=== PATIENT | female | born 1950 | race Caucasian/White ===

== ENCOUNTER 2018-01-16 05:26 | Day surgery (SDC) | payer MEDICARE, SELFPAY ==
[2018-01-10 12:34] LABS: Hematocrit 41.3 % (37-47); Hemoglobin 13.9 g/dl (12.0-15.0); Mean Corp Hgb Conc 33.7 g/gl (32-36); Mean Corpuscular Hgb 29.8 pg (27.0-32.0); Mean Corpuscular Volume 88.6 fL (81-99); Mean Platelet Vol. 9.7 fl (6.2-12.0); Platelet Count 281 K/mm3 (150-450); RBC Distribution Width CV 13.1 % (11.6-14.6); RBC Distribution Width SD 41.9 fl (35.1-43.9); Red Blood Count 4.66 M/mm3 (4.2-5.4); White Blood Count 7.5 K/mm3 (4.4-11.0)
[2018-01-10 12:45] LABS: Scan Indicated on CBC? Y/N NO
[2018-01-10 13:05] LABS: Hemoglobin A1c 7.8 % (4.2-6.3)
[2018-01-10 13:12] LABS: Anion Gap 8 (5-15); BUN 20 mg/dL (7-18); Calcium,Total 9.4 mg/dL (8.5-10.1); Chloride 101 mmol/L (98-107); EST Glomerular Filtration Rate 59 mL/min (>60); Est Glom Filt Rate - Afr Amer 71 mL/min (>60); Glucose 193 mg/dL (74-106); Potassium 3.4 mmol/L (3.5-5.1); Sodium Level 138 mmol/L (136-145); Thyroid Stim Hormone (TSH) 1.99 uIU/mL (0.358-3.74)
--- NOTE | 2018-01-15 22:16 | HP.PCM_ITS ---
- Problem List (1) Endometrial hyperplasia without atypia, simple Status: Acute (2) Uterine fibroid Status: Acute Qualifiers: (3) Personal history of malignant neoplasm of breast Status: Chronic Comment: Z85.3 personal history of right breast cancer History and Physical Date of Admission: 01/15/18 Intake Vital Signs 3 01/06/18 Height 5 ft 8 in 01/06/18 Weight: 194 lb 4 oz 01/06/18 Body Mass Index (BMI) 29.5 Intake Visit Reasons: Pre Op Chief Complaint: Pre-Op Hyst Home Appliances Mechanic Required: No Is patient in pain?: No Allergies levofloxacin [From Levaquin] Allergy (Severe, Verified 01/06/18 09:35) RAISES BLOOD PRESSURE AND STOMACH SWELLS UP AND IS PAINFUL amoxicillin Allergy (Verified 01/06/18 09:35) Other atorvastatin calcium [From Lipitor] Allergy (Verified 01/06/18 09:35) Other cyclobenzaprine Allergy (Verified 01/06/18 09:35) Other estrogens, conjugated [From Premphase] Allergy (Verified 01/06/18 09:35) Other medroxyprogesterone acetate [From Premphase] Allergy (Verified 01/06/18 09:35) Other Penicillins [PCN] Allergy (Verified 01/06/18 09:35) SORE THROAT pravastatin sodium [From Pravachol] Allergy (Verified 01/06/18 09:35) Other risedronate sodium [From Actonel] Allergy (Verified 01/06/18 09:35) Other simvastatin [From Zocor] Allergy (Verified 01/06/18 09:35) Other minocycline Adverse Reaction (Verified 01/06/18 09:35) Nausea/Vom/Diarrhea Medications Aripiprazole [Abilify] 2 mg PO QHS 12/14/14 [History Confirmed 01/06/18] Hydrochlorothiazide [Hctz] 25 mg PO DAILY 12/14/14 [History Confirmed 01/06/18] Levothyroxine [Synthroid] 150 mcg PO DAILY 12/14/14 [History Confirmed 01/06/18] Losartan Potassium [Cozaar] 100 mg PO QHS 12/14/14 [History Confirmed 01/06/18] Metoprolol(XL)Succ [Toprol Xl (Beta Sinai)] 100 mg PO QHS 12/14/14 [History Confirmed 01/06/18] Omeprazole [Prilosec] 40 mg PO BID 12/14/14 [History Confirmed 01/06/18] Sertraline HCl [Zoloft] 100 mg PO QHS 12/14/14 [History Confirmed 01/06/18] Amlodipine [Norvasc] 5 mg PO QHS 04/03/16 [History Confirmed 01/06/18] Ropinirole HCl [Requip] 0.25 mg PO QHS 04/03/16 [History Confirmed 01/06/18] Rosuvastatin Calcium [Crestor] 5 mg PO QHS 04/03/16 [History Confirmed 01/06/18] Anastrozole [Arimidex] 1 mg PO QHS 10/01/16 [History Confirmed 01/06/18] Calcium Carbonate [Calcium] 500 mg PO DAILY 10/01/16 [History Confirmed 01/06/18 ] Cholecalciferol (Vitamin D3) [Vitamin D3] 2,000 unit PO DAILY 10/01/16 [History Confirmed 01/06/18] ranitidine 150 mg tablet 150 mg PO QHS 11/22/17 [History Confirmed 01/06/18] Is last menstrual period known: No Patient : No : No PFSH Medical History Acquired absence of right breast (Acute) Anxiety and depression (Acute) Back pain (Acute) Breast cancer, right breast (Acute) CARDIOLOGY PROCEDURES- INVASIVE: CARDIAC CATH (LEFT) 2004 (Acute) CARDIOLOGY PROCEDURES- NONINVASIVE : (Acute) Chickenpox (Acute) Congenital anomaly of aortic arch (Acute) DISRUPTION RIGHT BREAST RECONSTRUCTION WOUND (Acute) Diabetes (Acute) Disproportion of reconstructed breast (Acute) Diverticulosis (Acute) EXCESS MASTECTOMY TISSUE SCAR CONTOUR DEFOMITY (Acute) Estrogen receptor positive status [ER+] (Acute) GERD (gastroesophageal reflux disease) (Acute) Hand fracture (Acute) Hyperlipidemia (Acute) Hypothyroidism (Acute) IBS (irritable bowel syndrome) (Acute) LEFT VENTRICULAR EJECTION FRACTION: 52% (Acute) Left bundle branch block (Acute) Measles (Acute) Metatarsalgia (Acute) Mumps (Acute) NONHEALING SURGICAL MASTECTOMY WOUND AT T ZONE RIGHT BREAST (Acute) Nonhealing surgical wound (Acute) Osteoporosis (Acute) Other and unspecified mitral valve diseases (Acute) PAINFUL CAPSULAR CONTRACTURE RIGHT BREAST RECONSTRUCTION (Acute) Plantar fascial fibromatosis (Acute) Right thyroid nodule (Acute) Shingles (Acute) Unspecified sleep apnea (Acute) Hypertension (Chronic) Surgical History 2ND STAGE RIGHT BREAST RECONSTRUCTION (Acute) FIRST STAGE IMMEDIATE RIGHT BREAST RECONSTRUCTION (Acute) H/O dilation and curettage (Acute) History of tonsillectomy (Acute) INCISION AND DRAINAGE (Acute) LEFT STEREOTACTIC BREAST BIOPSY (Acute) LEFT WRIST SURGERY (Acute) REVISION RECONSTRUCTED RIGHT BREAST (Acute) REVISION RIGHT BREAST RECONSTRUCTION (Acute) RIGHT FOOT NEUROMA SURGERY (Acute) RIGHT MASTECTOMY AND RIGHT SENTINEL NODE BIOPSY (Acute) RIGHT NEEDLE CORE BREAST BIOPSIES X2 ( 03/07/16) (Acute) SECOND STAGE DELAYED LEFT BREAST RECONSTRUCTION (Acute) 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) polyp removal (Acute) Family History Father Pancreatic cancer Hypertension Mother Diabetes Hypertension Alzheimer disease Brother CAD (coronary artery disease) Brother CAD (coronary artery disease) Sister Breast cancer Social History household members: spouse, other details: MOTHER housing: house current occupational status: other, retired current occupation: [employer] current occupational exposures/hazards: No pets and animals: Yes Smoking Status: Former smoker second hand exposure: No alcohol intake: current alcohol intake frequency: holidays/special occasions only Alcohol type: wine substance use type: does not use what type of physical activity do you participate in: other seatbelt use: always do you feel safe at home: Yes additional social history: SUN EXPOSURE: OCCASIONALLY Seferino HPI Pre Op: Details: ERASTO BUSBY is a 67 year old who presents for preop appointment. she has hyperplasia and isn't a candidate for hormone therapy so planning a TV BSO Female Reproductive History Questions: Metorrhagia: No, Sexually active: Yes, Dyspareunia: No, PCB: No Pregancy History 2 4 Elective abortions Hx Para 3 Spontaneous abortions Hx # Term Pregnancies Ectopic pregnancies Hx # Pregnancies Multiple births # of living children Past Pregnancies Del. Date Name GA/Weeks Outcome Route Bth Weight Gen Labor Lgth Anesthesia Del Locatn Provider FOB Unknown 1973 Sandy Unknown 1974 Benedicto Unknown 1977 Lisa Cortes Constitutional: Denies poor appetite, headache(s), fever(s), increased appetite , weight gain, weight loss or fatigue ENT ENT: Denies dizziness or dry mouth Cardio Card: Denies chest pain Resp Resp: Denies dyspnea or cough GI GI: Reports as per HPI; denies vomiting, nausea, abdominal pain or constipation : Reports as per HPI; denies urinary urgency, vaginal discharge, urinary frequency, vaginal itching, vaginal odor, vaginal dryness, urinary incontinence, urinary hesitancy, pelvic pain, difficulty urinating or painful urination Musc Musc: Denies muscle weakness, joint pain or back pain Skin Skin/Breast: Denies hair loss, change in hair, dry skin, breast pain, breast skin changes or breast lump Neuro Neuro: Denies dizziness Psych Psych: Denies anxiety or depression Endo Endo: Denies cold intolerance, increased thirst, excessive sweating or heat intolerance Anibal/Lymph Hematologic/Lymphatic: Denies easy bleeding, Denies easy bruising, Denies enlarged lymph nodes Exam Const General: cooperative, healthy appearing, comfortable, no acute distress, well developed Nutritional Appearance: average body habitus Orientation: alert [facility] Head: normal to inspection, normocephalic Ears: hearing grossly normal bilaterally, external ears normal Nose: external nose normal, nares normal Face and sinus: normal facial exam Neck Neck: normal visual inspection, trachea midline, no lymphadenopathy Thyroid: thyroid normal Chest Chest palpation & inspection: normal inspection of the chest Resp Effort & Inspection: normal respiratory effort Auscultation: clear to auscultation bilaterally Cardio Rate: regular rate Rhythm: regular rhythm Heart Sounds: S1 normal, S2 normal GI Inspection: normal to inspection, non-distended Palpation: soft, no hepatosplenomegaly General: bladder normal to palpation External Female Exam: normal external appearance, normal appearance of the urethra Urethra: normal appearance of the urethra, normal palpation, no discharge Speculum Exam - Vagina: normal appearance of the vagina, normal vaginal discharge Speculum Exam - Cervix: normal appearance of the cervix, nontender Bimanual Exam- Vagina & Uterus: bladder normal to palpation, No cervical tenderness, normal bimanual exam, normal vaginal palpation, uterine size normal , uterine shape normal, uterine mobility normal, uterine consistency normal, normal cervical palpation, uterus non-tender Bimanual Exam- Adnexa, other: normal adnexae, adnexae mobile, no adnexal masses , pelvic support normal Pelvic Support: normal Musc Cervical Spine: other Other: gross motor intact no deficits, full bilateral strength Skin General: no rashes or lesions noted Neuro General: alert, awake, no focal motor deficits, moves all extremities Motor: muscle tone normal throughout Extrem General: normal to inspection, no pedal edema Psych Appearance: grossly normal Mental Status: mental status grossly normal Affect: normal affect Speech and Movement: speech and movement normal Assessment & Plan Problems 1. 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 Simple endometrial hyperplasia N85.01 Plan recommend TVH BSO if able. discussed surgical risks including risks of anesthesia, infection, bleeding, injury to bowel, bladder or blood vessels, and patient wishes to proceed with surgery. would recommend anticoagulation perioperatively. 01/16/18- patient seen and no clinical updates to kristine Bingham Coding Level of Care Code No Charge Diagnoses Submucous leiomyoma of uterus D25.0 ??Uterine leiomyoma location: submucous Simple endometrial hyperplasia N85.01
[2018-01-16] VITALS (15 sets, daily range): BP systolic 103–139; BP diastolic 58–82; PULSE 70–94; RESP 12–16; TEMP 36.2–36.8; O2SAT 90–97; BMI 30.1; BMI 30.2
[2018-01-16 05:56] LABS: Bedside Glucose 220 mg/dL (70-110)
--- NOTE | 2018-01-16 07:15 | HYST_PTH ---
PATIENT: ERASTO BUSBY [place] [facility] [place][id number] AGE/SX: 67/F ROOM: RE01/16/[address]: Dr. Mi Bingham MD : [id number] BED: DIS: 01/17/2018 SPEC #: [id number] RECD: 01/16/18 12:12 STATUS: ZACKERY CLEMENTE #: [id number] KAILEE: 01/16/18 07:[address]: Mi Bingham DEPT: SURGICAL PATHOLOGY RECD BY: Edison Munoz ENTERED: 01/16/18 13:15 SP TYPE: HYSTERECT OTHR DR: MD Dr. Benedicto Medina MD Tissues: Uterus, NOS Procedures: Surgery Specimen Level V HEADER OPERATION: Hysterectomy, vaginal, total, bilateral salpingo-oophorectomy PRE-OP DIAGNOSIS: Endometrial hyperplasia TISSUE SUBMITTED: Uterus, bilateral tubes and ovaries MICROSCOPIC DIAGNOSIS Uterus, bilateral fallopii tubes and ovaries, vaginal hysterectomy and bilateral salpingo-oophorectomy: Cervix ? mild chronic cystic cervicitis. Endometrium ? atrophic endometrium. Myometrium ? intramural leiomyomas (0.4 and 1.5 cm in diameter). See comment. - Focal adenomyosis. - Focal vascular calcifications. Bilateral fallopian tubes - no pathologic diagnosis. One ovary - no pathologic diagnosis. Second ovary ? mixed simple seromucinous cystadenoma (0.5 cm in greatest dimension). - mesothelial inclusion cysts. ANTONELLA:sara 01/17/18 COMMENT The larger leiomyoma shows focal calcified areas. Please make reference to previous specimen [id number], endometrial curettings with diagnosis of fragments of simple cystic endometrial hyperplasia without atypia. MICROSCOPIC DESCRIPTION Slides are reviewed. GROSS DESCRIPTION Received in fixative is one container labeled with the patient's name and designated uterus, bilateral tubes and ovaries. The specimen consists of a hysterectomy specimen consisting of uterus with cervix and detached bilateral fallopian tubes and ovaries. The uterus with cervix weighs 46 gm and measures 7.5 x 4.5 x 3 cm. The serosal surface is ca, glistening. The ectocervical mucosa is unremarkable. The external os is circular in contour. The endocervical canal measures 3 cm in length and the endocervical mucosa is ca, glistening and unremarkable. The triangular endometrial cavity measures 3.5 cm in length and 2 cm in width. Sections of the uterine wall reveal two intramural nodular masses measuring 0.4 and 1.5 cm in diameter. Sections of these masses reveal ca whorled cut surfaces without areas of hemorrhage, necrosis or cystic degeneration. The larger nodular mass shows focally calcified area. The uninvolved uterine wall measures up to 1.5 cm in thickness. The fallopian tube and ovary are not identified as right or left. One of the fallopian tube measures 5 cm in length and 0.4 cm in diameter. The fimbrial end is identified. Sections reveal unremarkable cut surfaces. The adjacent ovary measures 3 x 1.5 x 0.5 cm. Sections reveal unremarkable cut surfaces. The second fallopian tube is received in two pieces. The distal end with fimbrial end measures 3.5 cm in length and 0.5 cm in diameter. No tubo-ovarian adhesions are noted. The proximal end measures 1 cm in length and 0.4 cm in diameter. The adjacent second ovary measures 3 x 1 x 1 cm. Sections reveal a cyst filled with mucoid material measuring 0.5 cm in greatest dimension. A focal, solid area is also noted measuring 1.5 cm in greatest dimension. Radar Engineering Teacher sections are submitted in 14 cassettes as follows: 1 - anterior cervix, 2 - posterior cervix, 3-5 - anterior uterine wall, 6-8 - posterior uterine wall (cassette 6 also contains the smaller nodular mass, entirely submitted). The endometrium is entirely submitted. 9 ? larger nodular mass, 10 ? one fallopian tube, 11 ? adjacent ovary, 12 ? second fallopian tube, 13 & 14 ? second ovary, entirely submitted. / ANTONELLA:sara 01/16/18 TC:1 CPT: 23174
[2018-01-16] MEDS: Clindamycin 900 MG/50 ML BAG 75 MG IV (07:22)
[2018-01-16] MEDS: Vasopressin 20 UNITS/ML Vial (07:47)
[2018-01-16] MEDS: Ketorolac 30 MG/ML Syringe IV ×3 (08:30→21:50)
--- NOTE | 2018-01-16 08:44 | PCM.OPRPT ---
Problem List (1) Endometrial hyperplasia without atypia, simple Status: Acute (2) Uterine fibroid Status: Acute Qualifiers: (3) Personal history of malignant neoplasm of breast Status: Chronic Comment: Z85.3 personal history of right breast cancer Report of Operation Date of Procedure: 01/16/18 Pre-Operative Diagnosis: endometrial hyperplasia history of breast cancer Post-Operative Diagnosis: Same Surgery/Procedure Performed:: total Vaginal hysterectomy bilateral salpingo-oophorectomy Description of Surgical Findings:: Uterus tubes and ovaries property field adjuster: Etta Espinoza Type of Anesthesia:: General Specimen's removed: uterus tubes ovaries Estimated Blood Loss (mL): 100 Fluids Replaced: crystalloid Description of Procedure: Patient was taken to the operating room and was placed under general anesthesia was prepped and draped in normal sterile fashion in the dorsal lithotomy position. Preoperative antibiotics and SCDs and Hilario catheter was placed inside the bladder. Weighted speculum was placed in the vagina and the anterior and posterior lip of the cervix was grasped with 2 Abad clamps and circumferentially injected with dilute vasopressin. A circumferential incision was made with a scalpel and the posterior cul-de-sac was entered into sharply and a longneck speculum was placed. The anterior cul-de-sac was also dissected down and entered into sharply and the uterosacral ligaments were clamped cut and suture ligated bilaterally followed by the cardinal ligaments which were Clamped cut and suture ligated bilaterally with 0 Monocryl. The uterus serially descended and progressive bites were taken bilaterally up to the level of the utero-ovarian ligament bilaterally which was clamped transected and double ligated with 0 Monocryl suture and 0 Vicryl free tie. Bilateral fallopian tubes and ovaries were well visualized and noted be within normal limits and theywere transected across the base with a robert clamp and removed and sutured with 0 Vicryl suture and an 0 Vicryl free tie. Excellent hemostasis was noted. Posterior peritoneum was reapproximated with 2-0 Vicryl. The vagina was closed with [id number] 0 Vicryl pop offs including the posterior and anterior peritoneum in the reapproximation. Excellent hemostasis was noted. All instruments removed from the vagina clear urine was noted at the end of the procedure and patient was awoken and taken recovery in stable condition. Grafts/Implants Used: none - Complications none
--- NOTE | 2018-01-16 08:47 | OP.PCM_ITS ---
Problem List (1) Endometrial hyperplasia without atypia, simple Status: Acute (2) Uterine fibroid Status: Acute Qualifiers: (3) Personal history of malignant neoplasm of breast Status: Chronic Comment: Z85.3 personal history of right breast cancer Report of Operation Date of Procedure: 01/16/18 Pre-Operative Diagnosis: endometrial hyperplasia history of breast cancer Post-Operative Diagnosis: Same Surgery/Procedure Performed:: total Vaginal hysterectomy bilateral salpingo- oophorectomy Description of Surgical Findings:: Uterus tubes and ovaries office systems technology instructor: Etta Espinoza Type of Anesthesia:: General Specimen's removed: uterus tubes ovaries Estimated Blood Loss (mL): 100 Fluids Replaced: crystalloid Description of Procedure: Patient was taken to the operating room and was placed under general anesthesia was prepped and draped in normal sterile fashion in the dorsal lithotomy position. Preoperative antibiotics and SCDs and Hilario catheter was placed inside the bladder. Weighted speculum was placed in the vagina and the anterior and posterior lip of the cervix was grasped with 2 Abad clamps and circumferentially injected with dilute vasopressin. A circumferential incision was made with a scalpel and the posterior cul-de-sac was entered into sharply and a longneck speculum was placed. The anterior cul-de-sac was also dissected down and entered into sharply and the uterosacral ligaments were clamped cut and suture ligated bilaterally followed by the cardinal ligaments which were Clamped cut and suture ligated bilaterally with 0 Monocryl. The uterus serially descended and progressive bites were taken bilaterally up to the level of the utero-ovarian ligament bilaterally which was clamped transected and double ligated with 0 Monocryl suture and 0 Vicryl free tie. Bilateral fallopian tubes and ovaries were well visualized and noted be within normal limits and theywere transected across the base with a robert clamp and removed and sutured with 0 Vicryl suture and an 0 Vicryl free tie. Excellent hemostasis was noted. Posterior peritoneum was reapproximated with 2-0 Vicryl. The vagina was closed with [id number] 0 Vicryl pop offs including the posterior and anterior peritoneum in the reapproximation. Excellent hemostasis was noted. All instruments removed from the vagina clear urine was noted at the end of the procedure and patient was awoken and taken recovery in stable condition. Grafts/Implants Used: none - Complications none
[2018-01-16 09:11] LABS: Bedside Glucose 253 mg/dL (70-110)
[2018-01-16] MEDS: Lactated Ringers 1,000 ML 125 ML IV ×2 (11:47→18:15)
[2018-01-16 11:55] LABS: Bedside Glucose 277 mg/dL (70-110)
[2018-01-16] MEDS: oxyCODONE 5 MG Tablet PO (13:39)
[2018-01-16] MEDS: LINAGLIPTIN 5 MG TABLET PO (13:40)
[2018-01-16] MEDS: hydroCHLOROthiazide 25 MG Tablet PO (13:40)
[2018-01-16] MEDS: Acetaminophen 500 MG Tablet 1000 MG PO ×2 (13:41→21:49)
[2018-01-16] MEDS: Calcium (Elemental) 500 MG Tablet PO (13:43)
--- NOTE | 2018-01-16 14:22 | NURSING ---
O2 sat. 94% on 3 l/min via NC. Oxygen decreased to 2 l/min.
[2018-01-16 16:50] LABS: Bedside Glucose 264 mg/dL (70-110)
--- NOTE | 2018-01-16 18:30 | NURSING ---
Oxygen saturation 89% on RA. Placed back on oxygen at 2 l/min via NC.
[2018-01-16] MEDS: Losartan Potassium 100 MG Tablet PO (21:49)
[2018-01-16] MEDS: Famotidine 20 MG Tablet PO (21:49)
[2018-01-16] MEDS: Metoprolol(XL)Succ 100 MG Tablet PO (21:49)
[2018-01-16] MEDS: amLODIPine 10 MG Tablet PO (21:49)
[2018-01-16] MEDS: Sertraline 50 MG Tablet 100 MG PO (21:49)
[2018-01-16] MEDS: ARIPiprazole 2 MG Tablet PO (21:49)
[2018-01-16] MEDS: Pramipexole Di-HCl 0.25 MG Tablet PO (21:49)
[2018-01-16] MEDS: Rosuvastatin Calcium 5 MG Tablet PO (22:06)
[2018-01-16] MEDS: Pantoprazole Sodium 40 MG Tablet PO (22:06)
[2018-01-16 22:16] LABS: Bedside Glucose 270 mg/dL (70-110)
[2018-01-17 01:45] VITALS: BP 123/67; PULSE 80; RESP 16; TEMP 36.8; O2SAT 96
[2018-01-17] MEDS: Lactated Ringers 1,000 ML 125 ML IV (02:02)
[2018-01-17] MEDS: Ketorolac 30 MG/ML Syringe IV ×2 (03:31→08:06)
[2018-01-17 06:33] LABS: Hematocrit 32.9 % (37-47); Hemoglobin 11.1 g/dl (12.0-15.0); Mean Corp Hgb Conc 33.7 g/gl (32-36); Mean Corpuscular Hgb 30.2 pg (27.0-32.0); Mean Corpuscular Volume 89.4 fL (81-99); Mean Platelet Vol. 9.5 fl (6.2-12.0); Platelet Count 229 K/mm3 (150-450); RBC Distribution Width CV 13.1 % (11.6-14.6); RBC Distribution Width SD 42.4 fl (35.1-43.9); Red Blood Count 3.68 M/mm3 (4.2-5.4); White Blood Count 8.7 K/mm3 (4.4-11.0)
[2018-01-17 06:39] LABS: Scan Indicated on CBC? Y/N NO
[2018-01-17] MEDS: Acetaminophen 500 MG Tablet 1000 MG PO (06:40)
[2018-01-17] MEDS: Levothyroxine 150 MCG Tablet PO (06:41)
[2018-01-17 06:56] LABS: Bedside Glucose 164 mg/dL (70-110)
[2018-01-17 07:56] VITALS: BP 121/62; PULSE 68; RESP 16; TEMP 36.6; O2SAT 92
[2018-01-17] MEDS: Calcium (Elemental) 500 MG Tablet PO (08:05)
[2018-01-17] MEDS: 0.9% NaCl Peripheral Flush Adult/Peds IV (08:07)
[2018-01-17] MEDS: hydroCHLOROthiazide 25 MG Tablet PO (09:53)
[2018-01-17] MEDS: Enoxaparin 40 MG/0.4 ML Syringe SC (09:53)
[2018-01-17] MEDS: Pantoprazole Sodium 40 MG Tablet PO (09:54)
[2018-01-17] MEDS: LINAGLIPTIN 5 MG TABLET PO (09:54)
--- NOTE | 2018-01-17 09:55 | NURSING ---
O2 sat. 94% on room air.
--- NOTE | 2018-01-17 10:27 | PCM.PN.OB ---
Subjective: doing well pain controlled - Physical Exam General: Alert, Oriented x3 Vital Signs Temp Pulse Resp BP Pulse Ox 97.8 F 68 16 121/62 H 92 01/17/18 07:56 01/17/18 07:56 01/17/18 07:56 01/17/18 07:56 01/17/18 07:56 Oxygen Flow Rate 1 Oxygen Delivery Method Nasal Cannula Weight: 195 lb 1.745 oz Body Mass Index (BMI) 30.2 Finger Stick Blood Glucose 253 Intake and Output for Last 24 Hours 01/15/18 01/16/18 01/17/18 23:59 23:59 23:59 Intake Total 3787 / 3787 1545 / 1545 Output Total 900 / 900 1350 / 1350 Balance 2887 / 2887 195 / 195 Laboratory Tests Past 24 Hrs 01/17/18 06:12 WBC 8.7 RBC 3.68 L Hgb 11.1 L Hct 32.9 L MCV 89.4 MCH 30.2 MCHC 33.7 RDW 13.1 RDW Differential 42.4 Plt Count 229 MPV 9.5 POC Glucose 01/17/18 01/16/18 01/16/18 06:32 22:04 16:43 POC Glucose 164 H 270 H 264 H 01/16/18 11:51 POC Glucose 277 H Assessment/Plan s/p TVHBSO routine care dc home today. discussed elevated blood sugars, call pcp if over 300. lovenox today and then will be ambulating so no further anticoagulation indicated.
--- NOTE | 2018-01-17 10:32 | PCM.DC.VHY ---
Discharge Diet: No Restrictions Discharge Activity: Return to Normal Activity, May Not Drive, May Shower May resume sexual activity in: 6-8 weeks Call your doctor if your incision/area has: Continuous Slow Oozing, Sudden Increased Bleeding, Increased Pain/ Swelling, Increased Redness, Foul Smelling Discharge Call your doctor if you observe: Fever of 101 or Higher, Inability to urinate, Inability to have a bowel movement, Using more than one pad per hour Allergies/Adverse Reactions: Allergies levofloxacin [From Levaquin] Allergy (Severe, Verified 01/06/18 09:35) RAISES BLOOD PRESSURE AND STOMACH SWELLS UP AND IS PAINFUL amoxicillin Allergy (Verified 01/06/18 09:35) Other atorvastatin calcium [From Lipitor] Allergy (Verified 01/06/18 09:35) Other cyclobenzaprine Allergy (Verified 01/06/18 09:35) Other estrogens, conjugated [From Premphase] Allergy (Verified 01/06/18 09:35) Other medroxyprogesterone acetate [From Premphase] Allergy (Verified 01/06/18 09:35) Other Penicillins [PCN] Allergy (Verified 01/06/18 09:35) SORE THROAT pravastatin sodium [From Pravachol] Allergy (Verified 01/06/18 09:35) Other risedronate sodium [From Actonel] Allergy (Verified 01/06/18 09:35) Other simvastatin [From Zocor] Allergy (Verified 01/06/18 09:35) Other minocycline Adverse Reaction (Verified 01/06/18 09:35) Nausea/Vom/Diarrhea Medications to take at Discharge Aripiprazole [Abilify] 2 mg PO QHS 12/14/14 Hydrochlorothiazide [Hctz] 25 mg PO DAILY 12/14/14 Levothyroxine [Synthroid] 150 mcg PO DAILY 12/14/14 Losartan Potassium [Cozaar] 100 mg PO QHS 12/14/14 Metoprolol(XL)Succ [Toprol Xl (Beta Sinai)] 100 mg PO QHS 12/14/14 Omeprazole [Prilosec] 40 mg PO BID 12/14/14 Sertraline HCl [Zoloft] 100 mg PO QHS 12/14/14 Amlodipine [Norvasc] 10 mg PO QHS 04/03/16 Ropinirole HCl [Requip] 0.5 mg PO QHS 04/03/16 Rosuvastatin Calcium [Crestor] 5 mg PO QHS 04/03/16 Anastrozole [Arimidex] 1 mg PO QHS 10/01/16 Calcium Carbonate [Calcium] 500 mg PO DAILY 10/01/16 Cholecalciferol (Vitamin D3) [Vitamin D3] 2,000 unit PO DAILY 10/01/16 ranitidine 150 mg tablet 150 mg PO QHS 11/22/17 Sitagliptin Phosphate [Januvia] 100 mg PO DAILY 01/09/18 Naproxen [Naprosyn] 250 - 500 mg PO Q8H PRN PRN #30 tab 01/17/18 Oxycodone HCl/Acetaminophen [Percocet 5-325] 2 tablet PO Q4H PRN PRN 7 Days #28 tablet 01/17/18 The following prescriptions were given: Oxycodone HCl/Acetaminophen [Percocet 5-325] 2 tablet PO Q4H PRN PRN 7 Days #28 tablet PRN Reason: Moderate-Severe pain Naproxen [Naprosyn] 250 - 500 mg PO Q8H PRN PRN #30 tab PRN Reason: MILD PAIN Primary Care Physician: Sterling Roland MD [Primary Care Provider] - Please Follow Up With: Mi Bingham MD - [phone]
== END 2018-01-17 11:44 | disposition home or self-care (01) ==
LOC: SDC 05:28 → AC 05:28 → SDC 09:00 → MS2 10:16
PROVIDERS: Family Provider Family Medicine; PCP Family Medicine; Visit Provider Obstetrics & Gynecology
PROC: (CPT 58260; principal; 2018-01-16 06:55)
DX: D25.0 Submucous leiomyoma of uterus (principal); D25.1 Intramural leiomyoma of uterus; L72.0 Epidermal cyst; N72 Inflammatory disease of cervix uteri; E11.9 Type 2 diabetes mellitus without complications; F32.9 Major depressive disorder, single episode, unspecified; E78.00 Pure hypercholesterolemia, unspecified; K21.9 Gastro-esophageal reflux disease without esophagitis; I10 Essential (primary) hypertension; N85.01 Benign endometrial hyperplasia; M41.9 Scoliosis, unspecified; I25.10 Atherosclerotic heart disease of native coronary artery without angina pectoris; G25.81 Restless legs syndrome; Z85.3 Personal history of malignant neoplasm of breast; Z86.718 Personal history of other venous thrombosis and embolism; Z79.899 Other long term (current) drug therapy; Z87.891 Personal history of nicotine dependence
CPT/HCPCS: 58262; 36415; 80048; 82962; 83036; 84443; 85027; 86850; 86900; 88307; J7120; A4216; J2405

== ENCOUNTER → 2018-02-27 18:13 | Outpatient (CLI) | payer MEDICARE, SELFPAY | PROVIDERS: Visit Provider Obstetrics & Gynecology | DX: N89.8 Other specified noninflammatory disorders of vagina (principal) | CPT/HCPCS: 87070; 87205 ==

== ENCOUNTER → 2018-04-01 12:38 | Outpatient (CLI) | payer MEDICARE, SELFPAY ==
[2018-04-01 14:31] LABS: Anion Gap 9 (5-15); BUN 22 mg/dL (7-18); BUN/Creat Ratio 20.6 RATIO (10-20); Calcium,Total 9.7 mg/dL (8.5-10.1); Chloride 102 mmol/L (98-107); Creatinine, Serum 1.07 mg/dL (0.55-1.02); EST Glomerular Filtration Rate 55 mL/min (>60); Est Glom Filt Rate - Afr Amer 66 mL/min (>60); Glucose 129 mg/dL (74-106); Magnesium 2.2 mg/dL (1.6-2.6); Potassium 3.8 mmol/L (3.5-5.1); Sodium Level 140 mmol/L (136-145)
[2018-04-01 20:36] LABS: Hematocrit 41.6 % (37-47); Hemoglobin 14.2 g/dl (12.0-15.0); Mean Corp Hgb Conc 34.1 g/gl (32-36); Mean Corpuscular Hgb 30.4 pg (27.0-32.0); Mean Corpuscular Volume 89.1 fL (81-99); Mean Platelet Vol. 10.7 fl (6.2-12.0); Platelet Count 296 K/mm3 (150-450); RBC Distribution Width CV 13.6 % (11.6-14.6); RBC Distribution Width SD 43.9 fl (35.1-43.9); Red Blood Count 4.67 M/mm3 (4.2-5.4); White Blood Count 8.1 K/mm3 (4.4-11.0)
[2018-04-01 20:38] LABS: Scan Indicated on CBC? Y/N NO
== END ==
PROVIDERS: Family Provider Family Medicine; PCP Family Medicine; Visit Provider Family Medicine
DX: E03.9 Hypothyroidism, unspecified (principal); I10 Essential (primary) hypertension; R00.1 Bradycardia, unspecified
CPT/HCPCS: 36415; 80048; 83735; 84443; 85027

== ENCOUNTER → 2018-05-19 14:09 | Outpatient (CLI) | payer MEDICARE, SELFPAY ==
[2018-05-19 15:28] LABS: Hemoglobin 13.6 g/dl (12.0-15.0); Mean Corpuscular Hgb 29.9 pg (27.0-32.0); Mean Corpuscular Volume 87.9 fL (81-99); Mean Platelet Vol. 10.1 fl (6.2-12.0); Platelet Count 302 K/mm3 (150-450); RBC Distribution Width SD 41.6 fl (35.1-43.9); Red Blood Count 4.55 M/mm3 (4.2-5.4); White Blood Count 7.7 K/mm3 (4.4-11.0)
[2018-05-19 15:32] LABS: Scan Indicated on CBC? Y/N NO
[2018-05-19 15:49] LABS: Anion Gap 9 (5-15); BUN 21 mg/dL (7-18); BUN/Creat Ratio 22.9 RATIO (10-20); Calcium,Total 9.4 mg/dL (8.5-10.1); Chloride 102 mmol/L (98-107); Creatinine, Serum 0.92 mg/dL (0.55-1.02); EST Glomerular Filtration Rate 65 mL/min (>60); Est Glom Filt Rate - Afr Amer 79 mL/min (>60); Glucose 99 mg/dL (74-106); Potassium 3.6 mmol/L (3.5-5.1); Sodium Level 138 mmol/L (136-145); T4 Free Direct 2.06 ng/dL (0.76-1.46); Thyroid Stim Hormone (TSH) 0.09 uIU/mL (0.358-3.74)
== END ==
PROVIDERS: Visit Provider Family Medicine
DX: I10 Essential (primary) hypertension (principal); E03.9 Hypothyroidism, unspecified
CPT/HCPCS: 36415; 80048; 84439; 84443; 85027

== ENCOUNTER → 2018-07-02 12:43 | Outpatient (CLI) | payer MEDICARE, SELFPAY | PROVIDERS: Family Provider Family Medicine; PCP Family Medicine; Visit Provider Nurse Practitioner | DX: Z12.31 Encounter for screening mammogram for malignant neoplasm of breast (principal); C50.811 Malignant neoplasm of overlapping sites of right female breast; Z17.0 Estrogen receptor positive status [ER+] | CPT/HCPCS: 77061; 77063; 77067; G0279 ==

== ENCOUNTER → 2018-07-22 10:59 | Outpatient (CLI) | payer MEDICARE, SELFPAY ==
--- NOTE | 2018-07-23 | BRBX_PTH ---
PATIENT: ERASTO BUSBY LOC: [facility] U#:[id number] AGE/SX: 75/F ROOM: RE07/22/[address]: Dr. Edison Puga MD : 1950 BED: DIS: SPEC #: [id number] RECD: 07/23/18 13:41 STATUS: ZACKERY REJaylene #: [id number] KAILEE: 07/23/18 00:[address]: Edison Puga DEPT: SURGICAL PATHOLOGY RECD BY: Salomón Peters ENTERED: 07/23/18 13:42 SP TYPE: BREAST BX OTHR DR: Dr. Benedicto Roland MD Tissues: A - Left breast, NOS B - Left breast, NOS Procedures: Surgery Specimen Level IV Comments: Specimen received unlabeled 07/22/18. Returned to wrong office. One day delay. 07/23/18 RG HEADER OPERATION: Left breast stereotactic biopsy PRE-OP DIAGNOSIS: Left breast calcifications TISSUE SUBMITTED: A ? Left breast core tissue #1, B - Left breast core tissue #2 ISCHEMIC TIME: 2 minutes MICROSCOPIC DIAGNOSIS A. Left breast core tissue #1, stereotactic core biopsy: Fatty breast tissue with focal fat necrosis and focal minimal dystrophic calcifications. Negative for atypia or malignancy. B. Left breast core tissue #2, stereotactic core biopsy: Fatty breast tissue with focal fat necrosis, chronic inflammation, histiocytic reaction and dystrophic calcifications. Negative for atypia or malignancy. See comment. ANTONELLA:sara 07/24/18 COMMENT Please make reference to previous specimen ([id number]) left breast tissue with diagnosis of benign breast tissue with focal fibroadenoma. MICROSCOPIC DESCRIPTION Slides are reviewed. GROSS DESCRIPTION A - Received in fixative is one container labeled with the patient's name and designated medial first. The specimen consists of multiple irregular and elongated fragments of yellow-ca soft tissue that in aggregate measure 5.5 x 3.5 x 0.2 cm. The specimen is totally submitted in two cassettes. B - Received in fixative is one container labeled with the patient's name and designated second. The specimen consists of multiple irregular and elongated fragments of yellow-ca soft tissue that in aggregate measure 5.5 x 3.5 x 0.2 cm. The specimen is totally submitted in two cassettes. / CRISTAL:sara 07/23/18 TC:5 CPT: 76787 x2
--- NOTE | 2018-07-23 11:15 | PCM.OPRPT ---
Report of Operation Date of Procedure: 07/22/18 Pre-Operative Diagnosis: left breast microcalcifications x 2 Post-Operative Diagnosis: left breast microcalcifications x 2 - successful biopsy Surgery/Procedure Performed:: left stereotactic guided mammotome biopsy with specimen radiogram and marker placement x 2 studio technician video operator: None Type of Anesthesia:: Local Specimen's removed: left breast - inferior and superior Description of Procedure: The patient was brought to the stereotactic suite and informed of the plan course of events. The left breast was positioned in the true medial to lateral position on the [place] stereotactic table. The lower/caudal lesion was approached first Mammographic image demonstrated the area of abnormality to be located in the center of the radiograph. Stereotactic images were then obtained which demonstrated good positioning of the abnormality for biopsy with good stroke julio parameters. The breast was cleaned with Betadine area did one percent lidocaine was used to anesthetize the skin and a small stab incision made. An 8-gauge mammotome needle was placed into the pre-fire position. Stereotactic images demonstrated good positioning around the planned biopsy site. Local anesthetic injected deeply in the breast. The needle was deployed. Post deployment images demonstrated good positioning of the planned biopsy site. Multiple vacuum-assisted samples were obtained and hfhzgm-[id number]-[id number] fashion. Specimen radiograph demonstrated micro-calcifications in the sample. A bowtie shaped gel marker clip was deployed. Post biopsy images demonstrated good position of the clip relative the biopsy cavity. The breast was removed from compression. Steri-Strips and a dressing applied. The upper/cranial lesion was approached second Mammographic image demonstrated the area of abnormality to be located in the center of the radiograph. Stereotactic images were then obtained which demonstrated good positioning of the abnormality for biopsy with good stroke julio parameters. The breast was cleaned with Betadine area did one percent lidocaine was used to anesthetize the skin and a small stab incision made. An 8-gauge mammotome needle was placed into the pre-fire position. Stereotactic images demonstrated good positioning around the planned biopsy site. Local anesthetic injected deeply in the breast. The needle was deployed. Post deployment images demonstrated good positioning of the planned biopsy site. Multiple vacuum-assisted samples were obtained and veylcn-dih-qdkwj fashion. Specimen radiograph demonstrated micro-calcifications in the sample. A bone shaped gel marker clip was deployed. Post biopsy images demonstrated good position of the clip relative the biopsy cavity. The breast was removed from compression. Steri-Strips and a dressing applied. A Post procedure mammogram images were obtained.
== END ==
PROVIDERS: Family Provider Family Medicine; PCP Family Medicine; Visit Provider Surgery
DX: N64.1 Fat necrosis of breast (principal); F41.9 Anxiety disorder, unspecified; Q25.40 Congenital malformation of aorta unspecified; F32.9 Major depressive disorder, single episode, unspecified; E11.9 Type 2 diabetes mellitus without complications; K21.9 Gastro-esophageal reflux disease without esophagitis; E78.5 Hyperlipidemia, unspecified; I10 Essential (primary) hypertension; E03.9 Hypothyroidism, unspecified; K58.9 Irritable bowel syndrome, unspecified; M81.0 Age-related osteoporosis without current pathological fracture; G47.30 Sleep apnea, unspecified; Z85.3 Personal history of malignant neoplasm of breast; Z87.19 Personal history of other diseases of the digestive system; Z90.11 Acquired absence of right breast and nipple; Z79.84 Long term (current) use of oral hypoglycemic drugs; Z79.899 Other long term (current) drug therapy; Z87.891 Personal history of nicotine dependence
CPT/HCPCS: 19081; 19082; 88305; J7050; A4648

== ENCOUNTER → 2018-08-19 13:59 | Outpatient (CLI) | payer MEDICARE, SELFPAY ==
[2018-08-19 16:21] LABS: ALB/GLOB Ratio 0.9 RATIO (0.9-2.4); AST(SGOT) 15 U/L (15-37); Alanine Aminotransfer ALT/SGPT 28 U/L (13-56); Albumin, Serum 3.7 g/dL (3.2-5.0); Alkaline Phosphatase 107 U/L (45-117); Anion Gap 9 (5-15); BUN 19 mg/dL (7-18); BUN/Creat Ratio 20.4 RATIO (10-20); Calcium,Total 9.6 mg/dL (8.5-10.1); Chloride 103 mmol/L (98-107); Creatinine, Serum 0.93 mg/dL (0.55-1.02); EST Glomerular Filtration Rate 64 mL/min (>60); Est Glom Filt Rate - Afr Amer 77 mL/min (>60); Globulin 3.9 g/dL (2.2-4.2); Glucose 194 mg/dL (74-106); Potassium 3.4 mmol/L (3.5-5.1); Protein, Total 7.6 g/dL (6.4-8.2); Sodium Level 139 mmol/L (136-145); T4 Free Direct 1.49 ng/dL (0.76-1.46)
== END ==
PROVIDERS: Family Provider Family Medicine; PCP Family Medicine; Visit Provider Family Medicine
DX: E11.9 Type 2 diabetes mellitus without complications (principal); E03.9 Hypothyroidism, unspecified; E55.9 Vitamin D deficiency, unspecified
CPT/HCPCS: 36415; 80053; 82306; 84439; 84443

== ENCOUNTER → 2018-12-05 16:04 | Outpatient (CLI) | payer MEDICARE, SELFPAY ==
[2018-12-03 09:36] VITALS: BMI 29.8
--- NOTE | 2018-12-05 16:06 | US_ITS ---
STUDY: ULTRASOUND BREAST - RIGHT REASON FOR EXAM: Female, 68 years old. Deformity of the right breast implant. TECHNIQUE: Axial and longitudinal images of the RIGHT breast were performed with a high resolution ultrasound transducer. COMPARISON: Comparison is made with prior mammogram dated July 02, 2018. Comparison is also made to prior sonogram of the right breast dated February 22, 2016. FINDINGS: RIGHT Breast: A breast implant is seen. There is evidence of a undulation along the peripheral aspect of the breast implant more prominent in the upper outer quadrant of the breast. US/Breast Complete Unilateral IMPRESSION: Undulation of the contour of the breast implant. ASSESSMENT CATEGORY: BIRADS Category 2: Benign. A letter regarding these results will be sent to the patient by the facility within 30 days. Electronically Signed: Carlos Romero MD at 12:30 EST Tel [phone], Service support ,
--- NOTE | 2018-12-05 16:45 | MRI_ITS ---
STUDY: MRI LUMBAR SPINE WITHOUT CONTRAST REASON FOR EXAM: Female, 68 years old. Back and left leg pain TECHNIQUE: Standardized fat and water weighted pulse sequences were obtained in the sagittal and axial planes. COMPARISON: May 31, 2015 FINDINGS: T12-L1: Normal endplates. Normal disc height, hydration and morphology. Normal bilateral facet joints. Normal central canal and bilateral lateral recesses. Normal bilateral intervertebral neural foramina. Normal lumbar lordosis. Moderate dextroconvex scoliosis. Normal conus medullaris that terminates at the L1 level. L1-2: Normal endplates. Normal disc height, hydration and morphology. Normal bilateral facet joints. Normal central canal and bilateral lateral recesses. Normal bilateral intervertebral neural foramina. L2-3: Normal endplates. Mild circumferential annular bulge. Normal disc height, hydration and morphology. Normal bilateral facet joints. Normal central canal and bilateral lateral recesses. Normal bilateral intervertebral neural foramina. L3-4: Moderate left paracentral disc protrusion the patient. Lateral recess and neural foramen. Moderate narrowing of the neural foramina bilaterally. Trefoil type narrowing of the thecal sac. L4-5: Normal endplates. Normal disc height, hydration and morphology. Normal bilateral facet joints. Normal central canal and bilateral lateral recesses. Moderately severe narrowing, right greater than left intervertebral neural foramina. L5-S1: Normal endplates. Normal disc height, hydration and morphology. Normal bilateral facet joints. Normal central canal and bilateral lateral recesses. Moderate narrowing of the right intervertebral neural foramina. Normal visualized sacral ala. Normal visualized paraspinous soft tissue structures. MRI/Spine Lumbar (Routine) IMPRESSION: Moderate left paracentral disc protrusion at L3-L4 effacing the lateral recess and probably impinging the nerve roots. Moderate scoliosis and multilevel neural foraminal narrowing as above. Electronically Signed: Kolby Michel MD at 23:19 EST , Service support ,
--- OUTSIDE RECORDS SUMMARY | 2019-02-09 07:27 | XMS RPT_ITS ---
:1950 Author Organization [facility] Support Name Relationship Address Phone R Unavailable Unavailable Unavailable SOEMISRENETTA, SEFERINO Unavailable [address] + [place] [address] LILIANE TUCKER Unavailable [address] + [place] [address] R Unavailable Unavailable Unavailable SOMEHRDAD, SEFERINO Unavailable [address] + [place] [address] SWEETSERLILIANE SOLOMON Unavailable [address] + [place] [address] R Unavailable Unavailable Unavailable SOMEHRDAD, SEFERINO Unavailable [address] + [place] [address] SWEETSERLILIANE SOLOMON Unavailable [address] + [place] [address] R Unavailable Unavailable Unavailable QI, SEFERINO Unavailable [address] + [place] [address] LILIANE TUCKER Unavailable [address] + [place] [address] R Unavailable Unavailable Unavailable QI, SEFERINO Unavailable [address] + [place] [address] LILIANE TUCKER Unavailable [address] + [place] [address] R Unavailable Unavailable Unavailable NANCICH, SEFERINO Unavailable [address] + [place] [address] LILIANE TUCKER Unavailable [address] + [place] [address] R Unavailable Unavailable Unavailable QI, SEFERINO Unavailable [address] + [place] [address] LILIANE TUCKER Unavailable [address] + [place] [address] R Unavailable Unavailable Unavailable SOEMISCH, SEFERINO Unavailable [address] + [place] [address] TOANPRINCESSSALLY DUARTEELLE Unavailable [address] + [place] [address] R Unavailable Unavailable Unavailable SOEMISCH, SEFERINO Unavailable [address] + [place] [address] CAITLIN LILIANE Un[address] + [place] [address] R Unavailable Unavailable Unavailable SOEMISCH, SEFERINO Unavailable [address] + [place] [address] GINOSALLY DUARTEELLE Unavailable [address] + [place] [address] R Unavailable Unavailable Unavailable SOEMISCH, SEFERINO Unavailable [address] + [place] [address] CAITLIN LILIANE Unavailable [address] + [place] [address] R Unavailable Unavailable Unavailable SOEMISCH, SEFERINO Unavailable [address] + [place] [address] GINOSALLY DUARTEELLE Unavailable [address] + [place] [address] R Unavailable Unavailable Unavailable SOEMISCH, SEFERINO Unavailable [address] + [place] [address] CAITLIN LILIANE Unavailable [address] + [place] [address] R Unavailable Unavailable Unavailable SOEMISCH, SEFERINO Unavailable [address] + [place] [address] GINOSALLY DUARTEELLE Unavailable [address] + [place] [address] R Unavailable Unavailable Unavailable SOEMISCH, SEFERINO Unavailable [address] + [place] [address] CAITLIN LILIANE Unavailable [address] + [place] [address] R Unavailable Unavailable Unavailable SOEMISCH, SEFERINO Unavailable [address] + [place] [address] LILIANE TUCKER Unavailable [address] + [place] [address] Care Team Providers Name Role Phone JULISSA HASSAN (SENIOR LIBRARIAN) Attending Unavailable SEFERINO GALLEGOS Referring Unavailable TODDMIRLANDE PICKENS Attending Unavailable JULISSA HASSAN (SENIOR LIBRARIAN) Referring Unavailable TODD, MIRLANDE Montero Attending Unavailable KAITLIN ROLAND Referring Unavailable JULISSA HASSAN (SENIOR LIBRARIAN) Attending Unavailable SEFERINO GALLEGOS Referring Unavailable MIRLANDE BROOKS Admitting Unavailable TODD, MIRLANDE Montero Attending Unavailable TODD MIRLANDE T Referring Unavailable NIDIA DEMARCO (PA) Attending Unavailable RANNEYDACIAER B Referring Unavailable Slaby, Nir Attending Unavailable Ranney, Christopher Referring Unavailable SlabyNir Attending Unavailable Nir Pedroza Referring Unavailable Ranney, Christopher Primary Care Unavailable Nir Pedroza Consulting Unavailable Shelby Rowe CRYSTAL LAPPER-C Consulting Unavailable Mi Bingham Attending Unavailable MarcanthonyMi Referring Unavailable Ranney, Christopher Primary Care Unavailable Darell Cox Consulting Unavailable Marcanthony, Mi Attending Unavailable Ranney, Christopher Referring Unavailable Ranney, Christopher Primary Care Unavailable Christinaony, Mi Attending Unavailable Marcanthony, Mi Referring Unavailable Ranney, Christopher Primary Care Unavailable Darell Cox Consulting Unavailable Marcanthony, Mi Consulting Unavailable Marcanthony, Mi Attending Unavailable MarcanthonyMi Referring Unavailable Ranney, Christopher Primary Care Unavailable Kenny Darell Consulting Unavailable Marcanthony, Mi Consulting Unavailable MarcanthonyMi Attending Unavailable Ranney, Christopher Referring Unavailable Ranney, Christopher Primary Care Unavailable ChristinaonyMi Attending Unavailable Ranney, Christopher Referring Unavailable Ranney, Christopher Primary Care Unavailable Otilia, Mi Attending Unavailable ChristinaonyMi Referring Unavailable SlabyNir Attending Unavailable Ranney, Christopher Referring Unavailable Ranney, Christopher Primary Care Unavailable Ranney Christclaudiaer Attending Unavailable Ranney, Christopher Referring Unavailable Ranney, Christopher Primary Care Unavailable Ranney, Christclaudiaer Attending Unavailable Julissa Hassan [employer]STAL [employer]-C Attending Unavailable Julissa Hassan CRYSTAL LAPPER-C Referring Unavailable Ranney, Christopher Primary Care Unavailable Mirlande Brooks Attending Unavailable Ranney, Christopher Primary Care Unavailable Kaitlin Roland Attending [facility]available [facility] Unavailable Nir Pedroza Attending Unavailable Kaitlin Roland Referring Unavailable Kaitlin Roland Primary Care Unavailable PROBLEMS PROBLEMS DATE TYPE CONDITION / CODE ATTENDING STATUS SOURCE 08/12/2018 Active Gastro-esophageal MIRLANDE BROOKS Active [facility] reflux [facility] without esophagitis [place] / K21.9(ICD-10) Repository 07/02/2018 Unknown Z12.31 - Encounter Julissa Hassan Active [facility] for screening [facility]STAL [employer] [facility] mammogram for Hospital malignant neoplasm Repository of breast / Z12.31(ICD-10) 04/01/2018 Unknown E03.9 - Rankeith, Active [facility] Hypothyroidism, [facility] unspecified / Hospital E03.9(ICD-10) Repository 04/01/2018 Unknown I10 - Essential Rankeiht, Active [facility] (primary) [facility] hypertension / Hospital I10(ICD-10) Repository 04/01/2018 Unknown R00.1 - Bradycardia, Luan, Active [facility] unspecified / [facility] R00.1(ICD-10) Hospital Repository 02/28/2018 Unknown N89.8 - Other Marcanthony, Active [facility] specified [facility] noninflammatory Hospital disorders of vagina Repository / N89.8(ICD-10) 01/27/2018 Unknown Z48.89 - Encounter Marcanthony, Active [facility] for other specified [facility] surgical aftercare / Hospital Z48.89(ICD-10) Repository 01/17/2018 Unknown G89.18 - Other acute Marcanthony, Active [facility] postprocedural pain [facility] / G89.18(ICD-10) Hospital Repository 01/08/2018 Active Unknown / JULISSA HASSAN Active [facility] UNK(Unknown) (SENIOR LIBRARIAN) Clinic Main [place] Repository 11/04/2017 Unknown Z09 - Encounter for Nir Pedroza Active [facility] follow-up Community examination after Hospital completed treatment Repository for conditions other than malignant neoplasm / Z09(ICD-10) PROCEDURES PROCEDURES No Procedure Records FoundRESULTS RESULTS PLASTIC SURGERY Observed: 12/09/2018 Status: F Source: [facility] VISIT REPORT 8:56 AM [facility] [address] [place] [address] OFFICE VISIT Date of Service: 12/03/18 MR#: [id number] Acct: [id number] Name: JACQUELIN LIMA Rep #: [id number] : 1950 Provider: Nir Pedroza MD Age/Sex: 68/F Location: 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 Accompanied by: None Is patient in pain?: Yes (LEFT AXILLA PAIN SORE) Pain scale (1-10): 7 Allergies levofloxacin [From Levaquin] Allergy (Severe, Verified 12/03/18 09:54) RAISES BLOOD PRESSURE AND STOMACH SWELLS UP AND IS PAINFUL amoxicillin Allergy (Verified 12/03/18 09:54) Other atorvastatin calcium [From Lipitor] Allergy (Verified 12/03/18 09:54) Other cyclobenzaprine Allergy (Verified 12/03/18 09:54) Other estrogens, conjugated [From Premphase] Allergy (Verified 12/03/18 09:54) Other medroxyprogesterone acetate [From Premphase] Allergy (Verified 12/03/18 09:54) Other Penicillins [PCN] Allergy (Verified 12/03/18 09:54) SORE THROAT pravastatin sodium [From Pravachol] Allergy (Verified 12/03/18 09:54) Other risedronate sodium [From Actonel] Allergy (Verified 12/03/18 09:54) Other simvastatin [From Zocor] Allergy (Verified 12/03/18 09:54) Other minocycline Adverse Reaction (Verified 12/03/18 09:54) Nausea/Vom/Diarrhea Medications Aripiprazole [Abilify] 2 mg PO QHS 12/14/14 [History Confirmed 02/27/18] Hydrochlorothiazide [Hctz] 25 mg PO DAILY 12/14/14 [History Confirmed 02/27/18] Levothyroxine [Synthroid] 150 mcg PO DAILY 12/14/14 [History Confirmed 02/27/18] Losartan Potassium [Cozaar] 100 mg PO QHS 12/14/14 [History Confirmed 02/27/18] Metoprolol(XL)Succ [Toprol Xl (Beta Sinai)] 100 mg PO QHS 12/14/14 [History Confirmed 02/27/18] Omeprazole [Prilosec] 40 mg PO BID 12/14/14 [History Confirmed 02/27/18] Sertraline HCl [Zoloft] 100 mg PO QHS 12/14/14 [History Confirmed 02/27/18] Amlodipine [Norvasc] 10 mg PO QHS 04/03/16 [History Confirmed 02/27/18] Ropinirole HCl [Requip] 0.5 mg PO QHS 04/03/16 [History Confirmed 02/27/18] Rosuvastatin Calcium [Crestor] 5 mg PO QHS 04/03/16 [History Confirmed 02/27/18] Anastrozole [Arimidex] 1 mg PO QHS 10/01/16 [History Confirmed 02/27/18] Calcium Carbonate [Calcium] 500 mg PO DAILY 10/01/16 [History Confirmed 02/27/18] Cholecalciferol (Vitamin D3) [Vitamin D3] 2,000 unit PO DAILY 10/01/16 [History Confirmed 02/27/18] ranitidine 150 mg tablet 150 mg PO QHS 11/22/17 [History Confirmed 02/27/18] Sitagliptin Phosphate [Januvia] 100 mg PO DAILY 01/09/18 [History Confirmed 02/27/18] Naproxen [Naprosyn] 250 - 500 mg PO Q8H PRN PRN #30 tab 01/17/18 [Rx Confirmed 02/27/18] Oxycodone HCl/Acetaminophen [Percocet 5-325] 2 tab PO Q4H PRN PRN 7 Days #28 tab 01/17/18 [Rx Confirmed 02/27/18] Is last menstrual period known: No Post menopausal: Yes Patient : No PFSH Medical History Acquired absence of right breast (Acute) Anxiety and depression (Acute) Back pain (Acute) Breast cancer, right breast (Acute) CARDIOLOGY PROCEDURES- INVASIVE: CARDIAC CATH (LEFT) 2004 (Acute) CARDIOLOGY PROCEDURES- NONINVASIVE : (Acute) Chickenpox (Acute) Congenital anomaly of aortic arch (Acute) DISRUPTION RIGHT BREAST RECONSTRUCTION WOUND (Acute) Diabetes (Acute) Disproportion of reconstructed breast (Acute) Diverticulosis (Acute) EXCESS MASTECTOMY TISSUE SCAR CONTOUR DEFOMITY (Acute) Estrogen receptor positive status [ER+] (Acute) GERD (gastroesophageal reflux disease) (Acute) Hand fracture (Acute) Hyperlipidemia (Acute) Hypothyroidism (Acute) IBS (irritable bowel syndrome) (Acute) LEFT VENTRICULAR EJECTION FRACTION: 52% (Acute) Left bundle branch block (Acute) Measles (Acute) Metatarsalgia (Acute) Mumps (Acute) NONHEALING SURGICAL MASTECTOMY WOUND AT T ZONE RIGHT BREAST (Acute) Nonhealing surgical wound (Acute) Osteoporosis (Acute) Other and unspecified mitral valve diseases (Acute) PAINFUL CAPSULAR CONTRACTURE RIGHT BREAST RECONSTRUCTION (Acute) Plantar fascial fibromatosis (Acute) Right thyroid nodule (Acute) Shingles (Acute) Unspecified sleep apnea (Acute) Hypertension (Chronic) Surgical History 2ND STAGE RIGHT BREAST RECONSTRUCTION (Acute) FIRST STAGE IMMEDIATE RIGHT BREAST RECONSTRUCTION (Acute) H/O dilation and curettage (Acute) History of tonsillectomy (Acute) INCISION AND DRAINAGE (Acute) LAVH-BSO (Acute) LEFT STEREOTACTIC BREAST BIOPSY (Acute) LEFT WRIST SURGERY (Acute) REVISION RECONSTRUCTED RIGHT BREAST (Acute) REVISION RIGHT BREAST RECONSTRUCTION (Acute) RIGHT FOOT NEUROMA SURGERY (Acute) RIGHT MASTECTOMY AND RIGHT SENTINEL NODE BIOPSY (Acute) RIGHT NEEDLE CORE BREAST BIOPSIES X2 ( 03/07/16) (Acute) SECOND STAGE DELAYED LEFT BREAST RECONSTRUCTION (Acute) 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) polyp removal (Acute) Family History Father Pancreatic cancer Hypertension Mother Diabetes Hypertension Alzheimer disease Brother CAD (coronary artery disease) Brother CAD (coronary artery disease) Sister Breast cancer Social History household members: spouse, other details: MOTHER housing: house current occupational status: other, retired current occupation: [employer] current occupational exposures/hazards: No pets and animals: Yes Smoking Status: Former smoker second hand exposure: No alcohol intake: current alcohol intake frequency: holidays/special occasions only Alcohol type: wine substance use type: does not use what type of physical activity do you participate in: other seatbelt use: always do you feel safe at home: Yes additional social history: SUN EXPOSURE: OCCASIONALLY Seferino HPI evaluation right breast dimpling: Details: HISTORY OF PRESENT ILLNESS 68 year old woman presents for evaluation of her breast reconstruction. She has concerns on the superolateral aspect of the right breast, there is some wrinkling and dimpling of the skin. She denies any trauma. She denies any fever. She denies any pain. She denies any drainage. She states that she has started to work out, which includes upper body weights. Besides the wrinkling on the superolateral aspect of the right breast reconstruction, she has also noticed her right breast has lowered a little bit with some asymmetry of the inframammary fold as compared to the left. She presents at this time for further evaluation and treatment. She states her soft tissue mass left forehead by eyebrow is stable and unchanged and without complaints at this time. REVIEW OF SYSTEMS General - Denies fever, fatigue and weight loss. Eyes - Denies eye pain. ENT - Denies nasal congestion and sore throat. CV - Denies chest pain or discomfort, fatigue, lightheadedness and shortness of breath with exertion. Resp - Denies cough and shortness of breath. patient is a former smoker. GI - Denies nausea, vomiting, diarrhea and constipation. - Denies blood in urine and urinary frequency. MS - Complains of back pain. Denies joint pain, stiffness, muscle weakness and arthritis. She is complaining of left axillary pain with arm movement. Derm - Denies skin cancer. Has a soft tissue mass left forehead by eyebrow that is stable. Neuro - Denies poor balance and headaches. Psych - Complains of anxiety and depression. Endo - Denies excessive urination and excessive thirst. has history of right breast multifocal cancer. Has wrinkling of superolateral aspect right breast reconstruction with some lowering of the inframammary fold. Heme - Denies bleeding and abnormal bruising. PHYSICAL EXAMINATION General - well developed, well nourished, in no acute distress. Bra size was 38 D prior to her breast cancer. Head - normocephalic and atraumatic. On the left forehead by the eyebrow in the mid aspect is a soft tissue mass that measures 1.1 cm. Unchanged. Slightly firm. Mobile. Not adherent to the underlying bone. No ulceration. Lesion is nontender. Eyes - PERRL/EOM intact, conjunctiva and sclera clear. Throat is clear. Neck - no masses, thyromegaly, or abnormal cervical nodes. No suspicious lesions noted. Breasts - Breasts are soft and symmetrical in a bra. Without the bra, there is some wrinkling and dimpling of the superolateral aspect right breast reconstruction. Implant is palpable. There is some lowering of the inframammary fold, about 1 cm causing asymmetry with the left breast. This has led to some superior pole flattening on the right. When the right breast is pushed up to even out the inframammary fold, the wrinkling diminishes and the superior pole flattening diminishes. No axillary adenopathy. No breast masses palpable. Lungs - clear bilaterally to auscultation. Heart - Regular rate and rhythm. Abdomen - normal bowel sounds; no hepatosplenomegaly no ventral,umbilical hernias or masses noted. Some redundant skin and subcutaneous tissue noted from the umbilicus to the pubic area. Horizontal scar in the pubic area. Slight skin overhang in the pubic area. Pretty good skin elasticity. Pulses - pulses normal in all 4 extremities. Extremities - no clubbing, cyanosis, edema, or deformity noted with normal full range of motion of all joints. Neurologic - cranial nerves II-XII grossly intact with normal sensation, reflexes, coordination, muscle strength and tone. Skin - no rashes. Cervical Nodes - no significant adenopathy. Axillary Nodes - no significant adenopathy. Psych - alert and cooperative; normal mood and affect; normal attention span and concentration. ASSESSMENT 1. Deformity right breast reconstruction with wrinkling of implant superolateral aspect. 2. Asymmetric lowered inframammary fold right breast reconstruction. 3. Personal history of right breast cancer. 4. Bilateral breast reconstruction implant status. 5. Acquired absence right breast. 6. Family history of breast cancer. 7. ER positive status. 8. Former smoker. 9. 1.1 cm soft tissue mass left forehead by eyebrow, stable. PLAN Patient presents for further evaluation of her breast reconstruction with concern for wrinkling and dimpling of the superolateral aspect right breast. There is some associated flattening of the superior pole which is exacerbated by the asymmetric lowered inframammary fold. The lowered inframammary fold also accentuates the wrinkling as well. When the breast is pushed up so the inframammary folds are symmetrical, the superior pole flattening diminishes and the wrinkling on the superolateral aspect diminishes. She had a unilateral mammogram of her left breast 07/02/18 and then had stereotactic core biopsy of her left breast 07/23/18. The biopsy was negative for atypia or malignancy. Will order an ultrasound of her right breast to evaluate her implant. Depending on the results of the ultrasound, she may require an MRI. It appears as if the breast pocket has enlarged and the inferolateral acellular dermal matrix graft sling has lowered as well. Sometimes the weight of the implant can push down and enlarge the pocket. Especially 750 ml cohesive gel implants which are heavy. Recommend revision of her right breast reconstruction which entails making the breast pocket smaller and tightening and re-enforcing the inferolateral sling with additional acellular dermal matrix graft. Will stabilize the asymmetrical inframammary fold with a capsular plication as well as additional acellular dermal matrix graft. In the area of the wrinkling, it some of the wrinkling is still present, it could be related to a thinness of the skin envelope. An additional piece of acellular dermal matrix graft may help to camouflage the area and diminish further the wrinkling. Will then replace the cohesive gel implant. At present there is a 750 ml implant. Will also order a 700 ml and an 800 ml implant because over time the breast pocket enlarges. Despite tightening of the breast pocket, the 750 ml implant may be adequate or it may be too large in which case I would put in the 700 ml implant and if it is not large enough then I would be able to put in the 800 ml implant. The decision would be made at the time of surgery. Depending on how the right breast reconstruction looks like, I may need to revise the left breast reconstruction as well. At the present time she has a 500 ml implant. Once again, I will have available, a slightly smaller implant (450 ml) and a slightly larger implant (550 ml or 600 ml) depending on symmetry with the right breast. Surgery will be under general anesthesia with an overnight stay in the hospital. Drains will be needed for several days. She will be maintained on antibiotics until the drains are removed. She will also wear a surgical bra postop as well with a lifting restriction and keeping her head elevated. Since the breast reconstruction surgery is elective, her HgbA1c needs to be below 8. Her last one was a year ago in 01/05 and was 7.8. That will need to be repeated prior to surgery. Also her TSH needs to be below 10. She had it checked in 09/04 and it was 0.70. She will follow up after her studies completed to further discuss her surgery and to sign consents. Her soft tissue mass on her left forehead by eyebrow is stable. She will address that after her breast reconstruction surgery. Assessment AND Plan Problems 1. Personal history of malignant neoplasm of breast Z85.3 2. Deformity of reconstructed breast N65.0 3. History of bilateral breast implants Z98.82 4. Acquired absence of right breast and nipple Z90.11 5. Family history of breast cancer Z80.3 6. Estrogen receptor positive status (ER+) Z17.0 7. Former smoker Z87.891 8. Head mass R22.0 Orders Orders: Coding Level of Care Code Off vis,est,level 4 Diagnoses Personal history of malignant neoplasm of breast Z85.3 Deformity of reconstructed breast N65.0 History of bilateral breast implants Z98.82 Acquired absence of right breast and nipple Z90.11 Family history of breast cancer Z80.3 Estrogen receptor positive status (ER+) Z17.0 Former smoker Z87.891 Head mass R22.0 12/08/18 2249 <Electronically signed by Nir Pedroza MD> Date Nir Pedroza MD 12/09/18 0856<Electronically signed by Mae ALCARAZ> Niya Signature: Date (if applicable) Mae Swain CC: Kaitlin Rloand MD OBSOLETE Observed: 12/08/2018 Status: COMPLETED Source: [facility]LA[facility] 12:00 AM [facility] REPOSITORY Refill (SURYA) JACQUELIN LIMA ([id number]) 1950 F Date Time Provider Department 12/08/18 JULISSA HASSAN During your visit today, we recorded the following information about you: Allergies As of Date: 12/08/2018 Noted Allergy Reaction ACTONEL (RISEDRONATE SODIUM) 04/04/2010 AMOXACILLIN (AMOXICILLIN) 04/04/2010 CYCLOBENZAPRINE HCL 04/04/2010 LIPITOR (ATORVASTATIN) 04/04/2010 PENICILLINS 05/23/2007 3 - Cough PRAVACHOL (PRAVASTATIN SODIUM) 04/18/2016 16 - Unknown PREMPHASE (CONJ ESTROG-MEDROXYPRO*04/18/2016 16 - Unknown ZOCOR (SIMVASTATIN) 04/18/2016 16 - Unknown Date Reviewed: 08/25/2018 Reviewed by: Nidia (Bucky) [place] - Fully Assessed Reason for Visit: Refill Request [94] Primary Visit Diagnosis:Malignant neoplasm of overlapping sites of right breast in female, estrogen receptor positive (HCC) [C50.811, Z17.0] Order(s):anastrozole (ARIMIDEX) 1 mg tabletTake 1 tablet by mouth once daily.Disp: 90 tabletRfl: 3 Prescriptions as of 12/08/2018 Sig: ANASTROZOLE 1 MG TABLET Take 1 tablet by mouth once d* AMLODIPINE 10 MG TABLET Take 10 mg by mouth once cristian* LEVOTHYROXINE 150 MCG TABLET Take 150 mcg by mouth once da* CITRACAL + D ORAL Take 2 Each by mouth once garcia* ARIPIPRAZOLE 2 MG TABLET Take 2 mg by mouth once daily. HYDROCHLOROTHIAZIDE 25 MG TAB* Take 25 mg by mouth once cristian* VITAMIN D2 50,000 UNIT CAPSULE Take 50,000 Units by mouth on* LOSARTAN 100 MG TABLET Take 100 mg by mouth once garcia* METOPROLOL SUCCINATE ER 100 M* Take 100 mg by mouth once garcia* JANUVIA 100 MG TABLET Take 100 mg by mouth once garcia* ROPINIROLE 0.25 MG TABLET Take 0.25 mg by mouth daily a* ACETAMINOPHEN 500 MG TABLET Take 500 mg by mouth as neede* * CRESTOR 5 MG TABLET Take one(1) tablet daily. * PRILOSEC 40 MG CAPSULE,DELAYE* Take one(1) capsule daily as * * ZOLOFT 100 MG TABLET Take one(1) tablet daily. Problem List As Of Date 12/08/2018 Noted Resolved ABDOMINAL PAIN LLQ [R10.32] INVALID FOR* Cancer of overlapping sites of right breast (HC*INVALID FOR* Malignant neoplasm of overlapping sites of righ*INVALID FOR* GERD (gastroesophageal reflux disease) [K21.9] INVALID FOR* More... Prescriptions ordered this encounter Disp Refills Start End ANASTROZOLE 1 MG TABLET 90 t* 3 12/08/2018 Route: ORAL Sig: Take 1 tablet by mouth once daily. Medications Discontinued During This Encounter anastrozole (ARIMIDEX) 1 mg tablet 90 t* 3 05/15/2018 12/08/2018 Cmt: This prescription was filled on 05/14/2018. Any refills authorized will be placed on file. Route: ORAL Sig: Take 1 tablet by mouth once daily. Disc: Reason for discontinue is not on file. Encounter Status:Closed by JULISSA HASSAN CNP on 12/08/18 SPINE LUMBAR Observed: 12/05/2018 Status: F Source: [place] ([place]OUTINE) 4:25 PM [facility] [place] [facility] Imaging Services [address] [place] [id number] Spine Lumbar (Routine) MR#: [id number] Acct: [id number] Name: JACQUELIN LIMA Rep #: [id number] : 1950 F 68 From: Kolby Michel MD PCP: Kaitlin Roland MD Status: REG CLI Study: Spine Lumbar (Routine) Date of Exam: 12/05/18 Exam# [id number] Ordering Dr: Shelby Rowe CRYSTAL LAPPERNaun STUDY: MRI LUMBAR SPINE WITHOUT CONTRAST REASON FOR EXAM: Female, 68 years old. Back and left leg pain TECHNIQUE: Standardized fat and water weighted pulse sequences were obtained in the sagittal and axial planes. COMPARISON: May 31, 2015 FINDINGS: T12-L1: Normal endplates. Normal disc height, hydration and morphology. Normal bilateral facet joints. Normal central canal and bilateral lateral recesses. Normal bilateral intervertebral neural foramina. Normal lumbar lordosis. Moderate dextroconvex scoliosis. Normal conus medullaris that terminates at the L1 level. L1-2: Normal endplates. Normal disc height, hydration and morphology. Normal bilateral facet joints. Normal central canal and bilateral lateral recesses. Normal bilateral intervertebral neural foramina. L2-3: Normal endplates. Mild circumferential annular bulge. Normal disc height, hydration and morphology. Normal bilateral facet joints. Normal central canal and bilateral lateral recesses. Normal bilateral intervertebral neural foramina. L3-4: Moderate left paracentral disc protrusion the patient. Lateral recess and neural foramen. Moderate narrowing of the neural foramina bilaterally. Trefoil type narrowing of the thecal sac. L4-5: Normal endplates. Normal disc height, hydration and morphology. Normal bilateral facet joints. Normal central canal and bilateral lateral recesses. Moderately severe narrowing, right greater than left intervertebral neural foramina. L5-S1: Normal endplates. Normal disc height, hydration and morphology. Normal bilateral facet joints. Normal central canal and bilateral lateral recesses. Moderate narrowing of the right intervertebral neural foramina. Normal visualized sacral ala. Normal visualized paraspinous soft tissue structures. MRI/Spine Lumbar (Routine) IMPRESSION: Moderate left paracentral disc protrusion at L3-L4 effacing the lateral recess and probably impinging the nerve roots. Moderate scoliosis and multilevel neural foraminal narrowing as above. Electronically Signed: Kolby Michel MD at 23:19 EST , Service support , CC: Kaitlin Roland MD; Shelby ALCARAZ [employer]ile Stylist: Signed BREAST COMPLETE Observed: 12/05/2018 Status: F Source: [place] UN[place] 4:06 PM [facility] [place] [facility] Imaging Services [address] [place] [id number] Breast Complete Unilateral MR#: [id number] Acct: [id number] Name: JACQUELIN LIMA Rep #: [id number] : 1950 F 68 From: Carlos Romero MD PCP: Kaitlin Roland MD Status: REG CLI Study: Breast Complete Unilateral Date of Exam: 12/05/18 Exam# [id number] Ordering Dr: Nir Pedroza MD STUDY: ULTRASOUND BREAST - RIGHT REASON FOR EXAM: Female, 68 years old. Deformity of the right breast implant. TECHNIQUE: Axial and longitudinal images of the RIGHT breast were performed with a high resolution ultrasound transducer. COMPARISON: Comparison is made with prior mammogram dated July 02, 2018. Comparison is also made to prior sonogram of the right breast dated February 22, 2016. FINDINGS: RIGHT Breast: A breast implant is seen. There is evidence of a undulation along the peripheral aspect of the breast implant more prominent in the upper outer quadrant of the breast. US/Breast Complete Unilateral IMPRESSION: Undulation of the contour of the breast implant. ASSESSMENT CATEGORY: BIRADS Category 2: Benign. A letter regarding these results will be sent to the patient by the facility within 30 days. Electronically Signed: Carlos Romero MD at 12:30 EST Tel [phone], Service support , CC: Kaitlin Roland MD; Nir Pedroza MD Textile Stylist: Signed PROGRESS Observed: 08/25/2018 Status: COMPLETED Source: [place] 7:20 PM [facility] REPOSITORY HNO ID: [id number] Author: Nidia Demarco (Pa) Service: (none) Author Type: Physician [employer] Administrator Type: Progress Notes Filed: 08/25/2018 7:28 PM Note Text: FOLLOW UP VISIT - ENDOSCOPY NAME: Jacquelin Piper [facility] NO.: [id number] DATE OF SERVICE: 08/20/2018 : 1950 REFERRING PHYSICIAN: Kaitlin Roland MD Jacquelin is a patient I am following with Dr. Brooks for GERD. Dr. Brooks performed upper endoscopy on 08/12/18. The patient was found to have gastritis, erythematous duodenopathy, gastritis, normal appearing esophagus, and medium-sized hiatal hernia. Pathology demonstrated: FINAL DIAGNOSIS 1. Jejunum, biopsy (A) - Small bowel mucosa with no diagnostic abnormality. 2. Stomach, antrum, biopsy (B) - Gastric antral-type mucosa with mild reactive gastropathy. 3. Distal and mid esophagus, biopsies (C, D) - Squamous mucosa with no diagnostic abnormality. NIHCOLASL/lorinl 08/14/2018 COMMENT 2. No Helicobacter pylori organisms are identified. The patient notes no new complaints since the procedure, but continues to note same symptoms which have not resolved on the omeprazole. VITALS: There were no vitals taken for this visit. On examination, the abdomen is benign. Assessment IMPRESSION: GERD, gastritis, hiatal hernia PLAN: Operative findings and pathology report reviewed with patient. Patient had opportunity to ask questions and have questions answered -Trial of carafate, may continue omeprazole -Dietary and lifestyle modifications as discussed -Patient instructed to follow up if symptoms worsen or persist despite above measures Patient verbalized understanding of above and agreed with the plan Diagnoses: (K29.30) Chronic superficial gastritis without bleeding (primary encounter diagnosis) (K21.9) Gastroesophageal reflux disease, esophagitis presence not specified (K44.9) Hiatal hernia I spent 20 minutes in the visit, with more than 50% of the total yojv-dj-[id number] time of the visit in counseling / coordination of care. Nidia Demarco PA-C CNOV Observed: 08/20/2018 Status: COMPLETED Source: [place] 9:30 AM [facility] REPOSITORY Office Visit (GENSWS) JACQUELIN LIMA ([id number]) 1950 F Date Time Provider Department 08/20/18 9:30 AM NIDIA DEMARCO (PA) During your visit today, we recorded the following information about you: Nidia Demarco PA-C 08/20/2018 9:42 AM Signed -Trial of carafate, continue omeprazole The following instructions are important for you related to your office visit today with the [facility] General Surgeons. INSTRUCTIONS FOR PEPTIC ULCER DISEASE/GASTRITIS I discussed with you the findings of your upper endoscopy. Your upper endoscopy demonstrated signs of peptic ulcer disease or irritation. This can be seen as a range of issues from actual ulcers in the stomach or duodenum (first part of the small bowel) or irritation ranging from redness to more significant irritation with erosions of the stomach or duodenum. These conditions are usually caused from a combination of too much acid production or too little protective mucus production in the stomach. Factors that increase acid production include smoking and stress. If you smoke, stopping smoking will often cure these issues without needing other medications. Factors that decrease the stomach's production of protective mucus include alcohol consumption, smoking, aspirin and other anti-inflammatory use. Over the counter medications including antiacids and acid reducing medications including H2 blockers (Zantac and the like) and proton pump inhibitors (prilosec, prevacid and the like) neutralize or prevent acid production. Prescription strength proton pump inhibitors (PPIs) may be necessary if your symptoms persist. Carafate may be added to PPI treatment in refractory cases. Avoiding smoking, alcohol and antiinflammatory medications are important in the successful treatment of peptic diseases. New or worsening symptoms such are epigastric pain, burning, difficulty swallowing or food sticking should be relayed to your physician. Feeling full early after eating, or black, tarry, foul smelling stools are also worrisome. If you have any difficulties or concerns, you should contact our office immediately. If you note any additional difficulties, questions, or concerns, you should contact our office immediately @ [phone] and ask to be transferred to the General Surgery department. Nidia Demarco PA-C 08/25/2018 7:28 PM Signed FOLLOW UP VISIT - ENDOSCOPY NAME: Jacquelin Piper [facility] NO.: [id number] DATE OF SERVICE: 08/20/2018 : 1950 REFERRING PHYSICIAN: Kaitlin Roland MD Jacquelin is a patient I am following with Dr. Brooks for GERD. Dr. Brooks performed upper endoscopy on 08/12/18. The patient was found to have gastritis, erythematous duodenopathy, gastritis, normal appearing esophagus, and medium-sized hiatal hernia. Pathology demonstrated: FINAL DIAGNOSIS 1. Jejunum, biopsy (A) - Small bowel mucosa with no diagnostic abnormality. 2. Stomach, antrum, biopsy (B) - Gastric antral-type mucosa with mild reactive gastropathy. 3. Distal and mid esophagus, biopsies (C, D) - Squamous mucosa with no diagnostic abnormality. BRENDON/elda 08/14/2018 COMMENT 2. No Helicobacter pylori organisms are identified. The patient notes no new complaints since the procedure, but continues to note same symptoms which have not resolved on the omeprazole. VITALS: There were no vitals taken for this visit. On examination, the abdomen is benign. Assessment IMPRESSION: GERD, gastritis, hiatal hernia PLAN: Operative findings and pathology report reviewed with patient. Patient had opportunity to ask questions and have questions answered -Trial of carafate, may continue omeprazole -Dietary and lifestyle modifications as discussed -Patient instructed to follow up if symptoms worsen or persist despite above measures Patient verbalized understanding of above and agreed with the plan Diagnoses: (K29.30) Chronic superficial gastritis without bleeding (primary encounter diagnosis) (K21.9) Gastroesophageal reflux disease, esophagitis presence not specified (K44.9) Hiatal hernia I spent 20 minutes in the visit, with more than 50% of the total qrnp-[id number]-krgc time of the visit in counseling / coordination of care. Nidia Demarco PA-C Referring Provider: KAITLIN ROLAND [[id number]] Allergies As of Date: 08/20/2018 Noted Allergy Reaction ACTONEL (RISEDRONATE SODIUM) 04/04/2010 AMOXACILLIN (AMOXICILLIN) 04/04/2010 CYCLOBENZAPRINE HCL 04/04/2010 LIPITOR (ATORVASTATIN) 04/04/2010 PENICILLINS 05/23/2007 3 - Cough PRAVACHOL (PRAVASTATIN SODIUM) 04/18/2016 16 - Unknown PREMPHASE (CONJ ESTROG-MEDROXYPRO*04/18/2016 16 - Unknown ZOCOR (SIMVASTATIN) 04/18/2016 16 - Unknown Date Reviewed: 08/20/2018 Reviewed by: Abisai Carbajal LPN - Fully Assessed Reason for Visit: Post Op [174] Cmt: post op EGD Primary Visit Diagnosis:Chronic superficial gastritis without bleeding [K29.30] Other Visit Diagnoses:Gastroesophageal reflux disease, esophagitis presence not specified [K21.9] Hiatal hernia [K44.9] Order(s):sucralfate (CARAFATE) 1 gram tabletTake 1 tablet by mouth three times daily for 14 days.Disp: 42 tabletRfl: 2 Prescriptions as of 08/20/2018 Sig: ANASTROZOLE 1 MG TABLET Take 1 tablet by mouth once d* AMLODIPINE 10 MG TABLET Take 10 mg by mouth once cristian* LEVOTHYROXINE 150 MCG TABLET Take 150 mcg by mouth once da* CITRACAL + D ORAL Take 2 Each by mouth once garcia* ARIPIPRAZOLE 2 MG TABLET Take 2 mg by mouth once daily. HYDROCHLOROTHIAZIDE 25 MG TAB* Take 25 mg by mouth once cristian* VITAMIN D2 50,000 UNIT CAPSULE Take 50,000 Units by mouth on* LOSARTAN 100 MG TABLET Take 100 mg by mouth once garcia* METOPROLOL SUCCINATE ER 100 M* Take 100 mg by mouth once garcia* JANUVIA 100 MG TABLET Take 100 mg by mouth once garcia* ROPINIROLE 0.25 MG TABLET Take 0.25 mg by mouth daily a* ACETAMINOPHEN 500 MG TABLET Take 500 mg by mouth as neede* * CRESTOR 5 MG TABLET Take one(1) tablet daily. * PRILOSEC 40 MG CAPSULE,DELAYE* Take one(1) capsule daily as * * ZOLOFT 100 MG TABLET Take one(1) tablet daily. SUCRALFATE 1 GRAM TABLET Take 1 tablet by mouth three * Problem List As Of Date 08/20/2018 Noted Resolved ABDOMINAL PAIN LLQ [R10.32] INVALID FOR* Cancer of overlapping sites of right breast (HC*INVALID FOR* Malignant neoplasm of overlapping sites of righ*INVALID FOR* GERD (gastroesophageal reflux disease) [K21.9] INVALID FOR* More... Other instructions from your clinician: -Trial of carafate, continue omeprazole The following instructions are important for you related to your office visit today with the [facility] General Surgeons. INSTRUCTIONS FOR PEPTIC ULCER DISEASE/GASTRITIS I discussed with you the findings of your upper endoscopy. Your upper endoscopy demonstrated signs of peptic ulcer disease or irritation. This can be seen as a range of issues from actual ulcers in the stomach or duodenum (first part of the small bowel) or irritation ranging from redness to more significant irritation with erosions of the stomach or duodenum. These conditions are usually caused from a combination of too much acid production or too little protective mucus production in the stomach. Factors that increase acid production include smoking and stress. If you smoke, stopping smoking will often cure these issues without needing other medications. Factors that decrease the stomach's production of protective mucus include alcohol consumption, smoking, aspirin and other anti-inflammatory use. Over the counter medications including antiacids and acid reducing medications including H2 blockers (Zantac and the like) and proton pump inhibitors (prilosec, prevacid and the like) neutralize or prevent acid production. Prescription strength proton pump inhibitors (PPIs) may be necessary if your symptoms persist. Carafate may be added to PPI treatment in refractory cases. Avoiding smoking, alcohol and antiinflammatory medications are important in the successful treatment of peptic diseases. New or worsening symptoms such are epigastric pain, burning, difficulty swallowing or food sticking should be relayed to your physician. Feeling full early after eating, or black, tarry, foul smelling stools are also worrisome. If you have any difficulties or concerns, you should contact our office immediately. If you note any additional difficulties, questions, or concerns, you should contact our office immediately @ [phone] and ask to be transferred to the General Surgery department. Prescriptions ordered this encounter Disp Refills Start End SUCRALFATE 1 GRAM TABLET 42 t* 2 08/20/2018 09/03/2018 Route: ORAL Sig: Take 1 tablet by mouth three times daily for 14 days. Follow-up and Disposition History Recorded Encounter Status:Closed by NIDIA DEMARCO PA-C on 08/25/18 COMPREHENSIVE METABOLIC Collected: 08/19/2018 Status: F Source: [place] 1:59 PM [facility] [place] CODE TESTS RESULT OUT OF RANGE REFERENCE UNITS LAB L501.0100 74-106 mg/dL High GLU 194 Result Comment: Fasting Glucose result greater than or equal to 126 mg/dL suggests DIABETES MELLITUS per A.D.A. criteria. Please note revised GLUCOSE reference range effective 2017. LAB L501.1000 7-18 mg/dL High BUN 19 LAB L501.1100 0.55-1.02 mg/dL Normal CREAT,SERUM 0.93 Result Comment: The validity of the calculated GFR AND GFRAA in patients over 70 years has not been determined. Clinical correlation is essential. LAB L501.1110 >60 mL/min Normal EST GFR 64 Result Comment: Non- GFR Calc LAB L501.1115 >60 mL/min Normal EST GFR - AA 77 Result Comment: GFR Calc LAB L501.1300 10-20 RATIO High BUN/CRE 20.4 LAB L501.1500 6.4-8.2 g/dL T Normal PROT 7.6 LAB L501.1800 3.2-5.0 g/dL Normal ALB 3.7 LAB L501.1950 2.2-4.2 g/dL Normal GLOB 3.9 LAB L501.2000 0.9-2.4 RATIO Normal A/G 0.9 LAB L501.2200 8.5-10.1 mg/dL CA Normal 9.6 LAB L501.4100 15-37 U/L Normal AST 15 LAB L501.4305 45-117 U/L Normal ALK P 107 LAB L501.4405 13-56 U/L Normal ALT 28 LAB L501.4600 0.20-1.00 mg/dL T Normal BILI 0.50 LAB L501.5300 136-145 mmol/L NA Normal 139 LAB L501.5600 3.5-5.1 mmol/L Low K 3.4 LAB L501.5900 98-107 mmol/L CL Normal 103 LAB L501.6100 21.0-32.0 mmol/L Normal CO2 27.0 LAB L501.6200 5-15 Normal GAP 9 Performed By: #### L500.4050, L501.9520, L506.0400, L506.1000 #### [facility] [address] [facility] [place], [place], [id number] THYROID STIM HORMONE Collected: 08/19/2018 Status: F Source: [place] (TSH) 1:59 PM [facility] [place] TYPE CODE TESTS RESULT OUT OF RANGE REFERENCE UNITS LAB L501.9520 0.358-3.74 uIU/mL Normal TSH 0.70 Performed By: #### L500.4050, L501.9520, L506.0400, L506.1000 #### [facility] [address] [facility] [place], [place], [id number] T4 FREE DIRECT Collected: 08/19/2018 Status: F Source: [place] 1:59 PM [facility] [place] TYPE CODE TESTS RESULT OUT OF REFERENCE UNITS RANGE LAB L506.0400 0.76-1.46 ng/dL High T4 FREE 1.49 DIRECT Performed By: #### L500.4050, L501.9520, L506.0400, L506.1000 #### [facility] [address] [place], [address] VITAMIN D,25 HYDROXY Collected: 08/19/2018 Status: F Source: [place] 1:59 PM [facility] [place] TYPE CODE TESTS RESULT OUT OF REFERENCE UNITS RANGE LAB L506.1000 29.95-100.01 ng/mL Low Vitamin D 17.0 25-OH Result Comment: Vitamin D 25(OH) Status Range Deficiency <20 ng/mL (50nmol/L) Insuffciency 20 - 30 ng/mL (50 - 75 nmol/L) Sufficiency 30 - 100 ng/mL (75 - 250 nmol/L) Toxicity >100 ng/mL (>250 nmol/L) Performed By: #### L500.4050, L501.9520, L506.0400, L506.1000 #### [facility] [address] [place], [address] NURSING PROG Observed: 08/12/2018 Status: COMPLETED Source: [place] 10:08 AM [facility] REPOSITORY HNO ID: [id number] Author: Kimberley Covarrubias RN Service: (none) Author Type: Registered Nurse Type: Nursing Progress Note Filed: 08/12/2018 10:09 AM Note Text: Patient did not experience a fall prior to discharge. Patient did not experience a burn prior to discharge. Kimberley Covarrubias RN NURSING PROG Observed: 08/12/2018 Status: COMPLETED Source: [place] 9:48 AM [facility] REPOSITORY HNO ID: [id number] Author: Kimberley Covarrubias RN Service: (none) Author Type: Registered Nurse Type: Nursing Progress Note Filed: 08/12/2018 9:49 AM Note Text: Pt sitting up in bed tolerating snack and drink. Denies pain or nausea. at bedside. Abd soft and nondistended. Dr. Brooks was by and spoke with both pt and . No complaints. Kimberley Covarrubias RN PT ED Observed: 08/12/2018 Status: COMPLETED Source: [place] 9:38 AM [facility] REPOSITORY HNO ID: [id number] Author: Kimberley Covarrubias RN Service: (none) Author Type: Registered Nurse Type: Patient Education Filed: 08/12/2018 9:39 AM Note Text: POST OP LEARNING RESPONSE INSTRUCTION PROVIDED TO: Patient and Spouse METHOD OF INSTRUCTION: Individual instruction Written instruction - handouts Verbal instruction PATIENT / FAMILY RESPONSE: Verbalizes understanding of: MEDICAL REGIMEN-Importance of following prescribed medical regimen POST-PROCEDURE INSTRUCTIONS-Correct actions to take to reduce post procedure complications WORSENING CONDITION-Signs and symptoms of a worsening condition that warrant a call to the physician FOLLOW-UP PLAN: Patient instructed to call with any further issues Follow up phone call. Contact information given. SUPPLEMENTAL MATERIAL: Procedure discharge instructions REFERRAL (RECOMMENDATION): None Electronically Signed By: Kimberley Covarrubias RN In Department: AMBULATORY SURGERY NURSING PROG Observed: 08/12/2018 Status: COMPLETED Source: [place] 9:24 AM [facility] REPOSITORY HNO ID: [id number] Author: Shonda Miller RN Service: Nursing Author Type: Registered Nurse Type: Nursing Progress Note Filed: 08/12/2018 9:24 AM Note Text: Patient did not experience a fall within the Intraoperative area. Patient did not experience a burn within the Intraoperative area. Shonda Miller RN NURSING PROG Observed: 08/12/2018 Status: COMPLETED Source: [place] 9:04 AM [facility] REPOSITORY HNO ID: [id number] Author: Lucille Esposito RN Service: (none) Author Type: Registered Nurse Type: Nursing Progress Note Filed: 08/12/2018 9:05 AM Note Text: [facility] PRE-OP NURSING HAND OFF NOTE SBAR Hand off given to Shonda Miller RN. Hand off was communicated verbally and at the patient's bedside and all questions were answered. FALLS/NEWBY Patient did not experience a fall within the Preoperative area. Patient did not experience a burn within the Preoperative area. Lucille Esposito RN HISTORY PHYSICAL Observed: 08/12/2018 Status: COMPLETED Source: [place] 7:57 AM [facility] HNO ID: [id number] Author: Mirlande Brooks Service: General Surgery Author Type: Physician Type: HANDP Filed: 08/12/2018 7:57 AM Note Text: FOLLOW UP VISIT - POST LEFT STEREOTACTIC GUIDED CORE BIOPSY X 2 ? NAME: Jacquelin Piper [facility] NO.: [id number] DATE OF SERVICE: 07/24/2018 ? : 1950 ? REFERRING PHYSICIAN: Kaitlin Roland MD ? Jacquelin is a patient I am following for abnormal left breast imaging. ? The patient is a 68 year old female with a complaint of an abnormal mammogram. The patient had a mammogram ultrasound on July 02, 2018 which demonstrated 2 sites of new focal microcalcifications seen in the medial portion of the left breast. This was felt to most likely be postoperative changes, but could not rule out malignancy and therefore biopsy was recommended. The patient denies a history of breast masses. She does perform a self breast exam routinely. She notes no skin changes. She denies nipple discharge. She notes no axillary masses. She notes no family history of breast problems. ? The patient has a previous history of right breast cancer. She underwent right mastectomy with reconstruction, which was complicated by infection and left contralateral breast reduction, and then implant placement ? I performed a left side Stereotactic guided core biopsy x 2 for her abnormal mammogram on July 22, 2018. ? The pathology returned as: ? MICROSCOPIC DIAGNOSIS A. Left breast core tissue #1, stereotactic core biopsy: Fatty breast tissue with focal fat necrosis and focal minimal dystrophic calcifications. Negative for atypia or malignancy. B. Left breast core tissue #2, stereotactic core biopsy: Fatty breast tissue with focal fat necrosis, chronic inflammation, histiocytic reaction and dystrophic calcifications. Negative for atypia or malignancy. See comment. ? The patient notes scant bruising since the procedure. During the procedure, she did notes even reflux following her stomach. She notes she is having reflux for some time. It is becoming more severe. During the procedure, we discussed performing upper endoscopy. ? VITALS: There were no vitals taken for this visit. ? On examination, the left side breast biopsy site is clean, dry, and intact. There is slight bruising of the site. ? Assessment IMPRESSION: status post Stereotactic guided core biopsy for left side breast post surgical changes-negative for malignancy, GERD. ? PLAN: If Jacquelin notes any problems, she should contact me immediately. I reminded her about the importance of self - breast exam. I recommend she perform monthly self breast exams. If any palpable abnormalities, change in breast exam, or any difficulties are noted, she is to contact my office immediately. I generally recommend follow up unilateral mammogram and ultrasound 6 months following biopsy. ? I plan to perform upper endoscopy given her reflux symptoms. We discussed the risks and benefits of the planned endoscopy. I have informed the patient that complications can occur including failure to complete the endoscopy and perforation. The patient had the opportunity to ask questions concerning the planned endoscopy. My staff has also explained the procedure to the patient in understandable terms and has given the patient printed material concerning the procedure. The patient freely consents to surgery. ? Diagnoses: (K21.9) Gastroesophageal reflux disease without esophagitis (primary encounter diagnosis) (R92.8) Abnormal finding on breast imaging ? Return to Clinic: The patient is instructed to follow- up with me in 6 months you should obtain a mammogram and ultrasound prior to this follow up visit - for the follow-up for the breast abnormality and following upper endoscopy for her reflux symptoms. ? ? ? Mirlande Brooks MD PT ED Observed: 08/12/2018 Status: COMPLETED Source: [place] 7:30 AM [facility] REPOSITORY HNO ID: [id number] Author: Lucille Esposito RN Service: (none) Author Type: Registered Nurse Type: Patient Education Filed: 08/12/2018 8:08 AM Note Text: Discharge Instructions were reviewed pre-operatively with the patient. All questions and concerns were addressed. Lucille Esposito RN PRE OP LEARNING ASSESSMENT PROCEDURE/SURGERY: GI PROCEDURES: EGD READINESS TO LEARN COGNITIVE ABILITY: Alert and oriented MOTIVATION TO LEARN: Interested FAMILY SUPPORT: Unable to assess - Family not present PATIENT LEARNS BEST BY: Multiple Methods FACTORS AFFECTING LEARNING: None PHYSICAL LIMITATIONS AFFECTING LEARNING: None Electronically Signed By: Lucille Esposito RN In Department: AMBULATORY SURGERY SURGICAL PATHOLOGY Observed: 08/12/2018 Status: F Source: [place] 12:00 AM [facility] REPOSITORY Specimen originated from [facility] Specimen #: [id number] Submitting Physician: MIRLANDE BROOKS ([id number]) FINAL DIAGNOSIS 1. Jejunum, biopsy (A) - Small bowel mucosa with no diagnostic abnormality. 2. Stomach, antrum, biopsy (B) - Gastric antral-type mucosa with mild reactive gastropathy. 3. Distal and mid esophagus, biopsies (C, D) - Squamous mucosa with no diagnostic abnormality. JEL/kll 08/14/2018 COMMENT 2. No Helicobacter pylori organisms are identified. Nir Hernández M.D. (Electronic Signature) SPECIMEN SUBMITTED A: JEJUNUM, BIOPSY B: ANTRUM, BIOPSY C: DISTAL ESOPHAGUS, BIOPSY D: MID ESOPHAGUS, BIOPSY CLINICAL DATA K21.9 B) H/H GROSS DESCRIPTION A. Received in formalin are two pieces of ca, soft tissue aggregating to 0.7 x 0.2 x 0.2 cm. Totally submitted in one cassette. B. Received in formalin is one piece of ca, soft tissue measuring 0.7 x 0.3 x 0.1 cm. Totally submitted in one cassette. C. Received in formalin is one piece of ca-white, soft tissue measuring 0.3 x 0.2 x 0.1 cm. Totally submitted in one cassette. D. Received in formalin are two pieces of ca-white, soft tissue aggregating to 0.7 x 0.3 x <0.1 cm. Totally submitted in one cassette. Gross examination performed at [facility], [address] [place] [address] FFS 08/13/2018 2:16:24 AM Date of Report: 08/14/2018 Date of Procedure: 08/12/2018 Date of Receipt: 08/12/2018 Submitted by: MIRLANDE BROOKS ([email or web address]) Location: W010 Diagnostic interpretation performed at [facility], [address] [place] [address]. PROGRESS Observed: 07/27/2018 Status: COMPLETED Source: [place] 12:24 PM [facility] [place] REPOSITORY HNO ID: [id number] Author: Mirlande Brooks Service: (none) Author Type: Physician Type: Progress Notes Filed: 07/29/2018 6:43 AM Note Text: OPERATIVE NOTATION FOR [facility] SURGICAL PROCEDURE. July 22, 2018 Jacquelin Lima 1950 [id number] female PROCEDURE: left VACCUUM NEEDLE STEREOTACTIC BREAST BIOPSY WITH SPECIMEN RADIOGRAPH - 43462 and VACCUUM NEEDLE STEREOTACTIC BREAST BIOPSY - additional - 32763 SURGEON: Shailesh Brooks M.D. FACS DEALER DEVELOPMENT MANAGER: None DEPT: PROVIDER: [id number] Brooks MD POS: [id number] DIAGNOSIS: (R92.8) Abnormal finding on breast imaging (primary encounter diagnosis) ASA CLASS: 2 - mild FINDINGS: bening COMPLICATIONS: None PMHx - PAST MEDICAL HISTORY Diagnosis Date - Anxiety - BRCA negative myRisk negative - Breast cancer (HCC) - Congenital anomaly of aortic arch - Depression - Diabetes (HCC) - Diverticulitis of colon (without mention of hemorrhage)(562.11) - GERD (gastroesophageal reflux disease) - Hyperlipidemia - Hypertension - Hypothyroidism - IBS (irritable bowel syndrome) - Osteoporosis - Other and unspecified mitral valve diseases - Plantar fascial fibromatosis fascitis - PMH - PAST MEDICAL HISTORY OF metartalsagia - PMH - PAST MEDICAL HISTORY OF high blood sugars - Unspecified sleep apnea COMORBIDITIES - Obesity Post Op Occurrences - None Wound Classification - Clean Operative note dictated in the [facility] dictation system. Mirlande Brooks MD PROGRESS Observed: 07/25/2018 Status: COMPLETED Source: [place] 10:43 AM [facility] [place] REPOSITORY HNO ID: [id number] Author: Julissa Hassan Service: (none) Author Type: Nurse Practitioner Type: Progress Notes Filed: 07/25/2018 1:41 PM Note Text: Chief Complaint Patient presents with: Established Patient HPI: Jacquelin Lima is a 68 year old female who presents here today for follow up breast cancer. Per Dr. Gallegos's previous note: H/o PMH significant for DM2 (dx about 1 year ago; no complications) was found to have abnormal mammogram 02/20/16. ?? Biopsy of one of the lateral tumors demonstrated invasive lobular carcinoma. ER/FL positive (>95%/29%, strong/moderate respectively). HER-2 was equivocal at 2+ and subsequent FISH testing was negative for amplification. Second tumor biopsy from the medial portion of the breast demonstrated invasive lobular carcinoma. ER positive (>95%, strong), FL negative (<1%) and HER2 1+. ?? Final pathology revealed that within the breast specimen there were 3 foci of invasive carcinoma. The largest measured 1.1 cm. The overall grade was 1. All margins were negative. The closest was 1 cm from the anterior margin. 5 sentinel lymph nodes were retrieved all of which were negative for metastatic disease. ? Oncotype test. Recurrent score 21 (13% 10 year risk). Pt. declined chemotherapy. ? Current therapy:arimidex. Began 05/10/16. ? ?? S/p bottom turning lathe tender removal and perm implant, L reduction?on . Recovered well per pt. Followed by Dr. Pedroza. ? has EGD scheduled with Dr. Brooks. L breast bx neg. done by Dr. Brooks on 07/22/18. Appetite:good Energy level:good Denies fevers. Resp:occ. cough, denies sob, occ. kuo I think my heartburn makes it worse-it's a lot. Cardiac:denies chest pain/palpitations GI:occ.?abd pain I've had stomach issues forever, +heartburn, denies occ. nausea, denies vomiting,?moving bowels regularly :denies dysuria/hematuria Extrem:denies pain to back/bones, occ. joint pain to last 2 fingers R hand Endo:hot flashes I really haven't had those. Neuro:occ. tingling to fingers/toes Skin:denies rashes/lesions Heme:denies bleeding The ROS is otherwise negative. Past medical history, appointments, medications, allergies reviewed. No changes. EXAM: BP 154/94 Pulse 79 Temp 37.2 ?C (99 ?F) (Oral) Wt 84.6 kg (186 lb 8 oz) BMI 28.78 kg/m? APPEARANCE Well appearing, alert, in no acute distress, well-hydrated, well nourished. HEART RRR with normal S1 and S2, no murmurs LUNG clear to auscultation BREAST FEMALE R recon no surrounding mass/nodule, L implant no mass/nodule, steri strips intact LYMPH NODES No cervical lymphadenopathy, No supraclavicular lymphadenopathy and No axillary lymphadenopathy. ABDOMEN bowel sounds normoactive, no bruits, soft, non-tender, non-distended, without organomegaly or palpable masses EXTREMITIES No edema NEURO Awake, alert and oriented x 3, Normal gait and No involuntary motions. SKIN Skin color, texture, turgor normal, no suspicious rashes or lesions ASSESSMENT/PLAN: 1. Malignant neoplasm of overlapping sites of right breast in female, estrogen receptor positive (HCC) - ICD9: 174.8, V86.0, ICD10: C50.811, Z17.0 pT1c(m) pN0(sln) (5 nodes) MX ER positive; HER 2 negative invasive lobular carcinoma of the right breast. - No concerning findings on exam. - Tolerating arimidex well. Continue. - L breast bx neg. - Per Dr. Brooks's previous note-L mamm/US/OV in 6 months. - Follow up in 6 months. - Pt. aware to call office with any questions/concerns. The patient indicates understanding of these issues and agrees with the plan. Julissa Hassan APRN.SOULEYMANE CNOVSP Observed: 07/25/2018 Status: COMPLETED Source: [place] 10:30 AM [facility] REPOSITORY Visit (SP) Office (SURYA) JACQUELIN LIMA ([id number]) 1950 F Date Time Provider Department 07/25/18 10:30 AM JULISSA HASSAN (SOULEYMANE) SURYA During your visit today, we recorded the following information about you: Temperature Pulse Blood pressure Weight 99 degrees 79/minute 154/94 84.6 kg Julissa Hassan, CLOCK AND WATCH HANDS PAINTER.SENIOR LIBRARIAN 07/25/2018 1:41 PM Signed Chief Complaint Patient presents with: Established Patient HPI: Jacquelin Lima is a 68 year old female who presents here today for follow up breast cancer. Per Dr. Gallegos's previous note: H/o PMH significant for DM2 (dx about 1 year ago; no complications) was found to have abnormal mammogram 02/20/16. ?? Biopsy of one of the lateral tumors demonstrated invasive lobular carcinoma. ER/FL positive (>95%/29%, strong/moderate respectively). HER- 2 was equivocal at 2+ and subsequent FISH testing was negative for amplification. Second tumor biopsy from the medial portion of the breast demonstrated invasive lobular carcinoma. ER positive (>95%, strong), FL negative (<1%) and HER2 1+. ?? Final pathology revealed that within the breast specimen there were 3 foci of invasive carcinoma. The largest measured 1.1 cm. The overall grade was 1. All margins were negative. The closest was 1 cm from the anterior margin. 5 sentinel lymph nodes were retrieved all of which were negative for metastatic disease. ? Oncotype test. Recurrent score 21 (13% 10 year risk). Pt. declined chemotherapy. ? Current therapy:arimidex. Began 05/10/16. ? ?? S/p bottom turning lathe tender removal and perm implant, L reduction?on . Recovered well per pt. Followed by Dr. Pedroza. ? has EGD scheduled with Dr. Brooks. L breast bx neg. done by Dr. Brooks on 07/22/18. Appetite:good Energy level:good Denies fevers. Resp:occ. cough, denies sob, occ. kuo I think my heartburn makes it worse-it's a lot. Cardiac:denies chest pain/palpitations GI:occ.?abd pain I've had stomach issues forever, +heartburn, denies occ. nausea, denies vomiting,?moving bowels regularly :denies dysuria/hematuria Extrem:denies pain to back/bones, occ. joint pain to last 2 fingers R hand Endo:hot flashes I really haven't had those. Neuro:occ. tingling to fingers/toes Skin:denies rashes/lesions Heme:denies bleeding The ROS is otherwise negative. Past medical history, appointments, medications, allergies reviewed. No changes. EXAM: BP 154/94 Pulse 79 Temp 37.2 ?C (99 ?F) (Oral) Wt 84.6 kg (186 lb 8 oz) BMI 28.78 kg/m? APPEARANCE Well appearing, alert, in no acute distress, well- hydrated, well nourished. HEART RRR with normal S1 and S2, no murmurs LUNG clear to auscultation BREAST FEMALE R recon no surrounding mass/nodule, L implant no mass/nodule, steri strips intact LYMPH NODES No cervical lymphadenopathy, No supraclavicular lymphadenopathy and No axillary lymphadenopathy. ABDOMEN bowel sounds normoactive, no bruits, soft, non-tender, non-distended, without organomegaly or palpable masses EXTREMITIES No edema NEURO Awake, alert and oriented x 3, Normal gait and No involuntary motions. SKIN Skin color, texture, turgor normal, no suspicious rashes or lesions ASSESSMENT/PLAN: 1. Malignant neoplasm of overlapping sites of right breast in female, estrogen receptor positive (HCC) - ICD9: 174.8, V86.0, ICD10: C50.811, Z17.0 pT1c(m) pN0(sln) (5 nodes) MX ER positive; HER 2 negative invasive lobular carcinoma of the right breast. - No concerning findings on exam. - Tolerating arimidex well. Continue. - L breast bx neg. - Per Dr. Brooks's previous note-L mamm/US/OV in 6 months. - Follow up in 6 months. - Pt. aware to call office with any questions/concerns. The patient indicates understanding of these issues and agrees with the plan. Julissa Hassan, CLOCK AND WATCH HANDS PAINTER.SENIOR LIBRARIAN Referring Provider: SEFERINO GALLEGOS [[id number]] Allergies As of Date: 07/25/2018 Noted Allergy Reaction ACTONEL (RISEDRONATE SODIUM) 04/04/2010 AMOXACILLIN (AMOXICILLIN) 04/04/2010 CYCLOBENZAPRINE HCL 04/04/2010 LIPITOR (ATORVASTATIN) 04/04/2010 PENICILLINS 05/23/2007 3 - Cough PRAVACHOL (PRAVASTATIN SODIUM) 04/18/2016 16 - Unknown PREMPHASE (CONJ ESTROG-MEDROXYPRO*04/18/2016 16 - Unknown ZOCOR (SIMVASTATIN) 04/18/2016 16 - Unknown Date Reviewed: 07/25/2018 Reviewed by: Julissa (Tour Driver) Mo - Fully Assessed Reason for Visit: Established Patient [175] Primary Visit Diagnosis:Malignant neoplasm of overlapping sites of right breast in female, estrogen receptor positive (HCC) [C50.811, Z17.0] Follow-up and Disposition History Recorded Prescriptions as of 07/25/2018 Sig: ANASTROZOLE 1 MG TABLET Take 1 tablet by mouth once d* AMLODIPINE 10 MG TABLET Take 10 mg by mouth once cristian* LEVOTHYROXINE 150 MCG TABLET Take 150 mcg by mouth once da* CITRACAL + D ORAL Take 2 Each by mouth once garcia* ARIPIPRAZOLE 2 MG TABLET Take 2 mg by mouth once daily. HYDROCHLOROTHIAZIDE 25 MG TAB* Take 25 mg by mouth once cristian* VITAMIN D2 50,000 UNIT CAPSULE Take 50,000 Units by mouth on* LOSARTAN 100 MG TABLET Take 100 mg by mouth once garcia* METOPROLOL SUCCINATE ER 100 M* Take 100 mg by mouth once garcia* JANUVIA 100 MG TABLET Take 100 mg by mouth once garcia* ROPINIROLE 0.25 MG TABLET Take 0.25 mg by mouth daily a* ACETAMINOPHEN 500 MG TABLET Take 500 mg by mouth as neede* * CRESTOR 5 MG TABLET Take one(1) tablet daily. * PRILOSEC 40 MG CAPSULE,DELAYE* Take one(1) capsule daily as * * ZOLOFT 100 MG TABLET Take one(1) tablet daily. Problem List As Of Date 07/25/2018 Noted Resolved ABDOMINAL PAIN LLQ [R10.32] INVALID FOR* Cancer of overlapping sites of right breast (HC*INVALID FOR* Malignant neoplasm of overlapping sites of righ*INVALID FOR* GERD (gastroesophageal reflux disease) [K21.9] INVALID FOR* More... Encounter Status:Closed by JULISSA HASSAN CNP on 07/25/18 PROGRESS Observed: 07/24/2018 Status: COMPLETED Source: [place] 7:35 PM [facility] REPOSITORY HNO ID: [id number] Author: Mirlande Brooks Service: (none) Author Type: Physician Type: Progress Notes Filed: 07/24/2018 7:39 PM Note Text: FOLLOW UP VISIT - POST LEFT STEREOTACTIC GUIDED CORE BIOPSY X 2 NAME: Jacquelin Piper [facility] NO.: [id number] DATE OF SERVICE: 07/24/2018 : 1950 REFERRING PHYSICIAN: Kaitlin Roland MD Jacquelin is a patient I am following for abnormal left breast imaging. The patient is a 68 year old female with a complaint of an abnormal mammogram. The patient had a mammogram ultrasound on July 02, 2018 which demonstrated 2 sites of new focal microcalcifications seen in the medial portion of the left breast. This was felt to most likely be postoperative changes, but could not rule out malignancy and therefore biopsy was recommended. The patient denies a history of breast masses. She does perform a self breast exam routinely. She notes no skin changes. She denies nipple discharge. She notes no axillary masses. She notes no family history of breast problems. The patient has a previous history of right breast cancer. She underwent right mastectomy with reconstruction, which was complicated by infection and left contralateral breast reduction, and then implant placement I performed a left side Stereotactic guided core biopsy x 2 for her abnormal mammogram on July 22, 2018. The pathology returned as: MICROSCOPIC DIAGNOSIS A. Left breast core tissue #1, stereotactic core biopsy: Fatty breast tissue with focal fat necrosis and focal minimal dystrophic calcifications. Negative for atypia or malignancy. B. Left breast core tissue #2, stereotactic core biopsy: Fatty breast tissue with focal fat necrosis, chronic inflammation, histiocytic reaction and dystrophic calcifications. Negative for atypia or malignancy. See comment. The patient notes scant bruising since the procedure. During the procedure, she did notes even reflux following her stomach. She notes she is having reflux for some time. It is becoming more severe. During the procedure, we discussed performing upper endoscopy. VITALS: There were no vitals taken for this visit. On examination, the left side breast biopsy site is clean, dry, and intact. There is slight bruising of the site. Assessment IMPRESSION: status post Stereotactic guided core biopsy for left side breast post surgical changes-negative for malignancy, GERD. PLAN: If Jacquelin notes any problems, she should contact me immediately. I reminded her about the importance of self - breast exam. I recommend she perform monthly self breast exams. If any palpable abnormalities, change in breast exam, or any difficulties are noted, she is to contact my office immediately. I generally recommend follow up unilateral mammogram and ultrasound 6 months following biopsy. I plan to perform upper endoscopy given her reflux symptoms. We discussed the risks and benefits of the planned endoscopy. I have informed the patient that complications can occur including failure to complete the endoscopy and perforation. The patient had the opportunity to ask questions concerning the planned endoscopy. My staff has also explained the procedure to the patient in understandable terms and has given the patient printed material concerning the procedure. The patient freely consents to surgery. Diagnoses: (K21.9) Gastroesophageal reflux disease without esophagitis (primary encounter diagnosis) (R92.8) Abnormal finding on breast imaging Return to Clinic: The patient is instructed to follow- up with me in 6 months you should obtain a mammogram and ultrasound prior to this follow up visit - for the follow-up for the breast abnormality and following upper endoscopy for her reflux symptoms. Mirlande Brooks MD CNOV Observed: 07/24/2018 Status: COMPLETED Source: [place] 3:00 PM [facility] REPOSITORY Office Visit (GENSWS) JACQUELIN LIMA ([id number]) 1950 F Date Time Provider Department 07/24/18 3:00 PM MIRLANDE BROOKS During your visit today, we recorded the following information about you: Mirlande Brooks MD 07/24/2018 7:39 PM Signed FOLLOW UP VISIT - POST LEFT STEREOTACTIC GUIDED CORE BIOPSY X 2 [id number] DATE OF SERVICE: 07/24/2018 : 1950 REFERRING PHYSICIAN: MD Jacquelin Colón is a patient I am following for abnormal left breast imaging. The patient is a 68 year old female with a complaint of an abnormal mammogram. The patient had a mammogram ultrasound on July 02, 2018 which demonstrated 2 sites of new focal microcalcifications seen in the medial portion of the left breast. This was felt to most likely be postoperative changes, but could not rule out malignancy and therefore biopsy was recommended. The patient denies a history of breast masses. She does perform a self breast exam routinely. She notes no skin changes. She denies nipple discharge. She notes no axillary masses. She notes no family history of breast problems. The patient has a previous history of right breast cancer. She underwent right mastectomy with reconstruction, which was complicated by infection and left contralateral breast reduction, and then implant placement I performed a left side Stereotactic guided core biopsy x 2 for her abnormal mammogram on July 22, 2018. The pathology returned as: MICROSCOPIC DIAGNOSIS A. Left breast core tissue #1, stereotactic core biopsy: Fatty breast tissue with focal fat necrosis and focal minimal dystrophic calcifications. Negative for atypia or malignancy. B. Left breast core tissue #2, stereotactic core biopsy: Fatty breast tissue with focal fat necrosis, chronic inflammation, histiocytic reaction and dystrophic calcifications. Negative for atypia or malignancy. See comment. The patient notes scant bruising since the procedure. During the procedure, she did notes even reflux following her stomach. She notes she is having reflux for some time. It is becoming more severe. During the procedure, we discussed performing upper endoscopy. VITALS: There were no vitals taken for this visit. On examination, the left side breast biopsy site is clean, dry, and intact. There is slight bruising of the site. Assessment IMPRESSION: status post Stereotactic guided core biopsy for left side breast post surgical changes-negative for malignancy, GERD. PLAN: If Jacquelin notes any problems, she should contact me immediately. I reminded her about the importance of self - breast exam. I recommend she perform monthly self breast exams. If any palpable abnormalities, change in breast exam, or any difficulties are noted, she is to contact my office immediately. I generally recommend follow up unilateral mammogram and ultrasound 6 months following biopsy. I plan to perform upper endoscopy given her reflux symptoms. We discussed the risks and benefits of the planned endoscopy. I have informed the patient that complications can occur including failure to complete the endoscopy and perforation. The patient had the opportunity to ask questions concerning the planned endoscopy. My staff has also explained the procedure to the patient in understandable terms and has given the patient printed material concerning the procedure. The patient freely consents to surgery. Diagnoses: (K21.9) Gastroesophageal reflux disease without esophagitis (primary encounter diagnosis) (R92.8) Abnormal finding on breast imaging Return to Clinic: The patient is instructed to follow- up with me in 6 months you should obtain a mammogram and ultrasound prior to this follow up visit - for the follow-up for the breast abnormality and following upper endoscopy for her reflux symptoms. Mirlande Brooks MD Referring Provider: KAITLIN ROLAND [[id number]] Allergies As of Date: 07/24/2018 Noted Allergy Reaction ACTONEL (RISEDRONATE SODIUM) 04/04/2010 AMOXACILLIN (AMOXICILLIN) 04/04/2010 CYCLOBENZAPRINE HCL 04/04/2010 LIPITOR (ATORVASTATIN) 04/04/2010 PENICILLINS 05/23/2007 3 - Cough PRAVACHOL (PRAVASTATIN SODIUM) 04/18/2016 16 - Unknown PREMPHASE (CONJ ESTROG-MEDROXYPRO*04/18/2016 16 - Unknown ZOCOR (SIMVASTATIN) 04/18/2016 16 - Unknown Date Reviewed: 07/24/2018 Reviewed by: Mirlande Brooks - Fully Assessed Reason for Visit: Post Op [174] Primary Visit Diagnosis:Gastroesophageal reflux disease without esophagitis [K21.9] Other Visit Diagnosis:Abnormal finding on breast imaging [R92.8] Prescriptions as of 07/24/2018 Sig: ANASTROZOLE 1 MG TABLET Take 1 tablet by mouth once d* AMLODIPINE 10 MG TABLET Take 10 mg by mouth once cristian* LEVOTHYROXINE 150 MCG TABLET Take 150 mcg by mouth once da* CITRACAL + D ORAL Take 2 Each by mouth once garcia* ARIPIPRAZOLE 2 MG TABLET Take 2 mg by mouth once daily. HYDROCHLOROTHIAZIDE 25 MG TAB* Take 25 mg by mouth once cristian* VITAMIN D2 50,000 UNIT CAPSULE Take 50,000 Units by mouth on* LOSARTAN 100 MG TABLET Take 100 mg by mouth once garcia* METOPROLOL SUCCINATE ER 100 M* Take 100 mg by mouth once garcia* JANUVIA 100 MG TABLET Take 100 mg by mouth once garcia* ROPINIROLE 0.25 MG TABLET Take 0.25 mg by mouth daily a* ACETAMINOPHEN 500 MG TABLET Take 500 mg by mouth as neede* * CRESTOR 5 MG TABLET Take one(1) tablet daily. * PRILOSEC 40 MG CAPSULE,DELAYE* Take one(1) capsule daily as * * ZOLOFT 100 MG TABLET Take one(1) tablet daily. Problem List As Of Date 07/24/2018 Noted Resolved ABDOMINAL PAIN LLQ [R10.32] INVALID FOR* Cancer of overlapping sites of right breast (HC*INVALID FOR* Malignant neoplasm of overlapping sites of righ*INVALID FOR* GERD (gastroesophageal reflux disease) [K21.9] INVALID FOR* More... Follow-up and Disposition History Recorded Letter Text Encounter Status:Closed by MIRLANDE BROOKS MD on 07/24/18 HOSP Observed: 07/24/2018 Status: COMPLETED Source: [place] 12:00 AM [facility] REPOSITORY Patient:Jacquelin Lima MRN: <[id number]> Height:5' 7.5(1.715 m) Weight:186 lb 8 oz (84.596 kg) Outpatient Medications as of 08/12/18: anastrozole (ARIMIDEX) 1 mg tablet amLODIPine (NORVASC) 10 mg tablet levothyroxine (SYNTHROID) 150 mcg tablet CALCIUM CITRATE/VITAMIN D3 (CITRACAL + D ORAL) ARIPiprazole (ABILIFY) 2 mg tablet hydrochlorothiazide (HYDRODIURIL, ESIDRIX) 25 mg tablet VITAMIN D 50,000 unit capsule losartan (COZAAR) 100 mg tablet metoprolol succinate ER (TOPROL XL) 100 mg Tb24 JANUVIA 100 mg tablet rOPINIRole (REQUIP) 0.25 mg tablet acetaminophen (TYLENOL) 500 mg tablet rosuvastatin calcium(CRESTOR 5 MG TAB) omeprazole(PRILOSEC 40 MG CAP) sertraline (ZOLOFT) 100 mg ORAL Tab Admission/Clinic Administered Medications as of 08/12/18: lactated ringers infusion Problem List: Abdominal pain, left lower quadrant [R10.32] Cancer of overlapping sites of right breast (HCC) [C50.811] Malignant neoplasm of overlapping sites of right breast in female, estrogen receptor positive (HCC) [C50.811, Z17.0] GERD (gastroesophageal reflux disease) [K21.9] Allergies: Actonel [Risedronate Sodium] Amoxacillin [Amoxicillin] Cyclobenzaprine Hcl Lipitor [Atorvastatin] Penicillins Pravachol [Pravastatin Sodium] Premphase [Conj Estrog-Medroxyprogest Kiko] Zocor [Simvastatin] Date Verified: 08/12/18 Lab Values No results within the last 30 days for the following basenames: K,HCT Progress Notes ([facility]): Julissa Hassan, CLOCK AND WATCH HANDS PAINTER.SENIOR LIBRARIAN 07/25/2018 1:41 PM Signed Chief Complaint Patient presents with: Established Patient HPI: Jacquelin Lima is a 68 year old female who presents here today for follow up breast cancer. Per Dr. Gallegos's previous note: H/o PMH significant for DM2 (dx about 1 year ago; no complications) was found to have abnormal mammogram 02/20/16. ?? Biopsy of one of the lateral tumors demonstrated invasive lobular carcinoma. ER/FL positive (>95%/29%, strong/moderate respectively). HER- 2 was equivocal at 2+ and subsequent FISH testing was negative for amplification. Second tumor biopsy from the medial portion of the breast demonstrated invasive lobular carcinoma. ER positive (>95%, strong), FL negative (<1%) and HER2 1+. ?? Final pathology revealed that within the breast specimen there were 3 foci of invasive carcinoma. The largest measured 1.1 cm. The overall grade was 1. All margins were negative. The closest was 1 cm from the anterior margin. 5 sentinel lymph nodes were retrieved all of which were negative for metastatic disease. ? Oncotype test. Recurrent score 21 (13% 10 year risk). Pt. declined chemotherapy. ? Current therapy:arimidex. Began 05/10/16. ? ?? S/p bottom turning lathe tender removal and perm implant, L reduction?on . Recovered well per pt. Followed by Dr. Pedroza. ? has EGD scheduled with Dr. Brooks. L breast bx neg. done by Dr. Brooks on 07/22/18. Appetite:good Energy level:good Denies fevers. Resp:occ. cough, denies sob, occ. kuo I think my heartburn makes it worse-it's a lot. Cardiac:denies chest pain/palpitations GI:occ.?abd pain I've had stomach issues forever, +heartburn, denies occ. nausea, denies vomiting,?moving bowels regularly :denies dysuria/hematuria Extrem:denies pain to back/bones, occ. joint pain to last 2 fingers R hand Endo:hot flashes I really haven't had those. Neuro:occ. tingling to fingers/toes Skin:denies rashes/lesions Heme:denies bleeding The ROS is otherwise negative. Past medical history, appointments, medications, allergies reviewed. No changes. EXAM: BP 154/94 Pulse 79 Temp 37.2 ?C (99 ?F) (Oral) Wt 84.6 kg (186 lb 8 oz) BMI 28.78 kg/m? APPEARANCE Well appearing, alert, in no acute distress, well- hydrated, well nourished. HEART RRR with normal S1 and S2, no murmurs LUNG clear to auscultation BREAST FEMALE R recon no surrounding mass/nodule, L implant no mass/nodule, steri strips intact LYMPH NODES No cervical lymphadenopathy, No supraclavicular lymphadenopathy and No axillary lymphadenopathy. ABDOMEN bowel sounds normoactive, no bruits, soft, non-tender, non-distended, without organomegaly or palpable masses EXTREMITIES No edema NEURO Awake, alert and oriented x 3, Normal gait and No involuntary motions. SKIN Skin color, texture, turgor normal, no suspicious rashes or lesions ASSESSMENT/PLAN: 1. Malignant neoplasm of overlapping sites of right breast in female, estrogen receptor positive (HCC) - ICD9: 174.8, V86.0, ICD10: C50.811, Z17.0 pT1c(m) pN0(sln) (5 nodes) MX ER positive; HER 2 negative invasive lobular carcinoma of the right breast. - No concerning findings on exam. - Tolerating arimidex well. Continue. - L breast bx neg. - Per Dr. Brooks's previous note-L mamm/US/OV in 6 months. - Follow up in 6 months. - Pt. aware to call office with any questions/concerns. The patient indicates understanding of these issues and agrees with the plan. Julissa Hassan APRN.SENIOR LIBRARIAN Progress Notes ([facility]): Abida Martinez Psr 07/25/2018 9:10 AM Signed EGD ASC.Abida Martinez Psr OPERATIVE REPORT Observed: 07/23/2018 Status: F Source: [place] 12:[place] [facility] [place] [facility] Medical Records Department [address] [place] [address] Operative Report 07/23/18 1115 MR#: [id number] Acct: [id number] Name: JACQUELIN LIMA Rep #: [id number] : 1950 68 From: Mirlande Brooks MD PCP: Kaitlin Roland MD Status: REG CLI Y Location: [facility] Report of Operation Date of Procedure: 07/22/18 Pre-Operative Diagnosis: left breast microcalcifications x 2 Post-Operative Diagnosis: left breast microcalcifications x 2 - successful biopsy Surgery/Procedure Performed:: left stereotactic guided mammotome biopsy with specimen radiogram and marker placement x 2 customer contact sales associate: None Type of Anesthesia:: Local Specimen's removed: left breast - inferior and superior Description of Procedure: The patient was brought to the stereotactic suite and informed of the plan course of events. The left breast was positioned in the true medial to lateral position on the Eng stereotactic table. The lower/caudal lesion was approached first Mammographic image demonstrated the area of abnormality to be located in the center of the radiograph. Stereotactic images were then obtained which demonstrated good positioning of the abnormality for biopsy with good stroke julio parameters. The breast was cleaned with Betadine area did one percent lidocaine was used to anesthetize the skin and a small stab incision made. An 8-gauge mammotome needle was placed into the pre-fire position. Stereotactic images demonstrated good positioning around the planned biopsy site. Local anesthetic injected deeply in the breast. The needle was deployed. Post deployment images demonstrated good positioning of the planned biopsy site. Multiple vacuum-assisted samples were obtained and enzaei-[id number]-[id number] fashion. Specimen radiograph demonstrated micro-calcifications in the sample. A bowtie shaped gel marker clip was deployed. Post biopsy images demonstrated good position of the clip relative the biopsy cavity. The breast was removed from compression. Steri-Strips and a dressing applied. The upper/cranial lesion was approached second Mammographic image demonstrated the area of abnormality to be located in the center of the radiograph. Stereotactic images were then obtained which demonstrated good positioning of the abnormality for biopsy with good stroke julio parameters. The breast was cleaned with Betadine area did one percent lidocaine was used to anesthetize the skin and a small stab incision made. An 8-gauge mammotome needle was placed into the pre-fire position. Stereotactic images demonstrated good positioning around the planned biopsy site. Local anesthetic injected deeply in the breast. The needle was deployed. Post deployment images demonstrated good positioning of the planned biopsy site. Multiple vacuum-assisted samples were obtained and dyzixl-cpr-aaxjj fashion. Specimen radiograph demonstrated micro-calcifications in the sample. A bone shaped gel marker clip was deployed. Post biopsy images demonstrated good position of the clip relative the biopsy cavity. The breast was removed from compression. Steri-Strips and a dressing applied. A Post procedure mammogram images were obtained. 07/23/18 1240 <Electronically signed by Mirlande Brooks MD> Date Mirlande Brooks MD CC: Kaitlin Roland MD; Mirlande Brooks MD Signed BREAST BIOPSY Observed: 07/23/2018 Status: F Source: [place] ([place]) 12:00 AM [facility] [place] Specimen received unlabeled 07/22/18. Returned to wrong office. One day delay. 07/23/18 Patient: JACQUELIN LIMA : 1950 (68/F) Acct Num: [id number] Phys: Mirlande Brooks MD Unit Num: [id number] Loc: [facility] Specimen: [id number] Received: 07/23/18 - 1341 Spec Type: BREAST BX TISSUES TISSUES: A. Left breast, NOS B. Left breast, NOS COMMENT Please make reference to previous specimen ([id number]) left breast tissue with diagnosis of benign breast tissue with focal fibroadenoma. GROSS DESCRIPTION A - Received in fixative is one container labeled with the patient's name and designated medial first. The specimen consists of multiple irregular and elongated fragments of yellow-ca soft tissue that in aggregate measure 5.5 x 3.5 x 0.2 cm. The specimen is totally submitted in two cassettes. B - Received in fixative is one container labeled with the patient's name and designated second. The specimen consists of multiple irregular and elongated fragments of yellow-ca soft tissue that in aggregate measure 5.5 x 3.5 x 0.2 cm. The specimen is totally submitted in two cassettes. / AM:rg 07/23/18 TC:5 CPT: 09272 x2 HEADER OPERATION: Left breast stereotactic biopsy PRE-OP DIAGNOSIS: Left breast calcifications TISSUE SUBMITTED: A Left breast core tissue #1, B - Left breast core tissue # 2 ISCHEMIC TIME: 2 minutes MICROSCOPIC DESCRIPTION Slides are reviewed. MICROSCOPIC DIAGNOSIS A. Left breast core tissue #1, stereotactic core biopsy: Fatty breast tissue with focal fat necrosis and focal minimal dystrophic calcifications. Negative for atypia or malignancy. B. Left breast core tissue #2, stereotactic core biopsy: Fatty breast tissue with focal fat necrosis, chronic inflammation, histiocytic reaction and dystrophic calcifications. Negative for atypia or malignancy. See comment. SJ:sara 07/24/18 Signed Lucas Mcknight 07/24/18 <signature on file> Performed By: #### PBRBX #### [facility] [place], [address] CNOP Observed: 07/22/2018 Status: COMPLETED Source: [place] 12:00 AM [facility] REPOSITORY Operative Note (Enc) ([facility]) Progress Notes: Mirlande Brooks MD 07/29/2018 6:43 AM Signed OPERATIVE NOTATION FOR [facility] SURGICAL PROCEDURE. July 22, 2018 Jacquelin Lima 1950 [id number] female PROCEDURE: left VACCUUM NEEDLE STEREOTACTIC BREAST BIOPSY WITH SPECIMEN RADIOGRAPH - 67114 and VACCUUM NEEDLE STEREOTACTIC BREAST BIOPSY - additional - 08854 SURGEON: Shailesh Brooks M.D. FACS DEALER DEVELOPMENT MANAGER: None DEPT: WQ PROVIDER: [id number] Brooks MD POS: [id number] DIAGNOSIS: (R92.8) Abnormal finding on breast imaging (primary encounter diagnosis) ASA CLASS: 2 - mild FINDINGS: bening COMPLICATIONS: None PMHx - PAST MEDICAL HISTORY Diagnosis Date - Anxiety - BRCA negative myRisk negative - Breast cancer (HCC) - Congenital anomaly of aortic arch - Depression - Diabetes (HCC) - Diverticulitis of colon (without mention of hemorrhage)(562.11) - GERD (gastroesophageal reflux disease) - Hyperlipidemia - Hypertension - Hypothyroidism - IBS (irritable bowel syndrome) - Osteoporosis - Other and unspecified mitral valve diseases - Plantar fascial fibromatosis fascitis - PMH - PAST MEDICAL HISTORY OF metartalsagia - PMH - PAST MEDICAL HISTORY OF high blood sugars - Unspecified sleep apnea COMORBIDITIES - Obesity Post Op Occurrences - None Wound Classification - Clean Operative note dictated in the [facility] dictation system. Mirlande Brooks MD Encounter Status:Closed by MIRLANDE BROOKS MD on 07/29/18 PROGRESS Observed: 07/19/2018 Status: COMPLETED Source: [place] 8:48 AM [facility] REPOSIT[facility] HNO ID: [id number] Author: Mirlande Brooks Service: (none) Author Type: Physician Type: Progress Notes Filed: 07/19/2018 8:51 AM Note Text: HISTORY AND PHYSICAL - BREAST COMPLAINT Jacquelin Lima 1950 REFERRING PHYSICIAN: Julissa Hassan (Tour Driver),* CHIEF COMPLAINT: Microcalcifications, left breast x2 HPI: The patient is a 68 year old female with a complaint of an abnormal mammogram. The patient had a mammogram ultrasound on July 02, 2018 which demonstrated 2 sites of new focal microcalcifications seen in the medial portion of the left breast. This was felt to most likely be postoperative changes, but could not rule out malignancy and therefore biopsy was recommended. The patient denies a history of breast masses. She does perform a self breast exam routinely. She notes no skin changes. She denies nipple discharge. She notes no axillary masses. She notes no family history of breast problems. The patient has a previous history of right breast cancer. She underwent right mastectomy with reconstruction, which was complicated by infection and left contralateral breast reduction, and then implant placement The patient is being seen by me today at the request of Dr. Kaitlin Roland MD for my opinion and advice regarding abnormal left breast imaging. PAST MEDICAL HISTORY Diagnosis Date - Anxiety - BRCA negative myRisk negative - Breast cancer (HCC) - Congenital anomaly of aortic arch - Depression - Diabetes (HCC) - Diverticulitis of colon (without mention of hemorrhage)(562.11) - GERD (gastroesophageal reflux disease) - Hyperlipidemia - Hypertension - Hypothyroidism - IBS (irritable bowel syndrome) - Osteoporosis - Other and unspecified mitral valve diseases - Plantar fascial fibromatosis fascitis - PMH - PAST MEDICAL HISTORY OF metartalsagia - PMH - PAST MEDICAL HISTORY OF high blood sugars - Unspecified sleep apnea PAST SURGICAL HISTORY Procedure Laterality Date - BREAST BIOPSY 02/2016 Right breast - COLONOSCOP W/ OR W/O BRSH SPEC 06/19/07 - LIGATE FALLOPIAN TUBE Tubal ligation - MASTECTOMY HX 04/05/2016 Right breast - PAST SURGICAL HISTORY OF neuromas removed right foot - PAST SURGICAL HISTORY OF Left wrist - REMOVAL OF TONSILS,<12 Y/O Tonsillectomy - STEREOTACTIC LOCALIZATION BREAST BIOPSY 2004 Right breast for microcalcifications Current Outpatient Prescriptions: anastrozole (ARIMIDEX) 1 mg tablet Take 1 tablet by mouth once daily. Disp: 90 tablet Rfl: 3 amLODIPine (NORVASC) 10 mg tablet Take 10 mg by mouth once daily. Disp: Rfl: levothyroxine (SYNTHROID) 150 mcg tablet Take 150 mcg by mouth once daily. Disp: Rfl: CALCIUM CITRATE/VITAMIN D3 (CITRACAL + D ORAL) Take 2 Each by mouth once daily. Disp: Rfl: ARIPiprazole (ABILIFY) 2 mg tablet Take 2 mg by mouth once daily. Disp: Rfl: hydrochlorothiazide (HYDRODIURIL, ESIDRIX) 25 mg tablet Take 25 mg by mouth once daily. Disp: Rfl: VITAMIN D 50,000 unit capsule Take 50,000 Units by mouth once each week. Disp: Rfl: losartan (COZAAR) 100 mg tablet Take 100 mg by mouth once daily. Disp: Rfl: metoprolol succinate ER (TOPROL XL) 100 mg Tb24 Take 100 mg by mouth once daily. Disp: Rfl: JANUVIA 100 mg tablet Take 100 mg by mouth once daily. Disp: Rfl: rOPINIRole (REQUIP) 0.25 mg tablet Take 0.25 mg by mouth daily at bedtime. Disp: Rfl: rosuvastatin calcium(CRESTOR 5 MG TAB) Take one(1) tablet daily. Disp: Rfl: 0 omeprazole(PRILOSEC 40 MG CAP) Take one(1) capsule daily as needed Disp: Rfl: 0 sertraline (ZOLOFT) 100 mg ORAL Tab Take one(1) tablet daily. Disp: Rfl: 0 acetaminophen (TYLENOL) 500 mg tablet Take 500 mg by mouth as needed. Disp: Rfl: No current facility-administered medications for this visit. ALLERGIES: Actonel [Risedronate Sodium]; Amoxacillin [Amoxicillin]; Cyclobenzaprine Hcl; Lipitor [Atorvastatin]; Penicillins; Pravachol [Pravastatin Sodium]; Premphase [Conj Estrog-Medroxyprogest Kiko]; Zocor [Simvastatin] PERSONAL HISTORY: Social History Marital status: Spouse name: Years of education: Number of children: Social History Main Topics Smoking status: Former Smoker Packs/day: 0.00 Years: 0.00 Types: Cigarettes Quit date: 03/18/2016 Smokeless tobacco: Never Used Comment: Pt smoked 2 cigarettes once weekly on AND off x 30 years. Alcohol use: Yes Comment: Very rarely Drug use: No Sexual activity: Yes Partners with: Male Other Topics Concern Blood Transfusions No FAMILY HISTORY: FAMILY HISTORY Problem Relation Age of Onset - Hypertension Mother - Diabetes Mother - Diabetes Maternal Grandmother - Diabetes Paternal Aunt - Hypertension Father - Cancer Father 72 of pancreas cancer - Breast Cancer Sister 55 - Breast Cancer Other maternal first cousin dx 50 - Breast Cancer Other maternal half-first cousin REVIEW OF SYMPTOMS: The review of systems data was entered by the nurse and reviewed by nd Nursing Notes: Mine De León Ma 07/17/2018 4:36 PM Signed REVIEW OF SYSTEMS: General: The patient NOTES fatigue, denies weight loss, denies weight gain, denies feeling hot, and denies feelings of cold. Eyes: The patient denies glaucoma, denies eye injury/surgery, wears glasses or contacts. Ear/Nose/Throat: The patient NOTES allergies, denies hayfever, denies ear infections, and denies bloody noses. Cardiovascular: The patient denies chest pain, denies heart disease, NOTES high blood pressure,denies cardiac stent, denies prior heart attack, denies irregular heart beat, NOTES high cholesterol, denies poor circulation, denies heart failure, other cardiac issues, denies claudication, denies cold feet, denies peripheral arterial stent. Respiratory: The patient denies tuberculosis, denies pneumonia, denies frequent cough, denies pulmonary embolism, denies shortness of breath, and denies coughing up blood. Gastrointestinal: The patient denies difficulty swallowing, NOTES acid reflux, denies ulcers, denies vomiting, denies jaundice/hepatitis, denies gallbladder problems, denies black or tarry stools, denies hemorrhoids, denies bleeding from rectum, denies diverticulitis, denies constipation, denies diarrhea, denies loss of stool control, and denies hernias. Kidney/Bladder: The patient denies kidney stones, denies urine infections, and denies bloody urine. Skin: The patient denies a history of skin cancer, denies bleeding/changing moles, and denies a history of skin rash. Neurologic: The patient denies a history of epilepsy/convulsions, denies headaches, denies head/spinal injuries, and denies stroke/TIA. Psychiatric: The patient denies psychiatric medications, NOTES depression, and denies voices, denies substance abuse. Endocrine: The patient NOTES thyroid disorders, NOTES diabetes, and denies hormonal problems. Hematologic: The patient denies a history of bruising, denies bleeding, and denies anemia, denies blood clots. Infections: The patient NOTES a history of measles and mumps, denies rheumatic fever, and denies sexually transmitted diseases. Musculoskeletal: The patient denies back pain/injury, NOTES back problems, denies sciatica, denies knee/foot trouble, denies arthritis, or denies gout. When was patient's last Mammogram screening? 07/02/2018 Last Colonoscopy: 2006 Mine De León Ma PHYSICAL EXAMINATION: General: The patient is 68 year old female, well nourished, well hydrated in no acute distress. The patient is oriented to time, place, and person. VITALS: Blood pressure 126/80, height 171.5 cm (5' 7.5), weight 84.4 kg (186 lb). Body mass index is 28.7 kg/m?. HEENT: Normal cephalic, ataumatic, pupils are equally round, sclera are anicteric, mucous membranes are moist, oropharynx is clear. Neck has no masses, asymmetry or lymphadenopathy. Thyroid is unremarkable. Respiratory: Clear to auscultation and percussion. Normal respiratory excursion and pattern. Cardiac: Examination is regular rate and rhythm. Abdominal exam: Soft, nontender, with no palpable masses. No hepatosplenomegaly. No palpable hernias. Rectal exam: exam deferred Extremities: no clubbing, cyanosis or edema. No adenopathy. Breast: Visual inspection reveals no retractions, nipple inversion, or skin changes with incisions consistent with her previous surgical procedures. Palpation of the right breast reveals post reconstruction with implant. Palpation of the left breast reveals no dominant or suspicious masses, but multiple benign-feeling nodules. Axillary exam demonstrates no suspicious masses in either the left or right axilla. There is no nipple discharge expressed from either the left or right breast. LABORATORY VALUES: As Noted RADIOLOGIC STUDIES: As Noted Assessment IMPRESSION: Left breast microcalcifications ?2 PLAN: I plan to perform a stereotactic biopsy of the left breast. The planned surgical procedure was discussed extensively with the patient. The risks, benefits, anticipated outcomes and possible complications were mentioned. My staff has also explained the procedure in understandable terms and the patient was given the option to take printed material concerning the planned procedure. The patient had the opportunity to ask questions concerning the planned procedure. The patient freely consents to the planned procedure. Diagnoses: (R92.8) Abnormal finding on breast imaging (primary encounter diagnosis) A letter was sent to Dr. Kaitlin Roland MD indicating the above finding for this patient. Return to Clinic: The patient is instructed to follow-up with me after the testing has been completed. Mirlande Brooks MD CNOV Observed: 07/17/2018 Status: COMPLETED Source: [place] 9:50 AM [facility] REPOSITORY Office Visit ([facility]) JACQUELIN LIMA ([id number]) 1950 F Date Time Provider Department 07/17/18 9:50 AM MIRLANDE BROOKS During your visit today, we recorded the following information about you: Blood pressure Weight Height 126/80 84.4 kg 1.715 m Mine De León Ma 07/17/2018 4:36 PM Signed REVIEW OF SYSTEMS: General: The patient NOTES fatigue, denies weight loss, denies weight gain, denies feeling hot, and denies feelings of cold. Eyes: The patient denies glaucoma, denies eye injury/surgery, wears glasses or contacts. Ear/Nose/Throat: The patient NOTES allergies, denies hayfever, denies ear infections, and denies bloody noses. Cardiovascular: The patient denies chest pain, denies heart disease, NOTES high blood pressure,denies cardiac stent, denies prior heart attack, denies irregular heart beat, NOTES high cholesterol, denies poor circulation, denies heart failure, other cardiac issues, denies claudication, denies cold feet, denies peripheral arterial stent. Respiratory: The patient denies tuberculosis, denies pneumonia, denies frequent cough, denies pulmonary embolism, denies shortness of breath, and denies coughing up blood. Gastrointestinal: The patient denies difficulty swallowing, NOTES acid reflux, denies ulcers, denies vomiting, denies jaundice/hepatitis, denies gallbladder problems, denies black or tarry stools, denies hemorrhoids, denies bleeding from rectum, denies diverticulitis, denies constipation, denies diarrhea, denies loss of stool control, and denies hernias. Kidney/Bladder: The patient denies kidney stones, denies urine infections, and denies bloody urine. Skin: The patient denies a history of skin cancer, denies bleeding/changing moles, and denies a history of skin rash. Neurologic: The patient denies a history of epilepsy/convulsions, denies headaches, denies head/spinal injuries, and denies stroke/TIA. Psychiatric: The patient denies psychiatric medications, NOTES depression, and denies voices, denies substance abuse. Endocrine: The patient NOTES thyroid disorders, NOTES diabetes, and denies hormonal problems. Hematologic: The patient denies a history of bruising, denies bleeding, and denies anemia, denies blood clots. Infections: The patient NOTES a history of measles and mumps, denies rheumatic fever, and denies sexually transmitted diseases. Musculoskeletal: The patient denies back pain/injury, NOTES back problems, denies sciatica, denies knee/foot trouble, denies arthritis, or denies gout. When was patient's last Mammogram screening? 07/02/2018 Last Colonoscopy: 2006 Mine Brooks MD 07/19/2018 8:51 AM Signed HISTORY AND PHYSICAL - BREAST COMPLAINT Jacquelin Lima 1950 REFERRING PHYSICIAN: Julissa Hassan ([facility]),* CHIEF COMPLAINT: Microcalcifications, left breast x2 HPI: The patient is a 68 year old female with a complaint of an abnormal mammogram. The patient had a mammogram ultrasound on July 02, 2018 which demonstrated 2 sites of new focal microcalcifications seen in the medial portion of the left breast. This was felt to most likely be postoperative changes, but could not rule out malignancy and therefore biopsy was recommended. The patient denies a history of breast masses. She does perform a self breast exam routinely. She notes no skin changes. She denies nipple discharge. She notes no axillary masses. She notes no family history of breast problems. The patient has a previous history of right breast cancer. She underwent right mastectomy with reconstruction, which was complicated by infection and left contralateral breast reduction, and then implant placement The patient is being seen by me today at the request of Dr. Kaitlin Roland MD for my opinion and advice regarding abnormal left breast imaging. PAST MEDICAL HISTORY Diagnosis Date - Anxiety - BRCA negative myRisk negative - Breast cancer (HCC) - Congenital anomaly of aortic arch - Depression - Diabetes (HCC) - Diverticulitis of colon (without mention of hemorrhage)(562.11) - GERD (gastroesophageal reflux disease) - Hyperlipidemia - Hypertension - Hypothyroidism - IBS (irritable bowel syndrome) - Osteoporosis - Other and unspecified mitral valve diseases - Plantar fascial fibromatosis fascitis - PMH - PAST MEDICAL HISTORY OF metartalsagia - PMH - PAST MEDICAL HISTORY OF high blood sugars - Unspecified sleep apnea PAST SURGICAL HISTORY Procedure Laterality Date - BREAST BIOPSY 02/2016 Right breast - COLONOSCOP W/ OR W/O [facility] SPEC 06/19/07 - LIGATE FALLOPIAN TUBE Tubal ligation - MASTECTOMY HX 04/05/2016 Right breast - PAST SURGICAL HISTORY OF neuromas removed right foot - PAST SURGICAL HISTORY OF Left wrist - REMOVAL OF TONSILS,<12 Y/O Tonsillectomy - STEREOTACTIC LOCALIZATION BREAST BIOPSY 2004 Right breast for microcalcifications Current Outpatient Prescriptions: anastrozole (ARIMIDEX) 1 mg tablet Take 1 tablet by mouth once daily. Disp: 90 tablet Rfl: 3 amLODIPine (NORVASC) 10 mg tablet Take 10 mg by mouth once daily. Disp: Rfl: levothyroxine (SYNTHROID) 150 mcg tablet Take 150 mcg by mouth once daily. Disp: Rfl: CALCIUM CITRATE/VITAMIN D3 (CITRACAL + D ORAL) Take 2 Each by mouth once daily. Disp: Rfl: ARIPiprazole (ABILIFY) 2 mg tablet Take 2 mg by mouth once daily. Disp: Rfl: hydrochlorothiazide (HYDRODIURIL, ESIDRIX) 25 mg tablet Take 25 mg by mouth once daily. Disp: Rfl: VITAMIN D 50,000 unit capsule Take 50,000 Units by mouth once each week. Disp: Rfl: losartan (COZAAR) 100 mg tablet Take 100 mg by mouth once daily. Disp: Rfl: metoprolol succinate ER (TOPROL XL) 100 mg Tb24 Take 100 mg by mouth once daily. Disp: Rfl: JANUVIA 100 mg tablet Take 100 mg by mouth once daily. Disp: Rfl: rOPINIRole (REQUIP) 0.25 mg tablet Take 0.25 mg by mouth daily at bedtime. Disp: Rfl: rosuvastatin calcium(CRESTOR 5 MG TAB) Take one(1) tablet daily. Disp: Rfl: 0 omeprazole(PRILOSEC 40 MG CAP) Take one(1) capsule daily as needed Disp: Rfl: 0 sertraline (ZOLOFT) 100 mg ORAL Tab Take one(1) tablet daily. Disp: Rfl: 0 acetaminophen (TYLENOL) 500 mg tablet Take 500 mg by mouth as needed. Disp: Rfl: No current facility-administered medications for this visit. ALLERGIES: Actonel [Risedronate Sodium]; Amoxacillin [Amoxicillin]; Cyclobenzaprine Hcl; Lipitor [Atorvastatin]; Penicillins; Pravachol [Pravastatin Sodium]; Premphase [Conj Estrog-Medroxyprogest Kiko]; Zocor [Simvastatin] PERSONAL HISTORY: Social History Marital status: Spouse name: Years of education: Number of children: Social History Main Topics Smoking status: Former Smoker Packs/day: 0.00 Years: 0.00 Types: Cigarettes Quit date: 03/18/2016 Smokeless tobacco: Never Used Comment: Pt smoked 2 cigarettes once weekly on AND off x 30 years. Alcohol use: Yes Comment: Very rarely Drug use: No Sexual activity: Yes Partners with: Male Other Topics Concern Blood Transfusions No FAMILY HISTORY: FAMILY HISTORY Problem Relation Age of Onset - Hypertension Mother - Diabetes Mother - Diabetes Maternal Grandmother - Diabetes Paternal Aunt - Hypertension Father - Cancer Father 72 of pancreas cancer - Breast Cancer Sister 55 - Breast Cancer Other maternal first cousin dx 50 - Breast Cancer Other maternal half-first cousin REVIEW OF SYMPTOMS: The review of systems data was entered by the nurse and reviewed by me Nursing Notes: Mine De León Ma 07/17/2018 4:36 PM Signed REVIEW OF SYSTEMS: General: The patient NOTES fatigue, denies weight loss, denies weight gain, denies feeling hot, and denies feelings of cold. Eyes: The patient denies glaucoma, denies eye injury/surgery, wears glasses or contacts. Ear/Nose/Throat: The patient NOTES allergies, denies hayfever, denies ear infections, and denies bloody noses. Cardiovascular: The patient denies chest pain, denies heart disease, NOTES high blood pressure,denies cardiac stent, denies prior heart attack, denies irregular heart beat, NOTES high cholesterol, denies poor circulation, denies heart failure, other cardiac issues, denies claudication, denies cold feet, denies peripheral arterial stent. Respiratory: The patient denies tuberculosis, denies pneumonia, denies frequent cough, denies pulmonary embolism, denies shortness of breath, and denies coughing up blood. Gastrointestinal: The patient denies difficulty swallowing, NOTES acid reflux, denies ulcers, denies vomiting, denies jaundice/hepatitis, denies gallbladder problems, denies black or tarry stools, denies hemorrhoids, denies bleeding from rectum, denies diverticulitis, denies constipation, denies diarrhea, denies loss of stool control, and denies hernias. Kidney/Bladder: The patient denies kidney stones, denies urine infections, and denies bloody urine. Skin: The patient denies a history of skin cancer, denies bleeding/changing moles, and denies a history of skin rash. Neurologic: The patient denies a history of epilepsy/convulsions, denies headaches, denies head/spinal injuries, and denies stroke/TIA. Psychiatric: The patient denies psychiatric medications, NOTES depression, and denies voices, denies substance abuse. Endocrine: The patient NOTES thyroid disorders, NOTES diabetes, and denies hormonal problems. Hematologic: The patient denies a history of bruising, denies bleeding, and denies anemia, denies blood clots. Infections: The patient NOTES a history of measles and mumps, denies rheumatic fever, and denies sexually transmitted diseases. Musculoskeletal: The patient denies back pain/injury, NOTES back problems, denies sciatica, denies knee/foot trouble, denies arthritis, or denies gout. When was patient's last Mammogram screening? 07/02/2018 Last Colonoscopy: 2006 Mine De León Ma PHYSICAL EXAMINATION: General: The patient is 68 year old female, well nourished, well hydrated in no acute distress. The patient is oriented to time, place, and person. VITALS: Blood pressure 126/80, height 171.5 cm (5' 7.5), weight 84.4 kg (186 lb). Body mass index is 28.7 kg/m?. HEENT: Normal cephalic, ataumatic, pupils are equally round, sclera are anicteric, mucous membranes are moist, oropharynx is clear. Neck has no masses, asymmetry or lymphadenopathy. Thyroid is unremarkable. Respiratory: Clear to auscultation and percussion. Normal respiratory excursion and pattern. Cardiac: Examination is regular rate and rhythm. Abdominal exam: Soft, nontender, with no palpable masses. No hepatosplenomegaly. No palpable hernias. Rectal exam: exam deferred Extremities: no clubbing, cyanosis or edema. No adenopathy. Breast: Visual inspection reveals no retractions, nipple inversion, or skin changes with incisions consistent with her previous surgical procedures. Palpation of the right breast reveals post reconstruction with implant. Palpation of the left breast reveals no dominant or suspicious masses, but multiple benign-feeling nodules. Axillary exam demonstrates no suspicious masses in either the left or right axilla. There is no nipple discharge expressed from either the left or right breast. LABORATORY VALUES: As Noted RADIOLOGIC STUDIES: As Noted Assessment IMPRESSION: Left breast microcalcifications ?2 PLAN: I plan to perform a stereotactic biopsy of the left breast. The planned surgical procedure was discussed extensively with the patient. The risks, benefits, anticipated outcomes and possible complications were mentioned. My staff has also explained the procedure in understandable terms and the patient was given the option to take printed material concerning the planned procedure. The patient had the opportunity to ask questions concerning the planned procedure. The patient freely consents to the planned procedure. Diagnoses: (R92.8) Abnormal finding on breast imaging (primary encounter diagnosis) A letter was sent to Dr. Kaitlin Roland MD indicating the above finding for this patient. Return to Clinic: The patient is instructed to follow-up with me after the testing has been completed. Mirlande Brooks MD Referring Provider: JULISSA HASSAN ([facility]) [[id number]] Allergies As of Date: 07/17/2018 Noted Allergy Reaction ACTONEL (RISEDRONATE SODIUM) 04/04/2010 AMOXACILLIN (AMOXICILLIN) 04/04/2010 CYCLOBENZAPRINE HCL 04/04/2010 LIPITOR (ATORVASTATIN) 04/04/2010 PENICILLINS 05/23/2007 3 - Cough PRAVACHOL (PRAVASTATIN SODIUM) 04/18/2016 16 - Unknown PREMPHASE (CONJ ESTROG-MEDROXYPRO*04/18/2016 16 - Unknown ZOCOR (SIMVASTATIN) 04/18/2016 16 - Unknown Date Reviewed: 07/17/2018 Reviewed by: Mirlande Brooks - Fully Assessed Reason for Visit: Breast Problem [16] Primary Visit Diagnosis:Abnormal finding on breast imaging [R92.8] Prescriptions as of 07/17/2018 Sig: ANASTROZOLE 1 MG TABLET Take 1 tablet by mouth once d* AMLODIPINE 10 MG TABLET Take 10 mg by mouth once cristian* LEVOTHYROXINE 150 MCG TABLET Take 150 mcg by mouth once da* CITRACAL + D ORAL Take 2 Each by mouth once garcia* ARIPIPRAZOLE 2 MG TABLET Take 2 mg by mouth once daily. HYDROCHLOROTHIAZIDE 25 MG TAB* Take 25 mg by mouth once cristian* VITAMIN D2 50,000 UNIT CAPSULE Take 50,000 Units by mouth on* LOSARTAN 100 MG TABLET Take 100 mg by mouth once garcia* METOPROLOL SUCCINATE ER 100 M* Take 100 mg by mouth once garcia* JANUVIA 100 MG TABLET Take 100 mg by mouth once garcia* ROPINIROLE 0.25 MG TABLET Take 0.25 mg by mouth daily a* * CRESTOR 5 MG TABLET Take one(1) tablet daily. * PRILOSEC 40 MG CAPSULE,DELAYE* Take one(1) capsule daily as * * ZOLOFT 100 MG TABLET Take one(1) tablet daily. ACETAMINOPHEN 500 MG TABLET Take 500 mg by mouth as neede* Problem List As Of Date 07/17/2018 Noted Resolved ABDOMINAL PAIN LLQ [R10.32] INVALID FOR* Cancer of overlapping sites of right breast (HC*INVALID FOR* Malignant neoplasm of overlapping sites of righ*INVALID FOR* Visit Notes: >> Mine De León Ma Vibha Jul 17, 2018 4:30 PM Status: Signed REVIEW OF SYSTEMS: General: The patient NOTES fatigue, denies weight loss, denies weight gain, denies feeling hot, and denies feelings of cold. Eyes: The patient denies glaucoma, denies eye injury/surgery, wears glasses or contacts. Ear/Nose/Throat: The patient NOTES allergies, denies hayfever, denies ear infections, and denies bloody noses. Cardiovascular: The patient denies chest pain, denies heart disease, NOTES high blood pressure,denies cardiac stent, denies prior heart attack, denies irregular heart beat, NOTES high cholesterol, denies poor circulation, denies heart failure, other cardiac issues, denies claudication, denies cold feet, denies peripheral arterial stent. Respiratory: The patient denies tuberculosis, denies pneumonia, denies frequent cough, denies pulmonary embolism, denies shortness of breath, and denies coughing up blood. Gastrointestinal: The patient denies difficulty swallowing, NOTES acid reflux, denies ulcers, denies vomiting, denies jaundice/hepatitis, denies gallbladder problems, denies black or tarry stools, denies hemorrhoids, denies bleeding from rectum, denies diverticulitis, denies constipation, denies diarrhea, denies loss of stool control, and denies hernias. Kidney/Bladder: The patient denies kidney stones, denies urine infections, and denies bloody urine. Skin: The patient denies a history of skin cancer, denies bleeding/changing moles, and denies a history of skin rash. Neurologic: The patient denies a history of epilepsy/convulsions, denies headaches, denies head/spinal injuries, and denies stroke/TIA. Psychiatric: The patient denies psychiatric medications, NOTES depression, and denies voices, denies substance abuse. Endocrine: The patient NOTES thyroid disorders, NOTES diabetes, and denies hormonal problems. Hematologic: The patient denies a history of bruising, denies bleeding, and denies anemia, denies blood clots. Infections: The patient NOTES a history of measles and mumps, denies rheumatic fever, and denies sexually transmitted diseases. Musculoskeletal: The patient denies back pain/injury, NOTES back problems, denies sciatica, denies knee/foot trouble, denies arthritis, or denies gout. When was patient's last Mammogram screening? 07/02/2018 Last Colonoscopy: 2006 Mine De León Ma Follow-up and Disposition History Recorded Letter Text Encounter Status:Closed by MIRLANDE BROOKS MD on 07/19/18 UNILAT LT SCRN Observed: 07/02/2018 Status: F Source: ASA W/CAD 12:46 PM [facility] Imaging Services [address] [place] [address] UNILAT LT SCRN W/CAD MR#: [id number] Acct: [id number] Name: JACQUELIN LIMA Rep #: [id number] : 1950 F 68 From: Carlos Romero MD PCP: Kaitlin Roland MD Status: REG CLI Study: UNILAT LT SCRN W/CAD Date of Exam: 07/02/18 Exam# [id number] Ordering Dr: Julissa Hassan CRYSTAL LAPPER-Joan MAMMOGRAPHY - UNILATERAL SCREENING: LEFT BREAST REASON FOR EXAM: Female, 68 years old. Routine annual screening examination (unilateral). PERTINENT HISTORY: Personal history of breast cancer. Prior right mastectomy. Sister with breast cancer. TECHNIQUE: Digital unilateral breast ching (3D mammographic acquisition) in the CC and MLO projections. 2-D mediolateral oblique (MLO) and craniocaudad (CC) views of both breasts were obtained. CAD: Full Field Digital Mammography with Computer Added Detection was performed. COMPARISON: Comparison is made with prior study dated February 20, 2016 and July 01, 2017. FINDINGS: Breast Composition: There are scattered areas of fibroglandular density. Since prior study, focal calcifications are seen in the mid as well as the medial portion of the left breast. These most likely represent postoperative change. Although a neoplastic process cannot be ruled out. These are new new as compared to prior study. No other significant abnormalities are identified. BI/UNILAT LT SCRN W/CAD IMPRESSION: Status post left breast implant. Calcifications in the left breast as described. A biopsy is recommended for further evaluation. ASSESSMENT CATEGORY: BIRADS Category 4: Suspicious - Biopsy Should Be Considered. A letter regarding these results will be sent to the patient by the facility within 30 days. Approximately 10% of breast cancers are not detected by mammography. A normal mammogram should not delay biopsy of a clinically suspicious abnormality. [id number] Electronically Signed: Carlos Romero MD at 14:46 EDT Tel [phone], Service support , CC: VAUGHN Hassan; Kaitlin Roland MD Textile Stylist: Signed CBC-COMPLETE BLOOD CNT Collected: 05/19/2018 Status: F Source: ASA NO DIFF 2:10 PM [facility] Order Comment: Order Date: 05/19/18 Order Info: [id number] - CBC TYPE CODE TESTS RESULT OUT OF RANGE REFERENCE UNITS LAB L100.1000 4.4-11.0 K/mm3 Normal WBC 7.7 LAB L100.1200 4.2-5.4 M/mm3 Normal RBC 4.55 LAB L100.1300 12.0-15.0 g/dl Normal HGB 13.6 LAB L100.1400 37-47 % Normal HCT 40.0 LAB L100.1500 81-99 fL Normal MCV 87.9 LAB L100.1600 27.0-32.0 pg Normal MCH 29.9 LAB L100.1700 32-36 g/gl Normal MCHC 34.0 LAB L100.1810 11.6-14.6 % Normal RDW CV 13.0 LAB L100.1820 35.1-43.9 fl Normal RDW SD 41.6 LAB L100.1900 150-450 K/mm3 Normal PLT 302 LAB L100.2000 6.2-12.0 fl Normal MPV 10.1 Performed By: #### L100.0500, L500.2500, L501.9520, L506.0400 #### [facility] [address] [place], [address] BASIC METABOLIC Collected: 05/19/2018 Status: F Source: ASA PROFILE (BMP) 2:10 PM [facility] Order Comment: Order Date: 05/19/18 Order Info: 0667-1 - BMP Order Info: 3016-3 - TSH Order Info: 3024-7 - T4F TYPE CODE TESTS RESULT OUT OF RANGE REFERENCE UNITS LAB L501.0100 74-106 mg/dL Normal GLU 99 Result Comment: Please note revised GLUCOSE reference range effective 2017. LAB L501.1000 7-18 mg/dL High BUN 21 LAB L501.1100 0.55-1.02 mg/dL Normal CREAT,SERUM 0.92 Result Comment: The validity of the calculated GFR AND GFRAA in patients over 70 years has not been determined. Clinical correlation is essential. LAB L501.1110 >60 mL/min Normal EST GFR 65 Result Comment: Non- GFR Calc LAB L501.1115 >60 mL/min Normal EST GFR - AA 79 Result Comment: GFR Calc LAB L501.1300 10-20 RATIO High BUN/CRE 22.9 LAB L501.2200 8.5-10.1 mg/dL CA Normal 9.4 LAB L501.5300 136-145 mmol/L NA Normal 138 LAB L501.5600 3.5-5.1 mmol/L K Normal 3.6 LAB L501.5900 98-107 mmol/L CL Normal 102 LAB L501.6100 21.0-32.0 mmol/L Normal CO2 27.0 LAB L501.6200 5-15 Normal GAP 9 Performed By: #### L100.0500, L500.2500, L501.9520, L506.0400 #### [facility] [address] [place], [place], [address] THYROID STIM HORMONE Collected: 05/19/2018 Status: F Source: ASA (TSH) 2:10 PM [facility] Order Comment: Order Date: 05/19/18 Order Info: 0667-1 - BMP Order Info: 3016-3 - TSH Order Info: 3024-7 - T4F TYPE CODE TESTS RESULT OUT OF RANGE REFERENCE UNITS LAB L501.9520 0.358-3.74 uIU/mL Low TSH 0.09 Performed By: #### L100.0500, L500.2500, L501.9520, L506.0400 #### [facility] [address] [place], [address] T4 FREE DIRECT Collected: 05/19/2018 Status: F Source: [place] 2:10 PM [facility] Order Comment: Order Date: 05/19/18 Order Info: 0667-1 - BMP Order Info: 3016-3 - TSH Order Info: 3024-7 - T4F TYPE CODE TESTS RESULT OUT OF REFERENCE UNITS RANGE LAB L506.0400 0.76-1.46 ng/dL High T4 FREE 2.06 DIRECT Performed By: #### L100.0500, L500.2500, L501.9520, L506.0400 #### [facility] [address] [place], [address] PLASTIC SURGERY Observed: 04/14/2018 Status: F Source: ASA VISIT REPORT 9:42 PM [facility] [address] [place] [address] OFFICE VISIT Date of Service: 03/26/18 MR#: [id number] Acct: [id number] Name: JACQUELIN LIMA Veronique Rep #: [id number] : 1950 Provider: Nir Pedroza MD Age/Sex: 68/F Location: [facility] Status: Signed Intake Vital Signs03/26/18 Height 5 ft 7 in 03/26/18 Weight: 185 lb 2 oz Intake Visit Reasons: evaluation soft tissue mass left forehead by eyebrow Accompanied by: None Is patient in pain?: No Allergies levofloxacin [From Levaquin] Allergy (Severe, Verified 03/26/18 10:56) RAISES BLOOD PRESSURE AND STOMACH SWELLS UP AND IS PAINFUL amoxicillin Allergy (Verified 03/26/18 10:56) Other atorvastatin calcium [From Lipitor] Allergy (Verified 03/26/18 10:56) Other cyclobenzaprine Allergy (Verified 03/26/18 10:56) Other estrogens, conjugated [From Premphase] Allergy (Verified 03/26/18 10:56) Other medroxyprogesterone acetate [From Premphase] Allergy (Verified 03/26/18 10:56) Other Penicillins [PCN] Allergy (Verified 03/26/18 10:56) SORE THROAT pravastatin sodium [From Pravachol] Allergy (Verified 03/26/18 10:56) Other risedronate sodium [From Actonel] Allergy (Verified 03/26/18 10:56) Other simvastatin [From Zocor] Allergy (Verified 03/26/18 10:56) Other minocycline Adverse Reaction (Verified 03/26/18 10:56) Nausea/Vom/Diarrhea Medications Aripiprazole [Abilify] 2 mg PO QHS 12/14/14 [History Confirmed 02/27/18] Hydrochlorothiazide [Hctz] 25 mg PO DAILY 12/14/14 [History Confirmed 02/27/18] Levothyroxine [Synthroid] 150 mcg PO DAILY 12/14/14 [History Confirmed 02/27/18] Losartan Potassium [Cozaar] 100 mg PO QHS 12/14/14 [History Confirmed 02/27/18] Metoprolol(XL)Succ [Toprol Xl (Beta Sinai)] 100 mg PO QHS 12/14/14 [History Confirmed 02/27/18] Omeprazole [Prilosec] 40 mg PO BID 12/14/14 [History Confirmed 02/27/18] Sertraline HCl [Zoloft] 100 mg PO QHS 12/14/14 [History Confirmed 02/27/18] Amlodipine [Norvasc] 10 mg PO QHS 04/03/16 [History Confirmed 02/27/18] Ropinirole HCl [Requip] 0.5 mg PO QHS 04/03/16 [History Confirmed 02/27/18] Rosuvastatin Calcium [Crestor] 5 mg PO QHS 04/03/16 [History Confirmed 02/27/18] Anastrozole [Arimidex] 1 mg PO QHS 10/01/16 [History Confirmed 02/27/18] Calcium Carbonate [Calcium] 500 mg PO DAILY 10/01/16 [History Confirmed 02/27/18] Cholecalciferol (Vitamin D3) [Vitamin D3] 2,000 unit PO DAILY 10/01/16 [History Confirmed 02/27/18] ranitidine 150 mg tablet 150 mg PO QHS 11/22/17 [History Confirmed 02/27/18] Sitagliptin Phosphate [Januvia] 100 mg PO DAILY 01/09/18 [History Confirmed 02/27/18] Naproxen [Naprosyn] 250 - 500 mg PO Q8H PRN PRN #30 tab 01/17/18 [Rx Confirmed 02/27/18] Oxycodone HCl/Acetaminophen [Percocet 5-325] 2 tab PO Q4H PRN PRN 7 Days #28 tab 01/17/18 [Rx Confirmed 02/27/18] Is last menstrual period known: No Post menopausal: Yes Patient : No PFSH Medical History Acquired absence of right breast (Acute) Anxiety and depression (Acute) Back pain (Acute) Breast cancer, right breast (Acute) CARDIOLOGY PROCEDURES- INVASIVE: CARDIAC CATH (LEFT) 2005 (Acute) CARDIOLOGY PROCEDURES- NONINVASIVE : (Acute) Chickenpox (Acute) Congenital anomaly of aortic arch (Acute) DISRUPTION RIGHT BREAST RECONSTRUCTION WOUND (Acute) Diabetes (Acute) Disproportion of reconstructed breast (Acute) Diverticulosis (Acute) EXCESS MASTECTOMY TISSUE SCAR CONTOUR DEFOMITY (Acute) Estrogen receptor positive status [ER+] (Acute) GERD (gastroesophageal reflux disease) (Acute) Hand fracture (Acute) Hyperlipidemia (Acute) Hypothyroidism (Acute) IBS (irritable bowel syndrome) (Acute) LEFT VENTRICULAR EJECTION FRACTION: 52% (Acute) Left bundle branch block (Acute) Measles (Acute) Metatarsalgia (Acute) Mumps (Acute) NONHEALING SURGICAL MASTECTOMY WOUND AT T ZONE RIGHT BREAST (Acute) Nonhealing surgical wound (Acute) Osteoporosis (Acute) Other and unspecified mitral valve diseases (Acute) PAINFUL CAPSULAR CONTRACTURE RIGHT BREAST RECONSTRUCTION (Acute) Plantar fascial fibromatosis (Acute) Right thyroid nodule (Acute) Shingles (Acute) Unspecified sleep apnea (Acute) Hypertension (Chronic) Surgical History 2ND STAGE RIGHT BREAST RECONSTRUCTION (Acute) FIRST STAGE IMMEDIATE RIGHT BREAST RECONSTRUCTION (Acute) H/O dilation and curettage (Acute) History of tonsillectomy (Acute) INCISION AND DRAINAGE (Acute) LAVH-BSO (Acute) LEFT STEREOTACTIC BREAST BIOPSY (Acute) LEFT WRIST SURGERY (Acute) REVISION RECONSTRUCTED RIGHT BREAST (Acute) REVISION RIGHT BREAST RECONSTRUCTION (Acute) RIGHT FOOT NEUROMA SURGERY (Acute) RIGHT MASTECTOMY AND RIGHT SENTINEL NODE BIOPSY (Acute) RIGHT NEEDLE CORE BREAST BIOPSIES X2 ( 03/07/16) (Acute) SECOND STAGE DELAYED LEFT BREAST RECONSTRUCTION (Acute) 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) polyp removal (Acute) Family History Father Pancreatic cancer Hypertension Mother Diabetes Hypertension Alzheimer disease Brother CAD (coronary artery disease) Brother CAD (coronary artery disease) Sister Breast cancer Social History household members: spouse, other details: MOTHER housing: house current occupational status: other, retired current occupation: [employer] [employer] current occupational exposures/hazards: No pets and animals: Yes Smoking Status: Former smoker second hand exposure: No alcohol intake: current alcohol intake frequency: holidays/special occasions only Alcohol type: wine substance use type: does not use what type of physical activity do you participate in: other seatbelt use: always do you feel safe at home: Yes additional social history: SUN EXPOSURE: OCCASIONALLY Seferino HPI evaluation soft tissue mass left forehead by eyebrow: Details: HISTORY OF PRESENT ILLNESS 68 year old woman presents with a soft tissue mass on her left forehead by the eyebrow in the mid aspect. The soft tissue mass has been increasing in size over the last several months. She denies any trauma. She denies any fever. She denies any visual problems. She denies headaches. She denies drainage. She has no complaints at the present time regarding her breast reconstruction. She presents at this time for further evaluation and treatment. REVIEW OF SYSTEMS General - Denies fever, fatigue and weight loss. Eyes - Denies eye pain. ENT - Denies nasal congestion and sore throat. CV - Denies chest pain or discomfort, fatigue, lightheadedness and shortness of breath with exertion. Resp - Denies cough and shortness of breath. patient is a former smoker. GI - Denies nausea, vomiting, diarrhea and constipation. - Denies blood in urine and urinary frequency. MS - Complains of back pain. Denies joint pain, stiffness, muscle weakness and arthritis. Derm - Has an enlarging soft tissue mass left forehead by eyebrow. Denies skin cancer. Neuro - Denies poor balance and headaches. Psych - Complains of anxiety and depression. Endo - Denies excessive urination and excessive thirst. has history of right breast multifocal cancer. has right breast reconstruction deformity with lateral migration of implant and painful capsular contracture. Heme - Denies bleeding and abnormal bruising. PHYSICAL EXAMINATION General - well developed, well nourished, in no acute distress. Bra size was 38 D prior to her breast cancer. Head - normocephalic and atraumatic. On the left forehead by the eyebrow in the mid aspect is a soft tissue mass that measures 1.1 cm. Slightly firm. Mobile. Not adherent to the underlying bone. No ulceration. Lesion is nontender. Eyes - PERRL/EOM intact, conjunctiva and sclera clear. Throat is clear. Neck - no masses, thyromegaly, or abnormal cervical nodes. No suspicious lesions noted. Breasts - Breasts are soft and symmetrical. Lungs - clear bilaterally to auscultation. Heart - Regular rate and rhyth. Abdomen - normal bowel sounds; no hepatosplenomegaly no ventral,umbilical hernias or masses noted. Some redundant skin and subcutaneous tissue noted from the umbilicus to the pubic area. Horizontal scar in the pubic area. Slight skin overhang in the pubic area. Pretty good skin elasticity. Pulses - pulses normal in all 4 extremities. Extremities - no clubbing, cyanosis, edema, or deformity noted with normal full range of motion of all joints. Neurologic - cranial nerves II-XII grossly intact with normal sensation, reflexes, coordination, muscle strength and tone. Skin - no rashes. Cervical Nodes - no significant adenopathy. Axillary Nodes - no significant adenopathy. Psych - alert and cooperative; normal mood and affect; normal attention span and concentration. ASSESSMENT 1. 1.1 cm soft tissue mass left forehead by eyebrow. 2. Personal history of right breast cancer. 3. Bilateral breast reconstruction implant status. 4. Disproportion reconstructed breasts. 5. Acquired absence right breast. 6. Family history of breast cancer. 7. ER positive status. 8. Former smoker. PLAN Recommend excision of this soft tissue mass left forehead by the eyebrow. Will send mass to Pathology for analysis to rule out carcinoma. Clinically it looks like a benign lipoma. Usually on the forehead, the mass is submuscular in nature. Will give extra pain medication after surgery because of bruising on the muscle if the mass is submuscular. A horizontal incision should be adequate. However if some of the skin needs to be removed because of adherence to the mass if it is subcutaneous, advancement skin flaps would be necessary for reconstruction to minimize distortion on the eyebrow. Surgery can be done on an outpatient basis under local anesthesia and IV sedation. The patient was informed of the risks and complications of the procedure including alternatives to surgery. These were discussed with the patient personally. The patient voices understanding and wishes to proceed. Some of the risks and complications were included in a form from the [employer]. Assessment AND Plan Problems 1. Head mass R22.0 2. Personal history of malignant neoplasm of breast Z85.3 3. History of bilateral breast implants Z98.82 Coding Level of Care Code Off vis,est,level 3 Diagnoses Head mass R22.0 Personal history of malignant neoplasm of breast Z85.3 History of bilateral breast implants Z98.82 04/14/18 2142 <Electronically signed by Nir Pedroza MD> Date Nir Pedroza MD Cosign Signature: Date (if applicable) CC: Kaitlin Roland MD BASIC METABOLIC Collected: 04/01/2018 Status: F Source: [facility] PROFILE (BMP) 12:46 PM [facility] [place] Order Comment: Order Date: 04/01/18 Order Info: [id number] - BMP Order Info: [id number] - MG Order Info: 3016-3 - TSH TYPE CODE TESTS RESULT OUT OF RANGE REFERENCE UNITS LAB L501.0100 74-106 mg/dL High GLU 129 Result Comment: Fasting Glucose result greater than or equal to 126 mg/dL suggests DIABETES MELLITUS per A.D.A. criteria. Please note revised GLUCOSE reference range effective 2017. LAB L501.1000 7-18 mg/dL High BUN 22 LAB L501.1100 0.55-1.02 mg/dL High CREAT,SERUM 1.07 Result Comment: The validity of the calculated GFR AND GFRAA in patients over 70 years has not been determined. Clinical correlation is essential. LAB L501.1110 >60 mL/min Low EST GFR 55 Result Comment: Non- GFR Calc LAB L501.1115 >60 mL/min Normal EST GFR - AA 66 Result Comment: GFR Calc LAB L501.1300 10-20 RATIO High BUN/CRE 20.6 LAB L501.2200 8.5-10.1 mg/dL CA Normal 9.7 LAB L501.5300 136-145 mmol/L NA Normal 140 LAB L501.5600 3.5-5.1 mmol/L K Normal 3.8 LAB L501.5900 98-107 mmol/L CL Normal 102 LAB L501.6100 21.0-32.0 mmol/L Normal CO2 29.0 LAB L501.6200 5-15 Normal GAP 9 Performed By: #### L500.2500, L501.5200, L501.9520, L100.0500 #### [facility] [address] [place], [address] MAGNESIUM Collected: 04/01/2018 Status: F Source: [place] 12:46 PM [facility] Order Comment: Order Date: 04/01/18 Order Info: [id number] - BMP Order Info: [id number] - MG Order Info: 3016-3 - TSH TYPE CODE TESTS RESULT OUT OF RANGE REFERENCE UNITS LAB L501.5200 1.6-2.6 mg/dL Normal MG 2.2 Performed By: #### L500.2500, L501.5200, L501.9520, L100.0500 #### [facility] [address] [place], [address] THYROID STIM HORMONE Collected: 04/01/2018 Status: F Source: [place] (TSH) 12:46 PM [facility] Order Comment: Order Date: 04/01/18 Order Info: [id number] - BMP Order Info: [id number] - MG Order Info: 3016-3 - TSH TYPE CODE TESTS RESULT OUT OF RANGE REFERENCE UNITS LAB L501.9520 0.358-3.74 uIU/mL High TSH 33.50 Performed By: #### L500.2500, L501.5200, L501.9520, L100.0500 #### [facility] [address] [place], [address] CBC-COMPLETE BLOOD CNT Collected: 04/01/2018 Status: F Source: [facility] NO DIFF 12:46 PM [facility] Order Comment: Order Date: 04/01/18 Order Info: [id number] - CBC TYPE CODE TESTS RESULT OUT OF RANGE REFERENCE UNITS LAB L100.1000 4.4-11.0 K/mm3 Normal WBC 8.1 LAB L100.1200 4.2-5.4 M/mm3 Normal RBC 4.67 LAB L100.1300 12.0-15.0 g/dl Normal HGB 14.2 LAB L100.1400 37-47 % Normal HCT 41.6 LAB L100.1500 81-99 fL Normal MCV 89.1 LAB L100.1600 27.0-32.0 pg Normal MCH 30.4 LAB L100.1700 32-36 g/gl Normal MCHC 34.1 LAB L100.1810 11.6-14.6 % Normal RDW CV 13.6 LAB L100.1820 35.1-43.9 fl Normal RDW SD 43.9 LAB L100.1900 150-450 K/mm3 Normal PLT 296 LAB L100.2000 6.2-12.0 fl Normal MPV 10.7 Performed By: #### L500.2500, L501.5200, L501.9520, L100.0500 #### [facility] [address] [place], [address] Observed: 02/27/2018 Status: F Source: ASA CULTURE, GENITAL 6:14 PM [facility] Gram Stain Score = 4 Interpretation: 0-3 Normal, 4-6 Intermediate, 7-10 Positive BV Gram Stain 4+ White Blood Cells 1+ Gram positive cocci Rare Gram negative rods No Yeast Like Organisms No Gram negative diplococci Gent Cult Comp Normal vaginal yony isolated. No yeast, Gardnerella, Neisseria or beta-hemolytic Streptococcus isolated. Performed By: #### M100.1600 #### [facility] [address] [place], [address] PHOTOGRAPHIC LABORATORY TECHNICIAN OFFICE VISIT Observed: 02/27/2018 Status: F Source: ASA REPORT 9:55 AM [facility] 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 Is patient in pain?: No Allergies levofloxacin [From Levaquin] Allergy (Severe, Verified 02/27/18 09:30) RAISES BLOOD PRESSURE AND STOMACH SWELLS UP AND IS PAINFUL amoxicillin Allergy (Verified 02/27/18 09:30) Other atorvastatin calcium [From Lipitor] Allergy (Verified 02/27/18 09:30) Other cyclobenzaprine Allergy (Verified 02/27/18 09:30) Other estrogens, conjugated [From Premphase] Allergy (Verified 02/27/18 09:30) Other medroxyprogesterone acetate [From Premphase] Allergy (Verified 02/27/18 09:30) Other Penicillins [PCN] Allergy (Verified 02/27/18 09:30) SORE THROAT pravastatin sodium [From Pravachol] Allergy (Verified 02/27/18 09:30) Other risedronate sodium [From Actonel] Allergy (Verified 02/27/18 09:30) Other simvastatin [From Zocor] Allergy (Verified 02/27/18 09:30) Other minocycline Adverse Reaction (Verified 02/27/18 09:30) Nausea/Vom/Diarrhea Medications Aripiprazole [Abilify] 2 mg PO QHS 12/14/14 [History Confirmed 02/27/18] Hydrochlorothiazide [Hctz] 25 mg PO DAILY 12/14/14 [History Confirmed 02/27/18] Levothyroxine [Synthroid] 150 mcg PO DAILY 12/14/14 [History Confirmed 02/27/18] Losartan Potassium [Cozaar] 100 mg PO QHS 12/14/14 [History Confirmed 02/27/18] Metoprolol(XL)Succ [Toprol Xl (Beta Sinai)] 100 mg PO QHS 12/14/14 [History Confirmed 02/27/18] Omeprazole [Prilosec] 40 mg PO BID 12/14/14 [History Confirmed 02/27/18] Sertraline HCl [Zoloft] 100 mg PO QHS 12/14/14 [History Confirmed 02/27/18] Amlodipine [Norvasc] 10 mg PO QHS 04/03/16 [History Confirmed 02/27/18] Ropinirole HCl [Requip] 0.5 mg PO QHS 04/03/16 [History Confirmed 02/27/18] Rosuvastatin Calcium [Crestor] 5 mg PO QHS 04/03/16 [History Confirmed 02/27/18] Anastrozole [Arimidex] 1 mg PO QHS 10/01/16 [History Confirmed 02/27/18] Calcium Carbonate [Calcium] 500 mg PO DAILY 10/01/16 [History Confirmed 02/27/18] Cholecalciferol (Vitamin D3) [Vitamin D3] 2,000 unit PO DAILY 10/01/16 [History Confirmed 02/27/18] ranitidine 150 mg tablet 150 mg PO QHS 11/22/17 [History Confirmed 02/27/18] Sitagliptin Phosphate [Januvia] 100 mg PO DAILY 01/09/18 [History Confirmed 02/27/18] Naproxen [Naprosyn] 250 - 500 mg PO Q8H PRN PRN #30 tab 01/17/18 [Rx Confirmed 02/27/18] Oxycodone HCl/Acetaminophen [Percocet 5-325] 2 tab PO Q4H PRN PRN 7 Days #28 tab 01/17/18 [Rx Confirmed 02/27/18] Is last menstrual period known: No Post menopausal: No Patient : No : No PFSH Medical History Acquired absence of right breast (Acute) Anxiety and depression (Acute) Back pain (Acute) Breast cancer, right breast (Acute) CARDIOLOGY PROCEDURES- INVASIVE: CARDIAC CATH (LEFT) 2004 (Acute) CARDIOLOGY PROCEDURES- NONINVASIVE : (Acute) Chickenpox (Acute) Congenital anomaly of aortic arch (Acute) DISRUPTION RIGHT BREAST RECONSTRUCTION WOUND (Acute) Diabetes (Acute) Disproportion of reconstructed breast (Acute) Diverticulosis (Acute) EXCESS MASTECTOMY TISSUE SCAR CONTOUR DEFOMITY (Acute) Estrogen receptor positive status [ER+] (Acute) GERD (gastroesophageal reflux disease) (Acute) Hand fracture (Acute) Hyperlipidemia (Acute) Hypothyroidism (Acute) IBS (irritable bowel syndrome) (Acute) LEFT VENTRICULAR EJECTION FRACTION: 52% (Acute) Left bundle branch block (Acute) Measles (Acute) Metatarsalgia (Acute) Mumps (Acute) NONHEALING SURGICAL MASTECTOMY WOUND AT T ZONE RIGHT BREAST (Acute) Nonhealing surgical wound (Acute) Osteoporosis (Acute) Other and unspecified mitral valve diseases (Acute) PAINFUL CAPSULAR CONTRACTURE RIGHT BREAST RECONSTRUCTION (Acute) Plantar fascial fibromatosis (Acute) Right thyroid nodule (Acute) Shingles (Acute) Unspecified sleep apnea (Acute) Hypertension (Chronic) Surgical History 2ND STAGE RIGHT BREAST RECONSTRUCTION (Acute) FIRST STAGE IMMEDIATE RIGHT BREAST RECONSTRUCTION (Acute) H/O dilation and curettage (Acute) History of tonsillectomy (Acute) INCISION AND DRAINAGE (Acute) LAVH-BSO (Acute) LEFT STEREOTACTIC BREAST BIOPSY (Acute) LEFT WRIST SURGERY (Acute) REVISION RECONSTRUCTED RIGHT BREAST (Acute) REVISION RIGHT BREAST RECONSTRUCTION (Acute) RIGHT FOOT NEUROMA SURGERY (Acute) RIGHT MASTECTOMY AND RIGHT SENTINEL NODE BIOPSY (Acute) RIGHT NEEDLE CORE BREAST BIOPSIES X2 ( 03/07/16) (Acute) SECOND STAGE DELAYED LEFT BREAST RECONSTRUCTION (Acute) 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) polyp removal (Acute) Family History Father Pancreatic cancer Hypertension Mother Diabetes Hypertension Alzheimer disease Brother CAD (coronary artery disease) Brother CAD (coronary artery disease) Sister Breast cancer Social History household members: spouse, other details: MOTHER housing: house current occupational status: other, retired current occupation: [employer] current occupational exposures/hazards: No pets and animals: Yes Smoking Status: Former smoker second hand exposure: No alcohol intake: current alcohol intake frequency: holidays/special occasions only Alcohol type: wine substance use type: does not use what type of physical activity do you participate in: other seatbelt use: always do you feel safe at home: Yes additional social history: SUN EXPOSURE: OCCASIONALLY Seferino HPI post op: Details: JACQUELIN LIMA is a 68 year old who presents for 6 week postop. she is having some greenish discharge for a few days Pregancy History 4 Elective abortions Hx Para 3 Spontaneous abortions Past Pregnancies Del. DateName GA/Weeks Outcome Route Bth WeighInfant GeLabor LgtAnesthesiDel LocatProvider FOB t n h a n ROS Const Constitutional: Reports system reviewed and no additional complaints, except as docu GI GI: Denies abdominal pain, nausea, vomiting or cramping Exam Const General: cooperative, healthy appearing, comfortable, no acute distress External Female Exam: normal external appearance, normal appearance of the urethra Urethra: normal appearance of the urethra Speculum Exam - Vagina: normal appearance of the vagina, other (normal vaginal length, apex well supprted and healed, intact no granulation) Speculum Exam - Cervix: cervix absent Bimanual Exam- Vagina AND Uterus: uterus absent Bimanual Exam- Adnexa, other: adnexae non-tender, pelvic support normal Pelvic Support: normal Other: vaginal cuff normal and intact, good vaginal length, small granulation tissue present increased white yellow discharge Assessment AND Plan Problems 1. Vaginal discharge N89.8 2. Postoperative state Z98.890 Plan culture sent routine postop Orders Orders: Coding Level of Care Code No Charge Diagnoses Vaginal discharge N89.8 Postoperative state Z98.890 02/27/18 0955 <Electronically signed by Mi Bingham MD> Date Mi Bingham MD Cosigner Signature: Date (if applicable) CC: PHOTOGRAPHIC LABORATORY TECHNICIAN OFFICE VISIT Observed: 01/27/2018 Status: F Source: [place] RE[place] 12:18 PM [facility] [place] [facility] [address] [place] [address] OFFICE VISIT Date of Service: 01/27/18 MR#: [id number] Acct: [id number] Name: JACQUELIN LIMA Rep #: [id number] : 1950 Provider: Mi Bingham MD Age/Sex: 67/F [place] [facility] [place] Signed Intake Vital Signs01/27/18 Height 5 ft 7 in 01/27/18 Weight: 185 lb 01/27/18 Body Mass Index (BMI) 29.0 01/27/18 Blood Pressure 142/86 Intake Visit Reasons: 2 weeks post op Allergies levofloxacin [From Levaquin] Allergy (Severe, Verified 01/27/18 12:07) RAISES BLOOD PRESSURE AND STOMACH SWELLS UP AND IS PAINFUL amoxicillin Allergy (Verified 01/27/18 12:07) Other atorvastatin calcium [From Lipitor] Allergy (Verified 01/27/18 12:07) Other cyclobenzaprine Allergy (Verified 01/27/18 12:07) Other estrogens, conjugated [From Premphase] Allergy (Verified 01/27/18 12:07) Other medroxyprogesterone acetate [From Premphase] Allergy (Verified 01/27/18 12:07) Other Penicillins [PCN] Allergy (Verified 01/27/18 12:07) SORE THROAT pravastatin sodium [From Pravachol] Allergy (Verified 01/27/18 12:07) Other risedronate sodium [From Actonel] Allergy (Verified 01/27/18 12:07) Other simvastatin [From Zocor] Allergy (Verified 01/27/18 12:07) Other minocycline Adverse Reaction (Verified 01/27/18 12:07) Nausea/Vom/Diarrhea Medications Aripiprazole [Abilify] 2 mg PO QHS 12/14/14 [History Confirmed 01/27/18] Hydrochlorothiazide [Hctz] 25 mg PO DAILY 12/14/14 [History Confirmed 01/27/18] Levothyroxine [Synthroid] 150 mcg PO DAILY 12/14/14 [History Confirmed 01/27/18] Losartan Potassium [Cozaar] 100 mg PO QHS 12/14/14 [History Confirmed 01/27/18] Metoprolol(XL)Succ [Toprol Xl (Beta Sinai)] 100 mg PO QHS 12/14/14 [History Confirmed 01/27/18] Omeprazole [Prilosec] 40 mg PO BID 12/14/14 [History Confirmed 01/27/18] Sertraline HCl [Zoloft] 100 mg PO QHS 12/14/14 [History Confirmed 01/27/18] Amlodipine [Norvasc] 10 mg PO QHS 04/03/16 [History Confirmed 01/27/18] Ropinirole HCl [Requip] 0.5 mg PO QHS 04/03/16 [History Confirmed 01/27/18] Rosuvastatin Calcium [Crestor] 5 mg PO QHS 04/03/16 [History Confirmed 01/27/18] Anastrozole [Arimidex] 1 mg PO QHS 10/01/16 [History Confirmed 01/27/18] Calcium Carbonate [Calcium] 500 mg PO DAILY 10/01/16 [History Confirmed 01/27/18] Cholecalciferol (Vitamin D3) [Vitamin D3] 2,000 unit PO DAILY 10/01/16 [History Confirmed 01/27/18] ranitidine 150 mg tablet 150 mg PO QHS 11/22/17 [History Confirmed 01/27/18] Sitagliptin Phosphate [Januvia] 100 mg PO DAILY 01/09/18 [History Confirmed 01/27/18] Naproxen [Naprosyn] 250 - 500 mg PO Q8H PRN PRN #30 tab 01/17/18 [Rx Confirmed 01/27/18] Oxycodone HCl/Acetaminophen [Percocet 5-325] 2 tab PO Q4H PRN PRN 7 Days #28 tab 01/17/18 [Rx Confirmed 01/27/18] Is last menstrual period known: No Post menopausal: No Patient : No : No PFSH Medical History Acquired absence of right breast (Acute) Anxiety and depression (Acute) Back pain (Acute) Breast cancer, right breast (Acute) CARDIOLOGY PROCEDURES- INVASIVE: CARDIAC CATH (LEFT) 2005 (Acute) CARDIOLOGY PROCEDURES- NONINVASIVE : (Acute) Chickenpox (Acute) Congenital anomaly of aortic arch (Acute) DISRUPTION RIGHT BREAST RECONSTRUCTION WOUND (Acute) Diabetes (Acute) Disproportion of reconstructed breast (Acute) Diverticulosis (Acute) EXCESS MASTECTOMY TISSUE SCAR CONTOUR DEFOMITY (Acute) Estrogen receptor positive status [ER+] (Acute) GERD (gastroesophageal reflux disease) (Acute) Hand fracture (Acute) Hyperlipidemia (Acute) Hypothyroidism (Acute) IBS (irritable bowel syndrome) (Acute) LEFT VENTRICULAR EJECTION FRACTION: 52% (Acute) Left bundle branch block (Acute) Measles (Acute) Metatarsalgia (Acute) Mumps (Acute) NONHEALING SURGICAL MASTECTOMY WOUND AT T ZONE RIGHT BREAST (Acute) Nonhealing surgical wound (Acute) Osteoporosis (Acute) Other and unspecified mitral valve diseases (Acute) PAINFUL CAPSULAR CONTRACTURE RIGHT BREAST RECONSTRUCTION (Acute) Plantar fascial fibromatosis (Acute) Right thyroid nodule (Acute) Shingles (Acute) Unspecified sleep apnea (Acute) Hypertension (Chronic) Surgical History 2ND STAGE RIGHT BREAST RECONSTRUCTION (Acute) FIRST STAGE IMMEDIATE RIGHT BREAST RECONSTRUCTION (Acute) H/O dilation and curettage (Acute) History of tonsillectomy (Acute) INCISION AND DRAINAGE (Acute) LEFT STEREOTACTIC BREAST BIOPSY (Acute) LEFT WRIST SURGERY (Acute) REVISION RECONSTRUCTED RIGHT BREAST (Acute) REVISION RIGHT BREAST RECONSTRUCTION (Acute) RIGHT FOOT NEUROMA SURGERY (Acute) RIGHT MASTECTOMY AND RIGHT SENTINEL NODE BIOPSY (Acute) RIGHT NEEDLE CORE BREAST BIOPSIES X2 ( 03/07/16) (Acute) SECOND STAGE DELAYED LEFT BREAST RECONSTRUCTION (Acute) 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) polyp removal (Acute) Family History Father Pancreatic cancer Hypertension Mother Diabetes Hypertension Alzheimer disease Brother CAD (coronary artery disease) Brother CAD (coronary artery disease) Sister Breast cancer Social History household members: spouse, other details: MOTHER housing: house current occupational status: other, retired current occupation: [employer] current occupational exposures/hazards: No pets and animals: Yes Smoking Status: Former smoker second hand exposure: No alcohol intake: current alcohol intake frequency: holidays/special occasions only Alcohol type: wine substance use type: does not use what type of physical activity do you participate in: other seatbelt use: always do you feel safe at home: Yes additional social history: SUN EXPOSURE: OCCASIONALLY Seferino HPI 2 weeks post op: Details: JACQUELIN LIMA is a 67 year old who presents for 2 week postop exam. she is doing well but having some gas pains. Pregancy History 4 Elective abortions Hx Para 3 Spontaneous abortions Past Pregnancies Del. DateName GA/Weeks Outcome Route Bth WeighInfant GeLabor LgtAnesthesiDel LocatProvider FOB t n h a n ROS Const Constitutional: Reports system reviewed and no additional complaints, except as docu GI GI: Denies abdominal pain, nausea, vomiting or cramping : Denies urinary frequency, vaginal dryness, vaginal discharge, urinary urgency, urinary incontinence, vaginal odor or pelvic pain Exam Const General: cooperative, healthy appearing, comfortable, no acute distress GI Inspection: normal to inspection Palpation: soft, nontender Assessment AND Plan Problems 1. Encounter for postoperative care Z48.89 Plan routine care fu in 4 weeks Coding Level of Care Code No Charge Diagnoses Encounter for postoperative care Z48.89 01/27/18 1218 <Electronically signed by Mi Bingham MD> Date Mi Bingham MD Cosign Signature: Date (if applicable) CC: DISCHARGE INSTRUCTION Observed: 01/17/2018 Status: F Source: [place] 10:32 AM [facility] [place] [facility] Medical Records Department [address] [place] [address] Instructions for Home/Discharge Instructions 01/17/18 1032 MR#: [id number] Acct: [id number] Name: JACQUELIN LIMA Rep #: [id number] : 1950 67 From: Mi Bingham MD PCP: Kaitlin Roland MD [place] [facility] [place] Diet: No Restrictions Discharge Activity: Return to Normal Activity, May Not Drive, May Shower May resume sexual activity in: 6-8 weeks Call your doctor if your incision/area has: Continuous Slow Oozing, Sudden Increased Bleeding, Increased Pain/ Swelling, Increased Redness, Foul Smelling Discharge Call your doctor if you observe: Fever of 101 or Higher, Inability to urinate, Inability to have a bowel movement, Using more than one pad per hour Allergies/Adverse Reactions: Allergies levofloxacin [From Levaquin] Allergy (Severe, Verified 01/06/18 09:35) RAISES BLOOD PRESSURE AND STOMACH SWELLS UP AND IS PAINFUL amoxicillin Allergy (Verified 01/06/18 09:35) Other atorvastatin calcium [From Lipitor] Allergy (Verified 01/06/18 09:35) Other cyclobenzaprine Allergy (Verified 01/06/18 09:35) Other estrogens, conjugated [From Premphase] Allergy (Verified 01/06/18 09:35) Other medroxyprogesterone acetate [From Premphase] Allergy (Verified 01/06/18 09:35) Other Penicillins [PCN] Allergy (Verified 01/06/18 09:35) SORE THROAT pravastatin sodium [From Pravachol] Allergy (Verified 01/06/18 09:35) Other risedronate sodium [From Actonel] Allergy (Verified 01/06/18 09:35) Other simvastatin [From Zocor] Allergy (Verified 01/06/18 09:35) Other minocycline Adverse Reaction (Verified 01/06/18 09:35) Nausea/Vom/Diarrhea Medications to take at Discharge Aripiprazole [Abilify] 2 mg PO QHS 12/14/14 Hydrochlorothiazide [Hctz] 25 mg PO DAILY 12/14/14 Levothyroxine [Synthroid] 150 mcg PO DAILY 12/14/14 Losartan Potassium [Cozaar] 100 mg PO QHS 12/14/14 Metoprolol(XL)Succ [Toprol Xl (Beta Sinai)] 100 mg PO QHS 12/14/14 Omeprazole [Prilosec] 40 mg PO BID 12/14/14 Sertraline HCl [Zoloft] 100 mg PO QHS 12/14/14 Amlodipine [Norvasc] 10 mg PO QHS 04/03/16 Ropinirole HCl [Requip] 0.5 mg PO QHS 04/03/16 Rosuvastatin Calcium [Crestor] 5 mg PO QHS 04/03/16 Anastrozole [Arimidex] 1 mg PO QHS 10/01/16 Calcium Carbonate [Calcium] 500 mg PO DAILY 10/01/16 Cholecalciferol (Vitamin D3) [Vitamin D3] 2,000 unit PO DAILY 10/01/16 ranitidine 150 mg tablet 150 mg PO QHS 11/22/17 Sitagliptin Phosphate [Januvia] 100 mg PO DAILY 01/09/18 Naproxen [Naprosyn] 250 - 500 mg PO Q8H PRN PRN #30 tab 01/17/18 Oxycodone HCl/Acetaminophen [Percocet 5-325] 2 tablet PO Q4H PRN PRN 7 Days #28 tablet 01/17/18 The following prescriptions were given: Oxycodone HCl/Acetaminophen [Percocet 5-325] 2 tablet PO Q4H PRN PRN 7 Days #28 tablet PRN Reason: Moderate-Severe pain Naproxen [Naprosyn] 250 - 500 mg PO Q8H PRN PRN #30 tab PRN Reason: MILD PAIN Primary Care Physician: Sterling Roland MD [Primary Care Provider] - Please Follow Up With: Mi Bingham MD - [phone] 01/17/18 1032 <Electronically signed by Mi Bingham MD> Date Mi Bingham MD CC: Darell Cox MD; Kaitlin Roland MD BEDSIDE GLUCOSE Collected: 01/17/2018 Status: F Source: [place] 6:[place] [facility] [place] CODE TESTS RESULT OUT OF REFERENCE UNITS RANGE LAB L501.080 70-110 mg/dL High BEDSIDE GLU 164 Result Comment: MANAGEMENT OF PATIENT CARE PER NURSING PROTOCOL Performed By: #### L501.080 #### [facility] Point [facility] Care [address] [place], [place] [id number] CBC-COMPLETE BLOOD CNT Collected: 01/17/2018 Status: F Source: ASA NO DIFF 6:12 AM [facility] [place] CODE TESTS RESULT OUT OF RANGE REFERENCE UNITS LAB L100.1000 4.4-11.0 K/mm3 Normal WBC 8.7 LAB L100.1200 4.2-5.4 M/mm3 Low RBC 3.68 LAB L100.1300 12.0-15.0 g/dl Low HGB 11.1 LAB L100.1400 37-47 % Low HCT 32.9 LAB L100.1500 81-99 fL Normal MCV 89.4 LAB L100.1600 27.0-32.0 pg Normal MCH 30.2 LAB L100.1700 32-36 g/gl Normal MCHC 33.7 LAB L100.1810 11.6-14.6 % Normal RDW CV 13.1 LAB L100.1820 35.1-43.9 fl Normal RDW SD 42.4 LAB L100.1900 150-450 K/mm3 Normal PLT 229 LAB L100.2000 6.2-12.0 fl Normal MPV 9.5 Performed By: #### L100.0500 #### [facility] [address] [place], [place], [id number] BEDSIDE GLUCOSE Collected: 01/16/2018 Status: F Source: [place] 10:04 PM [facility] [place] CODE TESTS RESULT OUT OF REFERENCE UNITS RANGE LAB L501.080 70-110 mg/dL High BEDSIDE GLU 270 Result Comment: MANAGEMENT OF PATIENT CARE PER NURSING PROTOCOL Performed By: #### L501.080 #### [facility] Point of Care [address] [facility] [place] [address] BEDSIDE GLUCOSE Collected: 01/16/2018 Status: F Source: [place] 4:43 PM [facility] [place] CODE TESTS RESULT OUT OF REFERENCE UNITS RANGE LAB L501.080 70-110 mg/dL High BEDSIDE GLU 264 Result Comment: MANAGEMENT OF PATIENT CARE PER NURSING PROTOCOL Performed By: #### L501.080 #### [facility] Point of Care [address] [place] [address] BEDSIDE GLUCOSE Collected: 01/16/2018 Status: F Source: [place] 11:51 AM [facility] [place] CODE TESTS RESULT OUT OF REFERENCE UNITS RANGE LAB L501.080 70-110 mg/dL High BEDSIDE GLU 277 Result Comment: MANAGEMENT OF PATIENT CARE PER NURSING PROTOCOL Performed By: #### L501.080 #### [facility] Point of Care [address] [place] [address] BEDSIDE GLUCOSE Collected: 01/16/2018 Status: F Source: [place] 9:05 AM [facility] [place] CODE TESTS RESULT OUT OF REFERENCE UNITS RANGE LAB L501.080 70-110 mg/dL High BEDSIDE GLU 253 Result Comment: MANAGEMENT OF PATIENT CARE PER NURSING PROTOCOL Performed By: #### L501.080 #### [facility] Point of Care [address] [place] [address] OPERATIVE REPORT Observed: 01/16/2018 Status: F Source: [place] 8:47 AM [facility] [place] [facility] Medical Records Department [address] [place] [address] Operative Report 01/16/18 0844 MR#: [id number] Acct: [id number] Name: JACQUELIN LIMA Rep #: [id number] : 1950 67 From: Mi Bingham MD PCP: Kaitlin Roland MD Status: [place] [facility] [place]: [place] [address] Problem List (1) Endometrial hyperplasia without atypia, simple Status: Acute (2) Uterine fibroid Status: Acute Qualifiers: (3) Personal history of malignant neoplasm of breast Status: Chronic Comment: Z85.3 personal history of right breast cancer Report of Operation Date of Procedure: 01/16/18 Pre-Operative Diagnosis: endometrial hyperplasia history of breast cancer Post-Operative Diagnosis: Same Surgery/Procedure Performed:: total Vaginal hysterectomy bilateral salpingo-oophorectomy Description of Surgical Findings:: Uterus tubes and ovaries customer contact sales associate: Etta Espinoza Type of Anesthesia:: General Specimen's removed: uterus tubes ovaries Estimated Blood Loss (mL): 100 Fluids Replaced: crystalloid Description of Procedure: Patient was taken to the operating room and was placed under general anesthesia was prepped and draped in normal sterile fashion in the dorsal lithotomy position. Preoperative antibiotics and SCDs and Hilario catheter was placed inside the bladder. Weighted speculum was placed in the vagina and the anterior and posterior lip of the cervix was grasped with 2 Abad clamps and circumferentially injected with dilute vasopressin. A circumferential incision was made with a scalpel and the posterior cul-de-sac was entered into sharply and a longneck speculum was placed. The anterior cul-de-sac was also dissected down and entered into sharply and the uterosacral ligaments were clamped cut and suture ligated bilaterally followed by the cardinal ligaments which were Clamped cut and suture ligated bilaterally with 0 Monocryl. The uterus serially descended and progressive bites were taken bilaterally up to the level of the utero-ovarian ligament bilaterally which was clamped transected and double ligated with 0 Monocryl suture and 0 Vicryl free tie. Bilateral fallopian tubes and ovaries were well visualized and noted be within normal limits and theywere transected across the base with a robert clamp and removed and sutured with 0 Vicryl suture and an 0 Vicryl free tie. Excellent hemostasis was noted. Posterior peritoneum was reapproximated with 2-0 Vicryl. The vagina was closed with [id number] 0 Vicryl pop offs including the posterior and anterior peritoneum in the reapproximation. Excellent hemostasis was noted. All instruments removed from the vagina clear urine was noted at the end of the procedure and patient was awoken and taken recovery in stable condition. Grafts/Implants Used: none - Complications none 01/16/18 0847 <Electronically signed by Mi Bingham MD> Date Mi Bingham MD CC: Darell Cox MD; Kaitlin Roland MD; Mi Bingham MD Signed HISTORY AND PHYSICAL Observed: 01/16/2018 Status: F Source: [place] EXAM 7:32 AM [facility] [place] [facility] Medical Records Department [address] [place] [id number] History and Physical 01/15/18 2214 MR#: [id number] Acct: [id number] Name: JACQUELIN LIMA Rep #: [id number] : 1950 67 From: Mi Bingham MD PCP: Kaitlin Roland MD Status: REG [facility] [place] Location: [place] [id number] - Problem List (1) Endometrial hyperplasia without atypia, simple Status: Acute (2) Uterine fibroid Status: Acute Qualifiers: (3) Personal history of malignant neoplasm of breast Status: Chronic Comment: Z85.3 personal history of right breast cancer History and Physical Date of Admission: 01/15/18 Intake Vital Signs 01/06/18 Height 5 ft 8 in 01/06/18 Weight: 194 lb 4 oz 01/06/18 Body Mass Index (BMI) 29.5 Intake Visit Reasons: Pre Op 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 Is patient in pain?: No Allergies levofloxacin [From Levaquin] Allergy (Severe, Verified 01/06/18 09:35) RAISES BLOOD PRESSURE AND STOMACH SWELLS UP AND IS PAINFUL amoxicillin Allergy (Verified 01/06/18 09:35) Other atorvastatin calcium [From Lipitor] Allergy (Verified 01/06/18 09:35) Other cyclobenzaprine Allergy (Verified 01/06/18 09:35) Other estrogens, conjugated [From Premphase] Allergy (Verified 01/06/18 09:35) Other medroxyprogesterone acetate [From Premphase] Allergy (Verified 01/06/18 09:35) Other Penicillins [PCN] Allergy (Verified 01/06/18 09:35) SORE THROAT pravastatin sodium [From Pravachol] Allergy (Verified 01/06/18 09:35) Other risedronate sodium [From Actonel] Allergy (Verified 01/06/18 09:35) Other simvastatin [From Zocor] Allergy (Verified 01/06/18 09:35) Other minocycline Adverse Reaction (Verified 01/06/18 09:35) Nausea/Vom/Diarrhea Medications Aripiprazole [Abilify] 2 mg PO QHS 12/14/14 [History Confirmed 01/06/18] Hydrochlorothiazide [Hctz] 25 mg PO DAILY 12/14/14 [History Confirmed 01/06/18] Levothyroxine [Synthroid] 150 mcg PO DAILY 12/14/14 [History Confirmed 01/06/18] Losartan Potassium [Cozaar] 100 mg PO QHS 12/14/14 [History Confirmed 01/06/18] Metoprolol(XL)Succ [Toprol Xl (Beta Sinai)] 100 mg PO QHS 12/14/14 [History Confirmed 01/06/18] Omeprazole [Prilosec] 40 mg PO BID 12/14/14 [History Confirmed 01/06/18] Sertraline HCl [Zoloft] 100 mg PO QHS 12/14/14 [History Confirmed 01/06/18] Amlodipine [Norvasc] 5 mg PO QHS 04/03/16 [History Confirmed 01/06/18] Ropinirole HCl [Requip] 0.25 mg PO QHS 04/03/16 [History Confirmed 01/06/18] Rosuvastatin Calcium [Crestor] 5 mg PO QHS 04/03/16 [History Confirmed 01/06/18] Anastrozole [Arimidex] 1 mg PO QHS 10/01/16 [History Confirmed 01/06/18] Calcium Carbonate [Calcium] 500 mg PO DAILY 10/01/16 [History Confirmed 01/06/18] Cholecalciferol (Vitamin D3) [Vitamin D3] 2,000 unit PO DAILY 10/01/16 [History Confirmed 01/06/18] ranitidine 150 mg tablet 150 mg PO QHS 11/22/17 [History Confirmed 01/06/18] Is last menstrual period known: No Patient : No : No [facility] Medical History Acquired absence of right breast (Acute) Anxiety and depression (Acute) Back pain (Acute) Breast cancer, right breast (Acute) CARDIOLOGY PROCEDURES- INVASIVE: CARDIAC CATH (LEFT) 2004 (Acute) CARDIOLOGY PROCEDURES- NONINVASIVE : (Acute) Chickenpox (Acute) Congenital anomaly of aortic arch (Acute) DISRUPTION RIGHT BREAST RECONSTRUCTION WOUND (Acute) Diabetes (Acute) Disproportion of reconstructed breast (Acute) Diverticulosis (Acute) EXCESS MASTECTOMY TISSUE SCAR CONTOUR DEFOMITY (Acute) Estrogen receptor positive status [ER+] (Acute) GERD (gastroesophageal reflux disease) (Acute) Hand fracture (Acute) Hyperlipidemia (Acute) Hypothyroidism (Acute) IBS (irritable bowel syndrome) (Acute) LEFT VENTRICULAR EJECTION FRACTION: 52% (Acute) Left bundle branch block (Acute) Measles (Acute) Metatarsalgia (Acute) Mumps (Acute) NONHEALING SURGICAL MASTECTOMY WOUND AT T ZONE RIGHT BREAST (Acute) Nonhealing surgical wound (Acute) Osteoporosis (Acute) Other and unspecified mitral valve diseases (Acute) PAINFUL CAPSULAR CONTRACTURE RIGHT BREAST RECONSTRUCTION (Acute) Plantar fascial fibromatosis (Acute) Right thyroid nodule (Acute) Shingles (Acute) Unspecified sleep apnea (Acute) Hypertension (Chronic) Surgical History 2ND STAGE RIGHT BREAST RECONSTRUCTION (Acute) FIRST STAGE IMMEDIATE RIGHT BREAST RECONSTRUCTION (Acute) H/O dilation and curettage (Acute) History of tonsillectomy (Acute) INCISION AND DRAINAGE (Acute) LEFT STEREOTACTIC BREAST BIOPSY (Acute) LEFT WRIST SURGERY (Acute) REVISION RECONSTRUCTED RIGHT BREAST (Acute) REVISION RIGHT BREAST RECONSTRUCTION (Acute) RIGHT FOOT NEUROMA SURGERY (Acute) RIGHT MASTECTOMY AND RIGHT SENTINEL NODE BIOPSY (Acute) RIGHT NEEDLE CORE BREAST BIOPSIES X2 ( 03/07/16) (Acute) SECOND STAGE DELAYED LEFT BREAST RECONSTRUCTION (Acute) 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) polyp removal (Acute) Family History Father Pancreatic cancer Hypertension Mother Diabetes Hypertension Alzheimer disease Brother CAD (coronary artery disease) Brother CAD (coronary artery disease) Sister Breast cancer Social History household members: spouse, other details: MOTHER housing: house current occupational status: other, retired current occupation: [employer] current occupational exposures/hazards: No pets and animals: Yes Smoking Status: Former smoker second hand exposure: No alcohol intake: current alcohol intake frequency: holidays/special occasions only Alcohol type: wine substance use type: does not use what type of physical activity do you participate in: other seatbelt use: always do you feel safe at home: Yes additional social history: SUN EXPOSURE: OCCASIONALLY Seferino HPI Pre Op: Details: JACQUELIN LIMA is a 67 year old who presents for preop appointment. she has hyperplasia and isn't a candidate for hormone therapy so planning a [facility] BSO Female Reproductive History Questions: Metorrhagia: No, Sexually active: Yes, Dyspareunia: No, PCB: No Pregancy History 4 Elective abortions Hx Para 3 Spontaneous abortions Past Pregnancies Del. DateName GA/Weeks Outcome Route Bth WeighInfant GeLabor LgtAnesthesiDel LocatProvider FOB t n h a n ROS Const Constitutional: Denies poor appetite, headache(s), fever(s), increased appetite, weight gain, weight loss or fatigue ENT ENT: Denies dizziness or dry mouth Cardio Card: Denies chest pain Resp Resp: Denies dyspnea or cough GI GI: Reports as per HPI; denies vomiting, nausea, abdominal pain or constipation : Reports as per HPI; denies urinary urgency, vaginal discharge, urinary frequency, vaginal itching, vaginal odor, vaginal dryness, urinary incontinence, urinary hesitancy, pelvic pain, difficulty urinating or painful urination Musc Musc: Denies muscle weakness, joint pain or back pain Skin Skin/Breast: Denies hair loss, change in hair, dry skin, breast pain, breast skin changes or breast lump Neuro Neuro: Denies dizziness Psych Psych: Denies anxiety or depression Endo Endo: Denies cold intolerance, increased thirst, excessive sweating or heat intolerance Anibal/Lymph Hematologic/Lymphatic: Denies easy bleeding, Denies easy bruising, Denies enlarged lymph nodes Exam Const General: cooperative, healthy appearing, comfortable, no acute distress, well developed Nutritional Appearance: average body habitus Orientation: alert [facility] Head: normal to inspection, normocephalic Ears: hearing grossly normal bilaterally, external ears normal Nose: external nose normal, nares normal Face and sinus: normal facial exam Neck Neck: normal visual inspection, trachea midline, no lymphadenopathy Thyroid: thyroid normal Chest Chest palpation AND inspection: normal inspection of the chest Resp Effort AND Inspection: normal respiratory effort Auscultation: clear to auscultation bilaterally Cardio Rate: regular rate Rhythm: regular rhythm Heart Sounds: S1 normal, S2 normal GI Inspection: normal to inspection, non-distended Palpation: soft, no hepatosplenomegaly General: bladder normal to palpation External Female Exam: normal external appearance, normal appearance of the urethra Urethra: normal appearance of the urethra, normal palpation, no discharge Speculum Exam - Vagina: normal appearance of the vagina, normal vaginal discharge Speculum Exam - Cervix: normal appearance of the cervix, nontender Bimanual Exam- Vagina AND Uterus: bladder normal to palpation, No cervical tenderness, normal bimanual exam, normal vaginal palpation, uterine size normal, uterine shape normal, uterine mobility normal, uterine consistency normal, normal cervical palpation, uterus non-tender Bimanual Exam- Adnexa, other: normal adnexae, adnexae mobile, no adnexal masses, pelvic support normal Pelvic Support: normal [facility] Cervical Spine: other Other: gross motor intact no deficits, full bilateral strength Skin General: no rashes or lesions noted Neuro General: alert, awake, no focal motor deficits, moves all extremities Motor: muscle tone normal throughout Extrem General: normal to inspection, no pedal edema Psych Appearance: grossly normal Mental Status: mental status grossly normal Affect: normal affect Speech and Movement: speech and movement normal Assessment AND Plan Problems 1. 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 Simple endometrial hyperplasia N85.01 Plan recommend [facility] BSO if able. discussed surgical risks including risks of anesthesia, infection, bleeding, injury to bowel, bladder or blood vessels, and patient wishes to proceed with surgery. would recommend anticoagulation perioperatively. 01/16/18- patient seen and no clinical updates to h and p Mi Bingham Coding Level of Care Code No Charge Diagnoses Submucous leiomyoma of uterus D25.0 Uterine leiomyoma location: submucous Simple endometrial hyperplasia N85.01 01/16/18 0732 <Electronically signed by Mi Bingham MD> Date Mi Bingham MD Cosigner Signature: Date (if applicable) CC: Kaitlin Roland MD; Mi Bingham MD Signed HYSTERECTOMY SPECIMEN Observed: 01/16/2018 Status: F Source: [place] 7:15 AM [facility] [place] Patient: JACQUELIN LIMA : 1950 (67/F) Acct Num: [id number] Phys: Otilia BRIGHT,Mi Unit Num: [id number] Loc: [facility] [place] Specimen: [id number] Received: 01/16/18 - 1212 Spec Type: HYSTERECT TISSUES TISSUES: Uterus, NOS COMMENT The larger leiomyoma shows focal calcified areas. Please make reference to previous specimen [id number], endometrial curettings with diagnosis of fragments of simple cystic endometrial hyperplasia without atypia. GROSS DESCRIPTION Received in fixative is one container labeled with the patient's name and designated uterus, bilateral tubes and ovaries. The specimen consists of a hysterectomy specimen consisting of uterus with cervix and detached bilateral fallopian tubes and ovaries. The uterus with cervix weighs 46 gm and measures 7.5 x 4.5 x 3 cm. The serosal surface is ca, glistening. The ectocervical mucosa is unremarkable. The external os is circular in contour. The endocervical canal measures 3 cm in length and the endocervical mucosa is ca, glistening and unremarkable. The triangular endometrial cavity measures 3.5 cm in length and 2 cm in width. Sections of the uterine wall reveal two intramural nodular masses measuring 0.4 and 1.5 cm in diameter. Sections of these masses reveal ca whorled cut surfaces without areas of hemorrhage, necrosis or cystic degeneration. The larger nodular mass shows focally calcified area. The uninvolved uterine wall measures up to 1.5 cm in thickness. The fallopian tube and ovary are not identified as right or left. One of the fallopian tube measures 5 cm in length and 0.4 cm in diameter. The fimbrial end is identified. Sections reveal unremarkable cut surfaces. The adjacent ovary measures 3 x 1.5 x 0.5 cm. Sections reveal unremarkable cut surfaces. The second fallopian tube is received in two pieces. The distal end with fimbrial end measures 3.5 cm in length and 0.5 cm in diameter. No tubo-ovarian adhesions are noted. The proximal end measures 1 cm in length and 0.4 cm in diameter. The adjacent second ovary measures 3 x 1 x 1 cm. Sections reveal a cyst filled with mucoid material measuring 0.5 cm in greatest dimension. A focal, solid area is also noted measuring 1.5 cm in greatest dimension. Power Shovel Mechanic sections are submitted in 14 cassettes as follows: 1 - anterior cervix, 2 - posterior cervix , 3-5 - anterior uterine wall, 6-8 - posterior uterine wall (cassette 6 also contains the smaller nodular mass, entirely submitted). The endometrium is entirely submitted. 9 larger nodular mass, 10 one fallopian tube, 11 adjacent ovary, 12 second fallopian tube, 13 AND 14 second ovary, entirely submitted. / ANTONELLA:sara 01/16/18 TC:1 CPT: 47290 HEADER OPERATION: Hysterectomy, vaginal, total, bilateral salpingo-oophorectomy PRE-OP DIAGNOSIS: Endometrial hyperplasia TISSUE SUBMITTED: Uterus, bilateral tubes and ovaries MICROSCOPIC DESCRIPTION Slides are reviewed. MICROSCOPIC DIAGNOSIS Uterus, bilateral fallopii tubes and ovaries, vaginal hysterectomy and bilateral salpingo-oophorectomy: Cervix mild chronic cystic cervicitis. Endometrium atrophic endometrium. Myometrium intramural leiomyomas (0.4 and 1.5 cm in diameter). See comment. - Focal adenomyosis. - Focal vascular calcifications. Bilateral fallopian tubes - no pathologic diagnosis. One ovary - no pathologic diagnosis. Second ovary mixed simple seromucinous cystadenoma (0.5 cm in greatest dimension). - mesothelial inclusion cysts. SJ:sara 01/17/18 Signed Lucas Mcknight 01/17/18 <signature on file> Performed By: #### PHYST #### [facility] [address] [place], [place], [address] BEDSIDE GLUCOSE Collected: 01/16/2018 Status: F Source: [place] 5:46 AM [facility] [place] CODE TESTS RESULT OUT OF REFERENCE UNITS RANGE LAB L501.080 70-110 mg/dL High BEDSIDE GLU 220 Result Comment: MANAGEMENT OF PATIENT CARE PER NURSING PROTOCOL Performed By: #### L501.080 #### [facility] Point of Care [address] [place], [place] [address] CBC-COMPLETE BLOOD CNT Collected: 01/10/2018 Status: F Source: [place] NO DIFF 11:41 AM [facility] [place] TYPE CODE TESTS RESULT OUT OF RANGE REFERENCE UNITS LAB L100.1000 4.4-11.0 K/mm3 Normal WBC 7.5 LAB L100.1200 4.2-5.4 M/mm3 Normal RBC 4.66 LAB L100.1300 12.0-15.0 g/dl Normal HGB 13.9 LAB L100.1400 37-47 % Normal HCT 41.3 LAB L100.1500 81-99 fL Normal MCV 88.6 LAB L100.1600 27.0-32.0 pg Normal MCH 29.8 LAB L100.1700 32-36 g/gl Normal MCHC 33.7 LAB L100.1810 11.6-14.6 % Normal RDW CV 13.1 LAB L100.1820 35.1-43.9 fl Normal RDW SD 41.9 LAB L100.1900 150-450 K/mm3 Normal PLT 281 LAB L100.2000 6.2-12.0 fl Normal MPV 9.7 Performed By: #### L100.0500 #### [facility] [address] [place], [address] HEMOGLOBIN A1C Collected: 01/10/2018 Status: F Source: [place] 11:41 AM [facility] [place] TYPE CODE TESTS RESULT OUT OF RANGE REFERENCE UNITS LAB L501.9985 4.2-6.3 % High HGB A1C 7.8 Performed By: #### L501.9985 #### [facility] [address] [place], [address] BASIC METABOLIC Collected: 01/10/2018 Status: F Source: [place] PROFILE (BMP) 11:41 AM [facility] [place] TYPE CODE TESTS RESULT OUT OF RANGE REFERENCE UNITS LAB L501.0100 74-106 mg/dL High GLU 193 Result Comment: Fasting Glucose result greater than or equal to 126 mg/dL suggests DIABETES MELLITUS per A.D.A. criteria. Please note revised GLUCOSE reference range effective 2017. LAB L501.1000 7-18 mg/dL High BUN 20 LAB L501.1100 0.55-1.02 mg/dL Normal CREAT,SERUM 1.00 Result Comment: The validity of the calculated GFR AND GFRAA in patients over 70 years has not been determined. Clinical correlation is essential. LAB L501.1110 >60 mL/min Low EST GFR 59 Result Comment: Non- GFR Calc LAB L501.1115 >60 mL/min Normal EST GFR - AA 71 Result Comment: GFR Calc LAB L501.1300 10-20 RATIO Normal BUN/CRE 20.0 LAB L501.2200 8.5-10.1 mg/dL CA Normal 9.4 LAB L501.5300 136-145 mmol/L NA Normal 138 LAB L501.5600 3.5-5.1 mmol/L Low K 3.4 LAB L501.5900 98-107 mmol/L CL Normal 101 LAB L501.6100 21.0-32.0 mmol/L Normal CO2 29.0 LAB L501.6200 5-15 Normal GAP 8 Performed By: #### L500.2500, L501.9520 #### [facility] [address] [place], [address] THYROID STIM HORMONE Collected: 01/10/2018 Status: F Source: [place] ([place]) 11:[place] AM [facility] [place] CODE TESTS RESULT OUT OF RANGE REFERENCE UNITS LAB L501.9520 0.358-3.74 uIU/mL Normal TSH 1.99 Performed By: #### L500.2500, L501.9520 #### [facility] [address] [place], [address] TYPE AND SCREEN Collected: 01/10/2018 Status: F Source: [place] 11:[place] AM [facility] [place] Order Comment: Surgery Date: 01/16/18 Hx of Preganancy in last 3 Months No Ever experience any problems with transfusion(s)? N Hx of Transfusion in last 3 Months N Reason for Type AND Screen/Red Cells: SURGERY SURGICAL PROCEDURE: 62084 TYPE CODE TESTS RESULT OUT OF RANGE REFERENCE UNITS LAB B10.0800 A Normal BLOOD TYPE GEL POSITIVE LAB B100.4000 Normal Antibody NEGATIVE Screen Performed By: #### B101.7475 #### [facility] [address] [place], [address] PROGRESS Observed: 01/08/2018 Status: COMPLETED Source: [place] 1:41 PM [facility] REPOSITORY HNO ID: [id number] Author: Julissa Hassan Service: (none) Author Type: Nurse Practitioner Type: Progress Notes Filed: 01/08/2018 3:14 PM Note Text: Chief Complaint Patient presents with: Established Patient HPI: Jacquelin Lima is a 67 year old female who presents here today for breast cancer. Per Dr. Gallegos's previous note: H/o PMH significant for DM2 (dx about 1 year ago; no complications) was found to have abnormal mammogram 02/20/16. ?? Biopsy of one of the lateral tumors demonstrated invasive lobular carcinoma. ER/FL positive (>95%/29%, strong/moderate respectively). HER-2 was equivocal at 2+ and subsequent FISH testing was negative for amplification. Second tumor biopsy from the medial portion of the breast demonstrated invasive lobular carcinoma. ER positive (>95%, strong), FL negative (<1%) and HER2 1+. ?? Final pathology revealed that within the breast specimen there were 3 foci of invasive carcinoma. The largest measured 1.1 cm. The overall grade was 1. All margins were negative. The closest was 1 cm from the anterior margin. 5 sentinel lymph nodes were retrieved all of which were negative for metastatic disease. ? Oncotype test. Recurrent score 21 (13% 10 year risk). Pt. declined chemotherapy. ? Current therapy:arimidex. Began 05/10/16. ? ?? S/p bottom turning lathe tender removal and perm implant, L reduction?on . Recovered well per pt. Followed by Dr. Pedroza. ? Pts. mother on Dec.27. Pt. scheduled for hystr. on January 16. [email or web address]. ? Appetite:good Energy level:pretty much Denies fevers. I've had some sinus congestion/drainage for the past couple of weeks. Resp:occ. cough, denies sob, occ. kuo I think my heartburn makes it worse. Cardiac:denies chest pain/palpitations GI:occ. abd pain I've had stomach issues forever, +heartburn, denies n/v, moving bowels regularly :denies dysuria/hematuria Extrem:denies pain to back/bones/joints Endo:hot flashes I get them almost every night they occ. wake pt. at night Neuro:occ. tingling to fingers/toes Skin:denies rashes/lesions Heme:denies ithppkwx-yftkyrcpj-ehs having vaginal spotting ? The ROS is otherwise negative. Past medical history, appointments, medications, allergies reviewed. No changes. EXAM: BP 130/74 Pulse 69 Temp 36.9 ?C (98.4 ?F) (Oral) Wt 88.5 kg (195 lb) BMI 30.09 kg/m2 APPEARANCE Well appearing, alert, in no acute distress, well-hydrated, well nourished. HEART RRR with normal S1 and S2, no murmurs LUNG clear to auscultation BREAST FEMALE R recon no surrounding mass/nodule, U-ysjkmne-yf surrounding mass/nodule LYMPH NODES No cervical lymphadenopathy, No supraclavicular lymphadenopathy and No axillary lymphadenopathy. ABDOMEN bowel sounds normoactive, no bruits, soft, non-tender, non-distended, without organomegaly or palpable masses EXTREMITIES No edema NEURO Awake, alert and oriented x 3, Normal gait and No involuntary motions. SKIN Skin color, texture, turgor normal, no suspicious rashes or lesions RADIOLOGY: L mammogram 07/01/17: IMPRESSION: BENIGN There is no mammographic evidence of malignancy.A 1 year screening mammogram is recommended. ASSESSMENT/PLAN: 1. Malignant neoplasm of overlapping sites of right breast in female, estrogen receptor positive (HCC) - ICD9: 174.8, V86.0, ICD10: C50.811, Z17.0 (primary diagnosis) pT1c(m) pN0(sln) (5 nodes) MX ER positive; HER 2 negative invasive lobular carcinoma of the right breast. 2. Encounter for screening mammogram for high-risk patient - ICD9: V76.11, ICD10: Z12.31 - ?No concerning findings on exam. - ?Tolerating arimidex well. Continue. - Pt. has an appt. with her PCP of Saturday to discuss her sinus congestion. - L mammogram due in June 2018. - ?Follow up in 6 months-after mammogram. - ?Pt. aware to call office with any questions/concerns. The patient indicates understanding of these issues and agrees with the plan. Julissa Hassan CNP CNOVSP Observed: 01/08/2018 Status: COMPLETED Source: [place] 1:30 PM [facility] REPOSITORY Visit (SP) Office (SURYA) JACQUELIN LIMA ([id number]) 1950 F Date Time Provider Department 01/08/18 1:30 PM JULISSA HASSAN ([place]) SURYA During your visit today, we recorded the following information about you: Temperature Pulse Blood pressure Weight 98.4 degrees 69/minute 130/74 88.5 kg Julissa Hassan CNP 01/08/2018 3:14 PM Signed Chief Complaint Patient presents with: Established Patient HPI: Jacquelin Lima is a 67 year old female who presents here today for breast cancer. Per Dr. Gallegos's previous note: H/o PMH significant for DM2 (dx about 1 year ago; no complications) was found to have abnormal mammogram 02/20/16. ?? Biopsy of one of the lateral tumors demonstrated invasive lobular carcinoma. ER/FL positive (ANDgt;95%/29%, strong/moderate respectively). HER-2 was equivocal at 2+ and subsequent FISH testing was negative for amplification. Second tumor biopsy from the medial portion of the breast demonstrated invasive lobular carcinoma. ER positive (ANDgt;95%, strong), FL negative (ANDlt;1%) and HER2 1+. ?? Final pathology revealed that within the breast specimen there were 3 foci of invasive carcinoma. The largest measured 1.1 cm. The overall grade was 1. All margins were negative. The closest was 1 cm from the anterior margin. 5 sentinel lymph nodes were retrieved all of which were negative for metastatic disease. ? Oncotype test. Recurrent score 21 (13% 10 year risk). Pt. declined chemotherapy. ? Current therapy:arimidex. Began 05/10/16. ? ?? S/p bottom turning lathe tender removal and perm implant, L reduction?on . Recovered well per pt. Followed by Dr. Pedroza. ? Pts. mother on Dec.27. Pt. scheduled for hystr. on January 16. [email or web address]. ? Appetite:good Energy level:ANDquot;pretty muchANDquot; Denies fevers. ANDquot;I've had some sinus congestion/drainage for the past couple of weeks.ANDquot; Resp:occ. cough, denies sob, occ. kuo ANDquot;I think my heartburn makes it worse.ANDquot; Cardiac:denies chest pain/palpitations GI:occ. abd pain ANDquot;I've had stomach issues foreverANDquot;, +heartburn, denies n/v, moving bowels regularly :denies dysuria/hematuria Extrem:denies pain to back/bones/joints Endo:hot flashes ANDquot;I get them almost every nightANDquot; they occ. wake pt. at night Neuro:occ. tingling to fingers/toes Skin:denies rashes/lesions Heme:denies hvaekocp-frsvqzchd-dgf having vaginal spotting ? The ROS is otherwise negative. Past medical history, appointments, medications, allergies reviewed. No changes. EXAM: BP 130/74 Pulse 69 Temp 36.9 ?C (98.4 ?F) (Oral) Wt 88.5 kg (195 lb) BMI 30.09 kg/m2 APPEARANCE Well appearing, alert, in no acute distress, well- hydrated, well nourished. HEART RRR with normal S1 and S2, no murmurs LUNG clear to auscultation BREAST FEMALE R recon no surrounding mass/nodule, D-vrilfwh-oh surrounding mass/nodule LYMPH NODES No cervical lymphadenopathy, No supraclavicular lymphadenopathy and No axillary lymphadenopathy. ABDOMEN bowel sounds normoactive, no bruits, soft, non-tender, non-distended, without organomegaly or palpable masses EXTREMITIES No edema NEURO Awake, alert and oriented x 3, Normal gait and No involuntary motions. SKIN Skin color, texture, turgor normal, no suspicious rashes or lesions RADIOLOGY: L mammogram 07/01/17: IMPRESSION: BENIGN There is no mammographic evidence of malignancy.A 1 year screening mammogram is recommended. ASSESSMENT/PLAN: 1. Malignant neoplasm of overlapping sites of right breast in female, estrogen receptor positive (HCC) - ICD9: 174.8, V86.0, ICD10: C50.811, Z17.0 (primary diagnosis) pT1c(m) pN0(sln) (5 nodes) MX ER positive; HER 2 negative invasive lobular carcinoma of the right breast. 2. Encounter for screening mammogram for high-risk patient - ICD9: V76.11, ICD10: Z12.31 - ?No concerning findings on exam. - ?Tolerating arimidex well. Continue. - Pt. has an appt. with her PCP of Saturday to discuss her sinus congestion. - L mammogram due in June 2018. - ?Follow up in 6 months-after mammogram. - ?Pt. aware to call office with any questions/concerns. The patient indicates understanding of these issues and agrees with the plan. Julissa Hassan, SENIOR LIBRARIAN Referring Provider: SEFERINO GALLEGOS [[id number]] Allergies As of Date: 01/08/2018 Noted Allergy Reaction ACTONEL (RISEDRONATE SODIUM) 04/04/2010 AMOXACILLIN (AMOXICILLIN) 04/04/2010 CYCLOBENZAPRINE HCL 04/04/2010 LIPITOR (ATORVASTATIN) 04/04/2010 PENICILLINS 05/23/2007 3 - Cough PRAVACHOL (PRAVASTATIN SODIUM) 04/18/2016 16 - Unknown PREMPHASE (CONJ ESTROG-MEDROXYPRO*04/18/2016 16 - Unknown ZOCOR (SIMVASTATIN) 04/18/2016 16 - Unknown Date Reviewed: 01/08/2018 Reviewed by: Julissa ([facility]) Mo - Fully Assessed Reason for Visit: Established Patient [175] Primary Visit Diagnosis:Malignant neoplasm of overlapping sites of right breast in female, estrogen receptor positive (HCC) [C50.811, Z17.0] Other Visit Diagnosis:Encounter for screening mammogram for high-risk patient [Z12.31] Order(s):[facility] SCREENING [8200935] Order #: [id number] FUTURE Follow-up and Disposition History Recorded Prescriptions as of 01/08/2018 Sig: AMLODIPINE 10 MG TABLET Take 10 mg by mouth once cristian* ANASTROZOLE 1 MG TABLET Take 1 tablet by mouth once d* LEVOTHYROXINE 150 MCG TABLET Take 150 mcg by mouth once da* CITRACAL + D ORAL Take 2 Each by mouth once garcia* ARIPIPRAZOLE 2 MG TABLET Take 2 mg by mouth once daily. HYDROCHLOROTHIAZIDE 25 MG TAB* Take 25 mg by mouth once cristian* VITAMIN D2 50,000 UNIT CAPSULE Take 50,000 Units by mouth on* LOSARTAN 100 MG TABLET Take 100 mg by mouth once garcia* METOPROLOL SUCCINATE ER 100 M* Take 100 mg by mouth once garcia* JANUVIA 100 MG TABLET Take 100 mg by mouth once garcia* ROPINIROLE 0.25 MG TABLET Take 0.25 mg by mouth daily a* ACETAMINOPHEN 500 MG TABLET Take 500 mg by mouth as neede* * CRESTOR 5 MG TABLET Take one(1) tablet daily. * PRILOSEC 40 MG CAPSULE,DELAYE* Take one(1) capsule daily as * * ZOLOFT 100 MG TABLET Take one(1) tablet daily. Medication notes this encounter AMLODIPINE 5 MG TABLET >> Shalini Crawford MA 01/08/2018 1:40 PM >> SHALINI CRAWFORD MA SatJan 08, 2018 1:40 PM No longer taking this strength. 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 Is patient in pain?: No Allergies levofloxacin [From Levaquin] Allergy (Severe, Verified 01/06/18 09:35) RAISES BLOOD PRESSURE AND STOMACH SWELLS UP AND IS PAINFUL amoxicillin Allergy (Verified 01/06/18 09:35) Other atorvastatin calcium [From Lipitor] Allergy (Verified 01/06/18 09:35) Other cyclobenzaprine Allergy (Verified 01/06/18 09:35) Other estrogens, conjugated [From Premphase] Allergy (Verified 01/06/18 09:35) Other medroxyprogesterone acetate [From Premphase] Allergy (Verified 01/06/18 09:35) Other Penicillins [PCN] Allergy (Verified 01/06/18 09:35) SORE THROAT pravastatin sodium [From Pravachol] Allergy (Verified 01/06/18 09:35) Other risedronate sodium [From Actonel] Allergy (Verified 01/06/18 09:35) Other simvastatin [From Zocor] Allergy (Verified 01/06/18 09:35) Other minocycline Adverse Reaction (Verified 01/06/18 09:35) Nausea/Vom/Diarrhea Medications Aripiprazole [Abilify] 2 mg PO QHS 12/14/14 [History Confirmed 01/06/18] Hydrochlorothiazide [Hctz] 25 mg PO DAILY 12/14/14 [History Confirmed 01/06/18] Levothyroxine [Synthroid] 150 mcg PO DAILY 12/14/14 [History Confirmed 01/06/18] Losartan Potassium [Cozaar] 100 mg PO QHS 12/14/14 [History Confirmed 01/06/18] Metoprolol(XL)Succ [Toprol Xl (Beta Sinai)] 100 mg PO QHS 12/14/14 [History Confirmed 01/06/18] Omeprazole [Prilosec] 40 mg PO BID 12/14/14 [History Confirmed 01/06/18] Sertraline HCl [Zoloft] 100 mg PO QHS 12/14/14 [History Confirmed 01/06/18] Amlodipine [Norvasc] 5 mg PO QHS 04/03/16 [History Confirmed 01/06/18] Ropinirole HCl [Requip] 0.25 mg PO QHS 04/03/16 [History Confirmed 01/06/18] Rosuvastatin Calcium [Crestor] 5 mg PO QHS 04/03/16 [History Confirmed 01/06/18] Anastrozole [Arimidex] 1 mg PO QHS 10/01/16 [History Confirmed 01/06/18] Calcium Carbonate [Calcium] 500 mg PO DAILY 10/01/16 [History Confirmed 01/06/18] Cholecalciferol (Vitamin D3) [Vitamin D3] 2,000 unit PO DAILY 10/01/16 [History Confirmed 01/06/18] ranitidine 150 mg tablet 150 mg PO QHS 11/22/17 [History Confirmed 01/06/18] Is last menstrual period known: No Patient : No : No [facility] Medical History Acquired absence of right breast (Acute) Anxiety and depression (Acute) Back pain (Acute) Breast cancer, right breast (Acute) CARDIOLOGY PROCEDURES- INVASIVE: CARDIAC CATH (LEFT) 2004 (Acute) CARDIOLOGY PROCEDURES- NONINVASIVE : (Acute) Chickenpox (Acute) Congenital anomaly of aortic arch (Acute) DISRUPTION RIGHT BREAST RECONSTRUCTION WOUND (Acute) Diabetes (Acute) Disproportion of reconstructed breast (Acute) Diverticulosis (Acute) EXCESS MASTECTOMY TISSUE SCAR CONTOUR DEFOMITY (Acute) Estrogen receptor positive status [ER+] (Acute) GERD (gastroesophageal reflux disease) (Acute) Hand fracture (Acute) Hyperlipidemia (Acute) Hypothyroidism (Acute) IBS (irritable bowel syndrome) (Acute) LEFT VENTRICULAR EJECTION FRACTION: 52% (Acute) Left bundle branch block (Acute) Measles (Acute) Metatarsalgia (Acute) Mumps (Acute) NONHEALING SURGICAL MASTECTOMY WOUND AT T ZONE RIGHT BREAST (Acute) Nonhealing surgical wound (Acute) Osteoporosis (Acute) Other and unspecified mitral valve diseases (Acute) PAINFUL CAPSULAR CONTRACTURE RIGHT BREAST RECONSTRUCTION (Acute) Plantar fascial fibromatosis (Acute) Right thyroid nodule (Acute) Shingles (Acute) Unspecified sleep apnea (Acute) Hypertension (Chronic) Surgical History 2ND STAGE RIGHT BREAST RECONSTRUCTION (Acute) FIRST STAGE IMMEDIATE RIGHT BREAST RECONSTRUCTION (Acute) H/O dilation and curettage (Acute) History of tonsillectomy (Acute) INCISION AND DRAINAGE (Acute) LEFT STEREOTACTIC BREAST BIOPSY (Acute) LEFT WRIST SURGERY (Acute) REVISION RECONSTRUCTED RIGHT BREAST (Acute) REVISION RIGHT BREAST RECONSTRUCTION (Acute) RIGHT FOOT NEUROMA SURGERY (Acute) RIGHT MASTECTOMY AND RIGHT SENTINEL NODE BIOPSY (Acute) RIGHT NEEDLE CORE BREAST BIOPSIES X2 ( 03/07/16) (Acute) SECOND STAGE DELAYED LEFT BREAST RECONSTRUCTION (Acute) 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) polyp removal (Acute) Family History Father Pancreatic cancer Hypertension Mother Diabetes Hypertension Alzheimer disease Brother CAD (coronary artery disease) Brother CAD (coronary artery disease) Sister Breast cancer Social History household members: spouse, other details: MOTHER housing: house current occupational status: other, retired current occupation: [employer] current occupational exposures/hazards: No pets and animals: Yes Smoking Status: Former smoker second hand exposure: No alcohol intake: current alcohol intake frequency: holidays/special occasions only Alcohol type: wine substance use type: does not use what type of physical activity do you participate in: other seatbelt use: always do you feel safe at home: Yes additional social history: SUN EXPOSURE: OCCASIONALLY Seferino HPI Pre Op: Details: JACQUELIN LIMA is a 67 year old who presents for preop appointment. she has hyperplasia and isn't a candidate for hormone therapy so planning a TVH BSO Female Reproductive History Questions: Metorrhagia: No, Sexually active: Yes, Dyspareunia: No, PCB: No Pregancy History 4 Elective abortions Hx Para 3 Spontaneous abortions Past Pregnancies Del. DateName GA/Weeks Outcome Route Bth WeighInfant GeLabor LgtAnesthesiDel LocatProvider FOB t n h a n ROS Const Constitutional: Denies poor appetite, headache(s), fever(s), increased appetite, weight gain, weight loss or fatigue ENT ENT: Denies dizziness or dry mouth Cardio Card: Denies chest pain Resp Resp: Denies dyspnea or cough GI GI: Reports as per HPI; denies vomiting, nausea, abdominal pain or constipation : Reports as per HPI; denies urinary urgency, vaginal discharge, urinary frequency, vaginal itching, vaginal odor, vaginal dryness, urinary incontinence, urinary hesitancy, pelvic pain, difficulty urinating or painful urination Musc Musc: Denies muscle weakness, joint pain or back pain Skin Skin/Breast: Denies hair loss, change in hair, dry skin, breast pain, breast skin changes or breast lump Neuro Neuro: Denies dizziness Psych Psych: Denies anxiety or depression Endo Endo: Denies cold intolerance, increased thirst, excessive sweating or heat intolerance Anibal/Lymph Hematologic/Lymphatic: Denies easy bleeding, Denies easy bruising, Denies enlarged lymph nodes Exam Const General: cooperative, healthy appearing, comfortable, no acute distress, well developed Nutritional Appearance: average body habitus Orientation: alert [facility] Head: normal to inspection, normocephalic Ears: hearing grossly normal bilaterally, external ears normal Nose: external nose normal, nares normal Face and sinus: normal facial exam Neck Neck: normal visual inspection, trachea midline, no lymphadenopathy Thyroid: thyroid normal Chest Chest palpation AND inspection: normal inspection of the chest Resp Effort AND Inspection: normal respiratory effort Auscultation: clear to auscultation bilaterally Cardio Rate: regular rate Rhythm: regular rhythm Heart Sounds: S1 normal, S2 normal GI Inspection: normal to inspection, non-distended Palpation: soft, no hepatosplenomegaly General: bladder normal to palpation External Female Exam: normal external appearance, normal appearance of the urethra Urethra: normal appearance of the urethra, normal palpation, no discharge Speculum Exam - Vagina: normal appearance of the vagina, normal vaginal discharge Speculum Exam - Cervix: normal appearance of the cervix, nontender Bimanual Exam- Vagina AND Uterus: bladder normal to palpation, No cervical tenderness, normal bimanual exam, normal vaginal palpation, uterine size normal, uterine shape normal, uterine mobility normal, uterine consistency normal, normal cervical palpation, uterus non-tender Bimanual Exam- Adnexa, other: normal adnexae, adnexae mobile, no adnexal masses, pelvic support normal Pelvic Support: normal Musc Cervical Spine: other Other: gross motor intact no deficits, full bilateral strength Skin General: no rashes or lesions noted Neuro General: alert, awake, no focal motor deficits, moves all extremities Motor: muscle tone normal throughout Extrem General: normal to inspection, no pedal edema Psych Appearance: grossly normal Mental Status: mental status grossly normal Affect: normal affect Speech and Movement: speech and movement normal Assessment AND Plan Problems 1. 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 Simple endometrial hyperplasia N85.01 Plan recommend TVH BSO if able. discussed surgical risks including risks of anesthesia, infection, bleeding, injury to bowel, bladder or blood vessels, and patient wishes to proceed with surgery. would recommend anticoagulation perioperatively. Coding Level of Care Code No Charge Diagnoses Submucous leiomyoma of uterus D25.0 Uterine leiomyoma location: submucous Simple endometrial hyperplasia N85.01 01/08/18 0954 <Electronically signed by Mi Bingham MD> Date Mi Bingham MD Cosigner Signature: Date (if applicable) CC: PLASTIC SURGERY Observed: 12/22/2017 Status: F Source: [place] VISIT RE[place] 11:28 AM [facility] [place] [facility] [address] [place] [address] OFFICE VISIT Date of Service: 11/04/17 MR#: [id number] Acct: [id number] Name: JACQUELIN LIMA Rep #: [id number] : 1950 Provider: Nir Pedroza MD Age/Sex: 67/F [place] 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 Accompanied by: Unknown Is patient in pain?: No Allergies levofloxacin [From Levaquin] Allergy (Severe, Verified 11/04/17 14:43) RAISES BLOOD PRESSURE AND STOMACH SWELLS UP AND IS PAINFUL amoxicillin Allergy (Verified 11/04/17 14:43) Other atorvastatin calcium [From Lipitor] Allergy (Verified 11/04/17 14:43) Other cyclobenzaprine Allergy (Verified 11/04/17 14:43) Other estrogens, conjugated [From Premphase] Allergy (Verified 11/04/17 14:43) Other medroxyprogesterone acetate [From Premphase] Allergy (Verified 11/04/17 14:43) Other Penicillins [PCN] Allergy (Verified 11/04/17 14:43) SORE THROAT pravastatin sodium [From Pravachol] Allergy (Verified 11/04/17 14:43) Other risedronate sodium [From Actonel] Allergy (Verified 11/04/17 14:43) Other simvastatin [From Zocor] Allergy (Verified 11/04/17 14:43) Other minocycline Adverse Reaction (Verified 11/04/17 14:43) Nausea/Vom/Diarrhea Medications Aripiprazole [Abilify] 2 mg PO QHS 12/14/14 [History Confirmed 11/22/17] Hydrochlorothiazide [Hctz] 25 mg PO DAILY 12/14/14 [History Confirmed 11/22/17] Levothyroxine [Synthroid] 150 mcg PO DAILY 12/14/14 [History Confirmed 11/22/17] Losartan Potassium [Cozaar] 100 mg PO QHS 12/14/14 [History Confirmed 11/22/17] Metoprolol(XL)Succ [Toprol Xl (Beta Sinai)] 100 mg PO QHS 12/14/14 [History Confirmed 11/22/17] Omeprazole [Prilosec] 40 mg PO BID 12/14/14 [History Confirmed 11/22/17] Sertraline HCl [Zoloft] 100 mg PO QHS 12/14/14 [History Confirmed 11/22/17] Amlodipine [Norvasc] 5 mg PO QHS 04/03/16 [History Confirmed 11/22/17] Ropinirole HCl [Requip] 0.25 mg PO QHS 04/03/16 [History Confirmed 11/22/17] Rosuvastatin Calcium [Crestor] 5 mg PO QHS 04/03/16 [History Confirmed 11/22/17] Anastrozole [Arimidex] 1 mg PO QHS 10/01/16 [History Confirmed 11/22/17] Calcium Carbonate [Calcium] 500 mg PO DAILY 10/01/16 [History Confirmed 11/22/17] Cholecalciferol (Vitamin D3) [Vitamin D3] 2,000 unit PO DAILY 10/01/16 [History Confirmed 11/22/17] ranitidine 150 mg tablet 150 mg PO QHS 11/22/17 [History Confirmed 11/22/17] Is last menstrual period known: No Post menopausal: Yes Patient : No PFSH Medical History Acquired absence of right breast (Acute) Anxiety and depression (Acute) Back pain (Acute) Breast cancer, right breast (Acute) CARDIOLOGY PROCEDURES- INVASIVE: CARDIAC CATH (LEFT) 2004 (Acute) CARDIOLOGY PROCEDURES- NONINVASIVE : (Acute) Chickenpox (Acute) Congenital anomaly of aortic arch (Acute) DISRUPTION RIGHT BREAST RECONSTRUCTION WOUND (Acute) Diabetes (Acute) Disproportion of reconstructed breast (Acute) Diverticulosis (Acute) EXCESS MASTECTOMY TISSUE SCAR CONTOUR DEFOMITY (Acute) Estrogen receptor positive status [ER+] (Acute) GERD (gastroesophageal reflux disease) (Acute) Hand fracture (Acute) Hyperlipidemia (Acute) Hypothyroidism (Acute) IBS (irritable bowel syndrome) (Acute) LEFT VENTRICULAR EJECTION FRACTION: 52% (Acute) Left bundle branch block (Acute) Measles (Acute) Metatarsalgia (Acute) Mumps (Acute) NONHEALING SURGICAL MASTECTOMY WOUND AT T ZONE RIGHT BREAST (Acute) Nonhealing surgical wound (Acute) Osteoporosis (Acute) Other and unspecified mitral valve diseases (Acute) PAINFUL CAPSULAR CONTRACTURE RIGHT BREAST RECONSTRUCTION (Acute) Plantar fascial fibromatosis (Acute) Right thyroid nodule (Acute) Shingles (Acute) Unspecified sleep apnea (Acute) Hypertension (Chronic) Surgical History 2ND STAGE RIGHT BREAST RECONSTRUCTION (Acute) FIRST STAGE IMMEDIATE RIGHT BREAST RECONSTRUCTION (Acute) H/O dilation and curettage (Acute) History of tonsillectomy (Acute) INCISION AND DRAINAGE (Acute) LEFT STEREOTACTIC BREAST BIOPSY (Acute) LEFT WRIST SURGERY (Acute) REVISION RECONSTRUCTED RIGHT BREAST (Acute) REVISION RIGHT BREAST RECONSTRUCTION (Acute) RIGHT FOOT NEUROMA SURGERY (Acute) RIGHT MASTECTOMY AND RIGHT SENTINEL NODE BIOPSY (Acute) RIGHT NEEDLE CORE BREAST BIOPSIES X2 ( 03/07/16) (Acute) SECOND STAGE DELAYED LEFT BREAST RECONSTRUCTION (Acute) 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) polyp removal (Acute) Family History Father Pancreatic cancer Hypertension Mother Diabetes Hypertension Alzheimer disease Brother CAD (coronary artery disease) Brother CAD (coronary artery disease) Sister Breast cancer Social History household members: spouse, other details: MOTHER housing: house current occupational status: other, retired current occupation: [employer] current occupational exposures/hazards: No pets and animals: Yes Smoking Status: Former smoker second hand exposure: No alcohol intake: current alcohol intake frequency: holidays/special occasions only Alcohol type: wine substance use type: does not use what type of physical activity do you participate in: other seatbelt use: always do you feel safe at home: Yes additional social history: SUN EXPOSURE: OCCASIONALLY Seferino HPI postop surgery 08/27/17: Details: Postop visit from her recent surgery on August 27, 2017 where she underwent revision right breast reconstruction with excision excess lateral skin contour deformity and re-advancement of latissimus dorsi myocutaneous flap and capsulectomy with removal cohesive gel implant and placement AlloDerm acellular dermal matrix graft (320 cm ) with replacement cohesive gel implant (750 cc). She was discharged from the hospital on August 28, 2017. She comes in today with no pain complaints. Breasts are soft and symmetrical. Incisions are dry and intact and healed. Pathology showed fibrosis and focal foreign body giant cell reaction and minimal chronic inflammation and no malignancy seen. The operative cultures were negative. Massage the incisions with skin lotion daily to help soften up the scars. Followup 3 months. 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 Diabetes Diverticulosis back pain Hypertension, irritable bowel syndrome, hyperlipidemia, anxiety, depression, hyperlipidemia, hypothyroidism, GERD, osteoporosis, sleep apnea, diverticulitis; right breast cancer acquired absence right breast disproportion reconstructed breast estrogen receptor positive status nonhealing surgical mastectomy wound at Tzone right breast excess mastectomy tissue scar contour deformity reconstructed right breast nonhealing surgical wound right breast reconstruction at Tzone disruption right breast reconstruction wound with underlying cohesive gel implant Painful capsular contracture right breast reconstruction Past Cardiac Illnesses: left bundle branch block; Infectious Diseases: usual childhood illnesses of mumps, measles and chickenpox, just getting over shingles; Cardiology Procedures-Invasive: cardiac cath (left) 2004; Cardiology Procedures-Noninvasive: myocardial perfusion imaging (Nuclear) November 2001, holter monitor October 2009, echocardiogram January 2010; Left Ventricular Ejection Fraction: 52% PAST SURGICAL HISTORY: Tonsillectomy Tubes tied and D AND C Right foot neuroma surgery Left wrist surgery Left stereotactic breast biopsy Right needle core breast biopsies x 2 - 03/07/16 Past injuries: hand fracture, denies history of head trauma right mastectomy and right axillary sentinel lymph node biopsy by Dr. Hairston - 04/05/16 first stage immediate right breast reconstruction with placement of submuscular saline tissue bottom turning lathe tender (550 ml) and placement of Alloderm acellular dermal matrix graft inferolateral sling (132 cm2) by Dr. Pedroza - 04/05/16 incision and drgurpreet, posterative seroma, right breast mastectomy wound and excisional debridement, nonhealing surgical mastectomy wound of T-zone with secondary wound closure. - 05/11/16 2nd stage right breast reconstruction with removal saline tissue bottom turning lathe tender and replacement cohesive gel implant (800 ml) and revision reconstructed right breast with lateral capsular advancement flap and placement Alloderm acellular dermal matrix graft inferolateral sling (132 cm2) and left breast reconstruction with mastopexy - 11/13/16 revision reconstructed right breast with excision nonhealing ulcer and removal exposed cohesive gel implant and multiple capsulotomies and placement of right latissimus dorsi myocutaneous flap with replacement cohesive gel implant (800 ml) and placement Alloderm acellular dermal matrix graft lateral sling (132 cm2) - 01/18/17 second stage delayed left breast reconstruction with placement of submuscular cohesive gel implant (500 ml) - 02/15/17 revision right breast reconstruction with excision excess lateral skin contour deformity and re-advancement of latissimus dorsi myocutaneous flap and capsulectomy with removal cohesive gel implant and placement AlloDerm acellular dermal matrix graft (320 cm ) with replacement cohesive gel implant (750 cc) - 08/27/17 FAMILY HISTORY: Positive for breast cancer. 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 Sexual Activity: did not discuss sexual history Residence: lives with Spouse's 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 aspirin use - ibuprofen use - MEDICATIONS: ABILIFY 2 MG ORAL TABLET (ARIPIPRAZOLE) One tablet by mouth daily HYDROCHLOROTHIAZIDE 25 MG ORAL TABLET (HYDROCHLOROTHIAZIDE) One tablet by mouth daily VITAMIN D3 48195 UNIT ORAL CAPSULE (CHOLECALCIFEROL) 1 capsule weekly CLONAZEPAM 0.5 MG ORAL TABLET (CLONAZEPAM) as needed SYNTHROID 125 MCG ORAL TABLET (LEVOTHYROXINE SODIUM) One tablet by mouth daily LOSARTAN POTASSIUM 50 MG ORAL TABLET (LOSARTAN POTASSIUM) One tablet by mouth daily CRESTOR 5 MG ORAL TABLET (ROSUVASTATIN CALCIUM) 1 daily LOPRESSOR 100 MG ORAL TABLET (METOPROLOL TARTRATE) One tablet by mouth daily PRILOSEC 40 MG ORAL CAPSULE DELAYED RELEASE (OMEPRAZOLE) 1 capsule daily as needed ZOLOFT 50 MG ORAL TABLET (SERTRALINE HCL) One tablet by mouth daily ALLERGIES: PCN (PENICILLIN V POTASSIUM) (Critical) * ACTONEL (Critical) * AMOXACILLIN (Critical) LIPITOR (ATORVASTATIN CALCIUM) (Critical) * CYCLOBENZAPRINE HCL (Critical) PRAVACHOL (Critical) * PREMPHASE (Critical) ZOCOR (Critical) LEVAQUIN (Critical) Assessment AND Plan Problems 1. Personal history of malignant neoplasm of breast Z85.3 2. Disproportion of reconstructed breast N65.1 3. Deformity of reconstructed breast N65.0 4. Capsular contracture of breast implant, subsequent encounter T85.44XD 5. Acquired absence of right breast and nipple Z90.11 6. Family history of breast cancer Z80.3 7. Estrogen receptor positive status (ER+) Z17.0 8. Former smoker Z87.891 Medications Discontinued: Coding Level of Care Code Global Post Op Diagnoses Personal history of malignant neoplasm of breast Z85.3 Disproportion of reconstructed breast N65.1 Deformity of reconstructed breast N65.0 Capsular contracture of breast implant, subsequent encounter T85.44XD Acquired absence of right breast and nipple Z90.11 Family history of breast cancer Z80.3 Estrogen receptor positive status (ER+) Z17.0 Former smoker Z87.891 12/22/17 1128 <Electronically signed by Nir Pedroza MD> Date Nir Pedroza MD Cosigner Signature: Date (if applicable) CC: ALLERGIES ALLERGIES DATE TYPE / NAME / CODE REACTION SEVERITY SOURCE CODE 12/03/2018 Drug medroxyprogesterone Other Unknown [place] Allergy/41 acetate/[id number]([id number]) Repository 12/03/2018 Drug pravastatin Other Unknown [place] Allergy/41 sodium/[id number](RXNORM [id number]) Repository 12/03/2018 Drug atorvastatin Other Unknown Cameron Allergy/41 calcium/[id number]([id number]) Repository 12/03/2018 Drug Penicillins/[id number](R SORE THROAT Unknown Cameron Allergy/41 XNORM) Community 4555263([facility]) Repository 12/03/2018 Drug estrogens, Other Unknown Cameron Allergy/41 conjugated/[id number](RX [id number]) Repository 12/03/2018 Drug simvastatin/[id number](R Other Unknown Asa Allergy/41 XNORM) Community 2546072([facility] [place]) Repository 12/03/2018 Drug amoxicillin/[id number](R Other Unknown [place] Allergy/41 XNORM) Community 2282481([facility]) Repository 12/03/2018 Drug cyclobenzaprine/[id number] Other Unknown [place] Allergy/41 80(RXNORM) Community 4224095([facility] [place]) Repository 12/03/2018 Drug minocycline/R614632704(R Nausea/Vom/Di Unknown Asa Allergy/41 XNORM) arrhea Community 4849917([facility] [place]) Repository 12/03/2018 Drug levofloxacin/[id number]( RAISES BLOOD SV Asa Allergy/41 RXNORM) PRESSURE AND Community 7161086([facility]) SWELLS UP AND Repository IS PAINFUL 12/03/2018 Drug risedronate Other Unknown Cameron Allergy/41 sodium/[id number](RXNORM Community 7774808( ) Hospital O[facility]) Repository 04/18/2016 DRUG PRAVASTATIN SODIUM UNKNOWN [place] INGREDI/41 Clinic Main 5806317([facility]) Repository 04/18/2016 DRUG/03876 CONJ UNKNOWN [place] 1003(OME ESTROG-MEDROXYPROGEST Clinic Main D CT) [facility] [place] Repository 04/18/2016 DRUG SIMVASTATIN UNKNOWN [place] INGREDI/41 Clinic Main 1214016([facility]) Repository 04/04/2010 DRUG RISEDRONATE SODIUM [place] INGREDI/41 Clinic Main 4619940( [place] OMED CT) Repository 04/04/2010 DRUG AMOXICILLIN [place] INGREDI/41 Clinic Main 4564043( [place] OMED CT) Repository 04/04/2010 DRUG CYCLOBENZAPRINE HCL [place] INGREDI/41 Clinic Main 2652698([facility]) Repository 04/04/2010 DRUG ATORVASTATIN [place] INGREDI/41 Clinic Main 0415849([facility]) Repository 05/23/2007 Drug PENICILLINS COUGH [place] Class/4195 Clinic Main [address]019([facility] [place] ED CT) Repository ENCOUNTERS ENCOUNTERS ADMIT/DISCHARGE ACCOUNT ADMITTING ENCOUNTER LOCATION SOURCE NUMBER CLASS 12/05/2018 [id number] Ambulatory As[facility] ing:US Repository 12/03/2018/12/03/19 [id number] Ambulatory BMSBuilding:B [place] 19 MS.[facility] Repository 08/20/2018/08/26/20 [id number] Ambulatory [address] Repository 08/19/2018 [id number] [facility] Repository 08/12/2018/08/12/20 [id number] TODD, Ambulatory [address] Repository 07/25/2018/07/28/20 [id number] Ambulatory [address] Repository 07/24/2018/07/28/20 [id number] Ambulatory [address] Repository 07/22/2018 [id number] [facility]:BIRAD Repository 07/17/2018/07/22/20 [id number] Ambulatory [address] Repository 07/02/2018 [id number] Ambulatory [facility] Hospital ing:OPBI Repository 05/19/2018 [id number] Ambulatory [facility] Hospital ing:MFPLAB Repository 04/01/2018 [id number] Ambulatory [facility] Hospital[facility] Hospital ing:MTLAB Repository 03/26/2018/03/26/20 [id number] Ambulatory BMSBuilding:B Asa [address] Repository 02/27/2018 [id number] Ambulatory [facility] Hospital ing:LABSPEC Repository 02/27/2018/02/28/20 [id number] Ambulatory BMSBuilding:B Asa 18 MS.[facility] Repository 01/27/2018/01/28/20 [id number] Ambulatory BMSBuilding:B [place] 18 MS.[facility] Repository 01/17/2018 [id number] Ambulatory BMSBuilding:B Asa MS.CF.[facility] Repository 01/16/2018/01/18/20 [id number] Ambulatory [address] Hospital ing:SDCRoom: Repository MS216 01/16/2018 [id number] Ambulatory BMSBuilding:B Asa MS.CF.[facility] Repository 01/08/2018/01/08/20 [id number] Ambulatory [address] Repository 01/06/2018/01/06/20 [id number] Ambulatory BMSBuilding:B [place] 18 MS.[facility] Repository 11/04/2017/11/04/20 [id number] Ambulatory BMSBuilding:B Cameron [address] Repository PAYERS PAYERS ENCOUNTER GUARANTOR PAYER SUBSCRIBER SOURCE 12/05/2018 JACQUELIN Piper Primary Insurance:MMO JACQUELIN Piper [place] [id number] MEDICAREPolicy SOEMISCHDOB: [facility] [address] Number: [id number] [id number] Repository [place] Date:3630-66-44[address] [address]Bfe: [phone], [place] [phone] (HP) [phone]: 12/05/2018 Secondary NOT GIVENUNK Cameron Insurance:SELF PAY [facility] Number: Effective Repository Date:2018-12-03 12/03/2018 JACQUELIN Piper Primary Insurance:MMO JACQUELIN Piper [place] [id number] MEDICAREPolicy SOEMISCHDOB: [facility] [address] Number: [id number] [facility] Hospital [id number] [place] Date:7456-39-96[address] [address]Gso: [phone], [place] [phone] () [phone]: 12/03/2018 Secondary NOT GIVENUNK [place] Insurance:SELF PAY [facility] Number: Effective Repository Date:2018-12-01 08/19/2018 JACQUELIN Piper Primary Insurance:MMO JACQUELIN Piper Asa [id number] MEDICAREPolicy SOEMISCHDOB: [facility] [address] Number: [id number] Memorial Hospital [id number] [place] Date:0802-80-45[address] [address]Hrs: [phone], [place] [phone] () [address]WM: 08/19/2018 Secondary NOT GIVENUNK Asa Insurance:SELF PAY [facility] Number: Effective Repository Date:2018-08-19 07/22/2018 JACQUELIN Piper Primary Insurance:MMO JACQUELIN K Asa [id number] MEDICAREPolicy SOEMISCHDOB: [facility] [address] Number: [id number] Memorial Hospital [id number] Repository [place] Date:9786-48-99[address] [address]Eyn: [phone], [place] [phone] () [address]PJ: 07/22/2018 Secondary NOT GIVENUNK Cameron Insurance:SELF PAY [facility] Number: Effective Repository Date:2018-07-17 07/02/2018 JACQUELIN Piper Primary Insurance:MMO JACQUELIN K Asa [id number] MEDICAREPolicy SOEMISCHDOB: [facility] [address] Number: [id number] Memorial Hospital [id number] Repository [place] Date:2383-77-08TH [address] [address]Gtk: [phone], [place] [phone] () [phone]: 07/02/2018 Secondary NOT GIVENUNK Cameron Insurance:SELF PAY [facility] Number: Effective Repository Date:2018-01-08 05/19/2018 JACQUELIN Piper Primary Insurance:MMO JACQUELIN K Cameron [id number] MEDICAREPolicy SOEMISCHDOB: [facility] [address] Number: [id number] [id number] Repository [place] Date:4421-76-31[address] [address]Ilg: [phone], [place] [phone] () [phone]: 05/19/2018 Secondary NOT GIVENUNK Asa Insurance:SELF PAY [facility] Number: Effective Repository Date:2018-05-19 04/01/2018 JACQUELIN Piper Primary Insurance:MMO JACQUELIN K Cameron [id number] MEDICAREPolicy SOEMISCHDOB: [facility] [address] Number: [id number] Memorial Hospital [id number] Repository [place] Date:4566-64-79JX [address] [address]Wvu: [place], [place] [phone]: [phone] (HP) [phone] 04/01/2018 Secondary NOT GIVENUNK Cameron Insurance:SELF PAY [facility] Number: Effective Repository Date:2018-04-01 03/26/2018 JACQUELIN K Primary Insurance:MMO JACQUELIN K Asa [id number] MEDICAREPolicy SOEMISCHDOB: [facility] [address] Number: [id number] Memorial Hospital [id number] Repository [place] Date:2500-40-41AZ [address] [address]Jor: [address], [place] [phone]~330 [phone]: [phone] (HP) [phone] 03/26/2018 Secondary NOT GIVENUNK Cameron Insurance:SELF PAY [facility] Number: Effective Repository Date:2018-03-24 02/27/2018 JACQUELIN K Primary Insurance:MMO JACQUELIN K Cameron [id number] MEDICAREPolicy SOEMISCHDOB: [facility] [address] Number: [id number] Memorial Hospital [id number] Repository [place] Date:2516-76-57[address] [address]Hkx: [address], [place] [phone]~330 [phone]: [phone] (HP) [phone] 02/27/2018 Secondary NOT GIVENUNK [place] Insurance:SELF PAY [facility] Number: Effective Repository Date:2018-02-27 02/27/2018 JACQUELIN K Primary Insurance:MMO JACQUELIN K Asa [id number] MEDICAREPolicy SOEMISCHDOB: [facility] [address] Number: [id number] Memorial Hospital [id number] Repository [place] Date:9560-46-32FC [address] [address]Qip: [address], [place] [phone]~[phone]: [phone] (HP) [phone] 02/27/2018 Secondary NOT GIVENUNK [place] Insurance:SELF PAY [facility] Effective Repository Date:2018-02-27 01/27/2018 JACQUELIN Piper Primary Insurance:MMO JACQUELIN K Asa [id number] MEDICAREPolicy SOEMISCHDOB: [facility] [address] Number: [id number] Memorial Hospital [id number] Repository [place] Date:7740-32-00JI [address] [address]Ocd: [address], [place] [phone]~330 [phone]: [phone] (HP) [phone] 01/27/2018 Secondary NOT GIVENUNK Asa Insurance:SELF PAY [facility] Number: Effective Repository Date:2018-01-21 01/17/2018 JACQUELIN Piper Primary Insurance:MMO JACQUELIN K Cameron [id number] MEDICAREPolicy SOEMISCHDOB: [facility] [address] Number: [id number] Memorial Hospital [id number] Repository [place] Date:2760-45-53[address] [address]Xxt: [address], [place] [phone]~330 [phone]: [phone] (HP) [phone] 01/17/2018 Secondary NOT GIVENUNK Asa Insurance:SELF PAY [facility] Number: Effective Repository Date:2018-01-17 01/16/2018 JACQUELIN Piper Primary Insurance:MMO JACQUELIN K Cameron [id number] MEDICAREPolicy SOEMISCHDOB: [facility] [address] Number: [id number] [facility] [id number] Repository [place] Date:7010-31-15TR [address] [address]Rtb: [address], [place] [phone]~330 [phone]: [phone] (HP) [phone] 01/16/2018 Secondary NOT GIVENUNK Asa Insurance:SELF PAY [facility] Number: Effective Repository Date:2017-12-04 01/16/2018 JACQUELIN Piper Primary Insurance:MMO JACQUELIN K Asa [id number] MEDICAREPolicy SOEMISCHDOB: [facility] [address] Number: [id number] Memorial Hospital [id number] Repository [place] Date:8597-70-09JS [address] [address]Fch: [address], [place] [phone]: [phone] (HP) [phone] 01/16/2018 Secondary NOT GIVENUNK Asa Insurance:SELF PAY [facility] Number: Effective Repository Date:2018-01-16 01/06/2018 JACQUELIN Piper Primary Insurance:MMO JACQUELIN K Asa [id number] MEDICAREPolicy SOEMISCHDOB: Community [address] Number: [id number] Memorial Hospital [id number] Repository [place] Date:5942-28-13MD [address] [address]Kzp: [address], [place] [phone]~330 [phone]: [phone] (HP) [phone] 01/06/2018 Secondary NOT GIVENUNK Asa Insurance:SELF PAY [facility] Number: Effective Repository Date:2017-12-05 11/04/2017 JACQUELIN Piper Primary Insurance:MMO JACQUELIN K Cameron [id number] MEDICAREPolicy SOEMISCHDOB: Community [address] Number: [id number] Memorial Hospital [id number] Repository [place] Date:2744-25-11WM [address] [address]Ihl: [address], [place] [phone]~330 [phone]: [phone] (HP) [phone] 11/04/2017 Secondary NOT GIVENUNK Cameron Insurance:SELF PAY [facility] Number: Effective Repository Date:2017-10-19
== END ==
PROVIDERS: Family Provider Family Medicine; PCP Family Medicine; Referring Provider Surgery; Visit Provider Surgery
DX: M12.9 Arthropathy, unspecified (principal); M51.37 Other intervertebral disc degeneration, lumbosacral region; M48.061 Spinal stenosis, lumbar region without neurogenic claudication; M51.26 Other intervertebral disc displacement, lumbar region; M54.16 Radiculopathy, lumbar region; M47.817 Spondylosis without myelopathy or radiculopathy, lumbosacral region; N65.0 Deformity of reconstructed breast; C50.811 Malignant neoplasm of overlapping sites of right female breast; Z98.82 Breast implant status; T85.44XD Capsular contracture of breast implant, subsequent encounter; N65.1 Disproportion of reconstructed breast; Z80.3 Family history of malignant neoplasm of breast
CPT/HCPCS: 72148; 76641

== ENCOUNTER → 2018-12-23 10:08 | Outpatient (CLI) | payer MEDICARE, SELFPAY ==
[2018-12-03 09:36] VITALS: BMI 29.8
--- NOTE | 2018-12-23 10:13 | MRI_ITS ---
We are attempting to reach Nir Pedroza MD to discuss findings. An addendum with communication details will be sent when the communication is complete. STUDY: BILATERAL BREAST MR WITHOUT CONTRAST REASON FOR EXAM: Female, 68 years old. Patient has a history of right breast cancer. She had a right mastectomy with bilateral reconstructive surgery. She has bilateral implants. She has noted an abnormality of the right breast implant since January 2018. She is reportedly scheduled for surgery. TECHNIQUE: Multi-sequence multi-echo imaging of both breasts was performed with a dedicated breast coil. Routine MRI sequences were performed including silicone suppression and sagittal T2 STIR water suppression sequences. COMPARISON: No prior films are available for comparison. FINDINGS: RIGHT BREAST: The breast tissue is fatty. There is no MRI abnormality seen on this noncontrast study to suggest new or recurrent malignancy. The right breast implant has a lobulated configuration there is some heterogeneous signal intensity along the more posterior aspect of the implant. There is no extracapsular rupture. LEFT BREAST: The breast tissue is fatty the left breast implant has a lobulated configuration. There is some heterogeneous signal intensity along the more posterior aspect of the implant. There is no extracapsular rupture. There are no enlarged or abnormal lymph nodes. There is no abnormality in the visualized regions of the chest . There are several liver masses. Some of which appear to be cystic but others appear to be more solid. Further workup with ultrasound as indicated. MRI/BREAST W/O CONT BILAT IMPRESSION: Dedicated ultrasonography of the liver is recommended for further evaluation of lthe iver masses. Regarding the breast implants, surgical consultation is recommended. CATEGORY: BIRADS Category 0: Incomplete. Need additional imaging evaluation. A letter regarding these results will be sent to the patient by the facility within 30 days. Electronically Signed: Isha Wood DO at 12:53 EST This report is pending additional review. Service support ,
[2018-12-23 11:12] LABS: CREATININE FINGERSTICK 1.1 mg/dL (0.55-1.02)
== END ==
PROVIDERS: Family Provider Family Medicine; PCP Family Medicine; Referring Provider Surgery; Visit Provider Surgery
DX: N65.0 Deformity of reconstructed breast (principal); Z85.3 Personal history of malignant neoplasm of breast; Z98.82 Breast implant status
CPT/HCPCS: 77047

== ENCOUNTER → 2018-12-29 08:38 | Outpatient (CLI) | payer MEDICARE, SELFPAY ==
[2018-12-03 09:36] VITALS: BMI 29.8
--- NOTE | 2018-12-29 08:46 | US_ITS ---
STUDY: ABDOMINAL ULTRASOUND - RIGHT UPPER QUADRANT REASON FOR VISIT: Female, 68 years old. History of breast cancer. Liver masses. TECHNIQUE: Ultrasound evaluation of the right upper quadrant was performed with real-time and static munoz-scale imaging. TECHNICAL QUALITY: Adequate. COMPARISON: None. FINDINGS: Liver: The liver measures 16.6 cm. There is increased echogenicity consistent with fatty infiltration. The bile ducts are within normal limits. There is hepatic color flow. The direction of portal flow is hepatopetal. There is a 1.4 cm x 1.8 cm x 2.1 cm cyst in the right lobe. There is also evidence of a 1.3 cm x 1.8 cm x 1.2 cm cyst in the right lobe. There is a 2.5 cm x 1.9 cm x 2.6 cm slightly echogenic nodule in the right periportal region suggestive of a small hemangioma. There is also evidence of 2 cysts in the left lobe. The larger measures 2 cm x 2.5 size by 1.2 cm. There is also evidence of a 2 cm x 3.8 cm x 2.5 cm slightly irregular hypoechoic nodule in the medial left lobe liver. Correlation with the CT scan of the abdomen following IV contrast is recommended. Gallbladder: Normal distended gallbladder. The gallbladder wall measures 3.4 mm. There is a negative sonographic Bentley's sign. There is no pericholecystic fluid. There are no gallstones. Common Bile Duct (C.B.D.): The common bile duct measures 3.0 mm. Pancreas: Normal size of the head, body and tail of the pancreas. There is normal echogenicity of the pancreas. There is no demonstrated pancreatic mass or cyst. Right Kidney: Normal size of the right kidney. The right kidney measures 11.1 cm x 5.2 cm x 4.7 cm. Normal renal cortex. The right cortex measures 1.4 cm. There is no demonstrated renal mass or cyst. There is no right hydronephrosis. US/Liver IMPRESSION: Multiple hepatic cysts. Findings suggestive of an hemangioma in the right lobe liver. Hypoechoic nodule in the left lobe of liver as described. Correlation with the CT scan of the abdomen following IV contrast is recommended for further evaluation. Electronically Signed: Carlos Romero MD at 15:36 EST , Service support ,
== END ==
PROVIDERS: Family Provider Family Medicine; PCP Family Medicine; Referring Provider Surgery; Visit Provider Surgery
DX: R16.0 Hepatomegaly, not elsewhere classified (principal); Z85.3 Personal history of malignant neoplasm of breast; Z98.82 Breast implant status; Z80.3 Family history of malignant neoplasm of breast
CPT/HCPCS: 76705

== ENCOUNTER → 2019-01-02 14:37 | Outpatient (CLI) | payer MEDICARE, SELFPAY ==
[2018-12-03 09:36] VITALS: BMI 29.8
--- NOTE | 2019-01-02 14:39 | CT_ITS ---
STUDY: CT ABDOMEN WITH CONTRAST REASON FOR EXAM: Female, 68 years old. History of breast cancer. Prior right mastectomy and breast implant. Hepatic masses seen on prior ultrasound of the right upper quadrant. RADIATION DOSAGE (If Supplied By Facility): CTDIvol = ( 15.45 ) mGy, DLP = ( 783.34 ) mGycm TECHNIQUE: Transaxial images were obtained post I.V. administration of Isovue 250 100CC IV, and oral contrast. Sagittal and coronal images were reconstructed. Delayed imaging through the liver was obtained as well. Individualized dose optimization techniques were used for this CT. COMPARISON: Comparison is made with prior ultrasound of the abdomen dated December 29, 2018. FINDINGS: A right breast prosthesis is seen. The visualized lung bases are unremarkable. The visualized portions of the heart are within normal limits. Multiple hypodensities of varying sizes are seen in both the right and left lobes of the liver. These correspond to the sonographic findings. These most likely represent cysts. There is evidence of a 1.7 cm x 1.4 cm hypodense nodule in the region of the caudate lobe of the liver. This is not atypical cyst and may represent an hemangioma. Correlation with MRI is recommended. Normal gallbladder and extrahepatic biliary system. There are multiple benign calcified granulomata of the spleen. Normal pancreas. Normal bilateral adrenal glands. Normal right kidney. 1 cm cyst in the midportion of the left kidney. Moderate sized hiatal hernia. Normal small intestine. Normal colon. The appendix is visualized and appears normal. There is diffuse atherosclerotic calcification of the abdominal aorta, without a demonstrated aneurysm. Normal inferior vena cava. Normal retroperitoneum. Normal abdominal wall. There are mild degenerative changes of the visualized lumbar spine. CT/Abdomen WITH IV Contrast IMPRESSION: Multiple cysts are seen in the liver as described. There is a 1.7 cm x 1.4 cm hypodense nodule in the region of the caudate lobe of the liver. This is not a typical cyst. This may represent an hemangioma. Correlation with MRI of the liver is recommended for further evaluation. Electronically Signed: Carlos Romero MD at 12:52 EST , Service support ,
[2019-01-02 14:56] LABS: CREATININE FINGERSTICK 0.8 mg/dL (0.55-1.02)
== END ==
PROVIDERS: Family Provider Family Medicine; PCP Family Medicine; Referring Provider Surgery; Visit Provider Surgery
DX: R16.0 Hepatomegaly, not elsewhere classified (principal); Z85.3 Personal history of malignant neoplasm of breast
CPT/HCPCS: 74160; Q9967

== ENCOUNTER → 2019-01-14 11:26 | Outpatient (CLI) | payer MEDICARE, SELFPAY ==
[2018-12-03 09:36] VITALS: BMI 29.8
--- NOTE | 2019-01-14 11:28 | MRI_ITS ---
STUDY: MRI ABDOMEN WITH AND WITHOUT CONTRAST REASON FOR EXAM: Female, 68 years old. Mass of the liver. Follow-up abnormal findings on prior imaging. 1.7 x 1.4 cm hypodense nodule focus in the region of the caudate lobe of the liver. Additional liver cysts. Requiring further characterization. TECHNIQUE: Standardized fat and water weighted pulse sequences were obtained in all 3 orthogonal planes post contrast administration. 9 ml of Gadavist contrast material was administered intravenously for the contrast portion of the examination. COMPARISON: CT abdomen 01/02/2018, ultrasound abdomen 12/29/2017 FINDINGS: Body wall soft tissues: No acute process. Osseous structures: Scoliosis. Mild multilevel lumbar disc narrowing with multilevel lumbar posterior disc bulges and low lumbar facet arthropathy contributing to at least mild foraminal narrowing at multiple levels. Inferior chest: Lung bases grossly clear. No cardiomegaly. Large sliding hiatal hernia. Spleen:. Adrenal glands: Normal. Kidneys: A few tiny subcentimeter nonenhancing cystlike foci of the kidneys are too small for definitive imaging characterization. The kidneys, collecting systems and proximal ureters appear otherwise normal. Pancreas: Mild fatty atrophy. No suspicious focal lesion. No ductal ectasia. Stomach: Hiatal hernia. No acute process. Small and large bowel: Evaluated portions of the small and large bowel exhibit no acute process. Hepatobiliary: There is evidence of mild hepatic steatosis, generalized signal dropout on opposed phase imaging. There is no hepatomegaly, craniocaudal right liver 15.6) meters. Normal gallbladder and biliary tree. There is a lymph node just inferior to the caudate lobe of liver along the hepatoduodenal ligament that measures approximately 29 x 14 x 7 mm. There are multiple hepatic cysts each exhibiting T2 hyperintensity centrally, T1 hypointensity, no enhancement, benign cystic features. There is no suspicious lesion of the caudate lobe. MRI/MRI Abd WITH and W/O Contrast IMPRESSION: Benign hepatic cysts. Mild hepatic steatosis without hepatomegaly. Enlarged lymph node along the hepatoduodenal ligament adjacent and just inferior to the caudate lobe of the liver. No other lymphadenopathy. Electronically Signed: Edison Moise MD at 14:19 EST Tel , Service support ,
[2019-01-14 11:55] VITALS: BP 162/88; PULSE 74; RESP 18; O2SAT 100; BMI 27.8
== END ==
PROVIDERS: Family Provider Family Medicine; PCP Family Medicine; Referring Provider Surgery; Visit Provider Surgery
DX: R16.0 Hepatomegaly, not elsewhere classified (principal); Z85.3 Personal history of malignant neoplasm of breast; Z98.82 Breast implant status
CPT/HCPCS: 96360 ×2; 74183; A9585; J7040; A4216

== ENCOUNTER → 2019-02-20 | Outpatient (CLI) | payer MEDICARE, SELFPAY ==
[2019-01-14 11:55] VITALS: BMI 27.8
[2019-02-20 13:58] LABS: Hematocrit 41.1 % (37-47); Hemoglobin 14.2 g/dl (12.0-15.0); Mean Corp Hgb Conc 34.5 g/gl (32-36); Mean Corpuscular Hgb 30.7 pg (27.0-32.0); Mean Corpuscular Volume 88.8 fL (81-99); Mean Platelet Vol. 9.9 fl (6.2-12.0); Platelet Count 275 K/mm3 (150-450); RBC Distribution Width CV 12.8 % (11.6-14.6); RBC Distribution Width SD 40.6 fl (35.1-43.9); Red Blood Count 4.63 M/mm3 (4.2-5.4); White Blood Count 7.5 K/mm3 (4.4-11.0)
[2019-02-20 14:01] LABS: Scan Indicated on CBC? Y/N NO
[2019-02-20 14:33] LABS: Vitamin D,25 Hydroxy 26.5 ng/mL (29.95-100.01)
[2019-02-20 14:35] LABS: AST(SGOT) 17 U/L (15-37); Alanine Aminotransfer ALT/SGPT 31 U/L (13-56); Albumin, Serum 3.7 g/dL (3.2-5.0); Alkaline Phosphatase 84 U/L (45-117); Anion Gap 9 (5-15); BUN 15 mg/dL (7-18); BUN/Creat Ratio 15.9 RATIO (10-20); Calcium,Total 9.3 mg/dL (8.5-10.1); Chloride 105 mmol/L (98-107); Cholesterol 180 mg/dL (200); Creatinine, Serum 0.95 mg/dL (0.55-1.02); EST Glomerular Filtration Rate 63 mL/min (>60); Est Glom Filt Rate - Afr Amer 76 mL/min (>60); Globulin 3.6 g/dL (2.2-4.2); Glucose 181 mg/dL (74-106); High Density Lipoprotein 52 mg/dL; Potassium 3.4 mmol/L (3.5-5.1); Protein, Total 7.3 g/dL (6.4-8.2); Sodium Level 141 mmol/L (136-145); Thyroid Stim Hormone (TSH) 0.11 uIU/mL (0.358-3.74); Triglycerides 210 mg/dL; Very Low Density Lipoprotein 42 mg/dL (5-40)
== END | disposition home or self-care (01) ==
PROVIDERS: Family Provider Family Medicine; PCP Family Medicine; Referring Provider Family Medicine; Visit Provider Family Medicine
DX: K21.9 Gastro-esophageal reflux disease without esophagitis (principal); E11.9 Type 2 diabetes mellitus without complications; E03.9 Hypothyroidism, unspecified; E55.9 Vitamin D deficiency, unspecified
CPT/HCPCS: 36415; 80053; 80061; 82306; 84443; 85027

== ENCOUNTER → 2019-03-12 | Outpatient (CLI) | payer MEDICARE, SELFPAY ==
[2019-03-12 09:49] VITALS: BMI 27.8
[2019-03-12 12:39] LABS: Hemoglobin A1c 7.9 % (4.2-6.3)
== END | disposition home or self-care (01) ==
LOC: MTLAB 10:29
PROVIDERS: Family Provider Family Medicine; PCP Family Medicine; Referring Provider Surgery; Visit Provider Surgery
DX: E11.9 Type 2 diabetes mellitus without complications (principal)
CPT/HCPCS: 36415; 83036

== ENCOUNTER 2019-03-17 14:52 | Observation (INO) | payer MEDICARE, SELFPAY ==
[2019-01-14 11:55] VITALS: BMI 27.8
[2019-03-12 09:49] VITALS: BMI 27.8
--- NOTE | 2019-03-12 13:20 | EKG12_ITS ---
Test Reason : PRE-OP Blood Pressure : / mmHG Vent. Rate : 072 BPM Atrial Rate : 072 BPM P-R Int : 156 ms QRS Dur : 130 ms QT Int : 414 ms P-R-T Axes : 009 -05 112 degrees QTc Int : 453 ms Normal sinus rhythm Left bundle branch block Abnormal ECG Confirmed by GEO BRIGHT, DEON ([id number]), offline editor RUI FLYNN ([id number]) on 03/13/2019 7:04:09 AM Referred By: Nir Pedroza Confirmed By:DEON GUARDADO MD
--- NOTE | 2019-03-16 18:41 | PCM.HP.BLA ---
History and Physical Date of Admission: 03/17/19 HISTORY OF PRESENT ILLNESS 69 year old woman presents for evaluation of her breast reconstruction. She has concerns on the superolateral aspect of the right breast, there is some wrinkling and dimpling of the skin. She denies any trauma. She denies any fever. She denies any pain. She denies any drainage. She states that she has started to work out, which includes upper body weights. Besides the wrinkling on the superolateral aspect of the right breast reconstruction, she has also noticed her right breast has lowered a little bit with some asymmetry of the inframammary fold as compared to the left. She had a unilateral mammogram of her left breast 07/02/18 and then had stereotactic core biopsy of her left breast 07/23/18. The biopsy was negative for atypia or malignancy. An ultrasound of her right breast was done on 12/05/18 which showed undulation of the contour of the breast. An MRI of her breasts was done on 12/23/18. The right breast showed there was nothing to suggest new or recurrent malignancy. Bilateral implants have a lobulated configuration and there is some heterogeneous signal intensity along the more posterior aspect of the implant. There is no extracapsular rupture bilaterally. The MRI did show several liver masses which she went to have further work up. This entailed a Liver Ultrasound on 12/29/[address] on 01/02/19 and an abdominal MRI on 01/14/19. There was noted a reactive lymph node in the caudate lobe of the liver along the hepatoduodenal ligament. She was scheduled for a PET scan but had trouble getting it approved. After discussion with General Surgery and Oncology, it was felt these masses were benign and can safely be observed at this time. So we are proceeding with the breast revision reconstruction next week on 03/17/19. She states her soft tissue mass left forehead by eyebrow is stable and unchanged and without complaints at this time. 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+] GERD (gastroesophageal reflux disease) Hand fracture Hyperlipidemia Hypothyroidism IBS (irritable bowel syndrome) Left bundle branch block Measles Metatarsalgia Mumps Osteoporosis PAINFUL CAPSULAR CONTRACTURE RIGHT BREAST RECONSTRUCTION Plantar fascial fibromatosis Right thyroid nodule Shingles Unspecified sleep apnea Hypertension PAST SURGICAL HISTORY 2ND STAGE RIGHT BREAST RECONSTRUCTION FIRST STAGE IMMEDIATE RIGHT BREAST RECONSTRUCTION H/O dilation and curettage History of tonsillectomy [facility]-BSO LEFT STEREOTACTIC BREAST BIOPSY LEFT WRIST SURGERY REVISION RIGHT BREAST RECONSTRUCTION RIGHT FOOT NEUROMA SURGERY RIGHT MASTECTOMY AND RIGHT SENTINEL NODE BIOPSY RIGHT NEEDLE CORE BREAST BIOPSIES X2 ( 03/07/16) SECOND STAGE DELAYED LEFT BREAST RECONSTRUCTION Tubal infertility in female polyp removal ALLERGIES levofloxacin [From Levaquin] amoxicillin atorvastatin calcium [From Lipitor] cyclobenzaprine estrogens, conjugated [From Premphase] gabapentin medroxyprogesterone acetate [From Premphase] Penicillins [PCN] pravastatin sodium [From Pravachol] risedronate sodium [From Actonel] simvastatin [From Zocor] minocycline MEDICATIONS Aripiprazole [Abilify] Hydrochlorothiazide [Hctz] Levothyroxine [Synthroid] Losartan Potassium [Cozaar] Metoprolol(XL)Succ [Toprol Xl (Beta Sinai)] Sertraline HCl [Zoloft] Amlodipine [Norvasc] Ropinirole HCl [Requip] Rosuvastatin Calcium [Crestor] Anastrozole [Arimidex] Calcium Carbonate [Calcium] Cholecalciferol (Vitamin D3) [Vitamin D3] Sitagliptin Phosphate [Januvia] Oxycodone HCl/Acetaminophen [Percocet 5-325] diazepam FAMILY HISTORY Father - Pancreatic cancer, Hypertension Mother - Diabetes, Hypertension, Alzheimer disease Brother - CAD (coronary artery disease) Brother - CAD (coronary artery disease) Sister - Breast cancer SOCIAL HISTORY Smoking Status: Former smoker second hand exposure: No alcohol intake: current alcohol intake frequency: holidays/special occasions only Alcohol type: wine substance use type: does not use REVIEW OF SYSTEMS General - Denies fever, fatigue and weight loss. Eyes - Denies eye pain. ENT - Denies nasal congestion and sore throat. CV - Denies chest pain or discomfort, fatigue, lightheadedness and shortness of breath with exertion. Resp - Denies cough and shortness of breath. patient is a former smoker. GI - Denies nausea, vomiting, diarrhea and constipation. - Denies blood in urine and urinary frequency. MS - Complains of back pain. Denies joint pain, stiffness, muscle weakness and arthritis. She is complaining of left axillary pain with arm movement. Derm - Denies skin cancer. Has a soft tissue mass left forehead by eyebrow that is stable. Neuro - Denies poor balance and headaches. Psych - Complains of anxiety and depression. Endo - Denies excessive urination and excessive thirst. has history of right breast multifocal cancer. Has wrinkling of superolateral aspect right breast reconstruction with some lowering of the inframammary fold. Heme - Denies bleeding and abnormal bruising. PHYSICAL EXAMINATION General - well developed, well nourished, in no acute distress. Bra size was 38 D prior to her breast cancer. Head - normocephalic and atraumatic. On the left forehead by the eyebrow in the mid aspect is a soft tissue mass that measures 1.1 cm. Unchanged. Slightly firm. Mobile. Not adherent to the underlying bone. No ulceration. Lesion is nontender. Eyes - PERRL/EOM intact, conjunctiva and sclera clear. Throat is clear. Neck - no masses, thyromegaly, or abnormal cervical nodes. No suspicious lesions noted. Breasts - Breasts are soft and symmetrical in a bra. Without the bra, there is some wrinkling and dimpling of the superolateral aspect right breast reconstruction. Implant is palpable. There is some lowering of the inframammary fold, about 1 cm causing asymmetry with the left breast. This has led to some superior pole flattening on the right. When the right breast is pushed up to even out the inframammary fold, the wrinkling diminishes and the superior pole flattening diminishes. No axillary adenopathy. No breast masses palpable. Lungs - clear bilaterally to auscultation. Heart - Regular rate and rhythm. Abdomen - normal bowel sounds; no hepatosplenomegaly no ventral,umbilical hernias or masses noted. Some redundant skin and subcutaneous tissue noted from the umbilicus to the pubic area. Horizontal scar in the pubic area. Slight skin overhang in the pubic area. Pretty good skin elasticity. Pulses - pulses normal in all 4 extremities. Extremities - no clubbing, cyanosis, edema, or deformity noted with normal full range of motion of all joints. Neurologic - cranial nerves II-XII grossly intact with normal sensation, reflexes, coordination, muscle strength and tone. Skin - no rashes. Cervical Nodes - no significant adenopathy. Axillary Nodes - no significant adenopathy. Psych - alert and cooperative; normal mood and affect; normal attention span and concentration. ASSESSMENT 1. Deformity right breast reconstruction with wrinkling of implant superolateral aspect. 2. Asymmetric lowered inframammary fold right breast reconstruction. 3. Personal history of right breast cancer. 4. Bilateral breast reconstruction implant status. 5. Acquired absence right breast. 6. Family history of breast cancer. 7. ER positive status. 8. Former smoker. 9. 1.1 cm soft tissue mass left forehead by eyebrow, stable. PLAN Ultrasound Breast, MRI Breast, Liver Ultrasound, Abdominal CT, and Abdominal MRI reviewed. She had a unilateral mammogram of her left breast 07/02/18 and then had stereotactic core biopsy of her left breast 07/23/18. The biopsy was negative for atypia or malignancy. An ultrasound of her right breast was done on 12/05/18 which showed undulation of the contour of the breast. An MRI of her breasts was done on 12/23/18. The right breast showed there was nothing to suggest new or recurrent malignancy. Bilateral implants have a lobulated configuration and there is some heterogeneous signal intensity along the more posterior aspect of the implant. There is no extracapsular rupture bilaterally. The MRI did show several liver masses which she went to have further work up. This entailed a Liver Ultrasound on 12/29/[address] on 01/02/19 and an abdominal MRI on 01/14/19. There was noted a reactive lymph node in the caudate lobe of the liver along the hepatoduodenal ligament. She was scheduled for a PET scan but had trouble getting it approved. After discussion with General Surgery and Oncology, it was felt these masses were benign and can safely be observed at this time. Patient presents for re-evaluation of her breast reconstruction with concern for wrinkling and dimpling of the superolateral aspect right breast. There is some associated flattening of the superior pole which is exacerbated by the asymmetric lowered inframammary fold. The lowered inframammary fold also accentuates the wrinkling as well. When the breast is pushed up so the inframammary folds are symmetrical, the superior pole flattening diminishes and the wrinkling on the superolateral aspect diminishes. It appears as if the breast pocket has enlarged and the inferolateral acellular dermal matrix graft sling has lowered as well. Sometimes the weight of the implant can push down and enlarge the pocket. Especially 750 ml cohesive gel implants which are heavy. Recommend revision of her right breast reconstruction which entails making the breast pocket smaller and tightening and re-enforcing the inferolateral sling with additional acellular dermal matrix graft. Will stabilize the asymmetrical inframammary fold with a capsular plication as well as additional acellular dermal matrix graft. In the area of the wrinkling, it some of the wrinkling is still present, it could be related to a thinness of the skin envelope. An additional piece of acellular dermal matrix graft may help to camouflage the area and diminish further the wrinkling. Will then replace the cohesive gel implant. At present there is a 750 ml implant. Will also order a 700 ml and an 800 ml implant because over time the breast pocket enlarges. Despite tightening of the breast pocket, the 750 ml implant may be adequate or it may be too large in which case I would put in the 700 ml implant and if it is not large enough then I would be able to put in the 800 ml implant. The decision would be made at the time of surgery. Depending on how the right breast reconstruction looks like, I may need to revise the left breast reconstruction as well. At the present time she has a 500 ml implant. Once again, I will have available, a slightly smaller implant (450 ml) and a slightly larger implant (550 ml or 600 ml) depending on symmetry with the right breast. Surgery will be under general anesthesia with an overnight stay in the hospital. Drains will be needed for several days. She will be maintained on antibiotics until the drains are removed. She will also wear a surgical bra postop as well with a lifting restriction and keeping her head elevated. Since the breast reconstruction surgery is elective, her HgbA1c needs to be below 8. She had one done by her PCP on 02/24/19 with a fingerstick. It was 8.8. Initially I was going to cancel the surgery until that decreases below 8. However I told it is worth a try to have it redrawn as a blood draw in the arm to see if there are any discrepancy between a blood draw and a finger stick. She did so which was a good thing since the blood draw today showed 7.9. So we can proceed with the surgery next week. Also her TSH needs to be below 10. She had it checked on 02/24/19 and it was 0.11. Patient was informed of the risks and complications of the procedure including alternatives to surgery. These were discussed with the patient personally. Patient voices understanding and wishes to proceed. Some of the risks and complications were included in a form from the [employer]. Her soft tissue mass on her left forehead by eyebrow is stable. She will address that after her breast reconstruction surgery. She is glad she is able to get the surgery done next week, since she is getting hiatal hernia surgery done in May. Her niece is having TRAM flap reconstruction for breast cancer in the [facility] and she stated she would help her postop for a little while. Also her back is acting up again, and she is going to start back with physical therapy.
[2019-03-17] VITALS (15 sets, daily range): BP systolic 99–149; BP diastolic 50–87; PULSE 64–83; RESP 14–18; TEMP 36.1–37.4; O2SAT 94–99; BMI 28.3
[2019-03-17 07:20] LABS: Bedside Glucose 218 mg/dL (70-110)
--- NOTE | 2019-03-17 08:00 | BR_PTH ---
PATIENT: ERASTO BUSBY LOC: [facility] U#:[id number] AGE/SX: 69/F ROOM: [facility]315 RE03/17/[address]: Dr. Jennie Buenrostro MD : 1950 BED: 1 DIS: 03/19/2019 SPEC #: [id number] RECD: 03/18/19 06:59 STATUS: ZACKERY REJaylene #: [id number] KAILEE: 03/17/19 08:[address]: Nir Pedroza DEPT: SURGICAL PATHOLOGY RECD BY: Mathew Villa ENTERED: 03/18/19 09:32 SP TYPE: MAMOPLASTY OTHR DR: MD Dr. Benedicto Silverman MD Dr. Ghasem E Ashelfah, MD Tissues: A - Right breast, NOS B - Left breast, NOS Procedures: Surgery Specimen Level IV Surgery Specimen Level V HEADER OPERATION: Right breast reconstruction with multiple capsulotome PRE-OP DIAGNOSIS: Deformity right breast reconstruction with wrinkling of implant superolateral aspect, asymmetric lowered inframammary fold right breast reconstruction, bilateral breast reconstruction implant status TISSUE SUBMITTED: A. Right breast tissue and capsule, B. Left breast tissue MICROSCOPIC DIAGNOSIS A. Right breast tissue and capsule, right breast reconstruction: Skeletal muscle, adipose tissue and fibrous tissue with areas of degenerative change and histiocytic reaction. Membranous tissue consistent with capsule. B. Left breast tissue, left breast reconstruction: Benign breast tissue with focal duct ectasia. Benign skin and fibroadipose tissue. CE:sara 03/19/19 MICROSCOPIC DESCRIPTION Slides are reviewed. GROSS DESCRIPTION A - Received in fixative is one container labeled with the patient's name and designated right breast tissue and capsule. The specimen consists of a piece of membranous tissue consistent with capsule measuring 15 x 11 x 0.3 cm. Also present in the container is a detached piece of yellow fibroadipose tissue measuring 4.5 x 2.5 x 1 cm. No mass lesion is identified. The entire specimen is submitted in one cassette. B - Received in fixative is one container labeled with the patient's name and designated left breast tissue. The specimen consists of a piece of skin with underlying tissue. The skin piece measures 23 x 1 cm. The underlying tissue measures 23 x 5 x 3 cm. No mass lesion is identified. [facility] [employer] sections are submitted in three cassettes. / SJ:sara 03/18/19 TC:4 CPT: 91285, 66895
[2019-03-17] MEDS: Methylene Blue 1% 100 MG/10 ML VIAL (08:33)
--- NOTE | 2019-03-17 14:33 | PCM.OPRPT ---
Report of Operation Date of Procedure: 03/17/19 Pre-Operative Diagnosis: 1. Deformity right breast reconstruction with wrinkling of implant superolateral aspect. 2. Asymmetric lowered inframammary fold right breast reconstruction. 3. Personal history of right breast cancer. 4. Bilateral breast reconstruction implant status. 5. Acquired absence right breast. 6. Family history of breast cancer. 7. ER positive status. 8. Former smoker. 9. Deformity left breast reconstruction with lateral migration of implant. Post-Operative Diagnosis: Same. Surgery/Procedure Performed:: 1. Revision right breast reconstruction with multiple capsulotomies and elevation asymmetric inframammary fold with internal capsular plication and creation of new prepectoral pocket and placement of FlexHD acellular dermal matrix graft sling (500 cm2) with replacement prepectoral cohesive gel implant (800 ml). 2. Revision left breast reconstruction with multiple capsulotomies and placement FlexHD acellular dermal matrix graft sling (286 cm2) with replacement submuscular cohesive gel implant (500 ml). Description of Surgical Findings:: 69 year old woman presents for evaluation of her breast reconstruction. She has concerns on the superolateral aspect of the right breast, there is some wrinkling and dimpling of the skin. She denies any trauma. She denies any fever. She denies any pain. She denies any drainage. She states that she has started to work out, which includes upper body weights. Besides the wrinkling on the superolateral aspect of the right breast reconstruction, she has also noticed her right breast has lowered a little bit with some asymmetry of the inframammary fold as compared to the left. She had a unilateral mammogram of her left breast 07/02/18 and then had stereotactic core biopsy of her left breast 07/23/18. The biopsy was negative for atypia or malignancy. An ultrasound of her right breast was done on 12/05/18 which showed undulation of the contour of the breast. An MRI of her breasts was done on 12/23/18. The right breast showed there was nothing to suggest new or recurrent malignancy. Bilateral implants have a lobulated configuration and there is some heterogeneous signal intensity along the more posterior aspect of the implant. There is no extracapsular rupture bilaterally. The MRI did show several liver masses which she went to have further work up. This entailed a Liver Ultrasound on 12/29/[address] on 01/02/19 and an abdominal MRI on 01/14/19. There was noted a reactive lymph node in the caudate lobe of the liver along the hepatoduodenal ligament. She was scheduled for a PET scan but had trouble getting it approved. After discussion with General Surgery and Oncology, it was felt these masses were benign and can safely be observed at this time. So we are proceeding with the breast revision reconstruction next week on 03/17/19. She states her soft tissue mass left forehead by eyebrow is stable and unchanged and without complaints at this time. Patient was informed of the risks and complications of the procedure including alternatives to surgery. These were discussed with the patient personally. Patient voices understanding and wishes to proceed. Some of the risks and complications were included in a form from the [place] [employer]. IV fluids - 1700 ml. Urine Output -800 ml. I used [place] Memory[employer]el Smooth Round Ultra High Profile Breast Implant, (800 ml on the right). Reference Number - [id number]. Lot Number - [id number]. Serial Number - [id number]. I used [place] Memory[employer]el Smooth Round High Profile Breast Implant, (500 ml on the left). Reference Number - [id number]. Lot Number - [id number]. Serial Number - [id number]. I used MTF FlexHD Acellular Dermal Matrix Graft, Structural, (20 x 25 cm on the right). Item Number - [id number]. Serial Number - [id number]. Expiration - Nov 28, 2021. I used MTF FlexHD Acellular Dermal Matrix Graft, Pliable Shaped Perforated Large, (13 x 22 cm on the left). Item Number - [id number]. Serial Number - [id number]. Expiration - February 04, 2021. I used Chelsy absorbable hemostat, (I used 4 vials, 2 in the right breast and 2 in the left breast). Reference Number - [id number]. Lot Number - [id number]. Expiration - December 15, 2023. hydraulic governor assembler: Oh Cutler. Type of Anesthesia:: General Specimen's removed: 1. Left breast tissue to Pathology. 2. Right breast tissue and capsule to Pathology. Drains: Radu x4 (2 in each breast). Estimated Blood Loss (mL): 50 ml. Fluids Replaced: 2500 ml (IV Fluids 1700 ml, Urine Output 800 ml). Description of Procedure: Patient was seen in the preop area. The sternal midline was marked. The inframammary folds were marked bilaterally. The area of wrinkling and dimpling on the right breast was marked. The right inframammary fold is about 1 cm lower than on the left. Patient was taken to OR in supine position and was placed under general anesthesia. The breasts were prepped and draped in the usual fashion. SCD's were placed for DVT prophylaxis. Perioperative antibiotics were given intravenously. A frazier catheter was placed. Using xylocaine with epinephrine, the breast incisions were infiltrated. After waiting 5 minutes for the anesthetic to take effect, I made an incision on the right breast reconstruction through the superior edge of the latissimus flap incision. Dissection was carried down through the subcutaneous tissue and muscle until the capsule was seen. A capsulotomy was made and the cohesive gel implant was removed. It was intact. Multiple capsulotomies were made to make the breast pocket more pliable and a little more medial. I elevated the asymmetric inframammary fold with internal capsular plication inferiorly. I elevated the fold about 1 cm. The plication was done with 2-0 Vicryl figure of eight interrupted sutures. I freed up the pectoralis muscle from the superior skin flap. The dimpling and wrinkling was secondary to the muscle adherent and scarred to the skin. I removed some capsule when I freed up the pectoralis muscle. This was sent to Pathology for analysis to rule out carcinoma. After freeing up the muscle, I placed it back down on the chest wall. So instead of a submuscular placement of the cohesive gel implant, the implant will be placed on top of the muscle in a pre-pectoral position. I will then cover the cohesive gel implant completely with FlexHD acellular dermal matrix graft. I used a structural piece which is thicker to keep the implant more centrally located as the heaviness of the implant has a tendency to stretch out the biologic graft and thus migrate laterally. Using 3-0 Vicryl figure of eight interrupted sutures, I secured the FlexHD to the chest wall first on the superior aspect and lateral aspect. I placed the previous 750 ml implant (Ultra High Profile) back in as a temporary sizer. The incision was temporarily closed with surgical clips. Patient was placed in the sitting position and decent shape and contour was noted. I felt the pocket was a little more stretched as compared to previous surgery, so I removed the surgical clips and placed an 800 ml sizer (Ultra High Profile). Better shape and contour was noted on the right. Patient was then placed back in the supine position. A horizontal incision was made on the left breast reconstruction. Dissection was carried down through the subcutaneous tissue until the capsule was seen. A capsulotomy was made and the cohesive gel was removed. It was intact. A large breast pocket was noted which explained some lateral migration of the implant. Multiple capsulotomies were made to make the breast pocket more pliable and a little more medial. Patient had been concerned there was too much space between the breasts in the sternal area. The additional medial dissection will help improve her cleavage. I re-enforced the inframammary fold with 2-0 Vicryl sutures with internal capsular plication. I will need to place FlexHD acellular dermal matrix graft as an inferolateral sling to keep the implant more centrally located. I used a pliable shaped perforated piece for the inferolateral sling. Using 3-0 Vicryl figure of eight interrupted sutures, I secured the FlexHD to the chest wall laterally and inferiorly. I placed a 550 ml sizer (High Profile) into the breast pocket. I temporarily closed the incision with surgical clips. Patient was placed in the sitting position. It was noted the left breast was a little larger with the 550 ml sizer. I removed the surgical clips and placed the previous 500 ml implant (High Profile) into the breast pocket as a temporary sizer. The incision was closed with surgical clips. The 500 ml sizer gave better shape and contour with better symmetry when compared to the right breast. There is some ptosis present. Will address that later after healing has occurred at the time of proceeding with nipple reconstruction on the right with intradermal tattooing. The patient was placed back in the supine position and the surgical clips were removed and the sizers were removed. Some additional excess scarring was noted on the horizontal incision left breast and was excised to tighten up the horizontal incision. The tissue was sent to Pathology for analysis to rule out carcinoma. I irrigated out both breast wounds with Irrisept 0.05% Chlorhexidine. After waiting 60 seconds the breast pockets were irrigated with saline. Hemostasis was obtained with electrocautery. Two size 15 Radu drains were placed in each breast pocket through separate stab incisions laterally and secured to the skin with 3-0 Nylon suture. I then sprayed Chelsy absorbable hemostat into each breast pocket. I used 2 vials into each breast pocket. After changing our gloves, I placed the implants in sterile Betadine. For the right breast I used a [place] Memory[employer]el Ultra High Profile 800 ml implant. For the left breast I used a [place] MemoryGel High Profile 500 ml implant. I then secured the rest of the FlexHD to the chest wall using 3-0 Vicryl figure of eight interrupted sutures. I used a malleable placed underneath the graft on top of the implant to protect the implant from injury. The FlexHD was secured snugly to help keep the implants centrally located since they had migrated laterally before. The incisions were then closed in a layered fashion with 3-0 Vicryl figure of eight interrupted sutures for the deep subcutaneous tissue. The deep dermis and subcutaneous tissue was approximated with 3-0 Monocryl interrupted sutures. The skin was approximated with 3-0 V lock unidirectional barbed running subcuticular suture. This was followed by Histoacryl skin tissue adhesive. Kerlix gauze dressing followed by a surgical bra. Our gloves were changed every two hours during the procedure. The Cleocin antibiotics were redosed toward the end of the procedure. Patient tolerated the procedure well and was sent to PACU in satisfactory condition. Patient will be sent upstairs for continued postop care. Grafts/Implants Used: [place] [employer]el Implants x2, FlexHD acellular dermal graft x2. - Complications None. - Admit VTE Documentation VTE Present on Admission: No VTE Mechan Device Prophylaxis: SCD's VTE Pharm Prophylaxis ordered?: Yes Code Visit Surgery Charges CPT - 69564 ICD-10 - C50.811, N65.0, Z90.11, Z80.3 12067-53 C50.811, N65.0, Z90.11, Z80.3 31835 C50.811, N65.0, Z90.11, Z80.3 12465-59 C50.811, N65.0, Z90.11, Z80.3 27248-94 C50.811, N65.0, Z90.11, Z80.3
--- NOTE | 2019-03-17 14:37 | OP.PCM_ITS ---
Report of Operation Date of Procedure: 03/17/19 Pre-Operative Diagnosis: 1. Deformity right breast reconstruction with wr inkling of implant superolateral aspect. 2. Asymmetric lowered inframammary fold right breast reconstruction. 3. Personal history of right breast cancer. 4. Bilateral breast reconstruction implant status. 5. Acquired absence right breast. 6. Family history of breast cancer. 7. ER positive status. 8. Former smoker. 9. Deformity left breast reconstruction with lateral migration of implant. Post-Operative Diagnosis: Same. Surgery/Procedure Performed:: 1. Revision right breast reconstruction with multiple capsulotomies and elevation asymmetric inframammary fold with internal capsular plication and creation of new prepectoral pocket and placement of FlexHD acellular dermal matrix graft sling (500 cm2) with replacement prepectora l cohesive gel implant (800 ml). 2. Revision left breast reconstruction with multiple capsulotomies and placement FlexHD acellular dermal matrix graft sling (286 cm2) with replacement submuscular cohesive gel implant (500 ml). Description of Surgical Findings:: 69 year old woman presents for evaluation of her breast reconstruction. She has concerns on the superolateral aspect of the right breast, there is some wrinkling and dimpling of the skin. She denies any trauma. She denies any fever. She denies any pain. She denies any drainage. She states that she has st arted to work out, which includes upper body weights. Besides the wrinkling on the superolateral aspect of the right breast reconstruction, she has also noticed her right breast has lowered a little bit with some asymmetry of the inframammary fold as compared to the left. She had a unilateral mammogram of her left breast 07/02/18 and then had stereotactic core biopsy of her left breast 07/23/18. The biopsy was negative for atypia or malignancy. An ultrasound of her right breast was done on 12/05/18 which showed undulation of the contour of the breast. An MRI of her breasts was done on 12/23/18. The right breast showed there was nothing to suggest new or recurrent malignancy. Bilateral implants have a lobulated configuration and there is some heterogeneous signal intensity along the more posterior aspect of the implant. There is no extracapsular rupture bilaterally. The MRI did show several liver masses which she went to have further work up. This entailed a Liver Ultrasound on 12/29/[address] on 01/02/19 and an abdominal MRI on 01/14/19. There was noted a reactive lymph node in the caudate lobe of the liver along the hepatoduodenal ligament. She was scheduled for a PET scan but had trouble getting it approved. After discussion with General Surgery and Oncology, it was felt these masses were benign and can safely be observed at this time. So we are proceeding with the breast revision reconstruction next week on 03/17/19. She states her soft tissue mass left forehead by eyebrow is stable and unchanged and without complaints at this time. Patient was informed of the risks and complications of the procedure including alternatives to surgery. These were discussed with the patient personally. Patient voices understanding and wishes to proceed. Some of the risks and complications were included in a form from the [employer] [place] [employer]. IV fluids - 1700 ml. Urine Output -800 ml. I used [place] Memory[employer]el Smooth Round Ultra High Profile Breast Implant, (800 ml on the right). Reference Number - [id number]. Lot Number - [id number]. Serial Number - [id number]. I used [place] Memory[employer]el Smooth Round High Profile Breast Implant, (500 ml on the left). Reference Number - [id number]. Lot Number - [id number]. Serial Number - [id number]. I used MTF FlexHD Acellular Dermal Matrix Graft, Structural, (20 x 25 cm on the right). Item Number - [id number]. Serial Number - [id number]. Expiration - Nov 28, 2021. I used MTF FlexHD Acellular Dermal Matrix Graft, Pliable Shaped Perforated Large, (13 x 22 cm on the left). Item Number - [id number]. Serial Number - [id number]. Expiration - February 04, 2021. I used Chelsy absorbable hemostat, (I used 4 vials, 2 in the right breast and 2 in the left breast). Reference Number - [id number]. Lot Number - [id number]. Expiration - December 15, 2023. eye surgeon: Oh Cutler. Type of Anesthesia:: General Specimen's removed: 1. Left breast tissue to Pathology. 2. Right breast tissue and capsule to Pathology. Drains: Radu x4 (2 in each breast). Estimated Blood Loss (mL): 50 ml. Fluids Replaced: 2500 ml (IV Fluids 1700 ml, Urine Output 800 ml). Description of Procedure: Patient was seen in the preop area. The sternal midline was marked. The inframammary folds were marked bilaterally. The area of wrinkling and dimpling on the right breast was marked. The right inframammary fold is about 1 cm lower than on the left. Patient was taken to OR in supine position and was placed under general anesthesia. The breasts were prepped and draped in the usual fashion. SCD's were placed for DVT prophylaxis. Perioperative antibiotics were given intravenously. A frazier catheter was placed. Using xylocaine with epinephrine, the breast incisions were infiltrated. After waiting 5 minutes for the anesthetic to take effect, I made an incision on the right breast reconstruction through the superior edge of the latissimus flap incision. Dissection was carried down through the subcutaneous tissue and muscle until the capsule was seen. A capsulotomy was made and the cohesive gel implant was removed. It was intact. Multiple capsulotomies were made to make the breast pocket more pliable and a little more medial. I elevated the asymmetric inframammary fold with internal capsular plication inferiorly. I elevated the fold about 1 cm. The plication was done with 2-0 Vicryl figure of eight interrupted sutures. I freed up the pectoralis muscle from the superior skin flap. The dimpling and wrinkling was secondary to the muscle adherent and scarred to the skin. I removed some capsule when I freed up the pectoralis muscle. This was sent to Pathology for analysis to rule out carcinoma. After freeing up the muscle, I placed it back down on the chest wall. So instead of a submuscular placement of the cohesive gel implant, the implant will be placed on top of the muscle in a pre-pectoral position. I will then cover the cohesive gel implant completely with FlexHD acellular dermal matrix graft. I used a structural piece which is thicker to keep the implant more centrally located as the heaviness of the implant has a tendency to stretch out the biologic graft and thus migrate laterally. Using 3-0 Vicryl figure of eight interrupted sutures, I secured the FlexHD to the chest wall first on the superior aspect and lateral aspect. I placed the previous 750 ml implant (Ultra High Profile) back in as a temporary sizer. The incision was temporarily closed with surgical clips. Patient was placed in the sitting position and decent shape and contour was noted. I felt the pocket was a little more stretched as compared to previous surgery, so I removed the surgical clips and placed an 800 ml sizer (Ultra High Profile). Better shape and contour was noted on the right. Patient was then placed back in the supine position. A horizontal incision was made on the left breast reconstruction. Dissection was carried down through the subcutaneous tissue until the capsule was seen. A capsulotomy was made and the cohesive gel was removed. It was intact. A large breast pocket was noted which explained some lateral migration of the implant. Multiple capsulotomies were made to make the breast pocket more pliable and a little more medial. Patient had been concerned there was too much space between the breasts in the sternal area. The additional medial dissection will help improve her cleavage. I re- enforced the inframammary fold with 2-0 Vicryl sutures with internal capsular plication. I will need to place FlexHD acellular dermal matrix graft as an inferolateral sling to keep the implant more centrally located. I used a pliable shaped perforated piece for the inferolateral sling. Using 3-0 Vicryl figure of eight interrupted sutures, I secured the FlexHD to the chest wall laterally and inferiorly. I placed a 550 ml sizer (High Profile) into the breast pocket. I temporarily closed the incision with surgical clips. Patient was placed in the sitting position. It was noted the left breast was a little larger with the 550 ml sizer. I removed the surgical clips and placed the previous 500 ml implant (High Profile) into the breast pocket as a temporary sizer. The incision was closed with surgical clips. The 500 ml sizer gave bett er shape and contour with better symmetry when compared to the right breast. There is some ptosis present. Will address that later after healing has occurred at the time of proceeding with nipple reconstruction on the right with intradermal tattooing. The patient was placed back in the supine position and the surgical clips were removed and the sizers were removed. Some additional excess scarring was noted on the horizontal incision left breast and was excised to tighten up the horizontal incision. The tissue was sent to Pathology for analysis to rule out carcinoma. I irrigated out both breast wounds with Irrisept 0.05% Chlorhexidine. After waiting 60 seconds the breast pockets were irrigated with saline. Hemostasis was obtained with electrocautery. Two size 15 Radu drains were placed in each breast pocket through separate stab incisions laterally and secured to the skin with 3-0 Nylon suture. I then sprayed Chelsy absorbable hemostat into each breast pocket. I used 2 vials into each breast pocket. After changing our gloves, I placed the implants in sterile Betadine. For the right breast I used a [place] Memory[employer]el Ultra High Profile 800 ml implant. For the left breast I used a [place] Memory[employer]el High Profile 500 ml implant. I then secured the rest of the FlexHD to the chest wall using 3-0 Vicryl figure of eight interrupted sutures. I used a malleable placed under neath the graft on top of the implant to protect the implant from injury. The FlexHD was secured snugly to help keep the implants centrally located since they had migrated laterally before. The incisions were then closed in a layered fashion with 3-0 Vicryl figure of eight interrupted sutures for the deep subcutaneous tissue. The deep dermis and subcutaneous tissue was approximated with 3-0 Monocryl interrupted sutures. The skin was approximated with 3-0 V lock unidirectional barbed running subcuticular suture. This was followed by Histoacryl skin tissue adhesive. Kerlix gauze dressing followed by a surgical bra. Our gloves were changed every two hours during the procedure. The Cleocin antibiotics were redosed toward the end of the procedure. Patient tolerated the procedure well and was sent to PACU in satisfactory condition. Patient will be sent upstairs for continued postop care. Grafts/Implants Used: [place] [employer]el Implants x2, FlexHD acellular dermal graft x2. - Complications None. - Admit VTE Documentation VTE Present on Admission: No VTE Mechan Device Prophylaxis: SCD's VTE Pharm Prophylaxis ordered?: Yes Code Visit Surgery Charges CPT - 59036 ICD-10 - C50.811, N65.0, Z90.11, Z80.3 40286-27 C50.811, N65.0, Z90.11, Z80.3 05228 C50.811, N65.0, Z90.11, Z80.3 60405-22 C50.811, N65.0, Z90.11, Z80.3 70880-98 C50.811, N65.0, Z90.11, Z80.3
[2019-03-17 15:16] LABS: Bedside Glucose 289 mg/dL (70-110)
[2019-03-17 16:46] LABS: Bedside Glucose 293 mg/dL (70-110)
--- NOTE | 2019-03-17 18:08 | PCM.CONS.GEN ---
Problem List (1) Hypertension Status: Chronic (2) Hyperlipemia Status: Chronic (3) Hypothyroidism Status: Chronic (4) Diabetes Status: Chronic Reason for Consult Date of Consultation: 03/17/19 Reason for Consultation: Postoperative medical management. History of Present Illness: The patient is a 69 year old F with past medical history as mentioned above admitted to the hospital after she underwent elective revision of her right breast reconstruction with multiple capsulotomies and elevation of asymmetric inflammatory fold with graft sling and revision of left breast reconstruction with multiple capsulectomies and graft sling and I am seeing this patient in consultation for postoperative medical management. At this time, she complained of mild bilateral breast discomfort which has been manageable. She denied chest pain or shortness of breath. Denies abdominal pain, nausea vomiting. Denies fever or chills. She has a history of type 2 diabetes mellitus, has been on Januvia and had a hemoglobin A1c was 7.9 few days ago. Her blood sugar has been in the range of 200s and not well controlled. She had a history of hypothyroidism, she has been on levothyroxine in the TSH was 0.11 on February 20, 2019 and I am not sure if he had a dose of levothyroxine adjusted at that time. She has history of hypertension, has been on Norvasc, HCTZ, losartan and metoprolol and it has been under control. At this time, her vital signs are stable. Her preoperative routine blood work was done on February 20, 2019 was unremarkable except for potassium of 3.4. On that day, TSH was 0.11. EKG was done on March 12, 2019 which was reviewed and revealed normal sinus rhythm with left bundle branch block which is chronic compared to previous EKGs. 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 Other mechanical complication of breast prosthesis and implant, initial encounter (Chronic) Personal history of malignant neoplasm of breast (Chronic) Z85.3 personal history of right breast cancer 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 excess mastectomy tissue scar contour deformity reconstructed right breast Capsular contracture of breast implant, subsequent encounter (Chronic) History of bilateral breast implants (Chronic) bilateral breast reconstruction Liver masses (Chronic) Medical History: Medical History (Last Updated 03/17/19 @ 17:54 by Aneta Dodson MD) Acquired absence of right breast Z90.11 Anxiety and depression F41.8 Breast cancer, right breast C50.911 DISRUPTION RIGHT BREAST RECONSTRUCTION WOUND WITH UNDERLYING COHESIVE GEL IMPLANT Diabetes E11.9 Disproportion of reconstructed breast N65.1 Diverticulosis K57.90 EXCESS MASTECTOMY TISSUE SCAR CONTOUR DEFOMITY RECONSTRUCTED RIGHT BREAST Estrogen receptor positive status [ER+] Z17.0 GERD (gastroesophageal reflux disease) K21.9 Hyperlipidemia E78.5 Hypothyroidism E03.9 IBS (irritable bowel syndrome) K58.9 LEFT VENTRICULAR EJECTION FRACTION: 52% NONHEALING SURGICAL MASTECTOMY WOUND AT T ZONE RIGHT BREAST Osteoporosis M81.0 PAINFUL CAPSULAR CONTRACTURE RIGHT BREAST RECONSTRUCTION Hypertension I10 Allergies levofloxacin [From Levaquin] Allergy (Severe, Verified 03/17/19 06:55) RAISES BLOOD PRESSURE AND STOMACH SWELLS UP AND IS PAINFUL amoxicillin Allergy (Verified 03/17/19 06:55) Other atorvastatin calcium [From Lipitor] Allergy (Verified 03/17/19 06:55) Other cyclobenzaprine Allergy (Verified 03/17/19 06:55) Other estrogens, conjugated [From Premphase] Allergy (Verified 03/17/19 06:55) Other gabapentin Allergy (Verified 03/17/19 06:55) lip swelling medroxyprogesterone acetate [From Premphase] Allergy (Verified 03/17/19 06:55) Other pravastatin sodium [From Pravachol] Allergy (Verified 03/17/19 06:55) Other risedronate sodium [From Actonel] Allergy (Verified 03/17/19 06:55) Other simvastatin [From Zocor] Allergy (Verified 03/17/19 06:55) Other minocycline Adverse Reaction (Verified 03/17/19 06:55) Nausea/Vom/Diarrhea Penicillins [PCN] Adverse Reaction (Verified 03/17/19 06:55) SORE THROAT Home Medications: Ambulatory Orders Medication Instructions Recorded Aripiprazole [Abilify] 2 mg PO QHS 12/14/14 Hydrochlorothiazide [Hctz] 25 mg PO DAILY 12/14/14 Levothyroxine [Synthroid] 150 mcg PO DAILY 12/14/14 Losartan Potassium [Cozaar] 100 mg PO QHS 12/14/14 Metoprolol(XL)Succ [Toprol Xl 100 mg PO QHS 12/14/14 (Beta [facility])] Sertraline HCl [Zoloft] 100 mg PO QHS 12/14/14 Amlodipine [Norvasc] 10 mg PO QHS 04/03/16 Ropinirole HCl [Requip] 0.5 mg PO QHS 04/03/16 Rosuvastatin Calcium [Crestor] 5 mg PO QHS 04/03/16 Anastrozole [Arimidex] 1 mg PO QHS 10/01/16 Calcium Carbonate [Calcium] 500 mg PO DAILY 10/01/16 Cholecalciferol (Vitamin D3) 2,000 unit PO DAILY 10/01/16 [Vitamin D3] Sitagliptin Phosphate [Januvia] 100 mg PO DAILY 01/09/18 Oxycodone HCl/Acetaminophen 2 tab PO Q4H PRN PRN 7 Days #28 tab 01/17/18 [Percocet 5-325] diazepam 5 mg tablet 5 mg PO TID PRN #20 tab 12/30/18 Surgical History: Surgical History (Last Updated 03/17/19 @ 17:54 by Aneta Dodson MD) 2ND STAGE RIGHT BREAST RECONSTRUCTION WITH REMOVAL SALINE TISSUE TELEPHONE TRIAGE NURSE AND REPLACEMENT COHESIVE GEL IMPLANT (800 ML) AND REVISION RECONSTRUCTED RIGHT BREAST WITH LATERAL CAPSULAR ADVANCEMENT FLAP AND PLACEMENT ALLODERM ACELLULAR DERMAL MATRIX GRAFT INFEROLATERAL SLING (132 CM2) AND LEFT BREAST RECONSTRUCTION WITH MASTOPEXY 11/13/16 FIRST STAGE IMMEDIATE RIGHT BREAST RECONSTRUCTION WITH PLACEMENT OF SUBMUSCULAR SALINE TISSUE TELEPHONE TRIAGE NURSE (550 ML) AND PLACEMENT OF ALLODERM ACELLULAR DERMAL MATRIX GRAFT INFEROLATERAL SLING (132 CM2) BY DR SAMIR NEWBERRY 04/05/16 H/O dilation and curettage Z98.890 LEFT STEREOTACTIC BREAST BIOPSY REVISION RECONSTRUCTED RIGHT BREAST WITH EXCISION NONHEALING ULCER AND REMOVAL EXPOSED COHESIVE GEL IMPLANT AND MULTIPLE CAPSULOTOMIES AND PLACEMENT OF RIGHT LATISSIMUS DORSI MYOCUTANEOUS FLAP WITH REPLACEMENT COHESIVE GEL IMPLANT (800 ML) AND PLACEMENT ALLODERM ACELLULAR DERMAL MATRIX GRAFT LATERAL SLING (132 CM2) 01/18/17 REVISION RIGHT BREAST RECONSTRUCTION WITH EXCISION EXCESS LATERAL SKIN CONTOUR DEFORMITY AND READVANCEMENT OF LATISSIMUS DORSI MYOCUTANEOUS FLAP AND CAPSULECTOMY WITH REMOVAL OF COHESIVE GEL IMPLANT AND PLACEMENT ALLODERM ACELLULAR DERMAL MATRIX GRAFT (320 CM2) WITH REPLACEMENT COHESIVE GEL IMPLANT (750 CC) 08/27/17 RIGHT MASTECTOMY AND RIGHT SENTINEL NODE BIOPSY BY DR ANDREINA MCKOY 04/05/16 SECOND STAGE DELAYED LEFT BREAST RECONSTRUCTION WITH PLACEMENT OF SUBMUSCULAR COHESIVE GEL IMPLANT (500 ML) 02/15/17 Surgical History: tonsillectomy, - - Tubal ligation, breast biopsy, foot surgery. Multiple reconstructive breast surgeries. 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 PET CARETAKER history Lives: Spouse/ Significant Other Smoking Status: Former smoker Tobacco Use: Non-smoker Alcohol: Rare Drugs: None - *Family History Maternal Family History: Family History (Last Reviewed 02/27/18 @ 09:31 by Janay Lala) Father Pancreatic cancer Hypertension Mother Diabetes Hypertension Alzheimer disease Brother CAD (coronary artery disease) Brother CAD (coronary artery disease) Sister Breast cancer History Items: Hypertension Paternal Family History: Family History (Last Reviewed 02/27/18 @ 09:31 by Janay Lala) Father Pancreatic cancer Hypertension Mother Diabetes Hypertension Alzheimer disease Brother CAD (coronary artery disease) Brother CAD (coronary artery disease) Sister Breast cancer History Items: Hypertension Sibling Family History: Family History (Last Reviewed 02/27/18 @ 09:31 by Janay Lala) Father Pancreatic cancer Hypertension Mother Diabetes Hypertension Alzheimer disease Brother CAD (coronary artery disease) Brother CAD (coronary artery disease) Sister Breast cancer History Items: Cancer Review of Systems Constitutional: Denies: Anorexia, Chills, Fever, Weakness Eyes: Denies: Blurred vision, Double vision, Drainage, Redness HEENT: Denies: Difficulty Hearing, Ear Pain, Eye Pain, Nasal Congestion, Sore Throat Cardiovascular: Reports: - - Reported bilateral breast discomfort/pain.. Denies: Chest Pain, Chest Pressure, Edema, Heaviness, Light Headedness, Palpitations, Syncope Respiratory: Denies: Cough, Pleuritic Pain, Shortness of Breath, Sputum production, Wheezing Gastrointestinal: Denies: Abdominal Pain, Constipation, Diarrhea, Nausea, Vomiting Genitourinary: Denies: Dysuria, Frequency, Hematuria Musculoskeletal: Denies: Arm Pain, Back Pain, Foot Pain Skin: Denies: Dryness, Rash Neurological: Denies: Balance problems, Double vision, Change in Speech, Slurred speech, Confusion, Headaches, Incoordination, Numbness Psychiatric: Denies: Anxiety, Depression Endocrine: Denies: Change in Body Habitus, Polydipsia - Physical Exam General: Alert, Oriented x3, Cooperative, No apparent distress HEENT: Atraumatic, PERRLA, EOMI, Normocephalic Oral: Moist Mucosa, No Gingival or Mucosal Lesions/ Ulcerations Neck: Supple, No JVD, Negative Carotid Bruits, Trachea Midline, Thyroid Normal Size and Texture Lungs: Clear to auscultation, No rhonchi, No wheeze, No rales, Diminished Cardiovascular: Regular rate, Regular Rhythm, Normal S1, Normal S2, PMI Normal Abdomen: Bowel Sounds Present, Soft, Non Tender, Non-Distended, No Hepato-splenomegaly Extremities: No clubbing, No cyanosis, No edema Skin: No rashes, No breakdown Lymphatic: No Cervical, Supraclavicular, or Inguinal Adenopathy Neurological: Cranial nerves II-XII grossly intact, Motor Exam 5/5 strength throughout Psych/Mental Status: Normal Affect, Appropriate, Alert and oriented to time, place, person, mood and affect Vital Signs Temp Pulse Resp BP Pulse Ox 97.0 F L 64 18 121/69 H 98 03/17/19 17:00 03/17/19 17:00 03/17/19 17:00 03/17/19 17:00 03/17/19 17:00 Oxygen Flow Rate (L/min) 2 Oxygen Delivery Method Nasal Cannula Weight: 186 lb 1.122 oz Body Mass Index (BMI) 28.3 Finger Stick Blood Glucose 298 Intake and Output for Last 24 Hours 03/15/19 03/16/19 03/17/19 23:59 23:59 23:59 Intake Total 2300 / 2300 Output Total 1095 / 1095 Balance 1205 / 1205 POC Glucose 03/17/19 03/17/19 03/17/19 16:40 15:10 07:05 POC Glucose 293 H 289 H 218 H Assessment/Plan This is a 69 years old female patient admitted to the hospital after she underwent elective right and left reconstructive breast surgeries and I am seeing this patient in consultation for postoperative medical management. #1 status post revision of right breast reconstruction with multiple capsulectomies, elevation of asymmetric inflammatory fold, graft sling/left breast reconstruction with multiple capsulectomies and placement of graft sling: Postoperative day 0. At this time, vital signs are stable. Preoperative routine blood work and EKG reviewed as above. She is on IV clindamycin for perioperative prophylaxis. She is on IV Dilaudid and OxyIR as needed for pain. Dr. Newberry is managing. #2 type 2 diabetes mellitus: Today, blood sugar has been in the high 200s. Hemoglobin A1c was 7.9 beginning of this month. Plan to continue Januvia, Accu-Cheks q. before meals at bedtime, start insulin sliding scale. #3 hypertension: Blood pressure stable, continue Norvasc, HCTZ, losartan and metoprolol. #4 hypothyroidism: She is on levothyroxine. TSH was 0.11 beginning of this month. Not sure the dose of the levothyroxine adjusted or not. Plan to repeat TSH today. #5 hyperlipidemia: Continue statins. #6 DVT prophylaxis: Subcu Lovenox. This note was generated with [employer] dictation software. It may contain incorrect words, spelling, and punctuation that were not noted in checking the note before signing. Code Visit Inpatient E&M: 06129 Init Hosp L2
--- NOTE | 2019-03-17 18:11 | CON.PCM_ITS ---
Problem List (1) Hypertension Status: Chronic (2) Hyperlipemia Status: Chronic (3) Hypothyroidism Status: Chronic (4) Diabetes Status: Chronic Reason for Consult Date of Consultation: 03/17/19 Reason for Consultation: Postoperative medical management. History of Present Illness: The patient is a 69 year old F with past medical history as mentioned above admitted to the hospital after she underwent elective revision of her right breast reconstruction with multiple capsulotomies and elevation of asymmetric inflammatory fold with graft sling and revision of left breast reconstruction with multiple capsulectomies and graft sling and I am seeing this patient in consultation for postoperative medical management. At this time, she complained of mild bilateral breast discomfort which has been manageable. She denied chest pain or shortness of breath. Denies abdominal pain, nausea vomiting. Denies fever or chills. She has a history of type 2 diabetes mellitus, has been on Januvia and had a hemoglobin A1c was 7.9 few days ago. Her blood sugar has been in the range of 200s and not well controlled. She had a history of hypothyroidism, she has been on levothyroxine in the TSH was 0.11 on February 20, 2019 and I am not sure if he had a dose of levothyroxine adjusted at that time. She has history of hypertension, has been on Norvasc, HCTZ, losartan and metoprolol and it has been under control. At this time, her vital signs are stable. Her preoperative routine blood work was done on February 20, 2019 was unremarkable except for potassium of 3.4. On that day, TSH was 0.11. EKG was done on March 12, 2019 which was reviewed and revealed normal sinus rhythm with left bundle branch block which is chronic compared to previous EKGs. 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 Other mechanical complication of breast prosthesis and implant, initial encounter (Chronic) Personal history of malignant neoplasm of breast (Chronic) Z85.3 personal history of right breast cancer 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 excess mastectomy tissue scar contour deformity reconstructed right breast Capsular contracture of breast implant, subsequent encounter (Chronic) History of bilateral breast implants (Chronic) bilateral breast reconstruction Liver masses (Chronic) Medical History: Medical History (Last Updated 03/17/19 @ 17:54 by Aneta Dodson MD) Acquired absence of right breast Z90.11 Anxiety and depression F41.8 Breast cancer, right breast C50.911 DISRUPTION RIGHT BREAST RECONSTRUCTION WOUND WITH UNDERLYING COHESIVE GEL IMPLANT Diabetes E11.9 Disproportion of reconstructed breast N65.1 Diverticulosis K57.90 EXCESS MASTECTOMY TISSUE SCAR CONTOUR DEFOMITY RECONSTRUCTED RIGHT BREAST Estrogen receptor positive status [ER+] Z17.0 GERD (gastroesophageal reflux disease) K21.9 Hyperlipidemia E78.5 Hypothyroidism E03.9 IBS (irritable bowel syndrome) K58.9 LEFT VENTRICULAR EJECTION FRACTION: 52% NONHEALING SURGICAL MASTECTOMY WOUND AT T ZONE RIGHT BREAST Osteoporosis M81.0 PAINFUL CAPSULAR CONTRACTURE RIGHT BREAST RECONSTRUCTION Hypertension I10 Allergies levofloxacin [From Levaquin] Allergy (Severe, Verified 03/17/19 06:55) RAISES BLOOD PRESSURE AND STOMACH SWELLS UP AND IS PAINFUL amoxicillin Allergy (Verified 03/17/19 06:55) Other atorvastatin calcium [From Lipitor] Allergy (Verified 03/17/19 06:55) Other cyclobenzaprine Allergy (Verified 03/17/19 06:55) Other estrogens, conjugated [From Premphase] Allergy (Verified 03/17/19 06:55) Other gabapentin Allergy (Verified 03/17/19 06:55) lip swelling medroxyprogesterone acetate [From Premphase] Allergy (Verified 03/17/19 06:55) Other pravastatin sodium [From Pravachol] Allergy (Verified 03/17/19 06:55) Other risedronate sodium [From Actonel] Allergy (Verified 03/17/19 06:55) Other simvastatin [From Zocor] Allergy (Verified 03/17/19 06:55) Other minocycline Adverse Reaction (Verified 03/17/19 06:55) Nausea/Vom/Diarrhea Penicillins [PCN] Adverse Reaction (Verified 03/17/19 06:55) SORE THROAT Home Medications: Ambulatory Orders Medication Instructions Recorded Aripiprazole [Abilify] 2 mg PO QHS 12/14/14 Hydrochlorothiazide [Hctz] 25 mg PO DAILY 12/14/14 Levothyroxine [Synthroid] 150 mcg PO DAILY 12/14/14 Losartan Potassium [Cozaar] 100 mg PO QHS 12/14/14 Metoprolol(XL)Succ [Toprol Xl 100 mg PO QHS 12/14/14 (Beta Sinai)] Sertraline HCl [Zoloft] 100 mg PO QHS 12/14/14 Amlodipine [Norvasc] 10 mg PO QHS 04/03/16 Ropinirole HCl [Requip] 0.5 mg PO QHS 04/03/16 Rosuvastatin Calcium [Crestor] 5 mg PO QHS 04/03/16 Anastrozole [Arimidex] 1 mg PO QHS 10/01/16 Calcium Carbonate [Calcium] 500 mg PO DAILY 10/01/16 Cholecalciferol (Vitamin D3) 2,000 unit PO DAILY 10/01/16 [Vitamin D3] Sitagliptin Phosphate [Januvia] 100 mg PO DAILY 01/09/18 Oxycodone HCl/Acetaminophen 2 tab PO Q4H PRN PRN 7 Days #28 tab 01/17/18 [Percocet 5-325] diazepam 5 mg tablet 5 mg PO TID PRN #20 tab 12/30/18 Surgical History: Surgical History (Last Updated 03/17/19 @ 17:54 by Aneta Dodson MD) 2ND STAGE RIGHT BREAST RECONSTRUCTION WITH REMOVAL SALINE TISSUE PARACHUTE CROWN SEWER AND REPLACEMENT COHESIVE GEL IMPLANT (800 ML) AND REVISION RECONSTRUCTED RIGHT BREAST WITH LATERAL CAPSULAR ADVANCEMENT FLAP AND PLACEMENT ALLODERM ACELLULAR DERMAL MATRIX GRAFT INFEROLATERAL SLING (132 CM2) AND LEFT BREAST RECONSTRUCTION WITH MASTOPEXY 11/13/16 FIRST STAGE IMMEDIATE RIGHT BREAST RECONSTRUCTION WITH PLACEMENT OF SUBMUSCULAR SALINE TISSUE PARACHUTE CROWN SEWER (550 ML) AND PLACEMENT OF ALLODERM ACELLULAR DERMAL MATRIX GRAFT INFEROLATERAL SLING (132 CM2) BY DR SAMIR NEWBERRY 04/05/16 H/O dilation and curettage Z98.890 LEFT STEREOTACTIC BREAST BIOPSY REVISION RECONSTRUCTED RIGHT BREAST WITH EXCISION NONHEALING ULCER AND REMOVAL EXPOSED COHESIVE GEL IMPLANT AND MULTIPLE CAPSULOTOMIES AND PLACEMENT OF RIGHT LATISSIMUS DORSI MYOCUTANEOUS FLAP WITH REPLACEMENT COHESIVE GEL IMPLANT (800 ML) AND PLACEMENT ALLODERM ACELLULAR DERMAL MATRIX GRAFT LATERAL SLING (132 CM2) 01/18/17 REVISION RIGHT BREAST RECONSTRUCTION WITH EXCISION EXCESS LATERAL SKIN CONTOUR DEFORMITY AND READVANCEMENT OF LATISSIMUS DORSI MYOCUTANEOUS FLAP AND CAPSULECTOMY WITH REMOVAL OF COHESIVE GEL IMPLANT AND PLACEMENT ALLODERM ACELLULAR DERMAL MATRIX GRAFT (320 CM2) WITH REPLACEMENT COHESIVE GEL IMPLANT (750 CC) 08/27/17 RIGHT MASTECTOMY AND RIGHT SENTINEL NODE BIOPSY BY DR ANDREINA MCKOY 04/05/16 SECOND STAGE DELAYED LEFT BREAST RECONSTRUCTION WITH PLACEMENT OF SUBMUSCULAR COHESIVE GEL IMPLANT (500 ML) 02/15/17 Surgical History: tonsillectomy, - - Tubal ligation, breast biopsy, foot surgery. Multiple reconstructive breast surgeries. 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 Lives: Spouse/ Significant Other Smoking Status: Former smoker Tobacco Use: Non-smoker Alcohol: Rare Drugs: None - *Family History Maternal Family History: Family History (Last Reviewed 02/27/18 @ 09:31 by Janay Lala) Father Pancreatic cancer Hypertension Mother Diabetes Hypertension Alzheimer disease Brother CAD (coronary artery disease) Brother CAD (coronary artery disease) Sister Breast cancer History Items: Hypertension Paternal Family History: Family History (Last Reviewed 02/27/18 @ 09:31 by Janay Lala) Father Pancreatic cancer Hypertension Mother Diabetes Hypertension Alzheimer disease Brother CAD (coronary artery disease) Brother CAD (coronary artery disease) Sister Breast cancer History Items: Hypertension Sibling Family History: Family History (Last Reviewed 02/27/18 @ 09:31 by Janay Lala) Father Pancreatic cancer Hypertension Mother Diabetes Hypertension Alzheimer disease Brother CAD (coronary artery disease) Brother CAD (coronary artery disease) Sister Breast cancer History Items: Cancer Review of Systems Constitutional: Denies: Anorexia, Chills, Fever, Weakness Eyes: Denies: Blurred vision, Double vision, Drainage, Redness HEENT: Denies: Difficulty Hearing, Ear Pain, Eye Pain, Nasal Congestion, Sore Throat Cardiovascular: Reports: - - Reported bilateral breast discomfort/pain.. Denies: Chest Pain, Chest Pressure, Edema, Heaviness, Light Headedness, Palpitations, Syncope Respiratory: Denies: Cough, Pleuritic Pain, Shortness of Breath, Sputum production, Wheezing Gastrointestinal: Denies: Abdominal Pain, Constipation, Diarrhea, Nausea, Vomiting Genitourinary: Denies: Dysuria, Frequency, Hematuria Musculoskeletal: Denies: Arm Pain, Back Pain, Foot Pain Skin: Denies: Dryness, Rash Neurological: Denies: Balance problems, Double vision, Change in Speech, Slurred speech, Confusion, Headaches, Incoordination, Numbness Psychiatric: Denies: Anxiety, Depression Endocrine: Denies: Change in Body Habitus, Polydipsia - Physical Exam General: Alert, Oriented x3, Cooperative, No apparent distress HEENT: Atraumatic, PERRLA, EOMI, Normocephalic Oral: Moist Mucosa, No Gingival or Mucosal Lesions/ Ulcerations Neck: Supple, No JVD, Negative Carotid Bruits, Trachea Midline, Thyroid Normal Size and Texture Lungs: Clear to auscultation, No rhonchi, No wheeze, No rales, Diminished Cardiovascular: Regular rate, Regular Rhythm, Normal S1, Normal S2, PMI Normal Abdomen: Bowel Sounds Present, Soft, Non Tender, Non-Distended, No Hepato- splenomegaly Extremities: No clubbing, No cyanosis, No edema Skin: No rashes, No breakdown Lymphatic: No Cervical, Supraclavicular, or Inguinal Adenopathy Neurological: Cranial nerves II-XII grossly intact, Motor Exam 5/5 strength throughout Psych/Mental Status: Normal Affect, Appropriate, Alert and oriented to time, place, person, mood and affect Vital Signs Temp Pulse Resp BP Pulse Ox 97.0 F L 64 18 121/69 H 98 03/17/19 17:00 03/17/19 17:00 03/17/19 17:00 03/17/19 17:00 03/17/19 17:00 Oxygen Flow Rate (L/min) 2 Oxygen Delivery Method Nasal Cannula Weight: 186 lb 1.122 oz Body Mass Index (BMI) 28.3 Finger Stick Blood Glucose 298 Intake and Output for Last 24 Hours 03/15/19 03/16/19 03/17/19 23:59 23:59 23:59 Intake Total 2300 / 2300 Output Total 1095 / 1095 Balance 1205 / 1205 POC Glucose 03/17/19 03/17/19 03/17/19 16:40 15:10 07:05 POC Glucose 293 H 289 H 218 H Assessment/Plan This is a 69 years old female patient admitted to the hospital after she underwent elective right and left reconstructive breast surgeries and I am seeing this patient in consultation for postoperative medical management. #1 status post revision of right breast reconstruction with multiple capsulectomies, elevation of asymmetric inflammatory fold, graft sling/left breast reconstruction with multiple capsulectomies and placement of graft sling: Postoperative day 0. At this time, vital signs are stable. Preoperative routine blood work and EKG reviewed as above. She is on IV clindamycin for perioperative prophylaxis. She is on IV Dilaudid and OxyIR as needed for pain. Dr. Newberry is managing. #2 type 2 diabetes mellitus: Today, blood sugar has been in the high 200s. Hemoglobin A1c was 7.9 beginning of this month. Plan to continue Januvia, Accu- Cheks q. before meals at bedtime, start insulin sliding scale. #3 hypertension: Blood pressure stable, continue Norvasc, HCTZ, losartan and metoprolol. #4 hypothyroidism: She is on levothyroxine. TSH was 0.11 beginning of this month. Not sure the dose of the levothyroxine adjusted or not. Plan to repeat TSH today. #5 hyperlipidemia: Continue statins. #6 DVT prophylaxis: Subcu Lovenox. This note was generated with [employer] dictation software. It may contain incorrect words, spelling, and punctuation that were not noted in checking the note before signing. Code Visit Inpatient E&M: 22494 Init Hosp L2
[2019-03-17] MEDS: Lactated Ringers 1,000 ML 60 ML IV (18:29)
[2019-03-17] MEDS: oxyCODONE 5 MG Tablet 10 MG PO (19:49)
[2019-03-17 20:36] LABS: Bedside Glucose 282 mg/dL (70-110)
[2019-03-17 21:00] LABS: Thyroid Stim Hormone (TSH) 0.18 uIU/mL (0.358-3.74)
[2019-03-17] MEDS: Metoprolol(XL)Succ 100 MG Tablet PO (21:51)
[2019-03-17] MEDS: Sertraline 100 MG Tablet PO (21:51)
[2019-03-17] MEDS: Pramipexole Di-HCl 0.25 MG Tablet PO (21:51)
[2019-03-17] MEDS: Docusate Sodium 100 MG Capsule PO (21:51)
[2019-03-17] MEDS: ARIPiprazole 2 MG Tablet PO (21:51)
[2019-03-17] MEDS: Rosuvastatin Calcium 5 MG Tablet PO (21:51)
[2019-03-17] MEDS: Insulin Lispro 100 UNIT/ML INSULN.PEN SC (21:55)
[2019-03-18] MEDS: oxyCODONE 5 MG Tablet 10 MG PO ×5 (00:13→21:28)
[2019-03-18 03:48] VITALS: BP 127/58; PULSE 84; RESP 17; TEMP 37.2; O2SAT 98
[2019-03-18] MEDS: Lactated Ringers 1,000 ML 60 ML IV ×2 (03:56→23:07)
[2019-03-18] MEDS: Enoxaparin 40 MG/0.4 ML Syringe SC (05:47)
[2019-03-18] MEDS: Levothyroxine 150 MCG Tablet PO (05:47)
[2019-03-18 05:52] LABS: Hematocrit 36.2 % (37-47); Hemoglobin 12.6 g/dl (12.0-15.0); Mean Corp Hgb Conc 34.8 g/gl (32-36); Mean Corpuscular Hgb 30.2 pg (27.0-32.0); Mean Corpuscular Volume 86.8 fL (81-99); Mean Platelet Vol. 9.5 fl (6.2-12.0); Platelet Count 230 K/mm3 (150-450); RBC Distribution Width CV 12.5 % (11.6-14.6); RBC Distribution Width SD 39.8 fl (35.1-43.9); Red Blood Count 4.17 M/mm3 (4.2-5.4); White Blood Count 11.3 K/mm3 (4.4-11.0)
[2019-03-18 05:57] LABS: Anion Gap 8 (5-15); BUN 17 mg/dL (7-18); BUN/Creat Ratio 20.5 RATIO (10-20); Calcium,Total 8.8 mg/dL (8.5-10.1); Chloride 104 mmol/L (98-107); Creatinine, Serum 0.83 mg/dL (0.55-1.02); EST Glomerular Filtration Rate 73 mL/min (>60); Est Glom Filt Rate - Afr Amer 88 mL/min (>60); Estimated Creatinine Clearance 66.35 ml/min; Glucose 190 mg/dL (74-106); Potassium 3.7 mmol/L (3.5-5.1); Prealbumin 13.9 mg/dL (20.0-40.0); Sodium Level 140 mmol/L (136-145)
[2019-03-18 06:06] LABS: Scan Indicated on CBC? Y/N NO
[2019-03-18] MEDS: Insulin Lispro 100 UNIT/ML INSULN.PEN SC ×4 (06:30→21:15)
[2019-03-18 06:35] LABS: Bedside Glucose 186 mg/dL (70-110)
[2019-03-18 07:17] VITALS: O2SAT 92
[2019-03-18] MEDS: Docusate Sodium 100 MG Capsule PO ×2 (09:10→21:15)
[2019-03-18] MEDS: hydroCHLOROthiazide 25 MG Tablet PO (09:10)
[2019-03-18] MEDS: LINAGLIPTIN 5 MG TABLET PO (09:10)
[2019-03-18] MEDS: Calcium Carbonate 500 MG Tablet PO (09:10)
--- NOTE | 2019-03-18 09:16 | PCM.PN.HOSP ---
Subjective: Patient was seen and examined. Postop day #1 status post reconstructive breast surgery. Pain is fairly controlled. Denies any fever or chills. Patient says that recently her levothyroxine was decreased from 175 MCG to 150 mg MCG. She admits to palpitations but no chest pain or shortness of breath. Objective: Physical Exam General: Alert, Oriented x3, Cooperative, No apparent distress HEENT: Atraumatic, PERRLA, EOMI, Normocephalic Oral: Moist Mucosa, No Gingival or Mucosal Lesions/ Ulcerations Neck: Supple, No JVD, Negative Carotid Bruits, Trachea Midline, Thyroid Normal Size and Texture Lungs: Clear to auscultation, No rhonchi, No wheeze, No rales, Diminished Cardiovascular: Regular rate, Regular Rhythm, Normal S1, Normal S2, PMI Normal Abdomen: Bowel Sounds Present, Soft, Non Tender, Non-Distended, No Hepato-splenomegaly Extremities: No clubbing, No cyanosis, No edema Skin: No rashes, No breakdown Lymphatic: No Cervical, Supraclavicular, or Inguinal Adenopathy Neurological: Cranial nerves II-XII grossly intact, Motor Exam 5/5 strength throughout Psych/Mental Status: Normal Affect, Appropriate, Alert and oriented to time, place, person, mood and affect Vitals/I&O's: Vital Signs Temp Pulse Resp BP Pulse Ox 98.9 F 84 17 127/58 H 98 03/18/19 03:48 03/18/19 03:48 03/18/19 03:48 03/18/19 03:48 03/18/19 03:48 Oxygen Flow Rate (L/min) 2 Oxygen Delivery Method Nasal Cannula Weight: 84.4 kg Body Mass Index (BMI) 28.3 Finger Stick Blood Glucose 298 Intake and Output for Last 24 Hours 03/16/19 03/17/19 03/18/19 23:59 23:59 23:59 Intake Total 2300 / 2300 1504 / 1504 Output Total 1095 / 1095 968 / 968 Balance 1205 / 1205 536 / 536 Laboratory Results 03/17/19 15:10: POC Glucose 289 H 03/17/19 16:40: POC Glucose 293 H 03/17/19 19:10: TSH 0.18 L 03/17/19 20:29: POC Glucose 282 H 03/18/19 05:28: Sodium 140, Potassium 3.7, Chloride 104, Carbon Dioxide 28.0, Anion Gap 8, BUN 17, Creatinine 0.83, Estim Creat Clear Calc 66.35, Est GFR (MDRD) Af Amer 88, Est GFR (MDRD) Non-Af 73, BUN/Creatinine Ratio 20.5 H, Glucose 190 H, Calcium 8.8, Prealbumin 13.9 L 03/18/19 05:28: WBC 11.3 H, RBC 4.17 L, Hgb 12.6, Hct 36.2 L, MCV 86.8, MCH 30.2, MCHC 34.8, RDW 12.5, RDW Differential 39.8, Plt Count 230, MPV 9.5 03/18/19 06:28: POC Glucose 186 H Current Medications Acetaminophen (Tylenol) 650 mg PO Q4H PRN PRN PRN Reason: PAIN Amlodipine Besylate (Norvasc) 10 mg PO QHS [facility] Last Admin: 03/17/19 21:54 Dose: Not Given Anastrozole (Arimidex) 1 mg PO QHS [facility] Aripiprazole (Abilify) 2 mg PO QHS [facility] Last Admin: 03/17/19 21:51 Dose: 2 mg Calcium Carbonate (Tums) 500 mg PO DAILY [facility] Last Admin: 03/18/19 09:10 Dose: 500 mg Cholecalciferol (Vitamin D) 2,000 unit PO DAILY [facility] Last Admin: 03/18/19 09:10 Dose: 2,000 unit Diazepam (Valium) 5 mg PO 4X/DAY PRN PRN PRN Reason: SPASMS Docusate Sodium (Colace) 100 mg PO BID [facility] Last Admin: 03/18/19 09:10 Dose: 100 mg Enoxaparin Sodium (Lovenox) 40 mg SC DAILY@0600 [facility] Last Admin: 03/18/19 05:47 Dose: 40 mg Hydrochlorothiazide (Hctz) 25 mg PO DAILY [facility] Last Admin: 03/18/19 09:10 Dose: 25 mg Hydromorphone HCl (Dilaudid Inj) 1 mg IV Q3H PRN PRN PRN Reason: SEVERE PAIN (6-08/27) Clindamycin Phosphate 600 mg/ (Dextrose) 54 mls @ 100 mls/hr IV Q8 [facility] Last Admin: 03/18/19 05:47 Dose: 100 mls/hr Lactated Ringer's () 1,000 mls @ 60 mls/hr IV .[id number] [facility] Last Admin: 03/18/19 03:56 Dose: 60 mls/hr Insulin Human Lispro (Humalog Kwikpen (Bkc)) 0 unit SC ACHS [facility]; Protocol Last Admin: 03/18/19 06:30 Dose: 1 u Levothyroxine Sodium (Synthroid) 150 mcg PO DAILY@0600 [facility] Last Admin: 03/18/19 05:47 Dose: 150 mcg Linagliptin (Tradjenta) 5 mg PO DAILY [facility] Last Admin: 03/18/19 09:10 Dose: 5 mg Losartan Potassium (Cozaar) 100 mg PO QHS [facility] Last Admin: 03/17/19 21:54 Dose: Not Given Metoprolol Succinate (Toprol Xl (Beta Sinai)) 100 mg PO QHS [facility] Last Admin: 03/17/19 21:51 Dose: 100 mg Nutritional Formula (Dev - [place] Flavor) [facility] Last Admin: 03/18/19 08:50 Dose: 1 packet Ondansetron HCl (Zofran) 4 mg IV Q6H PRN PRN PRN Reason: NAUSEA Oxycodone HCl (Oxyir) 10 mg PO Q4H PRN PRN PRN Reason: SEVERE PAIN (6-10/10) Last Admin: 03/18/19 09:09 Dose: 10 mg Pramipexole Dihydrochloride (Mirapex) 0.25 mg PO QHS [facility] Last Admin: 03/17/19 21:51 Dose: 0.25 mg Promethazine HCl (Phenergan Tablet) 25 mg PO Q4H PRN PRN PRN Reason: NAUSEA/VOMITING Rosuvastatin Calcium (Crestor) 5 mg PO QHS [facility] Last Admin: 03/17/19 21:51 Dose: 5 mg Sertraline HCl (Zoloft) 100 mg PO QHS [facility] Last Admin: 03/17/19 21:51 Dose: 100 mg Sodium Chloride () 5 - 15 ml IV UD PRN PRN Reason: SALINE FLUSH Medical Necessity - Tobacco Use Smoking Status: Former smoker Tobacco Use: Non-smoker Assessment/Plan 69-year-old female past medical history of type II DM, hypertension, hypothyroidism, hyperlipidemia who comes in for elective right and left reconstructive breast surgeries. 1. Postop day #1 status post revision of right breast reconstruction with multiple capsulectomies, elevation of asymmetric inflammatory fold, graft sling/left breast reconstruction multiple capsulectomies and placement of graft sling. Pain is fairly controlled, further management by plastic surgery 2. Type II DM, blood sugars fairly uncontrolled, continue on Januvia, and continue with Accu-Chek with insulin sliding scale, if blood sugars continue to be elevated, would add a sulfonylurea 3. Hypothyroidism, TSH is 0.18, patient on levothyroxine 150 MCG, recently decreased from 175 MCG, will continue on same, discussed with patient and recommended recheck in 6 to 8 weeks 4. Hyperlipidemia, on statin 5. Hypertension, continue home blood pressure regimen 6. DVT prophylaxis with Lovenox subcu Code Visit Inpatient E&M: 90733 Subs Hosp L2
[2019-03-18 09:38] VITALS: BP 120/58; PULSE 87; RESP 16; TEMP 36.6; O2SAT 95
[2019-03-18 09:50] LABS: Free T3 2.2 pg/mL (2.18-3.98); T4 Free Direct 1.74 ng/dL (0.76-1.46)
[2019-03-18 11:21] LABS: Bedside Glucose 226 mg/dL (70-110)
--- NOTE | 2019-03-18 14:37 | PCM.PN.SRG ---
Subjective: Postop #1 Patient complains of incisional pain. She is a little unsteady on her feet with ambulation. - Physical Exam General: Alert, Oriented x3 HEENT: PERRLA, EOMI Oral: Moist Mucosa Neck: Supple Skin: Incision - bilateral breast incisions dry and intact. No clinical evidence of hematoma. Minimal bruising noted on the skin flaps. Neurological: Cranial nerves II-XII grossly intact Psych/Mental Status: Normal Affect, Appropriate Vital Signs Temp Pulse Resp BP Pulse Ox 97.9 F 87 16 120/58 L 95 03/18/19 09:38 03/18/19 09:38 03/18/19 09:38 03/18/19 09:38 03/18/19 09:38 Oxygen Flow Rate (L/min) 2 Oxygen Delivery Method Room Air Weight: 186 lb 1.122 oz Body Mass Index (BMI) 28.3 Finger Stick Blood Glucose 298 Intake and Output for Last 24 Hours 03/16/19 03/17/19 03/18/19 23:59 23:59 23:59 Intake Total 2300 / 2300 1504 / 1504 Output Total 1095 / 1095 968 / 968 Balance 1205 / 1205 536 / 536 Drainage 120 ml yesterday, 168 ml today. Laboratory Tests Past 24 Hrs 03/17/19 03/18/19 03/18/19 19:10 05:28 05:28 WBC 11.3 H RBC 4.17 L Hgb 12.6 Hct 36.2 L MCV 86.8 MCH 30.2 MCHC 34.8 RDW 12.5 RDW Differential 39.8 Plt Count 230 MPV 9.5 Sodium 140 Potassium 3.7 Chloride 104 Carbon Dioxide 28.0 Anion Gap 8 BUN 17 Creatinine 0.83 Estim Creat Clear Calc 66.35 Est GFR (MDRD) Af Amer 88 Est GFR (MDRD) Non-Af 73 BUN/Creatinine Ratio 20.5 H Glucose 190 H Calcium 8.8 Prealbumin 13.9 L TSH 0.18 L Free T4 Free T3 pg/dL 03/18/19 05:28 WBC RBC Hgb Hct MCV MCH MCHC RDW RDW Differential Plt Count MPV Sodium Potassium Chloride Carbon Dioxide Anion Gap BUN Creatinine Estim Creat Clear Calc Est GFR (MDRD) Af Amer Est GFR (MDRD) Non-Af BUN/Creatinine Ratio Glucose Calcium Prealbumin TSH Free T4 1.74 H Free T3 pg/dL 2.2 POC Glucose 03/18/19 03/18/19 03/17/19 11:13 06:28 20:29 POC Glucose 226 H 186 H 282 H 03/17/19 03/17/19 16:40 15:10 POC Glucose 293 H 289 H Medical Necessity - Tobacco Use Smoking Status: Former smoker Tobacco Use: Non-smoker Assessment/Plan 1. Deformity right breast reconstruction with wrinkling of implant superolateral aspect. 2. Asymmetric lowered inframammary fold right breast reconstruction. 3. Personal history of right breast cancer. 4. Bilateral breast reconstruction implant status. 5. Acquired absence right breast. 6. Family history of breast cancer. 7. ER positive status. 8. Former smoker. 9. Deformity left breast reconstruction with lateral migration of implant. 10. s/p revision right breast reconstruction with multiple capsulotomies and elevation asymmetric inframammary fold with internal capsular plication and creation of new prepectoral pocket and placement of FlexHD acellular dermal matrix graft sling (500 cm2) with replacement prepectoral cohesive gel implant (800 ml) and revision left breast reconstruction with multiple capsulotomies and placement FlexHD acellular dermal matrix graft sling (286 cm2) with replacement submuscular cohesive gel implant (500 ml). Patient has incisional pain. Her breast incisions are dry and intact. No clinical evidence of hematoma. Prealbumin was 13.9. Encourage nutritional supplementation with protein to help the healing process. She is unsteady on her feet with ambulation. Encourage ambulation today with assist. Will keep until tomorrow. Anticipate discharge tomorrow when she is more steady on her feet with ambulation. Keep head elevated. Maintain lifting restriction. Will remove the drains in the office after discharge.
[2019-03-18 15:38] VITALS: BP 109/53; PULSE 80; RESP 16; TEMP 37.4; O2SAT 94
--- NOTE | 2019-03-18 16:04 | CASEMGMT ---
TALHA LIRA NOTE: RHODES form reviewed with pt. Pt denies having any questions. Pt signed form, copy made and placed on chart, and original given to pt. Alejandro FLORES RN CM
[2019-03-18 17:20] LABS: Bedside Glucose 179 mg/dL (70-110)
[2019-03-18 20:56] VITALS: BP 124/51; PULSE 96; RESP 16; TEMP 37.1; O2SAT 94
[2019-03-18 21:14] VITALS: PULSE 96
[2019-03-18] MEDS: Sertraline 100 MG Tablet PO (21:14)
[2019-03-18] MEDS: amLODIPine 10 MG Tablet PO (21:14)
[2019-03-18] MEDS: Pramipexole Di-HCl 0.25 MG Tablet PO (21:14)
[2019-03-18] MEDS: Metoprolol(XL)Succ 100 MG Tablet PO (21:14)
[2019-03-18] MEDS: Rosuvastatin Calcium 5 MG Tablet PO (21:14)
[2019-03-18] MEDS: Anastrozole 1 MG Tablet PO (21:15)
[2019-03-18] MEDS: ARIPiprazole 2 MG Tablet PO (21:15)
[2019-03-18] MEDS: Losartan Potassium 100 MG Tablet PO (21:15)
[2019-03-18 21:35] LABS: Bedside Glucose 221 mg/dL (70-110)
[2019-03-19 04:07] VITALS: BP 122/53; PULSE 80; RESP 16; TEMP 36.9; O2SAT 93
[2019-03-19] MEDS: Enoxaparin 40 MG/0.4 ML Syringe SC (06:10)
[2019-03-19] MEDS: Levothyroxine 150 MCG Tablet PO (06:10)
[2019-03-19] MEDS: Insulin Lispro 100 UNIT/ML INSULN.PEN SC ×2 (06:55→11:16)
[2019-03-19 07:01] LABS: Bedside Glucose 178 mg/dL (70-110)
[2019-03-19 07:10] VITALS: O2SAT 91
[2019-03-19 08:54] VITALS: BP 101/51; PULSE 72; RESP 14; TEMP 37.1; O2SAT 94
[2019-03-19 09:00] VITALS: PULSE 80
[2019-03-19] MEDS: Docusate Sodium 100 MG Capsule PO (10:32)
[2019-03-19] MEDS: Calcium Carbonate 500 MG Tablet PO (10:32)
[2019-03-19] MEDS: hydroCHLOROthiazide 25 MG Tablet PO (10:32)
[2019-03-19] MEDS: LINAGLIPTIN 5 MG TABLET PO (10:32)
[2019-03-19 11:31] LABS: Bedside Glucose 226 mg/dL (70-110)
--- NOTE | 2019-03-19 12:55 | PCM.PN.SRG ---
Subjective: Postop #2 Patient is resting comfortably. She is more steady on her feet with ambulation. - Physical Exam General: Alert, Oriented x3 HEENT: PERRLA, EOMI Oral: Moist Mucosa Neck: Supple Abdomen: Soft, Non-Distended Skin: Incision - bilateral breast incisions are dry and intact. No clinical evidence of hematoma. Neurological: Cranial nerves II-XII grossly intact Psych/Mental Status: Normal Affect, Appropriate Vital Signs Temp Pulse Resp BP Pulse Ox 98.8 F 80 14 101/51 L 94 03/19/19 08:54 03/19/19 09:00 03/19/19 08:54 03/19/19 08:54 03/19/19 08:54 Oxygen Flow Rate (L/min) 2 Oxygen Delivery Method Room Air Weight: 186 lb 1.122 oz Body Mass Index (BMI) 28.3 Finger Stick Blood Glucose 298 Intake and Output for Last 24 Hours 03/17/19 03/18/19 03/19/19 23:59 23:59 23:59 Intake Total 2300 / 2300 1844 / 1844 1303 / 1303 Output Total 1095 / 1095 2138 / 2138 1546 / 1546 Balance 1205 / 1205 -294 / -294 -243 / -243 POC Glucose 03/19/19 03/19/19 03/18/19 11:14 06:54 21:10 POC Glucose 226 H 178 H 221 H 03/18/19 16:53 POC Glucose 179 H Drainage 438 ml yesterday, 81 ml today. Medical Necessity - Tobacco Use Smoking Status: Former smoker Tobacco Use: Non-smoker Assessment/Plan 1. Deformity right breast reconstruction with wrinkling of implant superolateral aspect. 2. Asymmetric lowered inframammary fold right breast reconstruction. 3. Personal history of right breast cancer. 4. Bilateral breast reconstruction implant status. 5. Acquired absence right breast. 6. Family history of breast cancer. 7. ER positive status. 8. Former smoker. 9. Deformity left breast reconstruction with lateral migration of implant. 10. s/p revision right breast reconstruction with multiple capsulotomies and elevation asymmetric inframammary fold with internal capsular plication and creation of new prepectoral pocket and placement of FlexHD acellular dermal matrix graft sling (500 cm2) with replacement prepectoral cohesive gel implant (800 ml) and revision left breast reconstruction with multiple capsulotomies and placement FlexHD acellular dermal matrix graft sling (286 cm2) with replacement submuscular cohesive gel implant (500 ml). Patient has less incisional pain. Her breast incisions are dry and intact. No clinical evidence of hematoma. Prealbumin was 13.9. Encourage nutritional supplementation with protein to help the healing process. She is more steady on her feet with ambulation. Discharge home today. Keep head elevated. Maintain lifting restriction. Will remove the drains in the office after discharge. Wrote script for Cleocin for 14 days until the drains are removed and for Acidophilus. Wrote scripts for Percocet for pain (50 tabs) and for Valium for spasm (30 tabs). Followup office one week. No showering until the drains are removed.
--- NOTE | 2019-03-19 13:09 | DCINST_ITS ---
You will use the following diet at home:: Calorie/Carbohydrate Controlled (specify 1200, 1400, etc), Other - encourage nutritional supplementation with protein to help the healing process. Discharge Activity: May not drive while taking narcotic pain medications., May Not Shower - until the drains are removed., - - keep head elevated. no heavy lifting. May shower in (days): 14 - after the drains are removed. May resume sexual activity in: 10-14 days Weight Bearing Status: Weight bearing as tolerated Lifting Restrictions: 20 lbs. Keep extremity elevated above heart level: - - elevate head. Call your doctor if your incision/area has: Continuous Slow Oozing, Sudden Increased Bleeding, Increased Pain/ Swelling, Increased Redness, Foul Smelling Discharge, Swelling at the incision site Call your doctor if you observe: Fever of 101 or Higher, Coldness, Increased Pain, Shortness of breath, Chest pain, Calf discomfort, Uncontrolled pain Suture Line Care: - - dry dressings daily. Change Dressing in (Days):: 1 - dry dressings daily. Cleanse incision/area with: - - may get incisions wet in the shower after the drains are removed. Drain: Suction - priyanka drain x4 to bulb suction. empty and record output daily. Allergies/Adverse Reactions: Allergies levofloxacin [From Levaquin] Allergy (Severe, Verified 03/17/19 06:55) RAISES BLOOD PRESSURE AND STOMACH SWELLS UP AND IS PAINFUL amoxicillin Allergy (Verified 03/17/19 06:55) Other atorvastatin calcium [From Lipitor] Allergy (Verified 03/17/19 06:55) Other cyclobenzaprine Allergy (Verified 03/17/19 06:55) Other estrogens, conjugated [From Premphase] Allergy (Verified 03/17/19 06:55) Other gabapentin Allergy (Verified 03/17/19 06:55) lip swelling medroxyprogesterone acetate [From Premphase] Allergy (Verified 03/17/19 06:55) Other pravastatin sodium [From Pravachol] Allergy (Verified 03/17/19 06:55) Other risedronate sodium [From Actonel] Allergy (Verified 03/17/19 06:55) Other simvastatin [From Zocor] Allergy (Verified 03/17/19 06:55) Other minocycline Adverse Reaction (Verified 03/17/19 06:55) Nausea/Vom/Diarrhea Penicillins [PCN] Adverse Reaction (Verified 03/17/19 06:55) SORE THROAT Medications to take at Discharge Aripiprazole [Abilify] 2 mg PO QHS 12/14/14 Hydrochlorothiazide [Hctz] 25 mg PO DAILY 12/14/14 Levothyroxine [Synthroid] 150 mcg PO DAILY 12/14/14 Losartan Potassium [Cozaar] 100 mg PO QHS 12/14/14 Metoprolol(XL)Succ [Toprol Xl (Beta Sinai)] 100 mg PO QHS 12/14/14 Sertraline HCl [Zoloft] 100 mg PO QHS 12/14/14 Amlodipine [Norvasc] 10 mg PO QHS 04/03/16 Ropinirole HCl [Requip] 0.5 mg PO QHS 04/03/16 Rosuvastatin Calcium [Crestor] 5 mg PO QHS 04/03/16 Anastrozole [Arimidex] 1 mg PO QHS 10/01/16 Calcium Carbonate [Calcium] 500 mg PO DAILY 10/01/16 Cholecalciferol (Vitamin D3) [Vitamin D3] 2,000 unit PO DAILY 10/01/16 Sitagliptin Phosphate [Januvia] 100 mg PO DAILY 01/09/18 Clindamycin HCl [Cleocin] 300 mg PO TID #42 cap 03/19/19 Diazepam [Valium] 5 mg PO 4X/DAY PRN PRN #30 tab 03/19/19 Insulin Lispro [Humalog KwikPen] See Protocol SC ACHS insuln.pen 03/19/19 Lactobacillus Acidophilus/Fos [Acidophilus Probiotic Tablet] 1 ea PO BID #30 tab 03/19/19 Oxycodone HCl/Acetaminophen [Percocet 5/325] 1 - 2 tab PO 4X/DAY PRN PRN 7 Days #50 tab 03/19/19 The following prescriptions were given: Diazepam [Valium] 5 mg PO 4X/DAY PRN PRN #30 tab PRN Reason: Spasms Oxycodone HCl/Acetaminophen [Percocet 5/325] 1 - 2 tab PO 4X/DAY PRN PRN 7 Days #50 tab PRN Reason: Pain Lactobacillus Acidophilus/Fos [Acidophilus Probiotic Tablet] 1 ea PO BID #30 tab Clindamycin HCl [Cleocin] 300 mg PO TID #42 cap Primary Care Physician: Sterling Roland MD [Primary Care Provider] - Test Results: Test results from this visit will be discussed in further detail at your follow- up appointment, if applicable. Please Follow Up With: Nir Pedroza MD When: one week. call [phone] for appt. Proposed Discharge Date: 03/19/19
[2019-03-19 13:43] VITALS: BP 130/62; PULSE 74; RESP 16; TEMP 37.2; O2SAT 90
--- NOTE | 2019-03-19 15:15 | PN_ITS ---
Subjective: Patient was seen and examined. She feels much improved. Complains of pain in bilateral breast. Denies any fever or chills. Objective: Physical Exam General: Alert, Oriented x3, Cooperative, No apparent distress HEENT: Atraumatic, PERRLA, EOMI, Normocephalic Oral: Moist Mucosa, No Gingival or Mucosal Lesions/ Ulcerations Neck: Supple, No JVD, Negative Carotid Bruits, Trachea Midline, Thyroid Normal Size and Texture Lungs: Clear to auscultation, No rhonchi, No wheeze, No rales, Diminished Cardiovascular: Regular rate, Regular Rhythm, Normal S1, Normal S2, PMI Normal Abdomen: Bowel Sounds Present, Soft, Non Tender, Non-Distended, No Hepato- splenomegaly Extremities: No clubbing, No cyanosis, No edema Skin: No rashes, No breakdown Lymphatic: No Cervical, Supraclavicular, or Inguinal Adenopathy Neurological: Cranial nerves II-XII grossly intact, Motor Exam 5/5 strength throughout Psych/Mental Status: Normal Affect, Appropriate, Alert and oriented to time, place, person, mood and affect Vitals/I&O's: Vital Signs Temp Pulse Resp BP Pulse Ox 99.0 F 74 16 130/62 H 90 03/19/19 13:43 03/19/19 13:43 03/19/19 13:43 03/19/19 13:43 03/19/19 13:43 Oxygen Flow Rate (L/min) 2 Oxygen Delivery Method Room Air Weight: 84.4 kg Body Mass Index (BMI) 28.3 Finger Stick Blood Glucose 298 Intake and Output for Last 24 Hours 03/17/19 03/18/19 03/19/19 23:59 23:59 23:59 Intake Total 2300 / 2300 1844 / 1844 1303 / 1303 Output Total 1095 / 1095 2138 / 2138 1546 / 1546 Balance 1205 / 1205 -294 / -294 -243 / -243 Laboratory Results 03/18/19 16:53: POC Glucose 179 H 03/18/19 21:10: POC Glucose 221 H 03/19/19 06:54: POC Glucose 178 H 03/19/19 11:14: POC Glucose 226 H Medical Necessity - Tobacco Use Smoking Status: Former smoker Tobacco Use: Non-smoker Assessment/Plan 69-year-old female past medical history of type II DM, hypertension, hypothyroidism, hyperlipidemia who comes in for elective right and left reconstructive breast surgeries. 1. Postop day #2 status post revision of right breast reconstruction with multiple capsulectomies, elevation of asymmetric inflammatory fold, graft sling/left breast reconstruction multiple capsulectomies and placement of graft sling. Pain is fairly controlled, further management by plastic surgery 2. Type II DM, blood sugars better controlled, continue on Januvia, and continue with Accu-Chek with insulin sliding scale, if blood sugars continue to be elevated, would add a sulfonylurea 3. Hypothyroidism, TSH is 0.18, patient on levothyroxine 150 MCG, recently decreased from 175 MCG, will continue on same, discussed with patient and recommended recheck in 6 to 8 weeks 4. Hyperlipidemia, on statin 5. Hypertension, continue home blood pressure regimen 6. DVT prophylaxis with Lovenox subcu Code Visit Inpatient E&M: 53183 Subs Hosp L2
== END 2019-03-19 14:52 | disposition home or self-care (01) ==
LOC: SDC 15:05 → MS3 15:05
PROVIDERS: Hospitalist; Admitting Provider Surgery; Family Provider Family Medicine; PCP Family Medicine; Referring Provider Surgery; Visit Provider Internal Medicine
PROC: (CPT 19380; principal; 2019-03-17 07:40)
DX: N65.1 Disproportion of reconstructed breast (principal); T85.898A Other specified complication of other internal prosthetic devices, implants and grafts, initial encounter; Y82.8 Other medical devices associated with adverse incidents; F32.9 Major depressive disorder, single episode, unspecified; I44.7 Left bundle-branch block, unspecified; I10 Essential (primary) hypertension; K21.9 Gastro-esophageal reflux disease without esophagitis; E11.9 Type 2 diabetes mellitus without complications; F41.9 Anxiety disorder, unspecified; E78.5 Hyperlipidemia, unspecified; E03.9 Hypothyroidism, unspecified; K58.9 Irritable bowel syndrome, unspecified; G47.30 Sleep apnea, unspecified; Z79.899 Other long term (current) drug therapy; Z87.891 Personal history of nicotine dependence; Z17.0 Estrogen receptor positive status [ER+]; Z85.3 Personal history of malignant neoplasm of breast; Z80.3 Family history of malignant neoplasm of breast; R22.0 Localized swelling, mass and lump, head; Z86.718 Personal history of other venous thrombosis and embolism
CPT/HCPCS: 00402; 19380; 36415; 80048; 82962; 84134; 84439; 84443; 84481; 85027; 88305; 88307; 93005; 94762; 96365; 96366; 96372; 99218; J7120; G0378; G0379; J2405

== ENCOUNTER → 2019-05-19 | Outpatient (CLI) | payer MEDICARE, SELFPAY ==
[2019-04-30 15:03] VITALS: BMI 28.3
== END | disposition home or self-care (01) ==
LOC: OPBD 11:57
PROVIDERS: Family Provider Family Medicine; PCP Family Medicine; Referring Provider Family Medicine; Visit Provider Family Medicine
DX: Z00.00 Encounter for general adult medical examination without abnormal findings (principal); M81.0 Age-related osteoporosis without current pathological fracture

== ENCOUNTER → 2019-09-11 11:52 | Outpatient (CLI) | payer MEDICARE, SELFPAY ==
[2019-04-30 15:03] VITALS: BMI 28.3
--- NOTE | 2019-09-11 12:18 | BI_ITS ---
MAMMOGRAPHY - UNILATERAL SCREENING: LEFT BREAST REASON FOR EXAM: Female, 69 years old. Routine annual screening examination (unilateral). PERTINENT HISTORY: Personal history of breast cancer. Prior right mastectomy. Sister with breast cancer. TECHNIQUE: Digital unilateral breast jose alfredo (3D mammographic acquisition) in the CC and MLO projections. 2-D mediolateral oblique (MLO) and craniocaudad (CC) views of both breasts were obtained. CAD: Full Field Digital Mammography with Computer Added Detection was performed. COMPARISON: Comparison is made with prior examination dated July 02, 2018 and February 20, 2016. FINDINGS: Breast Composition: There are scattered areas of fibroglandular density. There are no dominant masses or suspicious calcifications. A patient marker is seen in the slightly inferior medial portion of the left breast as well as in the upper central portion of the breast. Stable appearance of the breast implant. No other significant abnormalities are identified. There has been no significant change since the prior study. BI/SCREEN MAMM (CAD) W/JOSE ALFREDO UNI L IMPRESSION: Stable unilateral screening mammogram. Yearly follow-up mammogram recommended. (A) ASSESSMENT CATEGORY: BIRADS Category 2: Benign. A letter regarding these results will be sent to the patient by the facility within 30 days. Approximately 10% of breast cancers are not detected by mammography. A normal mammogram should not delay biopsy of a clinically suspicious abnormality. [id number] Electronically Signed: Carlos Romero, at 14:24 EDT , Service support ,
== END ==
PROVIDERS: Family Provider Family Medicine; PCP Family Medicine; Referring Provider Nurse Practitioner; Visit Provider Nurse Practitioner
DX: C50.811 Malignant neoplasm of overlapping sites of right female breast (principal); Z17.0 Estrogen receptor positive status [ER+]; Z12.31 Encounter for screening mammogram for malignant neoplasm of breast
CPT/HCPCS: 77061; 77063; 77067; G0279

== ENCOUNTER → 2019-11-16 13:36 | Outpatient (CLI) | payer MEDICARE, SELFPAY ==
[2019-04-30 15:03] VITALS: BMI 28.3
--- NOTE | 2019-11-16 13:41 | US_ITS ---
STUDY: ULTRASOUND BREAST - LEFT REASON FOR EXAM: Female, 69 years old. Left breast pain. TECHNIQUE: Axial and longitudinal images of the LEFT breast were performed with a high resolution ultrasound transducer. # OF IMAGES: [id number] COMPARISON: March 29, 2016. FINDINGS: LEFT Breast: There is a 0.7 x 0.5 x 0.3 cm, ovoid, hypoechoic focus with echogenic/fatty probable hilum in the left breast 11:00 position 3 cm from the nipple. The margins appear well-defined. There is no posterior enhancement. There is no posterior shadowing. US/Breast Limited Unilateral IMPRESSION: Findings most compatible with intramammary lymph node. ASSESSMENT CATEGORY: BIRADS Category 2: Benign. A letter regarding these results will be sent to the patient by the facility within 30 days. Electronically Signed: Kasi Pierce MD at 7:58 EST , Service support ,
== END ==
PROVIDERS: Family Provider Family Medicine; PCP Family Medicine; Referring Provider Nurse Practitioner; Visit Provider Nurse Practitioner
DX: N64.4 Mastodynia (principal); C50.811 Malignant neoplasm of overlapping sites of right female breast; Z17.0 Estrogen receptor positive status [ER+]
CPT/HCPCS: 76642

== ENCOUNTER → 2019-12-22 12:17 | Outpatient (CLI) | payer MEDICARE, SELFPAY ==
[2019-04-30 15:03] VITALS: BMI 28.3
[2019-12-22 13:59] LABS: Absolute Lymphocyte Count 1.95 X10^3/uL (0.83-4.51); Absolute Neutrophil Count 4.4 X10^3/uL (2.0-7.7); Basophil# 0.06 X10^3/uL; Basophil% 0.8 % (0-1); Eosinophil# 0.07 X10^3/uL; Hematocrit 42.7 % (37-47); Hemoglobin 14.6 g/dL (12.0-15.0); Lymphocyte # 1.95 X10^3/ul (4.0); Lymphocyte % 27.3 % (19-41); Mean Corp Hgb Conc 34.2 g/dL (32-36); Mean Corpuscular Hgb 29.6 pg (27.0-32.0); Mean Corpuscular Volume 86.6 fL (81-99); Mean Platelet Vol. 10.2 fl (6.2-12.0); Monocyte# 0.69 X10^3/uL; Monocyte% 9.7 % (0-10); NRBC Flagged by Analyzer 0 % (0-5); Neutrophil # 4.35 X10^3/uL (2.7-7.7); Neutrophil % 60.8 % (47-70); Platelet Count 249 K/mm3 (150-450); RBC Distribution Width CV 12.3 % (11.6-14.6); RBC Distribution Width SD 38.8 fl (35.1-43.9); Red Blood Count 4.93 M/mm3 (4.2-5.4); White Blood Count 7.2 K/mm3 (4.4-11.0)
[2019-12-22 14:33] LABS: AST(SGOT) 13 U/L (15-37); Alanine Aminotransfer ALT/SGPT 31 U/L (13-56); Albumin, Serum 3.7 g/dL (3.2-5.0); Alkaline Phosphatase 106 U/L (45-117); Anion Gap 6 (5-15); BUN 15 mg/dL (7-18); BUN/Creat Ratio 14.9 RATIO (10-20); Calcium,Total 9.5 mg/dL (8.5-10.1); Chloride 105 mmol/L (98-107); Cholesterol 186 mg/dL (200); Creatinine, Serum 1.01 mg/dL (0.55-1.02); EST Glomerular Filtration Rate 58 mL/min (>60); Est Glom Filt Rate - Afr Amer 70 mL/min (>60); Globulin 3.7 g/dL (2.2-4.2); Glucose 227 mg/dL (74-106); High Density Lipoprotein 55 mg/dL; Potassium 3.5 mmol/L (3.5-5.1); Protein, Total 7.4 g/dL (6.4-8.2); Sodium Level 140 mmol/L (136-145); Thyroid Stim Hormone (TSH) 0.46 uIU/mL (0.358-3.74); Triglycerides 198 mg/dL; Very Low Density Lipoprotein 40 mg/dL (5-40)
== END ==
PROVIDERS: PCP Family Medicine; Referring Provider Family Medicine; Visit Provider Family Medicine
DX: E11.9 Type 2 diabetes mellitus without complications (principal); B35.1 Tinea unguium; Z79.899 Other long term (current) drug therapy
CPT/HCPCS: 36415; 80053; 80061; 84443; 85025

== ENCOUNTER → 2020-01-11 11:35 | Outpatient (CLI) | payer MEDICARE, SELFPAY ==
[2019-12-24 15:21] VITALS: BMI 28.3
== END ==
PROVIDERS: PCP Family Medicine; Referring Provider Nurse Practitioner Family; Visit Provider Nurse Practitioner Family
DX: E11.9 Type 2 diabetes mellitus without complications (principal); N65.1 Disproportion of reconstructed breast; Z90.11 Acquired absence of right breast and nipple
CPT/HCPCS: 36415; 83036

== ENCOUNTER 2020-01-14 08:11 | Day surgery (SDC) | payer MEDICARE, SELFPAY ==
[2019-12-24 15:21] VITALS: BMI 28.3
--- NOTE | 2020-01-13 17:59 | HP.PCM_ITS ---
History and Physical Date of Admission: 01/14/20 HISTORY OF PRESENT ILLNESS 69 year old woman presents for evaluation of an enlarging soft tissue mass left forehead near eyebrow. She denies headaches. She has some discomfort when she bumps it. She denies fever. She denies trauma. She denies recent infection. She presents today for further evaluation and treatment. PAST MEDICAL HISTORY Acquired absence of right breast and nipple Estrogen receptor positive status (ER+) Deformity of reconstructed breast History of bilateral breast implants Anxiety and depression Breast cancer, right breast DISRUPTION RIGHT BREAST RECONSTRUCTION WOUND Diabetes Disproportion of reconstructed breast Diverticulosis EXCESS MASTECTOMY TISSUE SCAR CONTOUR DEFORMITY Estrogen receptor positive status [ER+] GERD (gastroesophageal reflux disease) Hyperlipidemia Hypothyroidism IBS (irritable bowel syndrome) LEFT VENTRICULAR EJECTION FRACTION: 52% NONHEALING SURGICAL MASTECTOMY WOUND AT T ZONE RIGHT BREAST Osteoporosis PAINFUL CAPSULAR CONTRACTURE RIGHT BREAST RECONSTRUCTION Hypertension PAST SURGICAL HISTORY 2ND STAGE RIGHT BREAST RECONSTRUCTION FIRST STAGE IMMEDIATE RIGHT BREAST RECONSTRUCTION H/O dilation and curettage LEFT STEREOTACTIC BREAST BIOPSY REVISION RECONSTRUCTED RIGHT BREAST REVISION RIGHT BREAST RECONSTRUCTION RIGHT MASTECTOMY AND RIGHT SENTINEL NODE BIOPSY SECOND STAGE DELAYED LEFT BREAST RECONSTRUCTION ALLERGIES levofloxacin [From Levaquin] amoxicillin atorvastatin calcium [From Lipitor] cyclobenzaprine estrogens, conjugated [From Premphase] gabapentin medroxyprogesterone acetate [From Premphase] pravastatin sodium [From Pravachol] risedronate sodium [From Actonel] simvastatin [From Zocor] minocycline Penicillins [PCN] MEDICATIONS Aripiprazole [Abilify] Hydrochlorothiazide [Hctz] Levothyroxine [Synthroid] Losartan Potassium [Cozaar] Metoprolol(XL)Succ [Toprol Xl (Beta Sinai)] Sertraline HCl [Zoloft] Amlodipine [Norvasc] Ropinirole HCl [Requip] Rosuvastatin Calcium [Crestor] Anastrozole [Arimidex] Calcium Carbonate [Calcium] Cholecalciferol (Vitamin D3) [Vitamin D3] Sitagliptin Phosphate [Januvia] Insulin Lispro [Humalog KwikPen] Lactobacillus Acidophilus/Fos [Acidophilus Probiotic Tablet] gabapentin FAMILY HISTORY Father - Pancreatic cancer, Hypertension Mother - Diabetes , Hypertension, Alzheimer disease Brother - CAD (coronary artery disease) Brother - CAD (coronary artery disease) Sister - Breast cancer SOCIAL HISTORY Smoking Status: Former smoker second hand exposure: No alcohol intake: current alcohol intake frequency: holidays/special occasions only Alcohol type: wine substance use type: does not use REVIEW OF SYSTEMS General - Denies fever, fatigue and weight loss. Eyes - Denies eye pain. ENT - Denies nasal congestion and sore throat. CV - Denies chest pain or discomfort, fatigue, lightheadedness and shortness of breath with exertion. Resp - Denies cough and shortness of breath. patient is a former smoker. GI - Denies nausea, vomiting, diarrhea and constipation. - Denies blood in urine and urinary frequency. MS - Denies joint pain, stiffness, muscle weakness. back pain and arthritis. Derm - Denies skin cancer. Has a soft tissue mass left forehead by eyebrow. Neuro - Denies poor balance and headaches. Psych - Complains of anxiety and depression. Endo - Denies excessive urination and excessive thirst. has history of right breast multifocal cancer. Heme - Denies bleeding and abnormal bruising. PHYSICAL EXAMINATION General - well developed, well nourished, in no acute distress. Bra size was 38 D prior to her breast cancer. Head - normocephalic and atraumatic. On the left forehead by the eyebrow in the mid aspect is a soft tissue mass that measures 1.1 cm. Slightly firm. Mobile. Not adherent to the underlying bone. No ulceration. Lesion has slight tenderness when palpated. Eyes - PERRL/EOM intact, conjunctiva and sclera clear. Throat is clear. Neck - no masses, thyromegaly, or abnormal cervical nodes. No suspicious lesions noted. Breasts - Breast incisions are healed. Breast reconstruction is stable at this time. There is symmetry in a bra. Slight ptosis on the right without a bra. No axillary adenopathy. No breast masses palpable. Lungs - clear bilaterally to auscultation. Heart - Regular rate and rhythm. Abdomen - normal bowel sounds; no hepatosplenomegaly no ventral,umbilical hernias or masses noted. Some redundant skin and subcutaneous tissue noted f rom the umbilicus to the pubic area. Horizontal scar in the pubic area. Slight skin overhang in the pubic area. Pretty good skin elasticity. Pulses - pulses normal in all 4 extremities. Extremities - no clubbing, cyanosis, edema, or deformity noted with normal full range of motion of all joints. Neurologic - cranial nerves II-XII grossly intact. Skin - no rashes. Cervical Nodes - no significant adenopathy. Axillary Nodes - no significant adenopathy. Psych - alert and cooperative; normal mood and affect; normal attention span and concentration. ASSESSMENT 1. 1.1 cm painful soft tissue mass left forehead by eyebrow. 2. Right breast cancer. 3. Acquired absence right breast. 4. History of bilateral breast implants reconstruction. 5. Family history of breast cancer. 6. Estrogen receptor positive status (ER+). 7. Former smoker PLAN Recommend excision of this painful soft tissue mass left forehead by eyebrow and send it to Pathology for analysis to rule out carcinoma. Sometimes these masses are submuscular in position. Surgery will be done under local anesthesia and IV sedation on an outpatient basis. She states she is being evaluated for bunion surgery in the next month or two and would like to have this mass removed before that. Patient was informed of the risks and complications of the procedure including alternatives to surgery. These were discussed with the patient personally. Patient voices understanding and wishes to proceed. Some of the risks and complications were included in a form from the [employer].
[2020-01-14] VITALS (7 sets, daily range): BP systolic 118–140; BP diastolic 60–83; PULSE 63–72; RESP 16–18; TEMP 36.7–37.2; O2SAT 97–100; BMI 29.2
--- NOTE | 2020-01-14 | IMM_PTH ---
PATIENT: ERASTO BUSBY [place] [facility] [place][id number] AGE/SX: 69/F ROOM: RE01/14/[address]: Dr. Nir Pedroza MD : 1950 BED: DIS: 01/14/2020 SPEC #: [id number] RECD: 01/18/20 14:20 STATUS: ZACKERY REQ #: [id number] KAILEE: 01/14/20 00:[address]: Nir Pedroza DEPT: IMMUNOHISTOCHEMISTRY RECD BY: Felecia Manuel ENTERED: 01/18/20 14:21 SP TYPE: IMMUNO OTHR DR: Dr. Benedicto Roland MD Tissues: Forehead, NOS Procedures: CK7 (add) Pankeratin (initial) Comments: @ Specimen number changed from [id number] to [id number] @ on 01/18/20 at 1431 by RGOOD. PHYSICIAN & INSTITUTION [place] [id number] SPECIMEN INFORMATION: Tissue Source: Excision bone cyst forehead Clinical Info: Soft tissue mass left forehead Specimen Number: [id number] CPT code: 39640, 37329 METHODOLOGY: Deparaffinized sections of prefer/formalin-fixed tissue or PAP/DQ stained slides are incubated with monoclonal/polyclonal antibodies/oligonucleotide probes. Localization is made via biotin free immunoperoxidase method. Appropriate controls are performed and reacted as expected. Results on target cell population are indicated in the following table: RESULTS: ANTIBODY / CLONE RESULT AE1-3 (AE1/AE3/PCK26) negative CK7 (OV-TL12/30) negative These tests were developed and their performance characteristics determined by [facility]. They may not have been cleared or approved by the U.S. Food and Drug Administration. The FDA has determined that such clearance or approval is not necessary. The above immunohistochemical/dualISH markers are ordered and reviewed by the Pathologist. INTERPRETATION: Bone cyst forehead, excision: Negative for carcinoma. SJ:sara 01/19/20
[2020-01-14 08:46] LABS: Bedside Glucose 187 mg/dL (70-110)
[2020-01-14] MEDS: Lactated Ringers 1,000 ML 100 ML IV (08:55)
--- NOTE | 2020-01-14 10:00 | BON_PTH ---
PATIENT: ERASTO BUSBY LOC: [facility] – [place] U#:[id number] AGE/SX: 69/F ROOM: RE01/14/[address]: Dr. Nir Pedroza MD : 1950 BED: DIS: 01/14/2020 SPEC #: [id number] RECD: 01/14/20 13:02 STATUS: ZACKERY REJaylene #: [id number] KAILEE: 01/14/20 10:[address]: Nir Pedroza DEPT: SURGICAL PATHOLOGY RECD BY: Tray Andrews ENTERED: 01/14/20 13:27 SP TYPE: Bone OTHR DR: Dr. Benedicto Roland MD Tissues: Forehead, NOS Procedures: Decalcification bone/plaque Surgery Specimen Level IV HEADER OPERATION: Excision bone cyst forehead PRE-OP DIAGNOSIS: Soft tissue mass left forehead TISSUE SUBMITTED: Bone cyst left forehead MICROSCOPIC DIAGNOSIS Bone cyst left forehead, excision: Pieces of bone and soft tissue with reactive changes, negative for malignancy. See comment. ANTONELLA:sara 01/18/20 COMMENT Immunohistochemistry ([id number]) supports the above diagnosis. Please also make reference to previous specimen ([id number]) right breast, mastectomy with diagnosis of invasive lobular carcinoma. MICROSCOPIC DESCRIPTION Slides are reviewed. GROSS DESCRIPTION Received in fixative is one container labeled with the patient's name and designated bone cyst left forehead. The specimen consists of multiple fragments of ca bone that in aggregate measure 1 x 1 x 0.2 cm. The entire specimen is submitted in one cassette after decalcification. / ANTONELLA:sara 01/14/20 TC:5 CPT: 51642, 67746
[2020-01-14] MEDS: Mupirocin Ointment 22gm Tube 1 APPLIC (11:11)
--- NOTE | 2020-01-14 11:20 | OP.PCM_ITS ---
Report of Operation Date of Procedure: 01/14/20 Pre-Operative Diagnosis: 1. 1.1 cm painful soft tissue mass left forehead by eyebrow. 2. Right breast cancer. 3. Former smoker. Post-Operative Diagnosis: 1. 1.1 cm painful nodular bone lesion of skull beneath left forehead by eyebrow. 2. Right breast cancer. 3. Former smoker. Surgery/Procedure Performed:: Excision 1.1 cm painful nodular bone lesion of skull beneath left forehead by eyebrow with 1.5 cm complex closure repair. Description of Surgical Findings:: 69 year old woman presents for evaluation of an enlarging soft tissue mass left forehead near eyebrow. She denies headaches. She has some discomfort when she bumps it. She denies fever. She denies trauma. She denies recent infection. Patient was informed of the risks and complications of the procedure including alternatives to surgery. These were discussed with the patient personally. Patient voices understanding and wishes to proceed. Some of the risks and complications were included in a form from the [employer]. 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 Specimen's removed: Painful bone lesion of skull beneath left forehead by eyebrow to Pathology. Drains: None. Estimated Blood Loss (mL): 5 ml. Description of Procedure: Patient was taken to OR in supine position and was given IV sedation. The face was prepped and draped in the usual fashion. SCD's were placed for DVT prophylaxis. Perioperative antibiotics were given intravenously. The mass left forehead by eyebrow was infiltrated with xylocaine and epinephrine. After waiting 5 minutes for the anesthetic to take effect, I made a horizontal incision left forehead by eyebrow down into the subcutaneous tissue. The underlying muscle was seen. The mass was firm and located in submuscular position. I the muscle longitudinally until the periosteum was seen. There was a nodular bone lesion present that accounted for her painful symptomatology. I made an incision in the periosteum and isolated the bone lesion. Using an osteotome and a mallet I excised the bone lesion. It was sent to Pathology for analysis to rule out carcinoma. The remaining bony surface was smooth. The wound was irrigated with saline. Hemostasis was obtained with electrocautery. I closed the wound in a complex closure fashion with 5-0 Monocryl figure of eight sutures for the muscle repair. The deep dermis and subcutaneous tissue was approximated with 5-0 Monocryl interrupted sutures. The skin was approximated with 6-0 Prolene simple interrupted sutures. Steri-strips were applied followed by antibiotic ointment and a 2x2 compression gauze and an Op-site dressing. There was no clinical evidence of hematoma at the end of the procedure. Patient tolerated the procedure well and was sent to PACU in satisfactory condition. Patient will be sent home on antibiotics and pain medication. She will keep her head elevated during the initial postoperative period. Patient will followup in a week for a wound check and for discussion of the pathology report and for removal of the sutures. Grafts/Implants Used: None. - Complications None. - Admit VTE Documentation VTE Present on Admission: No VTE Mechan Device Prophylaxis: SCD's VTE Pharm Prophylaxis ordered?: No Code Visit Surgery Charges CPT - 38297-77 ICD-10 - D49.2, R22.0, R20.8, C50.811, Z87.891
--- NOTE | 2020-01-14 11:35 | DCINST_ITS ---
You will use the following diet at home:: Calorie/Carbohydrate Controlled (specify 1200, 1400, etc) Discharge Activity: May not drive while taking narcotic pain medications., May Shower - in two days., - - keep head elevated. no heavy lifting. May shower in (days): 2 May resume sexual activity in: No Restrictions Ice area for (Minutes): 5 - as needed for facial swelling. Weight Bearing Status: Weight bearing as tolerated Lifting Restrictions: 20 lbs. Keep extremity elevated above heart level: - - elevate head. Call your doctor if your incision/area has: Continuous Slow Oozing, Sudden Increased Bleeding, Increased Pain/ Swelling, Increased Redness, Foul Smelling Discharge, Swelling at the incision site Call your doctor if you observe: Fever of 101 or Higher, Coldness, Increased Pain, Shortness of breath, Chest pain, Calf discomfort, Uncontrolled pain Suture Line Care: - - after operative dressing removed in two days, apply antibiotic ointment to suture line daily. Remove Dressing in (days):: 2 Cleanse incision/area with: - - may get incision wet in the shower in two days. Allergies/Adverse Reactions: Allergies levofloxacin [From Levaquin] Allergy (Severe, Verified 01/07/20 14:12) RAISES BLOOD PRESSURE AND STOMACH SWELLS UP AND IS PAINFUL amoxicillin Allergy (Verified 01/07/20 14:12) Other atorvastatin calcium [From Lipitor] Allergy (Verified 01/07/20 14:12) Other cyclobenzaprine Allergy (Verified 01/07/20 14:12) Other estrogens, conjugated [From Premphase] Allergy (Verified 01/07/20 14:12) Other gabapentin Allergy (Verified 01/07/20 14:12) lip swelling medroxyprogesterone acetate [From Premphase] Allergy (Verified 01/07/20 14:12) Other pravastatin sodium [From Pravachol] Allergy (Verified 01/07/20 14:12) Other risedronate sodium [From Actonel] Allergy (Verified 01/07/20 14:12) Other simvastatin [From Zocor] Allergy (Verified 01/07/20 14:12) Other minocycline Adverse Reaction (Verified 12/24/19 15:20) Nausea/Vom/Diarrhea Penicillins [PCN] Adverse Reaction (Verified 12/24/19 15:20) SORE THROAT Medications to take at Discharge Aripiprazole [Abilify] 2 mg PO QHS 12/14/14 Hydrochlorothiazide [Hctz] 25 mg PO DAILY 12/14/14 Levothyroxine [Synthroid] 150 mcg PO DAILY 12/14/14 Losartan Potassium [Cozaar] 100 mg PO QHS 12/14/14 Metoprolol(XL)Succ [Toprol Xl (Beta Sinai)] 100 mg PO QHS 12/14/14 Sertraline HCl [Zoloft] 100 mg PO QHS 12/14/14 Amlodipine [Norvasc] 10 mg PO QHS 04/03/16 Ropinirole HCl [Requip] 1 mg PO QHS 04/03/16 Rosuvastatin Calcium [Crestor] 5 mg PO QHS 04/03/16 Anastrozole [Arimidex] 1 mg PO QHS 10/01/16 Calcium Carbonate [Calcium] 500 mg PO DAILY 10/01/16 Cholecalciferol (Vitamin D3) [Vitamin D3] 2,000 unit PO DAILY 10/01/16 Sitagliptin Phosphate [Januvia] 100 mg PO DAILY 01/09/18 Insulin Glargine,Hum.rec.anlog [Radha Solbijal] 10 unit SQ QHS 01/07/20 Clindamycin HCl [Cleocin] 300 mg PO TID #15 cap 01/14/20 Diazepam [Valium] 5 mg PO BID PRN #10 tablet 01/14/20 Lactobacillus Acidophilus/Fos [Acidophilus Probiotic Tablet] 1 ea PO BID #10 tab 01/14/20 Oxycodone HCl/Acetaminophen [Percocet 5/325] 1 tablet PO Q6H PRN PRN 7 Days #30 tablet 01/14/20 The following prescriptions were given: Lactobacillus Acidophilus/Fos [Acidophilus Probiotic Tablet] 1 ea PO BID #10 tab Transmission Status: Pending to [id number] Clindamycin HCl [Cleocin] 300 mg PO TID #15 cap Transmission Status: Pending to [id number] Oxycodone HCl/Acetaminophen [Percocet 5/325] 1 tablet PO Q6H PRN PRN 7 Days #30 tablet PRN Reason: Pain Score 4-5/10 Transmission Status: Sent to [id number] Diazepam [Valium] 5 mg PO BID PRN #10 tablet PRN Reason: Spasms Transmission Status: Sent to [id number] Primary Care Physician: Sterling Roland MD [Primary Care Provider] - Test Results: Test results from this visit will be discussed in further detail at your follow- up appointment, if applicable. Please Follow Up With: Nir Pedroza MD When: one week. call [phone] for appt. Proposed Discharge Date: 01/14/20
== END 2020-01-14 12:05 | disposition home or self-care (01) ==
LOC: SDC 08:11 → AC 08:12
PROVIDERS: PCP Family Medicine; Referring Provider Surgery; Visit Provider Surgery
PROC: (CPT 61500; principal; 2020-01-14 09:45)
DX: M85.48 Solitary bone cyst, other site (principal); E11.9 Type 2 diabetes mellitus without complications; E78.5 Hyperlipidemia, unspecified; E03.9 Hypothyroidism, unspecified; K58.9 Irritable bowel syndrome, unspecified; I10 Essential (primary) hypertension; M81.0 Age-related osteoporosis without current pathological fracture; K21.9 Gastro-esophageal reflux disease without esophagitis; F32.9 Major depressive disorder, single episode, unspecified; F41.9 Anxiety disorder, unspecified; Z78.0 Asymptomatic menopausal state; Z79.4 Long term (current) use of insulin; Z79.899 Other long term (current) drug therapy; Z88.0 Allergy status to penicillin; Z88.8 Allergy status to other drugs, medicaments and biological substances; Z88.1 Allergy status to other antibiotic agents; Z87.891 Personal history of nicotine dependence; Z85.3 Personal history of malignant neoplasm of breast; Z98.82 Breast implant status; Z90.11 Acquired absence of right breast and nipple
CPT/HCPCS: 61500; 82962; 88305; 88311; 88341; 88342; J7120

== ENCOUNTER 2020-05-30 06:42 | Day surgery (SDC) | payer MEDICARE, SELFPAY ==
[2020-01-14 08:47] VITALS: BMI 29.2
[2020-05-30 07:00] VITALS: BP 153/92; PULSE 73; RESP 16; TEMP 37.3; O2SAT 94; BMI 30.3
[2020-05-30] MEDS: Lactated Ringers 1,000 ML 100 ML IV (07:18)
[2020-05-30 07:25] LABS: Bedside Glucose 179 mg/dL (70-110)
--- NOTE | 2020-05-30 07:45 | HP.PCM_ITS ---
History of Present Illness Date of Admission: 05/30/20 The patient is a 70 year old F presents for screening colonoscopy. Patient states last colonoscopy was about 10 years ago and negative. Patient denies any family history of colon cancer. Patient denies any chronic abdominal pain nausea/vomiting. Patient states she did have a previous hiatal hernia repair due to a paraesophageal hernia but does still have occasional reflux which she takes medication for. Patient states she has bowel movements daily denies any blood Past Medical/Surgical History - Planned Operation Planned Operative Procedure/s: COLONOSCOPY Date of Operative Procedure: 05/30/20 Permit Signed: Yes S.O.S: No Is This Patient Having a Total Joint: No - Previous Hospitalizations/Surgeries HX Hospitalizations: Yes HX of Surgeries: tubal ligation, tonsillectomy, breast biopsy, wrist surgery, 2 neuromas taken out of foot rt foot. -THYROID BIOPSY. right mastectomy 03/2016, 06/2016 breast surgery. 10/2016 LEFT BREAST RECONSTRUCTION/RIGHT BREAST RECONSTRUCTION. 01/2017 RIGHT BREAST RECONSTRUCTION WITH IMPLANT. 01/2017 LEFT BREAST LIFT/IMPLANT. REVISION R BREAST CONSTRUCTION 03/17/19. 05/26/19 SHIVAM FUNDOPLICATION @ [facility]. EXC SOFT TISSUE L FOREHEAD 12/2019. R FOOT 01/2020 Any Problems With Anesthesia: No You/Your Family Experience Fever (Hyperthermia) With Anes: No Cholinesterase deficiency: No - Cardiovascular Hx Chest Pain within Last 2 months: No - . Hx of Irregular Heartbeat and/or Afib: No - hx of mvp, OCCAS SKIPPED BEAT Hx Heart Attack: No Hx Congestive Heart Failure: No Hx Rheumatic Fever: No Hx Hypertension: Yes - control with meds Hx Internal Defibrillator: No Hx Pacemaker: No Hx Cardiac Catheterization: Yes - 2004 AT [facility] What facility was last heart cath performed: [facility] Date of last Heart Cath: 2004 Hx Cardiac Surgery/Stents/Etc.: No Hx Stress Test: Yes - 2014 HX Edema: Yes - R FOOT Hx Pain in Legs when Walking/Leg Cramps: No - Respiratory Chronic Cough: No HX of Shortness of Breath: No Hoarseness: No Hx Chronic Obstructive Pulmonary Disease (COPD): No Hx Asthma: No Hx Emphysema: No Hx Sleep Apnea: Yes CPAP: No - PT HAS TRIED SEVERAL MACHINES-UNABLE TO USE BIPAP: No Hx Oxygen Use at Home: No Hx Respiratory Tract Infection/Cold (presently): No Result (for STOP score): Positive Hx Smoking: Yes - QUIT Smoking Status: Former smoker - Gastrointestinal Hx Gastroesophageal Reflux: Yes Controlled With Meds: No Hx Gastrointestinal Disorders: Yes - IRRITABLE BOWEL-CONSTIPATION Hx Gastrointestinal Bleed: No Hx Ulcer: Yes - YEARS AGO Hx Hiatal Hernia: Yes - REPAIR 05/2019 Difficulty Chewing/Swallowing: Yes Recent Onset of Swallowing Problems: No Special diet followed at home: Yes - DIABETIC Hx Unplanned Weight Loss of 20#: No HX Unplanned Weight Gain of 20#: No - Neurological Hx Seizures: No HX Syncope/Blackout Spells/Unconsciousness: No Hx CVA/Stroke: No Hx Transient Ischemic Attacks (TIA): No Hx Multiple Sclerosis: No Hx Parkinson's Disease: No Hx Head/Neck Injury: No Hx Headaches: No Hx Back Injury/Pain: Yes - BULGING DISCS, SCOLIOSIS Recent Onset of Speech Difficulty: No Restless Legs: Yes - ON MEDICAITON Does patient have nerve stimulator: No - Blood Disorder Hx Leukemia: No Bleeding Tendencies: No 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 - Psycho/Social Hx Substance Use: No Hx Alcohol Use: No Hx Anxiety: Yes Hx Depression: Yes Mental Illness: No Hx Dementia: No - Miscellaneous Hx Cancer: Yes - breast Recent Exposure to Contagious Disease: No Active MRSA: No Hx of C-Diff: No Any Loose Teeth: No - partial upper Allergies levofloxacin [From Levaquin] Allergy (Severe, Verified 05/30/20 06:58) RAISES BLOOD PRESSURE AND STOMACH SWELLS UP AND IS PAINFUL amoxicillin Allergy (Verified 05/30/20 06:58) Other atorvastatin calcium [From Lipitor] Allergy (Verified 05/30/20 06:58) Other cyclobenzaprine Allergy (Verified 05/30/20 06:58) Other estrogens, conjugated [From Premphase] Allergy (Verified 05/30/20 06:58) Other gabapentin Allergy (Verified 05/30/20 06:58) lip swelling medroxyprogesterone acetate [From Premphase] Allergy (Verified 05/30/20 06:58) Other pravastatin sodium [From Pravachol] Allergy (Verified 05/30/20 06:58) Other risedronate sodium [From Actonel] Allergy (Verified 05/30/20 06:58) Other simvastatin [From Zocor] Allergy (Verified 05/30/20 06:58) Other minocycline Adverse Reaction (Verified 05/30/20 06:58) Nausea/Vom/Diarrhea Penicillins [PCN] Adverse Reaction (Verified 05/30/20 06:58) SORE THROAT Maternal Family History: Family History (Last Reviewed 01/23/20 @ 15:[address] Nir Pedroza MD) Father Pancreatic cancer Hypertension Mother Diabetes Hypertension Alzheimer disease Brother CAD (coronary artery disease) Brother CAD (coronary artery disease) Sister Breast cancer Hypertension Paternal Family History: Family History (Last Reviewed 01/23/20 @ 15:[address] Nir Pedroza MD) Father Pancreatic cancer Hypertension Mother Diabetes Hypertension Alzheimer disease Brother CAD (coronary artery disease) Brother CAD (coronary artery disease) Sister Breast cancer Hypertension Sibling Family History: Family History (Last Reviewed 01/23/20 @ 15:[address] Nir Pedroza MD) Father Pancreatic cancer Hypertension Mother Diabetes Hypertension Alzheimer disease Brother CAD (coronary artery disease) Brother CAD (coronary artery disease) Sister Breast cancer Cancer - Discharge Is Pt Admitted From a Skilled Nursing, or a Care Home: No Who Could Help: After D/C, Where Do you Plan to Go: Return Home - From the PAT History Number of Risk Factors: 8 - Physical Exam Vitals/I&O's: Vital Signs Temp Pulse Resp BP Pulse Ox 99.2 F H 73 16 153/92 H 94 05/30/20 07:00 05/30/20 07:00 05/30/20 07:00 05/30/20 07:00 05/30/20 07:00 Oxygen Delivery Method Room Air Weight: 193 lb 9.054 oz Body Mass Index (BMI) 30.3 Finger Stick Blood Glucose 298 General: Alert, Oriented x3, Cooperative, No apparent distress HEENT: Atraumatic Lungs: Normal air movement Cardiovascular: Regular rate Abdomen: Soft, Non Tender, Distended - Mild Extremities: No clubbing, No cyanosis, No edema Neurological: Cranial nerves II-XII grossly intact Psych/Mental Status: Normal Affect Laboratory Results 05/30/20 07:09: POC Glucose 179 H Current Medications Lactated Ringer's () 1,000 mls @ 100 mls/hr IV .Q10H DEMARCUS Last Admin: 05/30/20 07:18 Dose: 100 mls/hr Documented by: Assessment/Plan 70-year-old female screening for colon cancer Procedure Criteria Procedure Type: Elective COVID Risk Discussion: The surgeon/proceduralist and patient have discussed in detail the risk of exposure to and/or potential harm posed by the COVID-19 virus with having a surgery/procedure at this time versus the risk of delaying the surgery/procedure. It is not possible to know either the risk of delaying the surgery or procedure or chance of getting an infection with perfect accuracy, but a joint decision was made between the patient and the surgeon/proceduralist to proceed at this time with the scheduled surgery/procedure as indicated on the consent form. Surgery Risks - Colonoscopy I discussed with the patient the risks of the procedure: Yes Risks Include but are not Limited To: Risks include but are not limited to: Bleeding, perforation requiring further surgery, inability to complete colonoscopy requiring barium enema.
[2020-05-30 08:25] VITALS: BP 130/86; BP 153/92; PULSE 69; RESP 16; TEMP 36.2; O2SAT 100
--- NOTE | 2020-05-30 08:28 | OP.COLON_ITS ---
Patient Name: Jacquelin Lima Procedure Date: 05/30/2020 7:38 AM Date of : 1950 Age: 70 Procedure: Colonoscopy Indications: Screening for colorectal malignant neoplasm Providers: Tena Sandoval MD Referring MD: Sterling Roland Medicines: Monitored Anesthesia Care Patient Profile: This is a 70 year old female. Last Colonoscopy: 10 years ago. Complications: No immediate complications. Procedure: Pre-Anesthesia Assessment: - Prior to the procedure, a History and Physical was performed, and patient medications and allergies were reviewed. The patient's tolerance of previous anesthesia was also reviewed. The risks and benefits of the procedure and the sedation options and risks were discussed with the patient. All questions were answered, and informed consent was obtained. Prior Anticoagulants: The patient has taken no previous anticoagulant or antiplatelet agents. ASA Grade Assessment: Per anesthesia. After reviewing the risks and benefits, the patient was deemed in satisfactory condition to undergo the procedure. After I obtained informed consent, the scope was passed under direct vision. Throughout the procedure, the patient's blood pressure, pulse, and oxygen saturations were monitored continuously. The Colonoscope was introduced through the anus and advanced to the cecum, identified by the appendiceal orifice, ileocecal valve and palpation. The colonoscopy was somewhat difficult due to a tortuous colon. Successful completion of the procedure was aided by applying abdominal pressure. The patient tolerated the procedure well. The quality of the bowel preparation was good. Scope In: 8:00:59 AM Scope Withdrawal Time 0 hours 9 minutes 28 seconds Scope Out: 8:20:58 AM Total Procedure Duration Time 0 hours 19 minutes 59 seconds Findings: The perianal and digital rectal examinations were normal. The entire examined colon appeared normal on direct and retroflexion views. Impression: - The entire examined colon is normal on direct and retroflexion views. - No specimens collected. Recommendation: - Discharge patient to home. - Resume previous diet. - Continue present medications. - Repeat colonoscopy in 10 years depending on overall health at that time. Procedure Code(s): --- Professional --- G0121, PT, Colorectal cancer screening; colonoscopy on individual not meeting criteria for high risk Diagnosis Code(s): --- Professional --- Z12.11, Encounter for screening for malignant neoplasm of colon CPT copyright 2017 [employer]. All rights reserved. The codes documented in this report are preliminary and upon addiction counselor review may be revised to meet current compliance requirements. MD Tena Kulkarni MD 05/30/2020 8:28:03 AM This report has been signed electronically. Number of Addenda: 0 Note Initiated On: 05/30/2020 7:38 AM
--- NOTE | 2020-05-30 08:28 | OP.CCLET_ITS ---
05/30/2020 Sterling Roland [address] [place] [address] Re : Colonoscopy procedure for Jacquelin Lima Dear Dr. Roland This procedure was performed on Saturday, May 30, 2020. My impressions and recommendations are as follows: Impressions : - The entire examined colon is normal on direct and retroflexion views. - No specimens collected. Recommendations : - Discharge patient to home. - Resume previous diet. - Continue present medications. - Repeat colonoscopy in 10 years depending on overall health at that time. My findings are described in the full procedure note, which is enclosed. If I can be of further assistance, please feel free to contact me at Doctor phone number(s): , Work: . Sincerely, MD Tena Kulkarni MD 05/30/2020 8:28:03 AM This report has been signed electronically.
[2020-05-30 08:30] VITALS: BP 142/76; BP 153/92; PULSE 69; RESP 16; O2SAT 98
[2020-05-30 08:35] VITALS: BP 136/71; BP 153/92; PULSE 67; RESP 16; O2SAT 97
[2020-05-30 08:40] VITALS: BP 135/71; BP 153/92; PULSE 73; RESP 16; TEMP 36.1; O2SAT 99
[2020-05-30 09:03] VITALS: BP 153/92
== END 2020-05-30 09:04 | disposition home or self-care (01) ==
LOC: EN 06:44 → AC 06:45
PROVIDERS: Anesthesiology; PCP Family Medicine; Referring Provider Family Medicine; Visit Provider Surgery
PROC: 0DJD8ZZ Inspection of Lower Intestinal Tract, Via Natural or Artificial Opening Endoscopic (ICD-10-PCS; CPT 45378; principal; 2020-05-30 07:55)
DX: Z12.11 Encounter for screening for malignant neoplasm of colon (principal); Z11.59 Encounter for screening for other viral diseases; K58.9 Irritable bowel syndrome, unspecified; E11.9 Type 2 diabetes mellitus without complications; I10 Essential (primary) hypertension; E78.00 Pure hypercholesterolemia, unspecified; G25.81 Restless legs syndrome; G47.30 Sleep apnea, unspecified; R60.9 Edema, unspecified; K21.9 Gastro-esophageal reflux disease without esophagitis; F32.9 Major depressive disorder, single episode, unspecified; F41.9 Anxiety disorder, unspecified; Z79.4 Long term (current) use of insulin; Z79.899 Other long term (current) drug therapy; Z78.0 Asymptomatic menopausal state; Z85.3 Personal history of malignant neoplasm of breast; Z87.891 Personal history of nicotine dependence
CPT/HCPCS: G0121; 82962; 87635; G2023; J7120; U0003

== ENCOUNTER → 2020-09-07 12:05 | Outpatient (CLI) | payer MEDICARE, SELFPAY ==
[2020-08-31 16:54] VITALS: BMI 31.6
[2020-09-07 16:11] LABS: Hemoglobin A1c 7.6 % (3.8-5.6)
[2020-09-07 16:21] LABS: AST(SGOT) 21 U/L (15-37); Alanine Aminotransfer ALT/SGPT 41 U/L (13-56); Albumin, Serum 3.7 g/dL (3.2-5.0); Alkaline Phosphatase 128 U/L (45-117); Anion Gap 7 (5-15); BUN 16 mg/dL (7-18); BUN/Creat Ratio 16.6 RATIO (10-20); Calcium,Total 9.4 mg/dL (8.5-10.1); Chloride 104 mmol/L (98-107); Cholesterol 188 mg/dL (200); Creatinine, Serum 0.96 mg/dL (0.55-1.02); EST Glomerular Filtration Rate 61 mL/min (>60); Est Glom Filt Rate - Afr Amer 74 mL/min (>60); Globulin 3.7 g/dL (2.2-4.2); Glucose 143 mg/dL (74-106); High Density Lipoprotein 62 mg/dL; Potassium 3.7 mmol/L (3.5-5.1); Protein, Total 7.4 g/dL (6.4-8.2); Sodium Level 140 mmol/L (136-145); Triglycerides 203 mg/dL; Very Low Density Lipoprotein 41 mg/dL (5-40)
== END ==
PROVIDERS: PCP Family Medicine; Referring Provider Nurse Practitioner Family; Visit Provider Family Medicine
DX: E11.9 Type 2 diabetes mellitus without complications (principal); D49.2 Neoplasm of unspecified behavior of bone, soft tissue, and skin
CPT/HCPCS: 36415; 80053; 80061; 83036; 84443

== ENCOUNTER → 2020-09-12 12:31 | Outpatient (CLI) | payer MEDICARE, SELFPAY ==
[2020-08-31 16:54] VITALS: BMI 31.6
--- NOTE | 2020-09-12 12:33 | BI_ITS ---
MAMMOGRAPHY - UNILATERAL SCREENING: LEFT BREAST REASON FOR EXAM: Female, 70 years old. Routine annual screening examination (unilateral). PERTINENT HISTORY: Personal history of breast cancer. Prior right mastectomy. Sister with breast cancer. TECHNIQUE: Digital unilateral breast jose alfredo (3D mammographic acquisition) in the CC and MLO projections. 2-D mediolateral oblique (MLO) and craniocaudad (CC) views of both breasts were obtained. CAD: Full Field Digital Mammography with Computer Added Detection was performed. COMPARISON: Comparison is made with prior study dated 09/11/2019 and 07/02/2018. FINDINGS: Breast Composition: There are scattered areas of fibroglandular density. There are no dominant masses or suspicious calcifications. Stable appearance of the left breast implant. No other significant abnormalities are identified. There has been no significant change since the prior study. BI/SCREEN MAMM (CAD) W/JOSE ALFREDO UNI L IMPRESSION: Stable unilateral screening mammogram. Yearly follow-up mammogram recommended. (A) ASSESSMENT CATEGORY: BIRADS Category 2: Benign. A letter regarding these results will be sent to the patient by the facility within 30 days. Approximately 10% of breast cancers are not detected by mammography. A normal mammogram should not delay biopsy of a clinically suspicious abnormality. [id number] Electronically Signed: Carlos Romero, at 14:15 EDT , Service support ,
== END ==
PROVIDERS: PCP Family Medicine; Referring Provider Nurse Practitioner; Visit Provider Nurse Practitioner
DX: Z12.31 Encounter for screening mammogram for malignant neoplasm of breast (principal); C50.811 Malignant neoplasm of overlapping sites of right female breast; Z17.0 Estrogen receptor positive status [ER+]
CPT/HCPCS: 77063; 77067

== ENCOUNTER 2020-09-19 05:41 | Day surgery (SDC) | payer MEDICARE, SELFPAY ==
[2020-08-31 16:54] VITALS: BMI 31.6
--- NOTE | 2020-09-18 22:31 | HP.PCM_ITS ---
History and Physical Date of Admission: 09/19/20 HISTORY OF PRESENT ILLNESS 70 year old woman presents for evaluation for TBSE. She has concerns about a lesion on her left preauricular/confucianism area that has increased in size over the last several months and has become more raised in configuration. She has also noticed increasing soft tissue masses on her left proximal ulnar forearm and left medial distal arm. She complains of pain when these masses are bumped. She denies any numbness in the fingers of her left hand. She denies any problems with range of motion of her left upper extremity. She denies fever. She denies trauma. She denies drainage. Just recently she has noted a small abrasion right superior breast. She has been applying antibiotic ointment to the abrasion daily. She presents at this time for further evaluation and treatment. 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+] GERD (gastroesophageal reflux disease) Hyperlipidemia Hypothyroidism IBS (irritable bowel syndrome) LEFT VENTRICULAR EJECTION FRACTION: 52% Osteoporosis PAINFUL CAPSULAR CONTRACTURE RIGHT BREAST RECONSTRUCTION Hypertension PAST SURGICAL HISTORY 2ND STAGE RIGHT BREAST RECONSTRUCTION FIRST STAGE IMMEDIATE RIGHT BREAST RECONSTRUCTION H/O dilation and curettage History of excision of mass LEFT STEREOTACTIC BREAST BIOPSY REVISION RIGHT BREAST RECONSTRUCTION RIGHT MASTECTOMY AND RIGHT SENTINEL NODE BIOPSY SECOND STAGE DELAYED LEFT BREAST RECONSTRUCTION ALLERGIES levofloxacin [From Levaquin] amoxicillin atorvastatin calcium [From Lipitor] cyclobenzaprine estrogens, conjugated [From Premphase] gabapentin medroxyprogesterone acetate [From Premphase] pravastatin sodium [From Pravachol] risedronate sodium [From Actonel] simvastatin [From Zocor] minocycline Penicillins [PCN] MEDICATIONS Aripiprazole [Abilify] Hydrochlorothiazide [Hctz] Levothyroxine [Synthroid] Losartan Potassium [Cozaar] Metoprolol(XL)Succ [Toprol Xl (Beta Sinai)] Sertraline HCl [Zoloft] Amlodipine [Norvasc] Ropinirole HCl [Requip] Rosuvastatin Calcium [Crestor] Anastrozole [Arimidex] Calcium Carbonate [Calcium] Cholecalciferol (Vitamin D3) [Vitamin D3] Sitagliptin Phosphate [Januvia] Insulin Glargine,Hum.rec.anlog [Toujeo Solostar] Diazepam [Valium] FAMILY HISTORY Father - Pancreatic cancer, Hypertension Mother - Diabetes, Hypertension, Alzheimer disease Brother - CAD (coronary artery disease) Brother - CAD (coronary artery disease) Sister - Breast cancer SOCIAL HISTORY Smoking Status: Former smoker alcohol intake: current alcohol intake frequency: holidays/special occasions only Alcohol type: wine substance use type: does not use REVIEW OF SYSTEMS General - Denies fever, fatigue and weight loss. Eyes - Denies eye pain. ENT - Denies nasal congestion and sore throat. CV - Denies chest pain or discomfort, fatigue, lightheadedness and shortness of breath with exertion. Resp - Denies cough and shortness of breath. patient is a former smoker. GI - Denies nausea, vomiting, diarrhea and constipation. - Denies blood in urine and urinary frequency. MS - Denies joint pain, stiffness, muscle weakness. back pain and arthritis. Derm - Denies skin cancer. Has painful enlarging soft tissue masses left proximal ulnar forearm and left medial distal arm. Has enlarging lesion left preauricular/confucianism area. On the right superior breast is a small abrasion. Neuro - Denies poor balance and headaches. Psych - Complains of anxiety and depression. Endo - Denies excessive urination and excessive thirst. has history of right breast multifocal cancer. Heme - Denies bleeding and abnormal bruising. PHYSICAL EXAMINATION General - well developed, well nourished, in no acute distress. Bra size was 38 D prior to her breast cancer. Head - normocephalic and atraumatic. On the left preauricular/confucianism area is a lesion that measures 1 cm. Has irregular borders. It is raised in configuration. No ulceration. Lesion is nontender. No other suspicious lesions noted. Eyes - PERRL/EOM intact, conjunctiva and sclera clear. Throat is clear. Neck - no masses, thyromegaly, or abnormal cervical nodes. No suspicious lesions noted. Breasts - Breast incisions are healed. Breast reconstruction is stable at this time. There is symmetry in a bra. Slight ptosis noted without a bra more so on the right. On the right superior breast is a small abrasion that measures 4 mm. It is mildly tender when bumped. No axillary adenopathy. No breast masses palpable. Lungs - clear bilaterally to auscultation. Heart - Regular rate and rhythm. Abdomen - normal bowel sounds; no hepatosplenomegaly no ventral,umbilical hernias or masses noted. Some redundant skin and subcutaneous tissue noted from the umbilicus to the pubic area. Horizontal scar in the pubic area. Slight skin overhang in the pubic area. Pretty good skin elasticity. Pulses - pulses normal in all 4 extremities. Extremities - no clubbing, cyanosis, edema, or deformity noted with normal full range of motion of all joints. Patient is right hand dominant. On the left proximal ulnar forearm is a soft tissue mass that measures 2.5 cm. It is mobile. No adherence to the skin. Slight tenderness to palpation. No evidence of infection. On the left medial distal arm is a soft tissue mass that measures 1.5 cm. It is mobile. No adherence to the skin. Slight tenderness to palpation. No evidence of infection. No other suspicious lesions noted. Neurologic - cranial nerves II-XII grossly intact. Skin - no rashes. Cervical Nodes - no significant adenopathy. Axillary Nodes - no significant adenopathy. Psych - alert and cooperative; normal mood and affect; normal attention span and concentration. ASSESSMENT 1. 2.5 cm painful soft tissue mass left proximal ulnar forearm. 2. 1.5 cm painful soft tissue mass left medial distal arm. 3. 1 cm lesion left preauricular/confucianism area. 4. 4 mm abrasion right superior breast. 5. History of bilateral breast implants reconstruction. 6. Personal history of breast cancer. 7. Diabetes mellitus. 8. Former smoker. PLAN Recommend excision lesion left preauricular/confucianism area and send it to Pathology for analysis to rule out carcinoma. If carcinoma is present, then further excision will be done with skin flap reconstruction. For the abrasion right superior breast, continue antibiotic ointment daily. If still present on the day of surgery, may excise it and send it to Pathology for analysis to rule out carcinoma. If carcinoma is present, then further excision will be done with skin flap reconstruction. Patient has two painful soft tissue masses left proximal ulnar forearm and left medial distal arm. I recommend that they be excised and sent to Pathology for analysis to rule out carcinoma. Surgery will be done on an outpatient basis under local anesthesia and IV sedation. Patient was informed of the risks and complications of the procedure including alternatives to surgery. These were discussed with the patient personally. Patient voices understanding and wishes to proceed. Some of the risks and complications were included in a form from the [place] [employer]. This is an elective procedure and the patient has diabetes mellitus. The HgbA1c needs to be less than 8 before proceeding with surgery. Her HgbA1c on 09/12/20 was 7.6. We discussed the current risks associated with COVID-19. While it is understood that there is a community spread of COVID-19, the risk of kushal COVID-19 while at [facility] ([facility]) is very low; however, the risk cannot be completely mitigated because of the community spread of the disease. We discussed in detail the risk of exposure to and/or potential harm posed by the COVID-19 virus with having a surgery/procedure at this time versus the risk of delaying the surgery/procedure. It is not possible to know either the risk of delaying the surgery or procedure or chance of getting an infection with perfect accuracy, but a joint decision was made to proceed at this time with the scheduled surgery/procedure as indicated on the consent form. Patient was notified that we will need to comply with any screening or testing [facility] wishes to perform or that surgery may be delayed for any positive results. Discussed with the patient that I was tested for COVID-19 on 05/19/20 which was negative and on 06/02/20 which was negative and on 06/16/20 which was negative and on 06/30/20 which was negative and on 07/14/20 which was negative and on 08/04/20 which was negative and on 08/25/20 which was negative. My testing regimen at this time is to be COVID-19 tested every 2 weeks or so. Procedure Criteria Procedure Type: Elective COVID Risk Discussion: The surgeon/proceduralist and patient have discussed in detail the risk of expos ure to and/or potential harm posed by the COVID-19 virus with having a surgery/procedure at this time versus the risk of delaying the surgery/procedure. It is not possible to know either the risk of delaying the surgery or procedure or chance of getting an infection with perfect accuracy, but a joint decision was made between the patient and the surgeon/proceduralist to proceed at this time with the scheduled surgery/procedure as indicated on the consent form.
--- NOTE | 2020-09-19 | MASS_PTH ---
PATIENT: ERASTO BUSBY LOC: [facility] [place] U#:[id number] AGE/SX: 70/F ROOM: RE09/19/[address]: Dr. Nir Pedroza MD : 1950 BED: DIS: 09/19/2020 SPEC #: [id number] RECD: 09/19/20 08:03 STATUS: ZACKERY CLEMENTE #: [id number] KAILEE: 09/19/20 00:[address]: Nir Pedroza DEPT: SURGICAL PATHOLOGY RECD BY: Felecia Manuel ENTERED: 09/19/20 09:18 SP TYPE: Mass OTHR DR: Dr. Benedicto Roland MD Tissues: A - Preauricular region B - Soft tissues, NOS C - Soft tissues, NOS Procedures: Frozen Section (charge) Surgery Specimen Level III Surgery Specimen Level IV HEADER OPERATION: Excision painful soft tissue masses, forearm, arm excision PRE-OP DIAGNOSIS: 2.5 cm painful soft tissue mass left proximal ulnar forearm; 1.5 cm painful soft tissue mass left medial distal arm; 1 cm lesion left preauricular/buddhist area TISSUE SUBMITTED: A - Left preauricular area skin mass, FS, B - Left proximal ulnar skin mass, C - Left medial distal arm skin mass FROZEN SECTION DIAGNOSIS A. Left preauricular mass, biopsy: Intradermal nevus. SJ:sara 09/19/20 MICROSCOPIC DIAGNOSIS A. Left preauricular mass, biopsy: Intradermal nevus extending up to deep resection margin of the specimen. See comment. B. Left proximal ulnar skin mass, biopsy: Fragments of mature adipose tissue consistent with lipoma with focal area of angiolipoma. C. Left distal arm skin mass biopsy: Fragments of mature adipose tissue consistent with lipoma with focal area of angiolipoma. SJ:sara 09/20/20 COMMENT A. Immunohistochemistry ([id number]) supports the above diagnosis. Please make reference to previous specimen [id number], right breast, mastectomy with diagnosis of invasive lobular carcinoma. MICROSCOPIC DESCRIPTION Slides are reviewed. GROSS DESCRIPTION A - Received fresh for frozen section diagnosis labeled with the patient's name is a specimen designated left preauricular area skin mass. The specimen consists of a piece of skin ellipse measuring 1.25 x 1 x 0.2 cm. The specimen is inked, serially sectioned and submitted entirely for frozen section diagnosis in one cassette. / :sara 09/19/20 B - Received in fixative is one container labeled with the patient's name and designated left proximal ulnar skin mass. The specimen consists of multiple pieces of ca-yellow adipose tissue that in aggregate measure 4.5 x 4.5 x 1.5 cm. Sections reveal yellow adipose cut surfaces without area of hemorrhage, necrosis or cystic degeneration. Boat Loader sections are submitted in two cassettes. / :sara 09/19/20 C - Received in fixative is one container labeled with the patient's name and designated left distal arm skin mass. The specimen consists of multiple pieces of ca-yellow adipose tissue that in aggregate measure 2.5 x 3 x 0.5 cm. Sections reveal yellow adipose cut surfaces without area of hemorrhage, necrosis or cystic degeneration. The entire specimen is submitted in two cassettes. / :sara 09/19/20 TC:5 CPT: 95472, 99843 x2, 04162
--- NOTE | 2020-09-19 | IMM_PTH ---
PATIENT: ERASTO BUSBY LOC: [facility] [place] U#:[id number] AGE/SX: 70/F ROOM: RE09/19/[address]: Dr. Nir Pedroza MD : 1950 BED: DIS: 09/19/2020 SPEC #: [id number] RECD: 09/20/20 14:09 STATUS: ZACKERY REQ #: [id number] KAILEE: 09/19/20 00:[address]: Nir Pedroza DEPT: IMMUNOHISTOCHEMISTRY RECD BY: Felecia Manuel ENTERED: 09/20/20 14:10 SP TYPE: IMMUNO OTHR DR: Dr. Benedicto Roland MD Tissues: A - Preauricular region Procedures: CK7 (add) CK8 (add) MELAN-A (add) S100 (initial) PHYSICIAN & INSTITUTION [place] [address] SPECIMEN INFORMATION: Tissue Source: A - Left preauricular mass biopsy Clinical Info: Left preauricular mass Specimen Number: [id number] CPT code: 72766, 69324 x3 METHODOLOGY: Deparaffinized sections of prefer/formalin-fixed tissue or PAP/DQ stained slides are incubated with monoclonal/polyclonal antibodies/oligonucleotide probes. Localization is made via biotin free immunoperoxidase method. Appropriate controls are performed and reacted as expected. Results on target cell population are indicated in the following table: RESULTS: ANTIBODY / CLONE RESULT Block A S-100 (4C4.9) positive Melan A (A103) positive CK8 ([id number]) negative CK7 (OV-TL12/30) negative These tests were developed and their performance characteristics determined by [facility]. They may not have been cleared or approved by the U.S. Food and Drug Administration. The FDA has determined that such clearance or approval is not necessary. The above immunohistochemical/dualISH markers are ordered and reviewed by the Pathologist. INTERPRETATION: A. Left preauricular mass, biopsy: Intradermal nevus. SJ:sara 09/21/20
[2020-09-19 06:29] VITALS: BP 177/88; PULSE 60; RESP 18; TEMP 36.6; O2SAT 97; BMI 32.0
[2020-09-19 06:40] LABS: Bedside Glucose 190 mg/dL (70-110)
[2020-09-19] MEDS: Lactated Ringers 1,000 ML 100 ML IV (07:00)
[2020-09-19] MEDS: Mupirocin Ointment 22gm Tube 1 APPLIC (08:17)
[2020-09-19 08:38] VITALS: BP 134/68; BP 177/88; PULSE 60; RESP 16; TEMP 36.1; O2SAT 100
--- NOTE | 2020-09-19 08:39 | OP.PCM_ITS ---
Report of Operation Date of Procedure: 09/19/20 Pre-Operative Diagnosis: 1. 2.5 cm painful soft tissue mass left proximal ulnar forearm. 2. 1.5 cm painful soft tissue mass left medial distal arm. 3. 1 cm lesion left preauricular/latter day area. 4. Diabetes mellitus. 5. Former smoker. Post-Operative Diagnosis: 1. 2.5 cm painful soft tissue mass left proximal ulnar forearm. 2. 1.5 cm painful soft tissue mass left medial distal arm. 3. 1 cm intradermal nevus left preauricular/latter day area. 4. Diabetes mellitus. 5. Former smoker. Surgery/Procedure Performed:: 1. Excision 2.5 cm painful soft tissue mass left proximal ulnar forearm with 2 cm layered closure. 2. Excision 1.5 cm painful soft tissue mass left medial distal arm with 1.5 cm layered closure. 3. Intradermal excision 1 cm intradermal nevus left preauricular/latter day area. Description of Surgical Findings:: 70 year old woman presents for evaluation for TBSE. She has concerns about a lesion on her left preauricular/latter day area that has increased in size over the last several months and has become more raised in configuration. She has also noticed increasing soft tissue masses on her left proximal ulnar forearm and left medial distal arm. She complains of pain when these masses are bumped. She denies any numbness in the fingers of her left hand. She denies any problems with range of motion of her left upper extremity. She denies fever. She denies trauma. She denies drainage. Just recently she has noted a small abrasion right superior breast. She has been applying antibiotic ointment to the abrasion daily. Patient was informed of the risks and complications of the procedure including alternatives to surgery. These were discussed with the patient personally. Patient voices understanding and wishes to proceed. Some of the risks and complications were included in a form from the [employer] [employer]. Frozen section left preauricular/latter day area - intradermal nevus and no carcinoma seen. quality review specialist: None Type of Anesthesia:: Local MAC - xylocaine with epinephrine and IV sedation. Specimen's removed: 1. Painful soft tissue mass left proximal ulnar forearm to Pathology. 2. Painful soft tissue mass left medial distal arm to Pathology. 3. 1 cm lesion left preauricular/latter day area to Pathology as a frozen section. Drains: None. Estimated Blood Loss (mL): 10 ml. Description of Procedure: Patient was taken to OR in supine position and was given IV sedation. The left face and left upper extremity were prepped and draped in the usual fashion. SCD's were placed for DVT prophylaxis. Perioperative antibiotics were given intravenously. For the procedure, I wore an N95 mask and wore proper eyewear protection. The lesion left preauricular/latter day area and soft tissue masses left upper extremity were infiltrated with xylocaine and epinephrine. After waiting 5 minutes for the anesthetic to take effect, the lesion left preauricular/latter day area was excised in an intradermal fashion and sent to Pathology as a frozen section for analysis to rule out carcinoma. Frozen section showed an intradermal nevus and no carcinoma seen. Hemostasis was obtained with gentle pressure and silver nitrate chemical cauterization. Antibiotic ointment was applied to the wound. Longitudinal incisions were then made over the soft tissue masses left proximal ulnar forearm and left medial distal arm. Dissection was carried into the subcutaneous tissue. Both masses were multiloculated and were adherent to the underlying muscle. The masses were easily dissected off the underlying muscle. Hemostasis was obtained with electrocautery. Both soft tissue masses (left pr oximal ulnar forearm and left medial distal arm) were sent to Pathology for analysis to rule out carcinoma. The wounds were closed in a layered fashion with 4-0 Monocryl interrupted sutures for the deep dermis and subcutaneous tissue. The skin was approximated with 4-0 Prolene simple interrupted sutures. Antibiotic ointment was applied to the suture line followed by 4x4 gauze and a compression azalea wrap. The length of the layered closure for the soft tissue mass left proximal ulnar forearm was 2 cm and for the soft tissue mass left medial distal arm was 1.5 cm. Patient tolerated the procedure well and was sent to PACU in satisfactory condition. Patient will be sent home on antibiotics and pain medication. She will keep her left arm elevated during the initial postoperative period. Bucky cheng will followup in a week for a wound check and for discussion of the pathology report and for removal of the sutures. Grafts/Implants Used: None. - Complications None. - Admit VTE Documentation VTE Present on Admission: No VTE Mechan Device Prophylaxis: SCD's VTE Pharm Prophylaxis ordered?: No Surgery Charges CPT - 21808 ICD-10 - R22.30, R20.8, E11.9, Z87.891 95232 R22.30, R20.8, E11.9, Z87.891 23530 D49.2, D23.30, E11.9, Z87.891
[2020-09-19 08:43] VITALS: BP 129/59; BP 177/88; PULSE 61; RESP 16; O2SAT 94
[2020-09-19 08:48] VITALS: BP 131/63; BP 177/88; PULSE 66; RESP 16; O2SAT 96
[2020-09-19 08:53] VITALS: BP 125/66; BP 177/88; PULSE 65; RESP 16; TEMP 36.3; O2SAT 98
--- NOTE | 2020-09-19 08:57 | DCINST_ITS ---
You will use the following diet at home:: Calorie/Carbohydrate Controlled (specify 1200, 1400, etc) Discharge Activity: May not drive while taking narcotic pain medications., May Shower - in two days., - - elevate left arm. no heavy lifting left arm. May shower in (days): 2 - remove the azalea wrap for the shower, then rewrap the left arm after the shower. May resume sexual activity in: No Restrictions Weight Bearing Status: Weight bearing as tolerated Lifting Restrictions: 20 lbs. Keep extremity elevated above heart level: Left Arm Call your doctor if your incision/area has: Continuous Slow Oozing, Sudden Increased Bleeding, Increased Pain/ Swelling, Increased Redness, Foul Smelling Discharge, Swelling at the incision site Call your doctor if you observe: Fever of 101 or Higher, Coldness, Increased Pain, Shortness of breath, Chest pain, Calf discomfort, Uncontrolled pain Suture Line Care: - - after the operative dressing removed in two days, apply antibiotic ointment to the suture lines and left preauricular wound daily. Change Dressing in (Days):: 2 - may remove the azalea wrap when showering, then rewrap the left arm after showering. Cleanse incision/area with: - - may get incisions wet in the shower in two days. Allergies/Adverse Reactions: Allergies levofloxacin [From Levaquin] Allergy (Severe, Verified 09/19/20 06:59) RAISES BLOOD PRESSURE AND STOMACH SWELLS UP AND IS PAINFUL amoxicillin Allergy (Verified 09/19/20 06:59) Other atorvastatin calcium [From Lipitor] Allergy (Verified 09/19/20 06:59) Other cyclobenzaprine Allergy (Verified 09/19/20 06:59) Other estrogens, conjugated [From Premphase] Allergy (Verified 09/19/20 06:59) Other gabapentin Allergy (Verified 09/19/20 06:59) lip swelling medroxyprogesterone acetate [From Premphase] Allergy (Verified 09/19/20 06:59) Other pravastatin sodium [From Pravachol] Allergy (Verified 09/19/20 06:59) Other risedronate sodium [From Actonel] Allergy (Verified 09/19/20 06:59) Other simvastatin [From Zocor] Allergy (Verified 09/19/20 06:59) Other minocycline Adverse Reaction (Verified 09/19/20 06:59) Nausea/Vom/Diarrhea Penicillins [PCN] Adverse Reaction (Verified 09/19/20 06:59) SORE THROAT Medications to take at Discharge Aripiprazole [Abilify] 2 mg PO QHS 12/14/14 Hydrochlorothiazide [Hctz] 25 mg PO DAILY 12/14/14 Levothyroxine [Synthroid] 150 mcg PO DAILY 12/14/14 Losartan Potassium [Cozaar] 100 mg PO QHS 12/14/14 Metoprolol(XL)Succ [Toprol Xl (Beta Sinai)] 100 mg PO QHS 12/14/14 Sertraline HCl [Zoloft] 100 mg PO QHS 12/14/14 Amlodipine [Norvasc] 10 mg PO QHS 04/03/16 Ropinirole HCl [Requip] 1 mg PO QHS 04/03/16 Rosuvastatin Calcium [Crestor] 5 mg PO QHS 04/03/16 Anastrozole [Arimidex] 1 mg PO QHS 10/01/16 Calcium Carbonate [Calcium] 500 mg PO DAILY 10/01/16 Cholecalciferol (Vitamin D3) [Vitamin D3] 2,000 unit PO DAILY 10/01/16 Sitagliptin Phosphate [Januvia] 100 mg PO DAILY 01/09/18 Insulin Glargine,Hum.rec.anlog [T[place]eter Solostnatalia] 36 unit SQ QHS 01/07/20 Diazepam [Valium] 5 mg PO BID PRN #10 tab 01/14/20 Clindamycin HCl 300 mg PO TID #12 cap 09/19/20 Lactobacillus Acidophilus [Acidophilus Probiotic] 1 ea PO BID #20 cap 09/19/20 Oxycodone HCl/Acetaminophen [Percocet 5/325] 1 tablet PO Q6H PRN PRN 5 Days #20 tablet 09/19/20 The following prescriptions were given: Lactobacillus Acidophilus [Acidophilus Probiotic] 1 ea PO BID #20 cap Transmission Status: Pending to [facility] Clindamycin HCl 300 mg PO TID #12 cap Transmission Status: Pending to [facility] Oxycodone HCl/Acetaminophen [Percocet 5/325] 1 tablet PO Q6H PRN PRN 5 Days #20 tablet PRN Reason: Pain Score 6-10 Transmission Status: Sent to [facility] Primary Care Physician: Sterling Roland MD [Primary Care Provider] - Test Results: Test results from this visit will be discussed in further detail at your follow- up appointment, if applicable. Please Follow Up With: Nir Pedroza MD When: one week. call [phone] for appt. Proposed Discharge Date: 09/19/20
[2020-09-19 09:35] VITALS: BP 132/71; BP 177/88; PULSE 65; RESP 16; TEMP 36.6; O2SAT 95
== END 2020-09-19 09:45 | disposition home or self-care (01) ==
LOC: SDC 05:41 → AC 05:42
PROVIDERS: Anesthesiology; PCP Family Medicine; Referring Provider Surgery; Visit Provider Surgery
PROC: (CPT 11311; principal; 2020-09-19 07:20)
DX: R22.32 Localized swelling, mass and lump, left upper limb (principal); D22.22 Melanocytic nevi of left ear and external auricular canal; R20.8 Other disturbances of skin sensation; E11.9 Type 2 diabetes mellitus without complications; I44.7 Left bundle-branch block, unspecified; I34.1 Nonrheumatic mitral (valve) prolapse; I10 Essential (primary) hypertension; E78.00 Pure hypercholesterolemia, unspecified; G25.81 Restless legs syndrome; F32.9 Major depressive disorder, single episode, unspecified; F41.9 Anxiety disorder, unspecified; E03.9 Hypothyroidism, unspecified; K21.9 Gastro-esophageal reflux disease without esophagitis; M81.0 Age-related osteoporosis without current pathological fracture; Z88.0 Allergy status to penicillin; Z88.1 Allergy status to other antibiotic agents; Z88.8 Allergy status to other drugs, medicaments and biological substances; Z79.4 Long term (current) use of insulin; Z79.899 Other long term (current) drug therapy; Z87.891 Personal history of nicotine dependence; Z20.828 Contact with and (suspected) exposure to other viral communicable diseases
CPT/HCPCS: 11311; 24075; 25075; 82962; 87635; 88304; 88305; 88331; 88341; 88342; C9803; J7120; U0003

== ENCOUNTER → 2020-10-18 08:21 | Outpatient (CLI) | payer MEDICARE, SELFPAY ==
--- NOTE | 2020-10-18 08:25 | BD_ITS ---
STUDY: DUAL ENERGY X-RAY ABSORPTIOMETRY / DXA REASON FOR EXAM: Female, 70 years old. Age of bora 49. Pat is 200.1# and 67 and quot; a loss of 2.5 and quot; per pat. Past hx of smoking off and on. Hx of back injections. Hx of right sided breast CA. Pat has been on Arimidex for 4 yrs now. Type II diabetic and takes Junuvia and Togao. Takes HCTZ and synthroid. Takes 1000 mg of calcium and a multi-vit. Hx of a left wrist fx. Mom and sister have osteo. Exercises a little. TECHNIQUE: Bone Mineral Density (BMD) measurements of lumbar spine and bilateral hips were obtained. COMPARISON: Comparison is made with prior study dated 05/16/2017. FINDINGS: Lumbar Spine (L1-L4): g/cm2 (0.837) / T-score (-2.7) / Z-score (-1.1) Findings are suggestive of osteoporosis with a high fracture risk. Left Femur Total: g/cm2 (0.850) / T-score (-1.3) / Z-score (0.1) Left Femoral Neck: g/cm2 (0.738) / T-score (-2.2) / Z-score (-0.5) Right Femur Total: g/cm2 (0.718) / T-score (-2.3) / Z-score (-0.9) Right Femoral Neck: g/cm2 (0.600) / T-score (-3.2) / Z-score (-1.5) The T-Scores on the most recent prior examination were: Lumbar Spine (L1-L4): There has been worsening of bone density since the previous examination. Left Femur Total: which represents a worsening of 1.6%. Right Femur Total: which represents a worsening of 5.5%. BD/Dexa Bone Density Study IMPRESSION: The patient is considered osteoporotic as outlined below according to World [employer] Organization (WHO) criteria with a high fracture risk. There has been worsening of bone density since the previous examination. Reference Information: The T-score is the number of standard deviations above or below the standard which is normal for young adults at their peak bone mineral density. The World Health Organization (WHO) interprets the T-scores as follows: Above -1 Normal bone density Between -1 and -2.5 Osteopenia Equal to / or below -2.5 Osteoporosis As a practical clinical guideline, osteopenia may be graded as follows: Mild -1 through -1.5 Moderate -1.6 through -2.0 Severe -2.1 through -2.4 The Z-score is the number of standard deviations above or below age-matched controls. A Z-score of less than -1.5 would be considered abnormal. References: 1. NIH Osteoporosis and Related Bone Diseases www osteo.org 2. International Society for Clinical Densitometry www iscd.org 3. National Osteoporosis Foundation www nof.org Electronically Signed: Carlos Romero, at 13:08 EST , Service support ,
== END ==
PROVIDERS: PCP Family Medicine; Referring Provider Family Medicine; Visit Provider Family Medicine
DX: M81.0 Age-related osteoporosis without current pathological fracture (principal)
CPT/HCPCS: 77080

== ENCOUNTER → 2020-11-24 13:24 | Outpatient (CLI) | payer MEDICARE, SELFPAY ==
[2020-11-24] MEDS: Zoledronic Acid 5 MG 100 ML 300 MG IV (14:11)
[2020-11-24] MEDS: 0.9% NaCl IVPB Med Flush (250 mL) 15 ML IV (14:12)
[2020-11-24] MEDS: 0.9% NaCl Peripheral Flush Adult/Peds IV (14:12)
[2020-11-24 14:15] VITALS: BP 146/79; PULSE 67; RESP 16; TEMP 36.6; O2SAT 98; BMI 32.0
== END ==
PROVIDERS: PCP Family Medicine; Referring Provider Family Medicine; Visit Provider Family Medicine
DX: M81.0 Age-related osteoporosis without current pathological fracture (principal)
CPT/HCPCS: 96365; J7050; A4216; J3489

== ENCOUNTER → 2020-12-05 14:52 | Outpatient (CLI) | payer MEDICARE, SELFPAY ==
[2020-11-24 14:15] VITALS: BMI 32.0
--- NOTE | 2020-12-05 15:05 | CT_ITS ---
STUDY: CT ABDOMEN WITHOUT CONTRAST REASON FOR EXAM: Female, 70 years old. ABDOMINAL PAIN WITH BLOATING. HX OF HERNIA REPAIR AND HYSTERECTOMY RADIATION DOSAGE (If Supplied By Facility): CTDIvol = ( 13.47 ) mGy, DLP = ( 467.66 ) mGycm TECHNIQUE: Transaxial images were obtained without intravenous contrast, and with oral contrast. Sagittal and coronal images were reconstructed. Individualized dose optimization techniques were used for this CT. COMPARISON: FINDINGS: The visualized lung bases are unremarkable. The visualized portions of the heart are within normal limits. There is decreased attenuation of the liver consistent with steatosis. No change in the multiple hepatic cysts. The gallbladder is contracted. Normal spleen. Normal pancreas. Normal bilateral adrenal glands. Normal right kidney. Normal left kidney. Normal visualized stomach. Normal small intestine. Normal colon. The appendix is visualized and appears normal. Normal abdominal aorta. Normal inferior vena cava. Normal retroperitoneum. There is a right-sided inguinal hernia containing adipose tissue. Dextroscoliosis of the lumbar spine with degenerative disc disease. CT/Abdomen without IV Contrast IMPRESSION: No acute abnormality. Fatty infiltration of the liver. Electronically Signed: Edison Dobson MD at 15:22 EST Tel , Service support ,
== END ==
PROVIDERS: PCP Family Medicine; Referring Provider Family Medicine; Visit Provider Family Medicine
DX: K46.9 Unspecified abdominal hernia without obstruction or gangrene (principal)
CPT/HCPCS: 74150

== ENCOUNTER → 2021-03-14 10:36 | Outpatient (CLI) | payer MEDICARE, SELFPAY ==
[2021-01-23 08:15] VITALS: BMI 31.8
--- NOTE | 2021-03-14 10:41 | RAD_ITS ---
STUDY: X-RAY - RIGHT KNEE REASON FOR EXAM: Right knee pain and swelling. TECHNIQUE: 4 view(s) of the knee. COMPARISON: None. FINDINGS: Normal visualized distal femur. Normal visualized proximal tibia and fibula. Normal proximal tibiofibular articulation. Normal medial femorotibial compartment. There is moderate joint space narrowing of the lateral femorotibial compartment. Normal patellofemoral articulation. There is a joint effusion. RAD/Knee 4 or More Views IMPRESSION: Arthrosis of the lateral femorotibial compartment. Joint effusion. Electronically Signed: Ken Flores MD at 13:57 EDT Tel , Service support ,
== END ==
PROVIDERS: PCP Family Medicine; Referring Provider Family Medicine; Visit Provider Family Medicine
DX: M25.561 Pain in right knee (principal)
CPT/HCPCS: 73564

== ENCOUNTER → 2021-04-11 13:37 | Outpatient (CLI) | payer MEDICARE, SELFPAY ==
[2021-04-07 11:11] VITALS: BMI 31.4
[2021-04-11 16:57] LABS: Thyroid Stim Hormone (TSH) 0.78 uIU/mL (0.358-3.74)
== END ==
PROVIDERS: PCP Family Medicine; Referring Provider Surgery; Visit Provider Surgery
DX: I10 Essential (primary) hypertension (principal); N65.0 Deformity of reconstructed breast; Z85.3 Personal history of malignant neoplasm of breast; Z98.82 Breast implant status
CPT/HCPCS: 36415; 84443

== ENCOUNTER 2021-06-08 09:32 | Observation (INO) | payer MEDICARE, SELFPAY ==
[2021-04-07 11:11] VITALS: BMI 31.4
--- NOTE | 2021-06-05 11:32 | EKG12_ITS ---
Test Reason : PRE OP Blood Pressure : / mmHG Vent. Rate : 076 BPM Atrial Rate : 076 BPM P-R Int : 172 ms QRS Dur : 126 ms QT Int : 428 ms P-R-T Axes : 049 015 112 degrees QTc Int : 481 ms Normal sinus rhythm Non-specific intra-ventricular conduction block T wave abnormality, consider lateral ischemia Abnormal ECG Confirmed by KASHIF BRIGHT, JOSE ([id number]), assistant film editor BEVERLY PETER ([id number]) on 06/09/2021 10:36:31 AM Referred By: Nir Pedroza Confirmed By:JOSE ROWLAND MD
[2021-06-05 11:38] LABS: Hematocrit 43.4 % (37-47); Hemoglobin 15.1 g/dL (12.0-15.0); Mean Corp Hgb Conc 34.8 g/dL (32-36); Mean Corpuscular Hgb 30.4 pg (27.0-32.0); Mean Corpuscular Volume 87.5 fL (81-99); Mean Platelet Vol. 9.6 fl (6.2-12.0); Platelet Count 292 K/mm3 (150-450); RBC Distribution Width CV 12.2 % (11.6-14.6); RBC Distribution Width SD 39.1 fl (35.1-43.9); Red Blood Count 4.96 M/mm3 (4.2-5.4); White Blood Count 8.3 K/mm3 (4.4-11.0)
[2021-06-05 12:12] LABS: Anion Gap 6 (5-15); BUN 17 mg/dL (7-18); BUN/Creat Ratio 17.5 RATIO (10-20); Calcium,Total 9.3 mg/dL (8.5-10.1); Chloride 107 mmol/L (98-107); Creatinine, Serum 0.97 mg/dL (0.55-1.02); EST Glomerular Filtration Rate 60 mL/min (>60); Est Glom Filt Rate - Afr Amer 73 mL/min (>60); Glucose 133 mg/dL (74-106); Magnesium 2.2 mg/dL (1.6-2.6); Potassium 3.4 mmol/L (3.5-5.1); Sodium Level 139 mmol/L (136-145)
[2021-06-05 12:15] LABS: Hemoglobin A1c 6.1 % (3.8-5.6)
--- NOTE | 2021-06-06 20:35 | HP.PCM_ITS ---
History and Physical Date of Admission: 06/07/21 HISTORY OF PRESENT ILLNESS 71 year old woman presents with concerns of her right breast reconstruction. Her last surgery was in February,. She has a 800 ml cohesive gel implant in the right breast and a 500 ml cohesive gel implant in the left breast. She states the implant migrates laterally toward the axilla at times which is bothersome and painful when bumped. When that happens she notices a decrease in superior pole fullness in the right breast. She denies trauma. She denies fever. She presents at this time for further evaluation and treatment. 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 Anxiety and depression Breast cancer, right breast Capsular contracture of breast implant, subsequent encounter Deformity of reconstructed breast Diabetes Disproportion of reconstructed breast Disproportion of reconstructed breast DISRUPTION RIGHT BREAST RECONSTRUCTION WOUND Diverticulosis Estrogen receptor positive status (ER+) Estrogen receptor positive status [ER+] EXCESS MASTECTOMY TISSUE SCAR CONTOUR DEFOMITY GERD (gastroesophageal reflux disease) History of bilateral breast implants Hyperlipidemia Hypertension Hypothyroidism IBS (irritable bowel syndrome) Intradermal nevus of face LEFT VENTRICULAR EJECTION FRACTION: 52% Malignant neoplasm of overlapping sites of right female breast Mass of left forearm NONHEALING SURGICAL MASTECTOMY WOUND AT T ZONE RIGHT BREAST Obesity Osteoporosis Osteoporosis PAINFUL CAPSULAR CONTRACTURE RIGHT BREAST 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 PAST SURGICAL HISTORY 2ND STAGE RIGHT BREAST RECONSTRUCTION FIRST STAGE IMMEDIATE RIGHT BREAST RECONSTRUCTION H/O dilation and curettage History of breast reconstruction History of excision of lesion History of excision of mass LEFT STEREOTACTIC BREAST BIOPSY REVISION RECONSTRUCTED RIGHT BREAST REVISION RIGHT BREAST RECONSTRUCTION RIGHT MASTECTOMY AND RIGHT SENTINEL NODE BIOPSY SECOND STAGE DELAYED LEFT BREAST RECONSTRUCTION MEDICATIONS aripiprazole hydrochlorothiazide losartan metoprolol succinate amlodipine rosuvastatin anastrozole calcium carbonate cholecalciferol (vitamin D3) insulin glargine diazepam Lactobacillus acidophilus clindamycin amlodipine dulaglutide/ subcutaneous pen injector fluticasone propionate/actuation nasal spray levothyroxine ropinirole sertraline ALLERGIES levofloxacin [From Levaquin] amoxicillin atorvastatin calcium [From Lipitor] cyclobenzaprine estrogens, conjugated [From Premphase] gabapentin medroxyprogesterone acetate [From Premphase] pravastatin sodium [From Pravachol] risedronate sodium [From Actonel] simvastatin [From Zocor] aloe vera [From Flexall] menthol [From Flexall] milnacipran [From Savella] quetiapine [From Seroquel] vilazodone [From Viibryd] vitamin E (d-alpha tocopherol) [From Flexall] bupropion lisinopril metformin [From Janumet] minocycline Penicillins [PCN] FAMILY HISTORY Father - Pancreatic cancer, Hypertension Mother - Diabetes, Hypertension, Alzheimer disease, Brother - CAD (coronary artery disease) Brother - CAD (coronary artery disease) Sister - Breast cancer Other - BLOOD CLOTS, High cholesterol, Kidney disease, Osteoporosis, Parkinson disease, Thyroid disorder SOCIAL HISTORY Smoking Status: Former smoker second hand exposure: No alcohol intake: current alcohol intake frequency: holidays/special occasions only Alcohol type: wine substance use type: does not use REVIEW OF SYSTEMS General - Denies fever, fatigue and weight loss. Eyes - Denies eye pain. ENT - Denies nasal congestion and sore throat. CV - Denies chest pain or discomfort, fatigue, lightheadedness and shortness of breath with exertion. Resp - Denies cough and shortness of breath. patient is a former smoker. GI - Denies nausea, vomiting, diarrhea and constipation. - Denies blood in urine and urinary frequency. MS - Complains of back pain. Denies joint pain, stiffness, muscle weakness and arthritis. Derm - Denies skin cancer. Has a soft tissue mass left forehead by eyebrow that is stable. Neuro - Denies poor balance and headaches. Psych - Complains of anxiety and depression. Endo - Denies excessive urination and excessive thirst. has history of right breast multifocal cancer. Has wrinkling of superolateral aspect right breast reconstruction with some lowering of the inframammary fold. Heme - Denies bleeding and abnormal bruising. PHYSICAL EXAMINATION General - well developed, well nourished, in no acute distress. Bra size was 38 D prior to her breast cancer. Head - normocephalic and atraumatic. Eyes - PERRL/EOM intact, conjunctiva and sclera clear. Throat is clear. Neck - no masses, thyromegaly, or abnormal cervical nodes. No suspicious lesions noted. Breasts - Breasts are soft and symmetrical in a bra. Without the bra, there is decrease superior pole fullness with lateral migration of the implant toward the axilla. Implant is palpable. There is some lowering of the inframammary fold, about 1 cm causing asymmetry with the left breast. There is also excess mastectomy skin scar contour deformity with some tenderness to palpation. No axillary adenopathy. No breast masses palpable. Lungs - clear bilaterally to auscultation. Heart - Regular rate and rhythm. Abdomen - normal bowel sounds; no hepatosplenomegaly no ventral,umbilical hernias or masses noted. Some redundant skin and subcutaneous tissue noted from the umbilicus to the pubic area. Horizontal scar in the pubic area. Slight skin overhang in the pubic area. Pretty good skin elasticity. Pulses - pulses normal in all 4 extremities. Extremities - no clubbing, cyanosis, edema, or deformity noted with normal full range of motion of all joints. Neurologic - cranial nerves II-XII grossly intact. Skin - no rashes. Cervical Nodes - no significant adenopathy. Axillary Nodes - no significant adenopathy. Psych - alert and cooperative; normal mood and affect; normal attention span and concentration. ASSESSMENT 1. Deformity right breast reconstruction with decreased superior pole fullness and lateral migration of the implant and excess mastectomy skin scar contour deformity. 2. Asymmetric lowered inframammary fold right breast reconstruction. 3. Personal history of right breast cancer. 4. Bilateral breast reconstruction implant status. 5. Acquired absence right breast. 6. Family history of breast cancer. 7. ER positive status. 8. Former smoker. PLAN Patient presents for evaluation of her breast reconstruction with concern for decreased superior pole fullness and lateral migration of the cohesive gel implant right breast. The decrease in the superior pole is exacerbated by the asymmetric lowered inframammary fold. This lateral migration of the implant also causes some discomfort when it is bumped laterally. It appears as if the breast pocket has enlarged laterally and would benefit from capsular plication to make the breast pocket a little smaller so the implant is more likely to stay centrally located. Additional acellular dermal matrix graft may be needed. Will stabilize the asymmetrical inframammary fold with a capsular plication as well. Will then replace the cohesive gel implant. At present it is an 800 ml implant. Will also order a 750 ml implant if the revised breast pocket is too small for the 800 ml implant. The decision would be made at the time of surgery. Depending on how the right breast reconstruction looks like, I may need to revise the left breast reconstruction as well. At the present time she has a 500 ml implant. Once again, I will have available, a slightly smaller implant (450 ml) and a slightly larger implant (550 ml or 600 ml) depending on symmetry with the right breast. She will need a mammogram on the left breast preoperatively. Surgery will be under general anesthesia with an overnight stay in the hospital. Drains will be needed for several days. She will be maintained on antibiotics until the drains are removed. She will also wear a surgical bra postop as well with a lifting restriction and keeping her head elevated. Since the breast reconstruction surgery is elective, her HgbA1c needs to be below 8. She had one done by her PCP on 03/14/21 with a fingerstick. It was 7.2. Also her TSH needs to be below 10 preoperatively. Patient was informed of the risks and complications of the procedure including alternatives to surgery. These were discussed with the patient personally. Patient voices understanding and wishes to proceed. Some of the risks and complications were included in a form from the [place] [employer]. Potential risks and complications included but not inclusive of bleeding, infection, seroma, hematoma, bruising, swelling, prolonged need for drains, loss of sensation to skin, partial or complete loss of skin flap and/or nipple graft, wound breakdown, need for wound care, poor scarring, poor aesthetic outcome, intra operative cardiac or neurologic events, DVT, PE, and reaction to anesthesia. We discussed the current risks associated with COVID-19. While it is understood that there is a community spread of COVID-19, the risk of kushal COVID-19 while at [facility] ([facility]) is very low; however, the risk cannot be completely mitigated because of the community spread of the disease. We discussed in detail the risk of exposure to and/or potential harm posed by the COVID-19 virus with having a surgery/procedure at this time versus the risk of delaying the surgery/procedure. It is not possible to know either the risk of delaying the surgery or procedure or chance of getting an infection with perfect accuracy, but a joint decision was made to proceed at this time with the scheduled surgery/procedure as indicated on the consent form. Patient was notified that we will need to comply with any screening or testing [facility] wishes to perform or that surgery may be delayed for any positive results. Procedure Criteria Procedure Type: Elective COVID Risk Discussion: The surgeon/proceduralist and patient have discussed in detail the risk of exposure to and/or potential harm posed by the COVID-19 virus with having a surgery/procedure at this time versus the risk of delaying the surgery/procedure. It is not possible to know either the risk of delaying the surgery or procedure or chance of getting an infection with perfect accuracy, but a joint decision was made between the patient and the surgeon/proceduralist to proceed at this time with the scheduled surgery/procedure as indicated on the consent form.
[2021-06-07] VITALS (15 sets, daily range): BP systolic 103–145; BP diastolic 47–79; PULSE 77–90; RESP 16–18; TEMP 35.9–36.7; O2SAT 91–100; BMI 30.9
[2021-06-07] MEDS: Lactated Ringers 1,000 ML 40 ML IV (07:00)
[2021-06-07] MEDS: Scopolamine 1mg/72hr Patch 1 PATCH TD (07:00)
[2021-06-07] MEDS: Lidocaine 1% /Epi 1:100 (50ml) 50 ML VIAL (09:01)
[2021-06-07] MEDS: Lactated Ringers 1,000 ML 60 ML IV ×3 (11:16→18:43)
--- NOTE | 2021-06-07 15:46 | PCM.OPRPT ---
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 Deformity right breast reconstruction with decreased superior pole fullness and lateral migration of the implant and excess mastectomy skin scar contour deformity. 2. Asymmetric lowered inframammary fold right breast reconstruction. 3. Personal history of right breast cancer. 4. Bilateral breast reconstruction implant status. 5. Acquired absence right breast. 6. Family history of breast cancer. 7. ER positive status. 8. Diabetes mellitus. 9. Former smoker. Post-Operative Diagnosis: 1. Deformity right breast reconstruction with decreased superior pole fullness and lateral migration of the implant and excess mastectomy skin scar contour deformity. 2. Asymmetric lowered inframammary fold right breast reconstruction. 3. Deformity left breast reconstruction with lateral migration of the implant and excess mastectomy skin scar contour deformity. 4. Personal history of right breast cancer. 5. Bilateral breast reconstruction implant status. 6. Acquired absence right breast. 7. Family history of breast cancer. 8. ER positive status. 9. Diabetes mellitus. 10. Former smoker. Surgery/Procedure Performed:: 1. Revision reconstructed right breast with excision excess mastectomy skin scar contour deformity, and tightening of breast pocket with capsular plication laterally and inferiorly with replacement cohesive gel implant (800 ml). 2. Revision reconstructed left breast with excision excess mastectomy skin scar contour deformity, and tightening of breast pocket with capsular plication laterally with replacement cohesive gel implant (550 ml). Description of Surgical Findings:: 71 year old woman presents with concerns of her right breast reconstruction. Her last surgery was in February,. She has a 800 ml cohesive gel implant in the right breast and a 500 ml cohesive gel implant in the left breast. She states the implant migrates laterally toward the axilla at times which is bothersome and painful when bumped. When that happens she notices a decrease in superior pole fullness in the right breast. She denies trauma. She denies fever. She has associated excess mastectomy skin scar contour deformity on the right breast. Patient was informed of the risks and complications of the procedure including alternatives to surgery. These were discussed with the patient personally. Patient voices understanding and wishes to proceed. Some of the risks and complications were included in a form from the [employer] [employer]. There is also some lateral migration of the implant on her left breast reconstruction, not as pronounced as on the right. It is also bothersome and painful when bumped. There is associated excess mastectomy skin scar contour deformity on the left breast as well. IV Fluids - 2200 ml. Urine Output - 600 ml. I used [place] MemoryGel Breast Implant, Smooth Round Ultra High Profile, (800 ml in right breast). Reference Number - [id number]. Lot Number - [id number]. Serial Number - [id number]. Expiration - February 12, 2026. I used [place] MemoryGel Breast Implant, Smooth Round High Profile, (550 ml in left breast). Reference Number - [id number]. Lot Number - [id number]. Serial Number - [id number]. Expiration - May 24, 2026. I used AmnioFix Placental Connective Tissue Graft, (7 x 6 cm or 42 cm2, in left breast). Catalog Number - [id number]. Lot Number - [id number]. Expiration - March 18, 2026. I used Chelsy absorbable hemostat, (I used 2 vials, one in each breast). Reference Number - [id number]. Lot Number - [id number]. Expiration - January 15, 2026. Surgeon: Nir Pedroza electrical controls designer: Oh Cutler Type of Anesthesia: General Specimen's removed: 1. Left breast tissue to Pathology. 2. Right breast tissue to Pathology. Drains: Radu drains x3 (2 in left breast and one in right breast). Estimated Blood Loss (mL): 150. Fluids Replaced: 2800 ml (IV Fluids 2200 ml, Urine Output 600 ml). Description of Procedure: Patient was placed in sitting position in the preop area and markings were made. The sternal midline was marked down to the umbilicus. The inframammary folds were marked bilaterally. She was taken to OR in supine position and was placed under general anesthesia. The breasts were prepped and draped in the usual fashion. Ioban was also used for draping. SCD's were placed for DVT prophylaxis. Perioperative antibiotics were given intravenously. A frazier catheter was placed. Using xylocaine with epinephrine, the horizontal inferior scars were infiltrated bilaterally. After waiting 5 minutes for the anesthetic to take effect, incisions were made first on the right side and then on the left side. Dissection was carried down through subcutaneous tissue until the capsule was seen. A capsulotomy was performed and the cohesive gel implant was removed. The breast pocket showed no fluid and no clinical evidence of infection. It was felt the right breast skin envelope was too big which leads to lateral migration of the implant. There is a horizontal ellipse of skin at the inframammary fold that was the result of a latissimus dorsi myocutaneous flap reconstruction in the past. There was some skin laxity in this area which made it possible to bring the breast skin flaps together over the latissimus flap which shortened the breast pocket and the incision was not under tension. The latissimus dorsi skin was de-epithelialized. It was noted the breast pocket was stretched laterally and the capsule was also stretched. I shortened the breast pocket on the right with capsular plication laterally and inferiorly. This was done with 3-0 Vicryl figure of eight interrupted sutures. I was still able to put in the 800 ml implant without difficulty, and wound closure was able to be done without tension. I excised some excess mastectomy skin scar contour deformity laterally which included some of the subcutaneous tissue of the lateral aspect of the latissimus dorsi flap. This created a sharper contour in the area of the lateral breast and the inframammary fold. With the lateral migration of the implant, the medial aspect of the capsule showed some early contracture which widened the space between her breasts. A capsulotomy was performed medially to improve the contour in this area. The latissimus flap was still present inferiorly and helped to strengthen the inferior aspect of the breast pocket. The breast pocket was irrigated with Irrisept 0.05% chlorhexidine solution followed by saline irrigation. A size 15 Radu drain was placed through separate stab incision laterally and secured to the skin with 3-0 Nylon suture. One drain was used in the right breast pocket. I then sprayed Chelsy absorbable hemostat into the breast pocket to minimize seroma formation. I used one vial in the right breast. I then placed a [place] MemoryGel Smooth Round Ultra High Profile, 800 ml, breast implant in Betadine and then into the right breast pocket. Good shape and contour was noted in the right breast as it was more centrally located with capsular plication laterally and inferiorly. Good superior pole fullness was noted. I closed the right breast wound in a layered fashion with 3-0 Vicryl interrupted sutures for the deep subcutaneous tissue. A malleable was placed over the implant to prevent injury to the implant. The deep dermis and subcutaneous tissue was approximated with 3-0 Monocryl interrupted sutures as I was able to bring the superior breast skin down over the de-epithelialized latissimus flap and secured it to the inferior breast skin. The skin was approximated with 3-0 V lock unidirectional barbed running subcuticular suture followed by Histoacryl skin tissue adhesive. On the left breast, there was lateral migration of the implant and the surrounding tissue along with breast ptosis. I made an incision through the previous inferior horizontal incision down through the subcutaneous tissue until the capsule was seen. A capsulotomy was performed and the cohesive gel implant was removed. The breast pocket showed no fluid and no clinical evidence of infection. The left breast had developed recurrent ptosis so the vertical scar up to the nipple was de-epithelialized and the horizontal scar was excised. I also excised the excess mastectomy skin scar contour deformity mostly on the lateral side. I created medial and lateral breast flaps to make it easier to close the wound at the end of the procedure. I temporarily closed the vertical and medial horizontal incisions with surgical clips. I left the lateral horizontal incision alone to allow placement of the cohesive gel implant. After closing the incisions temporarily, I sat the patient up and the nipple will have to be elevated slightly. I put the 500 ml implant back in as a sizer and closed the lateral horizontal incision with surgical clips. With the centralization of the right breast implant, there is more fullness superiorly as compared to preop. So it appeared the left breast was a little smaller as compared to the right. The 500 ml implant was removed. I then placed a 550 ml sizer into the left breast pocket. This improved the superior pole fullness. There was good shape and contour of the breasts with symmetry. The patient was placed back in the supine position and the surgical clips were removed on the left and the sizer was removed. It was noted the breast pocket was stretched laterally and the capsule was also stretched. I shortened the breast pocket on the left with capsular plication laterally and inferiorly. This was done with 3-0 Vicryl figure of eight interrupted sutures. I was still able to put in the 550 ml sizer without difficulty, and wound closure was able to be done without tension. I excised some excess mastectomy skin scar contour deformity laterally which included some of the subcutaneous tissue. This created a sharper contour in the area of the lateral breast and the inframammary fold. The breast pocket was irrigated with Irrisept 0.05% chlorhexidine solution followed by saline irrigation. Two size 15 Radu drains were placed through separate stab incision laterally and secured to the skin with 3-0 Nylon suture. I then sprayed Chelsy absorbable hemostat into the breast pocket to minimize seroma formation. I used one vial in the left breast. I then placed a [place] MemoryGel Smooth Round High Profile, 550 ml, breast implant in Betadine and then into the left breast pocket. Good shape and contour was noted in the left breast as it was more centrally located with capsular plication laterally and inferiorly. Good superior pole fullness was noted. I closed the left breast wound in a layered fashion with 2-0 Vicryl interrupted suture for the leading edge of the medial and lateral breast flaps. I then placed AmnioFix Placental Connective Tissue Graft in the Tzone area to help with the healing process. A malleable was placed over the implant to prevent injury to the implant. The deep dermis and subcutaneous tissue was approximated with 3-0 Monocryl interrupted sutures for both the horizontal and vertical incisions. This improved the ptosis. The nipple was elevated 1 cm and additional skin was removed around the nipple. The nipple areolar complex was shortened a few mm as I placed the nipple circular template over the nipple with a diameter of 42 mm. The nipple wound was closed with 3-0 Monocryl interrupted sutures for the deep dermis and subcutaneous tissue. The skin around the nipple and the vertical incision were closed with 4-0 Prolene simple interrupted sutures. The skin of the horizontal incision was approximated with 3-0 V lock unidirectional barbed running subcuticular suture followed by Histoacryl skin tissue adhesive. Good shape and contour and symmetry noted between the breasts. No vascular compromise noted on the breast skin flaps. No clinical evidence of hematoma. Kerlix gauze was applied to the breast incisions followed by a compression azalea wrap. Patient tolerated the procedure well and was sent to PACU in satisfactory condition. Patient will be sent upstairs for continued postop care. She will be discharged when she is tolerating po analgesia. Grafts/Implants Used: [place] MemoryGel Breast implants, AmnioFix, Chelsy. Complications None. Admit VTE Documentation VTE Present on Admission: No VTE Mechan Device Prophylaxis: SCD's VTE Pharm Prophylaxis ordered?: Yes Addendum Addendum: Surgery Charges CPT - 70797 ICD-10 - N65.0, Z85.3, Z98.82, Z90.11, Z80.3, Z17.0, Z87.891, E11.9 [id number] N65.0, Z85.3, Z98.82, Z90.11, Z80.3, Z17.0, Z87.891, E11.9
[2021-06-07 16:30] LABS: Bedside Glucose 80 mg/dL (70-110)
[2021-06-07] MEDS: Ensure Surgery 237 ML LIQUID PO ×2 (18:37)
[2021-06-07] MEDS: HYDROmorphone 1 MG/ML Syringe IV (18:37)
--- NOTE | 2021-06-07 18:44 | PCM.RX.CS ---
Consult Pharmacy has been consulted to manage selected antiobiotic: Vancomycin Type of Consult: New start Suspected Infection: Other Labs: Sodium 139 mmol/L (136-145) 06/05/21 11:16 Potassium 3.4 mmol/L (3.5-5.1) L 06/05/21 11:16 Chloride 107 mmol/L (98-107) 06/05/21 11:16 Carbon Dioxide 26.0 mmol/L (21.0-32.0) 06/05/21 11:16 Anion Gap 6 (5-15) 06/05/21 11:16 BUN 17 mg/dL (7-18) 06/05/21 11:16 Creatinine 0.97 mg/dL (0.55-1.02) 06/05/21 11:16 Est GFR (MDRD) Af Amer 73 mL/min (>60) 06/05/21 11:16 Est GFR (MDRD) Non-Af 60 mL/min (>60) 06/05/21 11:16 BUN/Creatinine Ratio 17.5 RATIO (10-20) 06/05/21 11:16 Glucose 133 mg/dL (74-106) H 06/05/21 11:16 Goal Trough: 10-15 mcg/mL Pharmacy Plan for Drug Dosing: NEW START IV VANCOMYCIN Consulting Physician: Dr. Pedroza Indication: Post-op infection prevention Goal Trough: 10-15 SrCr: 0.97 CrCl: 63 mL/min (using AdjBW) Comments: 1500mg IV x1 Preop given 06/07/21 @0700 Vancomcyin Dose: 750mg IV Q12hr to start 06/07 @1900 Pending Level: 06/08/21 @1830, prior to 4th total dose per protocol Pharmacy Service will continue to monitor and adjust dosing as required.
[2021-06-07] MEDS: Acetaminophen 500 MG Tablet 1000 MG PO (20:16)
[2021-06-07] MEDS: Losartan Potassium 100 MG Tablet PO (22:03)
[2021-06-07] MEDS: Docusate Sodium 100 MG Capsule PO (22:03)
[2021-06-07] MEDS: ARIPiprazole 2 MG Tablet PO (22:04)
[2021-06-07] MEDS: Anastrozole 1 MG TABLET PO (22:05)
[2021-06-07] MEDS: Rosuvastatin Calcium 5 MG Tablet PO (22:05)
[2021-06-07] MEDS: Gabapentin 600 MG Tablet PO (22:43)
[2021-06-07 23:36] LABS: Bedside Glucose 92 mg/dL (70-110)
--- NOTE | 2021-06-08 | MAM_PTH ---
PATIENT: ERASTO BUSBY LOC: MS3 U#:[id number] AGE/SX: 71/F ROOM: [facility] [place] RE06/08/[address]: Dr. Nir Pedroza MD : 1950 BED: 1 DIS: 06/08/2021 SPEC #: [id number] RECD: 06/08/21 13:35 STATUS: ZACKERY CAMERONJaylene #: [id number] KAILEE: 06/08/21 00:[address]: Nir Pedroza DEPT: SURGICAL PATHOLOGY RECD BY: Salomón Peters ENTERED: 06/08/21 13:36 SP TYPE: MAMOPLASTY OTHR DR: Dr. Benedicto Roland MD Tissues: A - Right breast, NOS B - Left breast, NOS Procedures: Surgery Specimen Level IV HEADER OPERATION: Revision bilateral reconstructed breast with excision PRE-OP DIAGNOSIS: Deformity right breast reconstruction with decreased superior pole fullness and lateral migration of implant; asymmetric lowered inframammary fold right breast reconstruction; right breast cancer TISSUE SUBMITTED: A ? Right breast tissue, B ? Left breast tissue MICROSCOPIC DIAGNOSIS A. Right breast tissue, revision with excision: Fragments of fibroadipose tissue (74 gm) with focal mild chronic inflammation and focal area suggestive of granuloma formation. Skin, no pathologic diagnosis. See comment. B. Left breast tissue, revision with excision: Fragments of fatty benign tissue (41 gm). Skin, no pathologic diagnosis. SJ:sara 06/09/2021 COMMENT A. Breast tissue is not identified. This case has been reviewed in consultation with Dr. Montoya who concurs with the above diagnosis. MICROSCOPIC DESCRIPTION Slides are reviewed. GROSS DESCRIPTION A - Received in fixative is one container labeled with the patient's name and designated right breast tissue. The specimen consists of multiple irregular fragments of yellow fatty tissue ranging in size from <0.1 to 10 cm and weighing in aggregate 74 gm. The larger fragments contain grossly unremarkable skin. No cutaneous lesions are identified. Serial sections reveal homogenous yellow cut surfaces without mass lesions. Bakery Machine Mechanic Supervisor sections are submitted in six cassettes. B - Received in fixative is one container labeled with the patient's name and designated left breast tissue. The specimen consists of multiple irregular fragments of yellow fatty tissue ranging in size from 1 to 5.8 cm and weighing in aggregate 41 gm. The larger fragments contain grossly unremarkable skin. No cutaneous lesions are identified. Serial sections reveal homogenous yellow cut surfaces without mass lesions. Bakery Machine Mechanic Supervisor sections are submitted in six cassettes. / AM:sara 06/08/21 TC:5 CPT: 99647 x2
[2021-06-08] MEDS: Acetaminophen 500 MG Tablet 1000 MG PO ×3 (01:01→12:36)
[2021-06-08 02:01] VITALS: BP 113/57; PULSE 97; RESP 16; TEMP 36.5; O2SAT 97
[2021-06-08] MEDS: Ondansetron ODT 4 MG Tablet PO (04:42)
[2021-06-08 05:35] VITALS: BP 125/55; PULSE 81; RESP 16; TEMP 36.9; O2SAT 98
[2021-06-08] MEDS: Levothyroxine 150 MCG Tablet PO (06:05)
[2021-06-08 06:16] LABS: Bedside Glucose 116 mg/dL (70-110)
[2021-06-08 06:23] LABS: Hematocrit 37.3 % (37-47); Hemoglobin 12.2 g/dL (12.0-15.0); Mean Corp Hgb Conc 32.7 g/dL (32-36); Mean Corpuscular Hgb 30.2 pg (27.0-32.0); Mean Corpuscular Volume 92.3 fL (81-99); Mean Platelet Vol. 9.8 fl (6.2-12.0); Platelet Count 235 K/mm3 (150-450); RBC Distribution Width CV 12.6 % (11.6-14.6); RBC Distribution Width SD 42.7 fl (35.1-43.9); Red Blood Count 4.04 M/mm3 (4.2-5.4); White Blood Count 9.3 K/mm3 (4.4-11.0)
[2021-06-08 07:05] LABS: AST(SGOT) 18 U/L (15-37); Alanine Aminotransfer ALT/SGPT 34 U/L (13-56); Albumin, Serum 2.9 g/dL (3.2-5.0); Alkaline Phosphatase 63 U/L (45-117); Anion Gap 5 (5-15); BUN 11 mg/dL (7-18); BUN/Creat Ratio 14.1 RATIO (10-20); Calcium,Total 7.8 mg/dL (8.5-10.1); Chloride 105 mmol/L (98-107); Creatinine, Serum 0.78 mg/dL (0.55-1.02); EST Glomerular Filtration Rate 78 mL/min (>60); Est Glom Filt Rate - Afr Amer 94 mL/min (>60); Estimated Creatinine Clearance 51.63 ml/min; Globulin 2.8 g/dL (2.2-4.2); Glucose 126 mg/dL (74-106); Potassium 3.5 mmol/L (3.5-5.1); Prealbumin 15.2 mg/dL (20.0-40.0); Protein, Total 5.7 g/dL (6.4-8.2); Sodium Level 139 mmol/L (136-145)
[2021-06-08 07:20] LABS: Bedside Glucose 286 mg/dL (70-110)
[2021-06-08] MEDS: Calcium Carbonate 500 MG Tablet PO (10:00)
[2021-06-08] MEDS: Fluticasone 0.05% 1 SPRAY NASAL.SRY NASAL (10:00)
[2021-06-08] MEDS: Enoxaparin 40 MG/0.4 ML Syringe SC (10:01)
[2021-06-08] MEDS: Docusate Sodium 100 MG Capsule PO (10:01)
[2021-06-08] MEDS: Sertraline 100 MG Tablet PO (10:02)
[2021-06-08] MEDS: Pramipexole Di-HCl 0.5 MG Tablet PO (10:02)
[2021-06-08] MEDS: hydroCHLOROthiazide 25 MG Tablet PO (10:02)
[2021-06-08] MEDS: Cholecalciferol (VIT D3) 25 MCG TABLET (1,000 UNITS) 50 MCG PO (10:02)
[2021-06-08] MEDS: amLODIPine 10 MG Tablet PO (10:02)
[2021-06-08] MEDS: oxyCODONE 5 MG Tablet PO ×2 (10:08→19:31)
[2021-06-08 10:38] VITALS: BP 122/59; PULSE 83; RESP 16; TEMP 37.2; O2SAT 91
[2021-06-08] MEDS: Ensure Surgery 237 ML LIQUID PO ×2 (12:37→18:23)
[2021-06-08] MEDS: Lactated Ringers 1,000 ML 60 ML IV (12:37)
[2021-06-08 12:41] LABS: Bedside Glucose 126 mg/dL (70-110)
[2021-06-08 13:42] VITALS: BP 118/51; PULSE 79; RESP 16; TEMP 36.8; O2SAT 91
--- NOTE | 2021-06-08 17:23 | PN.SURG_ITS ---
Subjective Subjective Postop #1 Patient complains of incisional pain. Objective Data Objective Data Vital Signs: Vital Signs Temp Pulse Resp BP Pulse Ox 98.2 F 79 16 118/51 L 91 06/08/21 13:42 06/08/21 13:42 06/08/21 13:42 06/08/21 13:42 06/08/21 13:42 Drainage 85 ml yesterday, 90 ml today. Oxygen Flow Rate (L/min) 2 Oxygen Delivery Method Room Air Weight: 197 lb 1.492 oz Body Mass Index (BMI) 30.9 Intake & Output: Intake and Output for Last 24 Hours 06/06/21 06/07/21 06/08/21 23:59 23:59 23:59 Intake Total 3296.5 / 3296.5 2064 / 2064 Output Total 1460 / 1460 2089 / 2089 Balance 1836.5 / 1836.5 -25 / -25 Lab / Micro Data Attestation: I reviewed the patient's lab results. Result Diagrams: 06/08/21 05:46 06/08/21 05:46 Labs: Laboratory Results - last 24 hr 06/07/21 07:41: POC Glucose 286 H 06/07/21 22:07: POC Glucose 92 06/08/21 05:46: WBC 9.3, RBC 4.04 L, Hgb 12.2, Hct 37.3, MCV 92.3 D, MCH 30.2, MCHC 32.7 D, RDW Std Deviation 42.7, RDW Coeff of Vinny 12.6, Plt Count 235, MPV 9.8 06/08/21 05:46: Sodium 139, Potassium 3.5, Chloride 105, Carbon Dioxide 29.0, Anion Gap 5, BUN 11, Creatinine 0.78, Estim Creat Clear Calc 51.63, Est GFR (MDRD) Af Amer 94, Est GFR (MDRD) Non-Af 78, BUN/Creatinine Ratio 14.1, Glucose 126 H, Calcium 7.8 L, Total Bilirubin 0.60, AST 18, ALT 34, Alkaline Phosphatase 63, Total Protein 5.7 L, Albumin 2.9 L, Globulin 2.8, Albumin/Globulin Ratio 1.0, Prealbumin 15.2 L 06/08/21 06:11: POC Glucose 116 H 06/08/21 12:34: POC Glucose 126 H Physical Exam Narrative General - Alert and Oriented HEENT - PERRL. EOMI. Breasts - Incisions are dry and intact. Breasts are soft and symmetrical. No vascular compromise noted on the breast skin flaps. No clinical evidence of hematoma. Nipple is viable. Good contour noted. Abdomen - Soft and nondistended. Neuro - CN II-XII grossly intact. Psych - Normal mood and affect. 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 Breasts are soft and symmetrical. Good contour noted. No clinical evidence of hematoma. Nipple is viable. She is tolerating po analgesia. She is ambulating ok and is steady on her feet. Hilario removed. She is voiding without difficulty. Discharge home today. Keep head elevated. No heavy lifting. Continue surgical bra or azalea wrap compression. Followup office one week. Will remove the drains in 10-14 days. Wrote script for Doxycycline until the drains are removed. Wrote scripts for Percocet for pain (40 tabs) and for Valium for spasm (14 tabs). Wrote script for Phenergan for nausea (30 tabs) and a refill.
--- NOTE | 2021-06-08 19:04 | PCM.DC ---
Discharge Instructions Diet Discharge Diet: Carb Control Diet Activity Discharge Activity: May Not Drive, May Not Shower (until the drains are removed.) and - (no heavy lifting. keep head elevated.) May shower in (days): 14 (after the drains are removed.) May resume sexual activity in: 10-14 days (after drains removed.) Weight Bearing Status: Weight bearing as tolerated Lifting Restrictions: 20 lbs. Keep extremity elevated above heart level: - (elevate head.) Dressing / Incision Call your doctor if your incision/area has: Continuous Slow Oozing, Sudden Increased Bleeding, Increased Pain/ Swelling, Increased Redness, Foul Smelling Discharge and Swelling at the incision site Call your doctor if you observe: Fever of 101 or Higher, Coldness, Increased Pain, Shortness of breath, Chest pain, Calf discomfort and Uncontrolled pain Suture Line Care: - (dry dressings daily followed by surgical bra or compression azalea.) Change Dressing in: 1 day (dry dressing changes daily.) Cleanse incision/area with: - (may get incisions wet in the shower after the drains are removed.) Drain: Suction (priyanka drais x3 to bulb suction. empty and record output daily.) Follow Up Care Please Follow Up With: Nir Pedroza MD When: one week. call [phone] for appt. Test Results: Test results from this visit will be discussed in further detail at your follow-up appointment, if applicable. Discharge Plan Admission Admit Date/Time: 06/08/21 09:32 Primary Reason for Your Visit: breast reconstruction. Attending Provider: Nir Pedroza Primary Care Provider: Sterling Roland Discharge Orders/Prescriptions Prescriptions: New doxycycline hyclate 100 mg capsule 100 mg PO BID Qty: 30 RF: 0 oxycodone-acetaminophen [Percocet] 5-325 mg tablet 1 tab PO Q4H PRN (Reason: pain (scale score 7-10)) 7 Days Qty: 40 RF: 0 diazepam [Valium] 5 mg tablet 5 mg PO BID PRN (Reason: spasms) Qty: 14 RF: 0 promethazine 25 mg tablet 25 mg PO Q6H PRN (Reason: nausea and vomiting) Qty: 30 RF: 1 Continued levothyroxine 150 mcg tablet 150 mcg PO DAILY RF: 0 amlodipine [Norvasc] 10 mg tablet 10 mg PO DAILY RF: 0 sertraline 100 mg tablet 100 mg PO DAILY RF: 0 ropinirole 1 mg tablet 1 mg PO DAILY RF: 0 fluticasone propionate 50 mcg/actuation spray,suspension 1 spray INTRANASAL DAILY RF: 0 metoprolol succinate 100 MG tablet 100 mg PO QHS RF: 0 hydrochlorothiazide 25 MG tablet 25 mg PO DAILY RF: 0 losartan 100 MG tablet 100 mg PO QHS RF: 0 aripiprazole 2 MG tablet 2 mg PO QHS RF: 0 rosuvastatin 5 MG tablet 5 mg PO QHS RF: 0 anastrozole 1 MG tablet 1 mg PO QHS RF: 0 calcium carbonate 500 MG tablet,chewable 500 mg PO DAILY RF: 0 cholecalciferol (vitamin D3) 1,000 UNIT tablet,chewable 2,000 unit PO DAILY RF: 0 insulin glargine U-300 conc 300 UNIT/ML insulin pen 45 unit SQ QHS RF: 0 Trulicity 0.75 mg/0.5 mL pen injector 0.75 mg SC QWEEK Qty: 2 RF: 2 Other Ambulatory Orders: 12 Lead EKG (Routine) Timeframe: [id number] Location: None Selected Ordered By: Dr. Darell Cox Referrals / Follow Up: Sterling Roland MD [Primary Care Provider] - Disposition Disposition (needs filled in before D/C Order can be placed): Home, Self Care
[2021-06-08 19:33] LABS: Vancomycin, Trough Level 18.3 ug/mL (5.0-15.0)
[2021-06-08 19:56] VITALS: BP 133/50; PULSE 80; RESP 18; TEMP 36.8; O2SAT 95
== END 2021-06-08 19:56 | disposition home or self-care (01) ==
LOC: SDC 09:49 → MS3 09:49
PROVIDERS: Anesthesiology; Admitting Provider Surgery; PCP Family Medicine; Referring Provider Surgery; Visit Provider Surgery
PROC: (CPT 19380; principal; 2021-06-07 09:10)
DX: N65.0 Deformity of reconstructed breast (principal); F41.9 Anxiety disorder, unspecified; F32.9 Major depressive disorder, single episode, unspecified; N65.1 Disproportion of reconstructed breast; K21.9 Gastro-esophageal reflux disease without esophagitis; I10 Essential (primary) hypertension; E78.5 Hyperlipidemia, unspecified; E03.9 Hypothyroidism, unspecified; K58.9 Irritable bowel syndrome, unspecified; E66.9 Obesity, unspecified; E11.42 Type 2 diabetes mellitus with diabetic polyneuropathy; Z85.3 Personal history of malignant neoplasm of breast; Z17.0 Estrogen receptor positive status [ER+]; Z87.891 Personal history of nicotine dependence; Z79.899 Other long term (current) drug therapy; Z79.4 Long term (current) use of insulin; Z79.51 Long term (current) use of inhaled steroids; Z68.30 Body mass index [BMI] 30.0-30.9, adult
CPT/HCPCS: 00402; 19380; 36415; 80048; 80053; 80202; 82962; 83036; 83735; 84134; 84443; 85027; 87635; 88305; 93005; 96365; 96366; 96372; 96375; 99218; 99251; 99406; C9803; J7040; J7050; J7120; U0005; G0378; G0379; G0463; J2405; Q9968; U0003

== ENCOUNTER → 2021-07-18 14:06 | Outpatient (CLI) | payer MEDICARE, SELFPAY ==
--- NOTE | 2021-07-18 14:08 | RAD_ITS ---
STUDY: X-RAY - RIGHT FOOT CLINICAL: Female, 71 years old. ANKLE PAIN TECHNIQUE: 3 view(s) of the foot. COMPARISON: None. FINDINGS: Normal talus, calcaneus, and tarsal bones. Normal visualized subtalar, talonavicular, calcaneocuboid, tarsal and tarsometatarsal articulations. Status post first tarsal metatarsal joint arthrodesis with 2 screws. Normal metatarsi. Normal metatarsophalangeal joint of the great toe. Normal tibial and fibular sesamoid bones. Normal interphalangeal joint of the great toe. Normal phalanges of the great toe. Normal second through fifth metatarsophalangeal joints. Normal interphalangeal joints and phalanges of the lesser toes. The soft tissue structures are unremarkable. RAD/Foot min 3 Views IMPRESSION: No acute fracture or dislocation. Electronically Signed: Edison Dobson MD at 14:37 EDT Tel , Service support ,
--- NOTE | 2021-07-18 14:08 | RAD_ITS ---
STUDY: X-RAY - RIGHT ANKLE REASON FOR EXAM: Female, 71 years old. ANKLE PAIN TECHNIQUE: 3 view(s) of the ankle. COMPARISON: None. FINDINGS: Normal visualized distal tibia and fibula. Normal medial and lateral malleoli. Normal tibiotalar articulation and ankle mortise. Normal visualized talus and calcaneus. The visualized subtalar, talonavicular, calcaneocuboid and tarsal articulations are normal. The soft tissue structures are unremarkable. RAD/Ankle min 3 Views IMPRESSION: Normal x-ray examination of the ankle. Electronically Signed: Edison Dobson MD at 14:38 EDT Tel , Service support ,
== END ==
PROVIDERS: PCP Family Medicine; Referring Provider Family Medicine; Visit Provider Family Medicine
DX: M25.571 Pain in right ankle and joints of right foot (principal)
CPT/HCPCS: 73610; 73630

== ENCOUNTER → 2021-08-03 12:34 | Outpatient (CLI) | payer MEDICARE, SELFPAY ==
--- NOTE | 2021-08-03 12:36 | VDLE_ITS ---
Reason For Study: SWELLING/PAIN RIGHT LEFT GSV is normal. CFV is compressible, spontaneous, phasic, CFV is compressible, spontaneous, phasic, competent, and demonstrates normal competent and demonstrates normal augmentation. augmentation. FV is compressible, spontaneous, phasic, competent and demonstrates normal augmentation. POP V is compressible, spontaneous, phasic, competent and demonstrates normal augmentation. T/P Trunk is compressible. PTV is compressible. RT PerV is compressible. Procedure Exam performed in department. A preliminary report was called and/or faxed to Mae Swain. VL/Venous Duplex US, Unilateral Interpretation Summary Deep veins of the right lower extremity are patent and compressible segmentally . There is no evidence of right lower extremity deep vein thrombosis. Valvular competence adam ears intact within the proximal deep venous system on the right . The right great saphenous vein a ppears patent and compressible segmentally. Ordering Physician: Mae Swain Referring Physician: KAITLIN DUARTE Performed By: Jessie Parrish, MIHAI, RVT
== END ==
PROVIDERS: PCP Family Medicine; Referring Provider Nurse Practitioner Family; Visit Provider Nurse Practitioner Family
DX: M79.89 Other specified soft tissue disorders (principal); M79.604 Pain in right leg; R22.0 Localized swelling, mass and lump, head; Z78.9 Other specified health status; Z86.718 Personal history of other venous thrombosis and embolism
CPT/HCPCS: 93971

== ENCOUNTER → 2021-09-20 13:43 | Outpatient (CLI) | payer MEDICARE, SELFPAY ==
--- NOTE | 2021-09-20 13:46 | US_ITS ---
STUDY: ULTRASOUND BREAST - LEFT REASON FOR EXAM: Female, 71 years old. The patient is status post left breast reconstructive surgery. TECHNIQUE: Axial and longitudinal images of the LEFT breast were performed with a high resolution ultrasound transducer. # OF IMAGES: 82 COMPARISON: Comparison is made with prior examination of the left breast dated 11/16/2019. FINDINGS: LEFT Breast: The entire left breast was examined. There is evidence of a 4 mm x 10 mm x 2 mm hypoechoic well-defined nodule with central echogenicity in keeping with a small lymph node. This is unchanged. There is evidence of a 1.2 cm x 1.3 cm x 1 cm ill-defined soft tissue nodule at the 8 o''clock position of the breast at 3 cm from the nipple. This may represent postsurgical changes if surgery was performed at that site. If no surgery has been performed at that site, a biopsy is recommended. US/Breast Limited Unilateral IMPRESSION: Stable benign-appearing lymph node at 11 o''clock posterior breast at 3; some nipple. New 1.2 cm x 1.3 cm x 1 cm slightly ill-defined hypoechoic density at the 8 o''clock position breast at 3 cm from the nipple. If surgery was performed at that site. This most likely represents postoperative changes. If no surgery was performed at that site, biopsy recommended. ASSESSMENT CATEGORY: BIRADS Category 4: Suspicious - Biopsy Should Be Considered. A letter regarding these results will be sent to the patient by the facility within 30 days. Electronically Signed: Carlos Romero MD at 13:44 EDT , Service support ,
== END ==
PROVIDERS: PCP Family Medicine; Visit Provider Nurse Practitioner
DX: C50.811 Malignant neoplasm of overlapping sites of right female breast (principal); Z17.0 Estrogen receptor positive status [ER+]
CPT/HCPCS: 76642

== ENCOUNTER 2021-12-01 10:16 | Outpatient (CLI) | payer MEDICARE, SELFPAY ==
[2021-12-01 10:50] VITALS: BP 153/73; PULSE 82; RESP 16; TEMP 36.9; O2SAT 97
[2021-12-01] MEDS: Zoledronic Acid 5 MG 100 ML 300 MG IV (10:55)
== END 2021-12-01 23:59 | disposition short-term general hospital (02) ==
LOC: MEDOUTP 10:18
PROVIDERS: PCP Family Medicine; Referring Provider Family Medicine; Visit Provider Family Medicine
DX: M81.0 Age-related osteoporosis without current pathological fracture (principal)
CPT/HCPCS: 96365; J3489

== ENCOUNTER 2021-12-14 14:51 | Outpatient (CLI) | payer MEDICARE, SELFPAY ==
[2021-12-14 16:59] LABS: Vitamin D,25 Hydroxy 27.3 ng/mL
[2021-12-14 17:05] LABS: ALB/GLOB Ratio 0.9 RATIO (0.9-2.4); AST(SGOT) 36 U/L (15-37); Alanine Aminotransfer ALT/SGPT 58 U/L (13-56); Albumin, Serum 3.6 g/dL (3.2-5.0); Alkaline Phosphatase 85 U/L (45-117); Anion Gap 6 (5-15); BUN 19 mg/dL (7-18); BUN/Creat Ratio 21.8 RATIO (10-20); Calcium,Total 9.2 mg/dL (8.5-10.1); Chloride 105 mmol/L (98-107); Cholesterol 182 mg/dL (200); Creatinine, Serum 0.87 mg/dL (0.55-1.02); EST Glomerular Filtration Rate 68 mL/min (>60); Est Glom Filt Rate - Afr Amer 83 mL/min (>60); Globulin 3.9 g/dL (2.2-4.2); Glucose 96 mg/dL (74-106); High Density Lipoprotein 50 mg/dL; Magnesium 2.6 mg/dL (1.6-2.6); Phosphorus 2.6 mg/dL (2.5-4.9); Potassium 3.7 mmol/L (3.5-5.1); Protein, Total 7.5 g/dL (6.4-8.2); Sodium Level 138 mmol/L (136-145); T4 Free Direct 1.34 ng/dL (0.76-1.46); Thyroid Stim Hormone (TSH) 1.66 uIU/mL (0.358-3.74); Triglycerides 283 mg/dL; Very Low Density Lipoprotein 57 mg/dL (5-40)
[2021-12-15 08:02] LABS: PTHIN 121.2 pg/mL (18.4-80.1)
== END 2021-12-14 23:59 | disposition short-term general hospital (02) ==
LOC: BIMLAB 14:52
PROVIDERS: PCP Family Medicine; Referring Provider Internal Medicine Endocrinology, Diabetes & Metabolism; Visit Provider Internal Medicine Endocrinology, Diabetes & Metabolism
DX: E11.65 Type 2 diabetes mellitus with hyperglycemia (principal); M81.0 Age-related osteoporosis without current pathological fracture; E03.9 Hypothyroidism, unspecified
CPT/HCPCS: 36415; 80053; 80061; 82306; 82330; 83735; 83970; 84100; 84439; 84443

== ENCOUNTER 2021-12-20 14:19 | Outpatient (CLI) | payer MEDICARE, SELFPAY ==
[2021-12-20 15:39] LABS: Microalbumin:Creatinine Ratio 9.6 mg/g CRE (<30 mg/g CRE)
== END 2021-12-20 23:59 | disposition short-term general hospital (02) ==
LOC: LABSPEC 14:20
PROVIDERS: PCP Family Medicine; Referring Provider Internal Medicine Endocrinology, Diabetes & Metabolism; Visit Provider Internal Medicine Endocrinology, Diabetes & Metabolism
DX: M81.0 Age-related osteoporosis without current pathological fracture (principal); Z94.4 Liver transplant status; E11.65 Type 2 diabetes mellitus with hyperglycemia; E03.9 Hypothyroidism, unspecified; E78.2 Mixed hyperlipidemia; I10 Essential (primary) hypertension; E66.09 Other obesity due to excess calories; Z68.31 Body mass index [BMI] 31.0-31.9, adult
CPT/HCPCS: 82043; 82570

== ENCOUNTER 2022-01-04 09:21 | Outpatient (CLI) | payer MEDICARE, SELFPAY ==
--- NOTE | 2022-01-04 09:23 | BI_ITS ---
MAMMOGRAPHY - UNILATERAL DIAGNOSTIC: LEFT BREAST REASON FOR EXAM: Female, 71 years old. Left breast mass. PERTINENT HISTORY: Personal history of breast cancer. Prior right mastectomy. Left breast implant. Prior left breast reconstruction surgeries. TECHNIQUE: Digital unilateral breast ching (3D mammographic acquisition) in the CC and MLO projections. 2-D mediolateral oblique (MLO) and craniocaudad (CC) views of both breasts were obtained. CAD: Full Field Digital Mammography with Computer Added Detection was performed. COMPARISON: Comparison is made with prior study dated 09/12/2020. FINDINGS: Breast Composition: There are scattered areas of fibroglandular density. A tissue clip marker is once again seen in the upper lateral aspect of the left breast. At this time, there is evidence of a 1.3 cm by 0.8 cm fat-containing nodule in the upper anterior lateral aspect of the left breast. This most likely represents postoperative fat necrosis. A repeat sonogram is recommended. Stable appearance of the breast implant. No other significant abnormalities are identified. BI/DIAG MAMM W/CAD, UNILAT IMPRESSION: New 1.3 cm x 0.8 semi fat-containing nodule in the upper anterior lateral aspect of the left breast. A repeat sonogram is recommended. ASSESSMENT CATEGORY: BIRADS Category 0: Incomplete. Need additional imaging evaluation. A letter regarding these results will be sent to the patient by the facility within 30 days. Approximately 10% of breast cancers are not detected by mammography. A normal mammogram should not delay biopsy of a clinically suspicious abnormality. Electronically Signed: Carlos Romero MD at 13:53 EST ,
--- NOTE | 2022-01-04 10:15 | US_ITS ---
STUDY: ULTRASOUND BREAST - LEFT REASON FOR EXAM: Female, 71 years old. A normal mammogram and ultrasound. TECHNIQUE: Axial and longitudinal images of the LEFT breast were performed with a high resolution ultrasound transducer. # OF IMAGES: 12 COMPARISON: Comparison is made with prior mammogram done earlier in the day as well as prior sonogram dated 09/20/2021. FINDINGS: LEFT Breast: There is a 0.7 cm x 1 cm x 0.8 cm slightly irregular echogenic nodule at the 8 o''clock position of the breast at 3 cm from the nipple. This has a similar appearance. As the demographic findings suggestive of a possible postoperative fat necrosis. A biopsy may be indicated. US/Breast Limited Unilateral IMPRESSION: Stable slightly irregular echogenic nodule at the 8 o''clock position of the breast at 3 cm from nipple. This most likely represents fat necrosis following surgeries. A biopsy may be indicated. ASSESSMENT CATEGORY: BIRADS Category 4: Suspicious - Biopsy Should Be Considered. A letter regarding these results will be sent to the patient by the facility within 30 days. Electronically Signed: Carlos Romero MD at 15:07 EST ,
== END 2022-01-04 23:59 | disposition home or self-care (01) ==
PROVIDERS: PCP Family Medicine; Referring Provider Surgery; Visit Provider Surgery
DX: N63.20 Unspecified lump in the left breast, unspecified quadrant (principal); C50.811 Malignant neoplasm of overlapping sites of right female breast; Z90.11 Acquired absence of right breast and nipple; Z98.82 Breast implant status; Z80.3 Family history of malignant neoplasm of breast; Z98.890 Other specified postprocedural states; Z17.0 Estrogen receptor positive status [ER+]
CPT/HCPCS: 76642; 77065

== ENCOUNTER → 2022-07-30 | Outpatient (CLI) | payer MEDICARE, SELFPAY ==
--- NOTE | 2022-07-30 14:36 | RAD_ITS ---
STUDY: X-RAY - RIGHT KNEE REASON FOR EXAM: Female, 72 years old. right knee pain TECHNIQUE: 4 view(s) of the knee. COMPARISON: 03/14/2021 FINDINGS: Normal visualized distal femur. Normal visualized proximal tibia and fibula. Normal proximal tibiofibular articulation. Normal medial femorotibial compartment. Normal lateral femorotibial compartment. Normal patellofemoral articulation. The soft tissue structures are unremarkable. RAD/Knee 4 or More Views IMPRESSION: Normal x-ray examination of the knee. Electronically Signed: Edison Dobson MD at 17:01 EDT ,
== END | disposition home or self-care (01) ==
LOC: MTRAD 14:33
PROVIDERS: PCP Family Medicine; Referring Provider Family Medicine; Visit Provider Family Medicine
DX: M25.561 Pain in right knee (principal)
CPT/HCPCS: 73564

== ENCOUNTER 2022-08-14 15:07 | Outpatient (CLI) | payer MEDICARE, SELFPAY ==
[2022-08-14 17:44] LABS: Hematocrit 44.7 % (37-47); Hemoglobin 14.9 g/dL (12.0-15.0); Mean Corp Hgb Conc 33.3 g/dL (32-36); Mean Corpuscular Hgb 30.3 pg (27.0-32.0); Platelet Count 297 K/mm3 (150-450); RBC Distribution Width CV 12.7 % (11.6-14.6); RBC Distribution Width SD 42.4 fl (35.1-43.9); Red Blood Count 4.91 M/mm3 (4.2-5.4); White Blood Count 8.2 K/mm3 (4.4-11.0)
[2022-08-14 18:13] LABS: Anion Gap 9 (5-15); BUN 18 mg/dL (7-18); BUN/Creat Ratio 19.4 RATIO (10-20); Calcium,Total 9.9 mg/dL (8.5-10.1); Chloride 104 mmol/L (98-107); Creatinine, Serum 0.93 mg/dL (0.55-1.02); EST Glomerular Filtration Rate 64 mL/min (>60); Est Glom Filt Rate - Afr Amer 77 mL/min (>60); Glucose 132 mg/dL (74-106); Potassium 3.6 mmol/L (3.5-5.1); Sodium Level 137 mmol/L (136-145); Thyroid Stim Hormone (TSH) 3.82 uIU/mL (0.358-3.74)
== END 2022-08-14 23:59 | disposition home or self-care (01) ==
LOC: MTLAB 15:07
PROVIDERS: PCP Family Medicine; Referring Provider Family Medicine; Visit Provider Family Medicine
DX: Z01.818 Encounter for other preprocedural examination (principal); I82.409 Acute embolism and thrombosis of unspecified deep veins of unspecified lower extremity; E03.9 Hypothyroidism, unspecified
CPT/HCPCS: 36415; 80048; 84443; 85027; 85610; 85730

== ENCOUNTER → 2022-08-17 | Outpatient (CLI) | payer MEDICARE, SELFPAY ==
--- NOTE | 2022-08-17 13:22 | BI_ITS ---
MAMMOGRAPHY - UNILATERAL DIAGNOSTIC: LEFT BREAST REASON FOR EXAM: Female, 72 years old. Follow-up examination. PERTINENT HISTORY: Personal history of breast cancer. Prior right mastectomy. Left breast implant. Prior left breast reconstruction surgeries. TECHNIQUE: Digital unilateral breast ching (3D mammographic acquisition) in the CC and MLO projections. 2-D mediolateral oblique (MLO) and craniocaudad (CC) views of both breasts were obtained. CAD: Full Field Digital Mammography with Computer Added Detection was performed. COMPARISON: Comparison is made with prior mammogram dated 01/04/2022. FINDINGS: Breast Composition: There are scattered areas of fibroglandular density. There are no dominant masses or suspicious calcifications. A left breast implant is seen and unchanged. A tissue clip marker is seen in the anterior slightly upper central portion of the left breast. Stable 1.3 cm x 0.8 cm fat-containing nodule in the upper anterior lateral aspect of the left breast. This is unchanged. Repeat sonogram is recommended. No other significant abnormalities are identified. BI/DIAG MAMM W/CAD, UNILAT IMPRESSION: Stable examination. Repeat sonogram of the nodular density in the upper anterior lateral aspect of the left breast is recommended. ASSESSMENT CATEGORY: BIRADS Category 0: Incomplete. Need additional imaging evaluation. A letter regarding these results will be sent to the patient by the facility within 30 days. Approximately 10% of breast cancers are not detected by mammography. A normal mammogram should not delay biopsy of a clinically suspicious abnormality. Electronically Signed: Carlos Romero MD at 14:40 EDT ,
--- NOTE | 2022-08-17 13:23 | US_ITS ---
STUDY: ULTRASOUND BREAST - LEFT REASON FOR EXAM: Female, 72 years old. Follow-up for left breast nodule. TECHNIQUE: Axial and longitudinal images of the LEFT breast were performed with a high resolution ultrasound transducer. # OF IMAGES: 14 COMPARISON: Comparison is made with prior study dated 01/04/2022. FINDINGS: LEFT Breast: Stable 4 mm x 8 mm x 4 mm hypoechoic irregular nodule at the 8 o''clock position of the breast at 3 cm from the nipple. The abnormality is wider than taller. A biopsy is recommended. US/Breast Limited Unilateral IMPRESSION: Stable hypoechoic irregular nodule at the left position of the breast at 3 cm from nipple. Biopsy recommended. ASSESSMENT CATEGORY: BIRADS Category 4: Suspicious - Biopsy Should Be Considered. A letter regarding these results will be sent to the patient by the facility within 30 days. Electronically Signed: Carlos Romero MD at 14:43 EDT ,
== END | disposition home or self-care (01) ==
LOC: OPBI 13:20
PROVIDERS: PCP Family Medicine
DX: N64.89 Other specified disorders of breast (principal)
CPT/HCPCS: 76642; 77061; 77065; G0279

== ENCOUNTER → 2022-12-05 | Outpatient (CLI) | payer MEDICARE, SELFPAY ==
[2022-12-05 17:56] LABS: Hematocrit 44.3 % (37-47); Hemoglobin 15.2 g/dL (12.0-15.0); Mean Corp Hgb Conc 34.3 g/dL (32-36); Mean Corpuscular Hgb 31.1 pg (27.0-32.0); Mean Corpuscular Volume 90.6 fL (81-99); Mean Platelet Vol. 9.8 fl (6.2-12.0); Platelet Count 286 K/mm3 (150-450); RBC Distribution Width SD 42.6 fl (35.1-43.9); Red Blood Count 4.89 M/mm3 (4.2-5.4); White Blood Count 8.8 K/mm3 (4.4-11.0)
[2022-12-05 18:14] LABS: Vitamin B12 612 pg/mL (211-911); Vitamin D,25 Hydroxy 18.4 ng/mL
[2022-12-05 18:24] LABS: ALB/GLOB Ratio 0.9 RATIO (0.9-2.4); AST(SGOT) 26 U/L (15-37); Alanine Aminotransfer ALT/SGPT 41 U/L (13-56); Albumin, Serum 3.7 g/dL (3.2-5.0); Alkaline Phosphatase 96 U/L (45-117); Anion Gap 10 (5-15); BUN 13 mg/dL (7-18); BUN/Creat Ratio 14.1 RATIO (10-20); Calcium,Total 9.6 mg/dL (8.5-10.1); Chloride 107 mmol/L (98-107); Creatinine, Serum 0.92 mg/dL (0.55-1.02); EST Glomerular Filtration Rate 64 mL/min (>60); Est Glom Filt Rate - Afr Amer 77 mL/min (>60); Ferritin 200 ng/mL (8-252); Globulin 3.9 g/dL (2.2-4.2); Glucose 114 mg/dL (74-106); Iron 65 ug/dL (50-170); Potassium 3.5 mmol/L (3.5-5.1); Protein, Total 7.6 g/dL (6.4-8.2); Sodium Level 141 mmol/L (136-145); Thyroid Stim Hormone (TSH) 1.72 uIU/mL (0.358-3.74)
== END | disposition home or self-care (01) ==
PROVIDERS: PCP Family Medicine; Referring Provider Family Medicine; Visit Provider Family Medicine
DX: L65.9 Nonscarring hair loss, unspecified (principal); E03.9 Hypothyroidism, unspecified; E55.9 Vitamin D deficiency, unspecified
CPT/HCPCS: 36415; 80053; 82306; 82607; 82728; 83540; 84443; 85027

== ENCOUNTER → 2022-12-23 | Outpatient (CLI) | payer MEDICARE, SELFPAY ==
--- NOTE | 2022-12-23 09:36 | MRI_ITS ---
EXAM: MR HEAD WITHOUT INTRAVENOUS CONTRAST CLINICAL INDICATION: AMS s/p fall 2.5 months ago and impact to face TECHNIQUE: Multiplanar and multisequence MR images of the brain were obtained without intravenous contrast. This report was created using [employer] report generation technology. COMPARISON: MRI brain of 01/16/2015. FINDINGS: BRAIN AND EXTRA-AXIAL SPACES: Minimal age-related cortical atrophy again noted with prominence of the cortical sulci and sylvian fissures. The ventricles remain normal in size and shape. The basal ganglia are symmetric. No signal abnormalities are noted within the brainstem or cerebellum. Mild confluent chronic small vessel ischemic changes again noted within the periventricular deep white matter tracts, slightly greater than on the prior scan of 2014. No intra- or extra-axial hemorrhage. No intracranial mass or mass effect. Basal cisterns are patent. SELLA: Unremarkable. AUDITORY SYSTEM: Seventh/8th cranial nerve complexes are symmetric. BONES/JOINTS: No discrete lytic or blastic abnormalities. Clivus shows normal fatty marrow signal intensity. The odontoid is intact. SINUSES: Unremarkable as visualized. Clear. MASTOID AIR CELLS: Unremarkable as visualized. Clear. ORBITS: Unremarkable as visualized. Both globes, extraocular muscles, optic nerves and retrobulbar fat appear unremarkable. VASCULATURE: Unremarkable as visualized. Normal flow voids in the major intracranial circulation. NASOPHARYNX: Stable 6 mm circumscribed cystic focus along the posterior wall of the nasopharynx at the midline, consistent with a benign Tornwaldt cyst. MRI/Brain without Contrast IMPRESSION: Minimal atrophy with chronic small vessel ischemic changes. No significant interval change. No acute findings in the head/brain. Electronically Signed: Alberto Cline MD at 21:04 EST ,
== END | disposition home or self-care (01) ==
LOC: MRI 09:34
PROVIDERS: PCP Family Medicine; Referring Provider Family Medicine; Visit Provider Family Medicine
DX: R45.86 Emotional lability (principal)
CPT/HCPCS: 70551

== ENCOUNTER → 2023-01-18 | Outpatient (CLI) | payer MEDICARE, SELFPAY ==
[2023-01-18 11:18] LABS: Valproic Acid (Depakene) Level 69 ug/mL (50-100)
== END | disposition home or self-care (01) ==
LOC: LAB 10:22
PROVIDERS: PCP Family Medicine; Referring Provider Student in an Organized Health Care Education/Training Program; Visit Provider Student in an Organized Health Care Education/Training Program
DX: F22 Delusional disorders (principal)
CPT/HCPCS: 36415; 80164

== ENCOUNTER → 2023-02-19 | Outpatient (CLI) | payer MEDICARE, SELFPAY ==
[2023-02-19 13:02] LABS: Anion Gap 6 (5-15); BUN 14 mg/dL (7-18); BUN/Creat Ratio 14.9 RATIO (10-20); Chloride 105 mmol/L (98-107); Creatinine, Serum 0.94 mg/dL (0.55-1.02); EST Glomerular Filtration Rate 62 mL/min (>60); Est Glom Filt Rate - Afr Amer 76 mL/min (>60); Glucose 139 mg/dL (74-106); Potassium 3.8 mmol/L (3.5-5.1); Sodium Level 139 mmol/L (136-145)
[2023-02-27 18:32] LABS: HPV APTIMA, High Risk Negative (Negative)
== END | disposition home or self-care (01) ==
PROVIDERS: Nurse Practitioner Women's Health; PCP Family Medicine; Referring Provider Family Medicine; Visit Provider Family Medicine
DX: Z12.4 Encounter for screening for malignant neoplasm of cervix (principal); E11.59 Type 2 diabetes mellitus with other circulatory complications
CPT/HCPCS: 36415; 80048; 87624; 88175; G0145

== ENCOUNTER → 2023-08-29 | Outpatient (CLI) | payer MEDICARE, SELFPAY ==
--- NOTE | 2023-08-29 13:52 | RAD_ITS ---
STUDY: X-RAY - RIGHT KNEE REASON FOR EXAM: Female, 73 years old. Pain. TECHNIQUE: 4 views of the right knee. COMPARISON: Right knee radiographs dated 07/30/2022. FINDINGS: Normal visualized distal femur. Normal visualized proximal tibia and fibula. Normal proximal tibiofibular articulation. No demonstrated acute fracture. There is minimal degenerative arthrosis of the medial femorotibial compartment. There is mild degenerative arthrosis of the lateral femorotibial compartment. There is minimal degenerative arthrosis of the patellofemoral articulation. There is a small to moderate volume joint effusion. The soft tissue structures are unremarkable. 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 Small to moderate joint effusion. Electronically Signed: Venkata Spicer MD at 15:17 EDT ,
[2023-08-29 15:27] LABS: Absolute Lymphocyte Count 2.91 X10^3/uL (0.83-4.51); Absolute Neutrophil Count 4.7 X10^3/uL (2.0-7.7); Basophil# 0.04 X10^3/uL; Basophil% 0.5 % (0-1); Eosinophil# 0.08 X10^3/uL; Eosinophils% 0.9 % (0-5); Hematocrit 43.1 % (37-47); Hemoglobin 14.4 g/dL (12.0-15.0); Lymphocyte # 2.91 X10^3/ul (0.83-4.51); Lymphocyte % 34.2 % (19-41); Mean Corp Hgb Conc 33.4 g/dL (32-36); Mean Corpuscular Hgb 30.1 pg (27.0-32.0); Mean Corpuscular Volume 90.2 fL (81-99); Mean Platelet Vol. 9.9 fl (6.2-12.0); Monocyte# 0.81 X10^3/uL; Monocyte% 9.5 % (0-10); NRBC Flagged by Analyzer 0 % (0-5); Neutrophil # 4.65 X10^3/uL (2.7-7.7); Neutrophil % 54.5 % (47-70); Platelet Count 309 K/mm3 (150-450); RBC Distribution Width CV 12.5 % (11.6-14.6); Red Blood Count 4.78 M/mm3 (4.2-5.4); White Blood Count 8.5 K/mm3 (4.4-11.0)
[2023-08-29 16:05] LABS: Vitamin B12 546 pg/mL (211-911)
[2023-08-29 16:09] LABS: AST(SGOT) 16 U/L (15-37); Alanine Aminotransfer ALT/SGPT 28 U/L (13-56); Albumin, Serum 3.5 g/dL (3.2-5.0); Alkaline Phosphatase 80 U/L (45-117); Anion Gap 3 (5-15); BUN 12 mg/dL (7-18); BUN/Creat Ratio 15.5 RATIO (10-20); Calcium,Total 9.4 mg/dL (8.5-10.1); Chloride 110 mmol/L (98-107); Cholesterol 145 mg/dL (200); Creatinine, Serum 0.78 mg/dL (0.55-1.02); EST Glomerular Filtration Rate 78 mL/min (>60); Est Glom Filt Rate - Afr Amer 94 mL/min (>60); Ferritin 183 ng/mL (8-252); Globulin 3.6 g/dL (2.2-4.2); Glucose 77 mg/dL (74-106); High Density Lipoprotein 56 mg/dL; Iron 96 ug/dL (50-170); Potassium 3.6 mmol/L (3.5-5.1); Protein, Total 7.1 g/dL (6.4-8.2); Sodium Level 143 mmol/L (136-145); Thyroid Stim Hormone (TSH) 0.06 uIU/mL (0.358-3.74); Triglycerides 130 mg/dL; Very Low Density Lipoprotein 26 mg/dL (5-40)
== END | disposition home or self-care (01) ==
LOC: MTLAB 13:52 → MTRAD 13:55 → MTLAB 14:02
PROVIDERS: PCP Family Medicine; Referring Provider Family Medicine; Visit Provider Family Medicine
DX: L65.9 Nonscarring hair loss, unspecified (principal); E11.9 Type 2 diabetes mellitus without complications; M25.561 Pain in right knee
CPT/HCPCS: 36415; 73564; 80053; 80061; 82306; 82607; 82728; 83540; 84443; 85025

== ENCOUNTER → 2023-09-11 | Outpatient (CLI) | payer MEDICARE, SELFPAY ==
--- NOTE | 2023-09-11 15:16 | BI_ITS ---
MAMMOGRAPHY - BILATERAL SCREENING REASON FOR EXAM: Female, 73 years old. Routine annual screening examination. PERTINENT HISTORY: Personal history of breast cancer. Prior right mastectomy. Sister with breast cancer. Left breast implant. TECHNIQUE: Digital bilateral breast jose alfredo (3D mammographic acquisition) in the CC and MLO projections. 2-D mediolateral oblique (MLO) and craniocaudad (CC) views of both breasts were obtained. CAD: Full Field Digital Mammography with Computer Added Detection was performed. COMPARISON: Comparison is made with prior examination of August 17, 2022 and January 04, 2002. FINDINGS: Breast Composition: There are scattered areas of fibroglandular density. Irregular calcification is seen in the slightly upper lateral aspect of the retroareolar region of the left breast. This is new. Biopsy recommended. A tissue clip marker is seen in the anterior slightly upper central portion of left breast. No other significant abnormalities are identified. BI/SCRN MAMM (CAD)W/JOSE ALFREDO BILAT IMPRESSION: Irregular calcifications seen in the upper lateral aspect of the retroareolar region of the left breast. Biopsy recommended. ASSESSMENT CATEGORY: BIRADS Category 4: Suspicious - Biopsy Should Be Considered. A letter regarding these results will be sent to the patient by the facility within 30 days. Approximately 10% of breast cancers are not detected by mammography. A normal mammogram should not delay biopsy of a clinically suspicious abnormality. [id number] Electronically Signed: Carlos Romero MD at 8:30 EDT ,
== END | disposition home or self-care (01) ==
LOC: OPBI 15:15
PROVIDERS: PCP Family Medicine; Referring Provider Nurse Practitioner; Visit Provider Nurse Practitioner
DX: Z12.31 Encounter for screening mammogram for malignant neoplasm of breast (principal); C50.811 Malignant neoplasm of overlapping sites of right female breast; Z17.0 Estrogen receptor positive status [ER+]
CPT/HCPCS: 77063; 77067

== ENCOUNTER → 2023-09-27 | Outpatient (CLI) | payer MEDICARE, SELFPAY ==
--- NOTE | 2023-09-27 09:24 | US_ITS ---
STUDY: ULTRASOUND BREAST - LEFT REASON FOR EXAM: Female, 73 years old. Abnormal screening mammogram. TECHNIQUE: Axial and longitudinal images of the LEFT breast were performed with a high resolution ultrasound transducer. # OF IMAGES: 26 COMPARISON: Comparison is made with prior mammogram done earlier today as well as prior sonogram of the left breast is August 17, 2022. FINDINGS: LEFT Breast: Coarse calcifications are seen at the 3:00 position of the breast at 2 cm from the nipple. This most likely represents dystrophic calcification. No nodular density is seen at this time. US/Breast Limited Unilateral IMPRESSION: Coarse calcifications corresponding to the mammographic findings. ASSESSMENT CATEGORY: BIRADS Category 2: Benign. A letter regarding these results will be sent to the patient by the facility within 30 days. Electronically Signed: Carlos Romero MD at 15:02 EST ,
--- NOTE | 2023-09-27 09:24 | BI_ITS ---
MAMMOGRAPHY - UNILATERAL DIAGNOSTIC: LEFT BREAST REASON FOR EXAM: Female, 73 years old. Abnormal screening mammogram. PERTINENT HISTORY: TECHNIQUE: Compression spot views of the left breast were obtained in the mediolateral oblique and craniocaudad views. CAD: Full Field Digital Mammography with Computer Added Detection was performed. COMPARISON: Comparison is made with prior study September 11, 2023. FINDINGS: Breast Composition: There are scattered areas of fibroglandular density. The coarse calcifications in the retroareolar region of the breasts were once again visualized. These most likely represent postoperative dystrophic calcifications although these have increased in number as compared to prior study. Biopsy recommended. No other significant abnormalities are identified. BI/DIAG MAMM W/CAD, UNILAT IMPRESSION: Persistent coarse calcifications as discussed. Biopsy recommended. ASSESSMENT CATEGORY: BIRADS Category 4: Suspicious - Biopsy Should Be Considered. A letter regarding these results will be sent to the patient by the facility within 30 days. Approximately 10% of breast cancers are not detected by mammography. A normal mammogram should not delay biopsy of a clinically suspicious abnormality. Electronically Signed: Carlos Romero MD at 11:24 EST ,
== END | disposition home or self-care (01) ==
LOC: OPBI 09:21
PROVIDERS: PCP Family Medicine
DX: R92.8 Other abnormal and inconclusive findings on diagnostic imaging of breast (principal)
CPT/HCPCS: 76642; 77065

== ENCOUNTER → 2024-01-02 | Outpatient (CLI) | payer MEDICARE, SELFPAY ==
--- NOTE | 2024-01-02 12:56 | BD_ITS ---
STUDY: DUAL ENERGY X-RAY ABSORPTIOMETRY / DXA REASON FOR EXAM: Female, 73 years old. [id number] TECHNIQUE: Bone Mineral Density (BMD) measurements of lumbar spine and bilateral hips were obtained. COMPARISON: Comparison is made with prior study dated October 18, 2020. FINDINGS: Lumbar Spine (L1-L4): g/cm2 (0.802) / T-score (-1.6) / Z-score (0.5) Findings are suggestive of osteopenia with a moderate fracture risk. Left Femur Total: g/cm2 (0.786) / T-score (-1.3) / Z-score (0.3) Left Femoral Neck: g/cm2 (0.604) / T-score (-2.2) / Z-score (-0.3) Right Femur Total: g/cm2 (0.690) / T-score (-2.1) / Z-score (-0.5) Right Femoral Neck: g/cm2 (0.503) / T-score (-3.1) / Z-score (-1.2) The T-Scores on the most recent prior examination were: Lumbar Spine (L1-L4): There has been improvement of bone density since the previous examination. Left Femur Total: which represents a worsening of 0.2%. Right Femur Total: which represents an improvement of 4.4%. BD/Dexa Bone Density Study IMPRESSION: The patient is considered osteoporotic as outlined below according to World Mil[employer] Organization (WHO) criteria with a high fracture risk. There has been improvement of bone density since the previous examination. Reference Information: The T-score is the number of standard deviations above or below the standard which is normal for young adults at their peak bone mineral density. The World Health Organization (WHO) interprets the T-scores as follows: Above -1 Normal bone density Between -1 and -2.5 Osteopenia Equal to / or below -2.5 Osteoporosis As a practical clinical guideline, osteopenia may be graded as follows: Mild -1 through -1.5 Moderate -1.6 through -2.0 Severe -2.1 through -2.4 The Z-score is the number of standard deviations above or below age-matched controls. A Z-score of less than -1.5 would be considered abnormal. References: 1. NIH Osteoporosis and Related Bone Diseases www osteo.org 2. International Society for Clinical Densitometry www iscd.org 3. National Osteoporosis Foundation www nof.org Electronically Signed: Carlos Romero MD at 13:18 EST ,
== END | disposition home or self-care (01) ==
LOC: OPBD 12:51
PROVIDERS: PCP Family Medicine; Referring Provider Family Medicine; Visit Provider Family Medicine
DX: Z00.00 Encounter for general adult medical examination without abnormal findings (principal); Z78.0 Asymptomatic menopausal state
CPT/HCPCS: 77080

== ENCOUNTER 2024-01-31 17:44 | Emergency (ER) | payer MEDICARE, SELFPAY ==
[2024-01-31 17:45] VITALS: BP 169/85; PULSE 57; RESP 17; TEMP 36.4; O2SAT 97; BMI 28.1
--- NOTE | 2024-01-31 18:42 | RAD_ITS ---
EXAM: XR RIGHT ELBOW COMPLETE, 3 OR MORE VIEWS CLINICAL INDICATION: Pain TECHNIQUE: Frontal, lateral and oblique views of the right elbow. COMPARISON: No relevant prior studies available. FINDINGS: BONES/JOINTS: Unremarkable. There is no displacement of the anterior or posterior fat pads. No acute fracture. No subluxation. Normal alignment. Preservation of the joint space. No destructive or sclerotic lesions. SOFT TISSUES: Unremarkable. No soft tissue swelling or gas. No radiopaque foreign body. RAD/Elbow min 3 Views IMPRESSION: Negative right elbow. Electronically Signed: Mark Gallo MD at 19:21 EDT ,
--- NOTE | 2024-01-31 21:05 | EX.ED.UPPERE ---
HPI <LISSA Crawley - Last Filed: 01/31/24 21:16> History of Present Illness Chief Complaint: Upper Extremity Injury Narrative Narrative: Patient is a 73-year-old female with history of breast cancer, history of DVT, hypertension hyperlipidemia, diabetes who presents to the emergency department with complaints of 2 weeks of right mid arm pain. Patient states her biggest concern is having a DVT to her right arm. She did have a DVT in her left leg 10 to 15 years ago. She is going on any anticoagulation medicine. Secondary to the pain, her history she is concerned. 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 Anxiety and depression Arthritis Breast cancer, right breast Cancer Capsular contracture of breast implant, subsequent encounter Deformity of reconstructed breast Delusional disorder Diabetes Dietary restriction Disproportion of reconstructed breast Disproportion of reconstructed breast DISRUPTION RIGHT BREAST RECONSTRUCTION WOUND Diverticulosis DVT (deep venous thrombosis) Estrogen receptor positive status (ER+) Estrogen receptor positive status [ER+] EXCESS MASTECTOMY TISSUE SCAR CONTOUR DEFOMITY СЕРГЕЙ (generalized anxiety disorder) Gastric reflux GERD (gastroesophageal reflux disease) Head mass History of bilateral breast implants History of DVT (deep vein thrombosis) History of edema History of hiatal hernia History of IBS History of stress test Hyperlipidemia Hypertension Hypothyroidism IBS (irritable bowel syndrome) Intradermal nevus of face Left breast mass LEFT VENTRICULAR EJECTION FRACTION: 52% Malignant neoplasm of overlapping sites of right female breast Mass of left forearm Neoplasm of bone of skull NONHEALING SURGICAL MASTECTOMY WOUND AT T ZONE RIGHT BREAST Obesity Osteoporosis Osteoporosis Other mechanical complication of breast prosthesis and implant, initial encounter Pain in right leg PAINFUL CAPSULAR CONTRACTURE RIGHT BREAST RECONSTRUCTION Polyneuropathy due to type 2 diabetes mellitus Post-menopausal Restless legs Sleep apnea Swelling of right lower extremity Thyroid disease Ulnar neuropathy at elbow of right upper extremity Wears glasses Wears partial dentures Home Medications rosuvastatin 5 mg tablet 5 mg PO QHS 04/03/16 [History Last Taken 01/16/17] fluticasone propionate 50 mcg/actuation nasal spray,suspension 1 spray intranasal DAILY 01/23/21 [History Last Taken Unknown] levothyroxine 150 mcg tablet 150 mcg PO DAILY 01/23/21 [History Last Taken Unknown] ropinirole 1 mg tablet 1 mg PO QHS 01/23/21 [History Last Taken Unknown] pen needle, diabetic 31 gauge x 16 #50 ea 06/15/21 [History Last Taken Unknown] dulaglutide 0.75 mg/0.5 mL subcutaneous pen injector (Trulicity) 1.5 mg subcut QWEEK 04/19/22 [History Last Taken Unknown] acetaminophen 160 mg/5 mL (5 mL) oral solution 1,000 mg PO Q4H 12/13/22 [History Last Taken Unknown] calcium carbonate 500 mg calcium (1,250 mg) chewable tablet 600 mg PO DAILY 12/13/22 [History Last Taken Unknown] diazepam 5 mg tablet 5 mg PO QHS PRN 12/13/22 [History Last Taken Unknown] diltiazem HCl 120 mg capsule,24 hr,extended release 120 mg PO BID 12/13/22 [History Last Taken Unknown] ergocalciferol (vitamin D2) 50,000 unit tablet unit PO 12/13/22 [History Last Taken Unknown] insulin glargine U-300 conc 300 unit/mL (1.5 mL) subcutaneous pen ([employer] SoloStar U-300 Insulin) 40 unit subcut DAILY 12/13/22 [History Last Taken Unknown] sotalol 80 mg tablet 80 mg PO BID 12/13/22 [History Last Taken Unknown] zoledronic acid 5 mg/100 mL in mannitol 5 %-water intravenous piggybck (Reclast) ea .Route 12/13/22 [History Last Taken Unknown] estradiol 0.01% (0.1 mg/gram) vaginal cream 1 appful vaginal .COMPLEX #42.5 grams 01/23/23 [Rx Last Taken Unknown] escitalopram oxalate 10 mg tablet See Rx Instructions .Route .COMPLEX #90 tabs 11/25/23 [Rx Last Taken Unknown] risperidone 0.5 mg tablet 0.5 mg PO BID #60 tabs 01/22/24 [Rx Last Taken Unknown] trazodone 50 mg tablet See Rx Instructions .Route .COMPLEX #90 tabs 01/22/24 [Rx Last Taken Unknown] Allergy/AdvReac Type Severity Reaction Status Date / Time levofloxacin [From Levaquin] Allergy Severe RAISES Verified 01/31/24 17:47 BLOOD PRESSURE AND STOMACH SWELLS UP AND IS PAINFUL amoxicillin Allergy Other Verified 01/31/24 17:47 atorvastatin calcium Allergy Other Verified 01/31/24 17:47 [From Lipitor] cyclobenzaprine Allergy Other Verified 01/31/24 17:47 gabapentin Allergy lip Verified 01/31/24 17:47 swelling medroxyprogesterone acetate Allergy Other Verified 01/31/24 17:47 [From Premphase] pravastatin sodium Allergy Other Verified 01/31/24 17:47 [From Pravachol] risedronate sodium Allergy Other Verified 01/31/24 17:47 [From Actonel] simvastatin [From Zocor] Allergy Other Verified 01/31/24 17:47 aloe vera [From Flexall] AdvReac Intermediate DIZZY Verified 01/31/24 17:47 menthol [From Flexall] AdvReac Intermediate DIZZY Verified 01/31/24 17:47 milnacipran [From Savella] AdvReac Intermediate NAUSEA/STOMACH Verified 01/31/24 17:47 PAIN quetiapine [From Seroquel] AdvReac Intermediate STOMACH Verified 01/31/24 17:47 PAIN vilazodone [From Viibryd] AdvReac Intermediate NAUSEA Verified 01/31/24 17:47 vitamin E (d-alpha AdvReac Intermediate DIZZY Verified 01/31/24 17:47 tocopherol) [From Flexall] bupropion AdvReac Mild Nausea Verified 01/31/24 17:47 lisinopril AdvReac Mild DIZZY/HEADA Verified 01/31/24 17:47 FRANCIS metformin [From Janumet] AdvReac Mild Nausea Verified 01/31/24 17:47 minocycline AdvReac Nausea/Vom/ Verified 01/31/24 17:47 Diarrhea Penicillins [PCN] AdvReac SORE THROAT Verified 01/31/24 17:47 Family History Father Pancreatic cancer Hypertension Mother Diabetes Hypertension Alzheimer disease Brother CAD (coronary artery disease) Brother CAD (coronary artery disease) Sister Breast cancer Other BLOOD CLOTS High cholesterol Kidney disease Osteoporosis Parkinson disease Thyroid disorder Surgical History 2ND STAGE RIGHT BREAST RECONSTRUCTION FIRST STAGE IMMEDIATE RIGHT BREAST RECONSTRUCTION H/O dilation and curettage History of breast reconstruction History of cardiac catheterization History of excision of lesion History of excision of mass LEFT STEREOTACTIC BREAST BIOPSY REVISION RECONSTRUCTED RIGHT BREAST REVISION RIGHT BREAST RECONSTRUCTION RIGHT MASTECTOMY AND RIGHT SENTINEL NODE BIOPSY S/P bunionectomy S/P foot surgery S/P hernia surgery S/P hysterectomy S/P wrist surgery SECOND STAGE DELAYED LEFT BREAST RECONSTRUCTION Status post breast lump removal Social History household members: spouse and other details: MOTHER housing: house current occupational status: retired and other current occupation: [employer] current occupational exposures/hazards: No pets and animals: Yes Smoking Status: Former smoker Electronic Cigarette Use: with nicotine second hand exposure: No alcohol intake: current alcohol intake frequency: holidays/special occasions only Alcohol type: wine substance use type: does not use what type of physical activity do you participate in: other seatbelt use: always do you feel safe at home: Yes additional social history: SUN EXPOSURE: OCCASIONALLY Seferino JONES <LISSA Crawley - Last Filed: 01/31/24 21:16> ROS ED ROS Narrative Constitutional: Negative for fever, chills, weight loss, weakness Eyes: Negative for vision loss, vision change, double vision ENT: Negative for any sore throat, ear pain, congestion Cardiovascular: Negative for any chest pain, tightness, palpitations Respiratory: Negative for any cough, sputum production, hemoptysis, dyspnea, dyspnea on exertion, orthopnea Gastrointestinal: Negative for any abdominal pain, nausea, vomiting, diarrhea, constipation, blood in stool, blood in vomit : Negative for any urinary frequency, dysuria, retention, blood in urine Muscle skeletal: Negative for any neck pain, back pain. Positive right arm pain Neurological: Negative for any headache, syncope, dizziness Skin: Negative for any rashes, itching, abrasions, lacerations Psychiatric: Negative for any depression, anxiety, stress, suicidal ideation, homicidal ideation Hematologic: Negative for any excessive bruising, easy bleeding EXAM <LISSA Crawley - Last Filed: 01/31/24 21:16> Physical Exam Narrative Exam Narrative: Vital signs reviewed. HEET: Head normocephalic atraumatic, TMs clear bilaterally. Posterior pharynx is clear, moist mucous membranes. Nares clear bilaterally. Neck: Supple with no lymphadenopathy or tenderness. No signs of meningismus. Cardiac: Regular rate and rhythm no murmurs gallops or rubs, equal peripheral pulses bilaterally. Respiratory: Lungs clear to auscultation bilaterally. No chest tenderness. Abdomen: Soft, nontender, nondistended. No abdominal bruit or pulsatile masses. No hepatosplenomegaly Extremities: No peripheral edema, no signs of gross trauma or deformity. Active full range of motion of all extremities. No neurological focal deficit to the right upper extremity. There is no redness, patient has pain to the medial aspect of the elbow, patient has no pain to the bicep, patient also pain to the lateral condyle. There is no erythema, there is no edema noted. Neuro: Cranial nerves II through XII intact, no focal neurological deficits. Skin: Clean dry and intact with no rash, purpura, petechiae, vesicles or pustules. Backs/flank: No CVA tenderness, no midline spinal tenderness, no deformity. Psych: Normal mood and affect. No SI, HI or acute psychosis. Const Vital Signs: 01/31/24 17:45 Temperature 97.6 F L Temperature Source Temporal Pulse Rate 57 L Respiratory Rate 17 Blood Pressure 169/85 H Blood Pressure Mean 113 Pulse Ox 97 Oxygen Delivery Method Room Air [facility] <LISSA Crawley - Last Filed: 01/31/24 21:16> [facility] Radiography Diagnostic Testing: Clinical Impression(s) from Imaging Studies Elbow X-Ray 01/31/24 18:42 IMPRESSION: Negative right elbow. Electronically Signed: Mark Gallo MD at 19:21 EDT , Treatment and Re-Evaluation Narrative: Patient appears to be in no obvious respiratory distress, patient's vital signs are stable. Presenting to the emergency department complaints of right arm pain worse with palpation. Patient is able to flex and extend without any difficulty. Patient did receive x-rays of the right elbow interpreted by ER physician shows no acute process. Patient biggest concern is a DVT. At this time, DVT of the upper extremity is not available. Patient will be given a outpatient ultrasound for tomorrow. Patient is happy with the plan of care, at this time, patient has no chest pain or shortness of breath. I do believe this is appropriate. She is happy the plan of care stable for discharge. <Dr. Jose Young, DO - Last Filed: 01/31/24 21:19> [facility] Narrative Medical decision making narrative: Patient appears to be in no obvious respiratory distress, patient's vital signs are stable. Presenting to the emergency department complaints of right arm pain worse with palpation. Patient is able to flex and extend without any difficulty. Patient did receive x-rays of the right elbow interpreted by ER physician shows no acute process. Patient biggest concern is a DVT. At this time, DVT of the upper extremity is not available. Patient will be given a outpatient ultrasound for tomorrow. Patient is happy with the plan of care, at this time, patient has no chest pain or shortness of breath. I do believe this is appropriate. She is happy the plan of care stable for discharge. This patient was seen with a PA/AWNING SPREADER Individually assessed they patient including history and physical. I have reviewed everything on the chart that is available and agree with the documentation provided by the PA/AWNING SPREADER including discussion about the assessment, treatment plan, discussion, and return precautions. Patient presenting with pain in the right antecubital fossa. She is concerned for possible DVT. She relates that she states she has a history of DVT but it has been very distant. She states she was on a medication she cannot recall for about a month for this. Does not have any risk factors for DVT currently. She has pain in the elbow fossa. There is no evidence of cellulitis. Vital signs are stable and she is afebrile. I do not believe the patient needs Lovenox tonight. Will discharge home with outpatient follow-up with ultrasound tomorrow. She is amenable to this. Discharge Plan Triage Chief Complaint: Upper Extremity Injury ED Midlevel Provider: Seferino Hernandez ED Provider: Jose Young Dx/Rx/DC Orders Clinical Impression: Arm pain Instructions: ED Myalgias, ED Pain, Acute, Uncertain Cause Prescriptions: No Action levothyroxine 150 mcg tablet 150 mcg PO DAILY ropinirole 1 mg tablet 1 mg PO QHS fluticasone propionate 50 mcg/actuation spray,suspension 1 spray INTRANASAL DAILY Patient Comments: INSTILL 2 SPRAYS INTO EACH NOSTRIL ONCE DAILY (DME) pen needle, diabetic 31 gauge x 3/16 needle See Rx Instructions .ROUTE .MEDSUPPLY Qty: 50 Rx Instructions: As directed Trulicity 0.75 mg/0.5 mL pen injector 1.5 mg SC QWEEK Rx Instructions: on mondays sotalol 80 mg tablet 80 mg PO BID ergocalciferol (vitamin D2) 50,000 unit tablet PO diltiazem HCl 120 mg capsule,extended release 24 hr 120 mg PO BID diazepam 5 mg tablet 5 mg PO QHS PRN zoledronic [id number] [Reclast] 5 mg/100 mL piggyback .Route Rx Instructions: One Intravenous acetaminophen 160 mg/5 mL (5 mL) solution 1,000 mg PO Q4H [employer] SoloStar U-300 Insulin 300 unit/mL (1.5 mL) insulin pen 40 unit subcut DAILY estradiol 0.01 % (0.1 mg/gram) cream 1 appful vaginal .COMPLEX Qty: 42.5 2RF Rx Instructions: 1 appful vaginally 3 nights per week; risperidone 0.5 mg tablet 0.5 mg PO BID Qty: 60 1RF trazodone 50 mg tablet See Rx Instructions .ROUTE .COMPLEX Qty: 90 1RF Dose Instruction: TAKE 1 TABLET BY MOUTH EVERY DAY AT BEDTIME NEEDED FOR INSOMNIA Rx Instructions: TAKE 1 TABLET BY MOUTH EVERY DAY AT BEDTIME NEEDED FOR INSOMNIA rosuvastatin 5 MG tablet 5 mg PO QHS Patient Comments: lowers cholesterol calcium carbonate 500 mg calcium (1,250 mg) tablet,chewable 600 mg PO DAILY Patient Comments: supplement escitalopram oxalate 10 mg tablet See Rx Instructions .ROUTE .COMPLEX Qty: 90 1RF Dose Instruction: TAKE 1 TABLET BY MOUTH EVERY DAY Rx Instructions: TAKE 1 TABLET BY MOUTH EVERY DAY Other Ambulatory Orders: Venous Duplex US, Unilateral (Stat) Facility: [facility] - Location: [facility] Ordered By: Seferino Hernandez Primary Care Provider: Sterling Roland Referrals: Sterling Roland MD [Primary Care Provider] - Activity Restrictions/Additional Instructions: Please follow-up tomorrow for your outpatient ultrasound Disposition Disposition: Home, Self Care
--- OUTSIDE RECORDS SUMMARY | 2024-01-31 21:11 | XMS RPT_ITS | CCD ---
Author Name Unknown Address [address] [place] [address] Organization [facility] Care Team Providers Care Retail Team Member Name Role Phone Rigoberto Altamirano MD Unavailable FELICIA BRIGHT, DR MADRIGAL Primary Care Physician Kaitlin Roland MD Primary Care Provider Mo MEDICAL ATTENDANT.SOULEYMANE, Trevor Unavailable FELICIA BRIGHT, DR MADRIGAL Primary Care Physician Kaitlin Roland MD Primary Care Provider Mo MEDICAL ATTENDANT.SOULEYMANE Trevor Unavailable FELICIA BRIGHT, DR MADRIGAL Primary Care PAPI Morse MD Attending Unavail able FELICIA BRIGHT, DR MADRIGAL Primary Care FAUSTINO Torres MD Attending Unavailable JEANETTE BRIGHT, COLTON Mota Attending Unavailable FELICIA BRIGHT, DR MADRIGAL Primary Care Mary WEST DPM, DR FALCON Attending Unavailadela ROLAND MD, DR MADRIGAL Primary Care Mary CERON MD, GREGORIA Attending Unavailable FELICIA BRIGHT, DR MADRIGAL Primary Care Mary CERON MD, GREGORIA Admitting Unavailable JARED BRIGHT, GREGORIA Attending Unavailable FELICIA BRIGHT, DR MADRIGAL Primary Care Kaitlin Herzog MD Primary Care Provider Mo MEDICAL ATTENDANT.SOULEYMANE, Trevor Unavailable TREVOR HASSAN Attending Unavailable KAITLIN ROLAND Primary Care UnavailTREOVR Davila Attending Unavailable KAITLIN ROLAND Primary Care Unavailabl e Allergies Allergy Classification Reported Allergen(s) Allergy Type Date of Onset Reaction(s) Facility (9 sources) Penicillin; Translations: [penicillin] Drug Allergy 3 sore throat [facility] Work Phone: (14 sources) Amoxicillin; Translations: [amoxicillin] Drug Allergy 0 Other: See Comments [facility] (14 sources) atorvastatin; Translations: [atorvastatin] Drug Allergy 0 [facility] (8 sources) buPROPion; Translations: [bupropion] Drug Allergy [facility] (8 sources) cyclobenzaprine ; Translations: [cyclobenzaprin e] Drug Allergy [facility] (8 sources) Estrogens, Conjugated (HALFWAY) / medroxyPROGESTE Xavi; Translations: [conjugated estrogens-medro xyprogesterone] Drug Allergy [facility] (8 sources) Lisinopril; Translations: [lisinopril] Drug Allergy [facility] (8 sources) metFORMIN / SITagliptin; Translations: [metformin-alex gliptin] Drug Allergy [facility] (8 sources) milnacipran; Translations: [milnacipran] Drug Allergy [facility] (16 sources) Pravastatin; Translations: [pravastatin] Drug Allergy GI UPSET [facility] (8 sources) QUEtiapine; Translations: [quetiapine] Drug Allergy [facility] (8 sources) Risedronate; Translations: [risedronate] Drug Allergy [facility] (14 sources) Simvastatin; Translations: [simvastatin] Drug Allergy 6 Unknown [facility] (8 sources) vilazodone; Translations: [vilazodone] Drug Allergy [facility] (6 sources) cyclobenzaprine ; Translations: [CYCLOBENZAPRIN E HCL] Drug Allergy 0 [facility] Work Phone: (2 sources) Penicillins; Translations: [PENICILLINS] Propensity to adverse reactions 7 Cough [facility] Work Phone: (6 sources) Pravastatin; Translations: [PRAVASTATIN SODIUM] Drug Allergy 6 Unknown [facility] (6 sources) Risedronate; Translations: [RISEDRONATE SODIUM] Drug Allergy 0 [facility] (6 sources) Conj Estrog-Medroxyp rogest Willy; Translations: [CONJ ESTROG-MEDROXYP ROGEST WILLY] Drug Allergy 6 Unknown [facility] (4 sources) Penicillins Propensity to adverse reactions 7 Cough [facility] Work Phone: (4 sources) Mexiletine; Translations: [mexiletine] Drug Allergy [facility] [place] Medications Current Medications Medication Drug Class(es) Dates Sig (Normalized) Sig (Original) albuterol MDI (90 mcg/inh) CFC free inhalation aerosol (3 sources) Start: 10-13-2022 take 2 puff(s) by inhalation every four hours albuterol MDI (90 mcg/inh) CFC free inhalation aerosol 2 puff(s), Inhalation, q4h, # 1 EA, 0 Refill(s), Acute bronchitis Start Date: 10/13/22 Status: Ordered Azithromycin 5 Day Dose Pack 250 mg oral tablet (1 source) Start: 10-13-2022 End: 10-18-2022 take 1 tablet by mouth once daily Azithromycin 5 Day Dose Pack 250 mg oral tablet 1 dose, Oral, Daily, X 5 day(s), # 6 tab(s), 0 Refill(s), 10/18/22 20:49:00 EST, Acute bronchitis, 90.4 Start Date: 10/13/22 Stop Date: 10/18/22 Status: Ordered clonazePAM (2 sources) Benzodiazepine Start: 12-29-2022 24 hr dilTIAZem hydrochloride 120 mg extended release oral capsule (9 sources) [facility] Start: 01-25-2022 Cardizem CD 120 mg/24 hours oral capsule, extended release Dose : 120 mg = 1 cap(s), Oral, qDay, # 30 cap(s), 4 Refill(s), Pharmacy: [facility]/pharmacy #[id number], 170.2, cm, 01/25/22 14:52:00 EST, Height, kg, 01/25/22 14:52:00 EST, Dosing Weight Start Date: 01/25/22 Status: Ordered Completed/Discontinued Medications Medication Drug Class(es) Dates Sig (Normalized) Sig (Original) amLODIPine 10 mg oral tablet (2 sources) Dihydropyridine [facility] Start: 12-22-2017 End: 03-05-2022 AMLODIPINE BESYLATE 10 MG TABS 1 tablet daily AMLODIPINE BESYLATE [id number] Shelby Mason LPN Problems Active Problems Problem Classification Problem Date Documented Date Episodic/Chronic Acute bronchitis (2 sources) Acute bronchitis; Translations: [Acute bronchitis, unspecified] Onset: 10-13-2022 Episodic Cancer of breast (14 sources) Overlapping malignant neoplasm of female breast; Translations: [Malignant neoplasm of overlapping sites of right female breast] Onset: 04-18-2016 Chronic Cardiac dysrhythmias (18 sources) Atrial tachycardia; Translations: [Ventricular tachycardia] 01-25-2022 Chronic Conduction disorders (9 sources) Left bundle branch block; Translations: [Left bundle-branch block, unspecified] 01-03-2022 Chronic Diabetes mellitus without complication (5 sources) Type 2 diabetes mellitus without complication; Translations: [Type 2 diabetes mellitus without complications] Onset: 05-26-2019 05-28-2019 Chronic Esophageal disorders (5 sources) Gastroesophageal reflux disease; Translations: [Gastro-esophageal reflux disease without esophagitis] Onset: 07-24-2018 07-24-2018 Chronic Essential hypertension (6 sources) Essential hypertension; Translations: [Essential (primary) hypertension] Onset: 05-24-2011 05-28-2019 Chronic Nonspecific chest pain (8 sources) Chest pain 01-03-2022 Episodic Other non-traumatic joint disorders (1 source) Hip pain; Translations: [Pain in left hip] Episodic Other nutritional; endocrine; and metabolic disorders (6 sources) Obesity; Translations: [Obesity, unspecified] Chronic Other nutritional; endocrine; and metabolic disorders (1 source) Obese class I; Translations: [Body mass index (BMI) 32.0-32.9, adult] Chronic Other screening for suspected conditions (not mental disorders or infectious disease) (1 source) Patient encounter status; Translations: [Encounter for screening mammogram for malignant neoplasm of breast] 09-10-2023 Episodic Residual codes; unclassified (1 source) Obstructive sleep apnea syndrome; Translations: [Obstructive sleep apnea (adult) (pediatric)] Chronic Residual codes; unclassified (1 source) Edema of foot; Translations: [Localized edema] Onset: 05-23-2020 05-23-2020 Episodic Residual codes; unclassified (1 source) Edema of lower extremity 02-11-2023 Episodic Residual codes; unclassified (1 source) Other specified postprocedural states; Translations: [Other specified postprocedural states] Onset: 05-23-2020 05-23-2020 Suicide and intentional self-inflicted injury (1 source) Poisoning by drug AND/OR medicinal substance; Translations: [Poisoning by unspecified drugs, medicaments and biological substances, intentional self-harm, initial encounter] Onset: 10-03-2022 Episodic Thyroid disorders (5 sources) Acquired hypothyroidism; Translations: [Hypothyroidism, unspecified] Onset: 05-26-2019 05-28-2019 Chronic Unclassified (8 sources) Patient encounter status 01-03-2022 Unclassified (4 sources) History of operative procedure on foot 06-14-2022 Past or Other Problems Problem Classification Problem Date Documented Date Episodic/Chronic Abdominal hernia (5 sources) Hiatal hernia; Translations: [Diaphragmatic hernia without obstruction or gangrene] Onset: 05-26-2019 05-28-2019 Episodic Abdominal pain (5 sources) Left lower quadrant pain; Translations: [Left lower quadrant pain] Onset: 05-27-2007 05-27-2007 Episodic Administrative/social admission (5 sources) Discharge status; Translations: [Encounter for administrative examinations, unspecified] Onset: 05-26-2019 05-28-2019 Episodic Other nervous system disorders (5 sources) Acute postoperative pain; Translations: [Other acute postprocedural pain] Onset: 05-26-2019 05-28-2019 Episodic Unclassified (1 source) Problem Results Test Name Value Interpretation Reference Range Facil ity Vital Signs Date Time Vital Sign Value Performing Clinician Facility 09-05-2023 14:12-0400 Body height 170 cm [place] Hassan MEDICAL ATTENDANT.TREAD TUBER MACHINE OPERATOR Work Phone: [facility] 09-05-2023 14:12-0400 Body temperature 98.8 [degF] Trevor Hassan MEDICAL ATTENDANT.TREAD TUBER MACHINE OPERATOR Work Phone: [facility] 09-05-2023 14:12-0400 Body weight 79.83 kg Trevor Hassan MEDICAL ATTENDANT.TREAD TUBER MACHINE OPERATOR Work Phone: [facility] 09-05-2023 14:12-0400 Diastolic blood pressure 75 mm[Hg] [place] Hassan MEDICAL ATTENDANT.TREAD TUBER MACHINE OPERATOR Work Phone: [facility] 09-05-2023 14:12-0400 Heart rate 74 /min Trevor Hassan MEDICAL ATTENDANT.TREAD TUBER MACHINE OPERATOR Work Phone: [facility] 09-05-2023 14:12-0400 Systolic blood pressure 132 mm[Hg] [place] Hassan MEDICAL ATTENDANT.TREAD TUBER MACHINE OPERATOR Work Phone: [facility] 12-30-2022 01:20-0500 Body temperature 97.88 [degF] PAPI KRAMER MD [facility] 12-30-2022 01:20-0500 Diastolic Blood Pressure Non-Invasive 72 1 PAPI KRAMER MD [facility] 12-30-2022 01:20-0500 Heart rate 77 /min PAPI KRAMER MD [facility] 12-30-2022 01:20-0500 Respiratory rate 14 /min PAPI KRAMER MD [facility] 12-30-2022 01:20-0500 Systolic Blood Pressure Non-Invasive 156 1 PAPI KRAMER MD [facility] 12-29-2022 20:30-0500 Diastolic Blood Pressure Non-Invasive 93 1 PAPI KRAMER MD [facility] 12-29-2022 20:30-0500 Heart rate 70 /min PAPI KRAMER MD [facility] 12-29-2022 20:30-0500 Respiratory rate 12 /min PAPI KRAMER MD [facility] 12-29-2022 20:30-0500 Systolic Blood Pressure Non-Invasive 161 1 PAPI KRAMER MD [facility] 12-29-2022 20:00-0500 Diastolic Blood Pressure Non-Invasive 89 1 PAPI KRAMER MD [facility] 12-29-2022 20:00-0500 Heart rate 78 /min PAPI KRAMER MD [facility] 12-29-2022 20:00-0500 Respiratory rate 17 /min PAPI KRAMER MD [facility] 12-29-2022 20:00-0500 Systolic Blood Pressure Non-Invasive 147 1 PAPI KRAMER MD [facility] 12-29-2022 11:47-0500 Body temperature 97.88 [degF] PAPI KRAMER MD [facility] 10-13-2022 21:02-0500 Heart rate 79 /min COLTON REID MD [facility] 10-13-2022 21:02-0500 Respiratory rate 18 /min COLTON REID MD [facility] 10-13-2022 20:38-0500 Body temperature 97.88 [degF] COLTON REID MD [facility] 10-13-2022 20:38-0500 Body weight 90.4 kg COLTON REID MD [facility] 10-13-2022 20:38-0500 Diastolic Blood Pressure Non-Invasive 99 1 COLTON REID MD [facility] 10-13-2022 20:38-0500 Heart rate 93 /min COLTON REID MD [facility] 10-13-2022 20:38-0500 Respiratory rate 18 /min COLTON REID MD [facility] 10-13-2022 20:38-0500 Systolic Blood Pressure Non-Invasive 186 1 COLTON REID MD [facility] 10-03-2022 16:42-0500 Body temperature 98.24 [degF] FAUSTINO RODRIGUES MD [facility] 10-03-2022 16:42-0500 Diastolic Blood Pressure Non-Invasive 92 1 FAUSTINO RODRIGUES MD [facility] 10-03-2022 16:42-0500 Heart rate 78 /min FAUSTINO RODRIGUES MD [facility] 10-03-2022 16:42-0500 Respiratory rate 18 /min FAUSTINO RODRIGUES MD [facility] 10-03-2022 16:42-0500 Systolic Blood Pressure Non-Invasive 182 1 FAUSTINO RODRIGUES MD [facility] 10-03-2022 07:38-0500 Body temperature 98.06 [degF] FAUSTINO RODRIGUES MD [facility] 10-03-2022 07:38-0500 Diastolic Blood Pressure Non-Invasive 78 1 FAUSTINO RODRIGUES MD [facility] 10-03-2022 07:38-0500 Heart rate 58 /min FAUSTINO RODRIGUES MD [facility] 10-03-2022 07:38-0500 Respiratory rate 20 /min FAUSTINO RODRIGUES MD [facility] 10-03-2022 07:38-0500 Systolic Blood Pressure Non-Invasive 140 1 FAUSTINO RODRIGUES MD [facility] 10-03-2022 05:00-0500 Diastolic Blood Pressure Non-Invasive 80 1 FAUSTINO RODRIGUES MD [facility] 10-03-2022 05:00-0500 Heart rate 75 /min FAUSTINO RODRIGUES MD [facility] 10-03-2022 05:00-0500 Systolic Blood Pressure Non-Invasive 149 1 FAUSTINO RODRIGUES MD [facility] 10-03-2022 02:02-0500 Heart rate 71 /min FAUSTINO RODRIGUES MD [facility] 10-03-2022 00:39-0500 Body temperature 98.06 [degF] FAUSTINO RODRIGUES MD [facility] 09-04-2022 13:59-0400 Body temperature 98.01 [degF] Trevor Mcmullenenter MEDICAL ATTENDANT.TREAD TUBER MACHINE OPERATOR Work Phone: [facility] 09-04-2022 13:59-0400 Body weight 95.25 kg Trevor Mcmullenenter MEDICAL ATTENDANT.TREAD TUBER MACHINE OPERATOR Work Phone: [facility] 09-04-2022 13:59-0400 Diastolic blood pressure 92 mm[Hg] Trevor Hassan MEDICAL ATTENDANT.TREAD TUBER MACHINE OPERATOR Work Phone: [facility] 09-04-2022 13:59-0400 Heart rate 81 /min Trevor Mcmullenenter MEDICAL ATTENDANT.TREAD TUBER MACHINE OPERATOR Work Phone: [facility] 09-04-2022 13:59-0400 Systolic blood pressure 153 mm[Hg] Trevor Mcmullenenter MEDICAL ATTENDANT.TREAD TUBER MACHINE OPERATOR Work Phone: [facility] 04-11-2022 16:30-0400 Diastolic blood pressure 88 mm[Hg] GREGORIA CERON MD [facility] 04-11-2022 16:30-0400 Systolic blood pressure 176 mm[Hg] GREGORIA CERON MD [facility] 04-11-2022 15:28-0400 Diastolic blood pressure 82 mm[Hg] GREGORIA CERON MD [facility] 04-11-2022 15:28-0400 Heart rate 62 /min GREGORIA CERON MD [facility] 04-11-2022 15:28-0400 Mean blood pressure 99 mm[Hg] GREGORIA CERON MD [facility] 04-11-2022 15:28-0400 Reason For Taking VItal Signs GREGORIA CERON MD [facility] 04-11-2022 15:28-0400 Respiratory rate 16 /min GREGORIA CERON MD [facility] 04-11-2022 15:28-0400 Systolic blood pressure 132 mm[Hg] GREGORIA CERON MD [facility] 04-11-2022 11:59-0400 Heart rate 70 /min GREGORIA CERON MD [facility] 04-11-2022 11:59-0400 Reason For Taking VItal Signs GREGORIA CERON MD [facility] 04-11-2022 11:22-0400 Body temperature 97.88 [degF] GREGORIA CERON MD [facility] 04-11-2022 11:22-0400 Diastolic blood pressure 64 mm[Hg] GREGORIA CERON MD [facility] 04-11-2022 11:22-0400 Heart rate 69 /min GREGORIA CERON MD [facility] 04-11-2022 11:22-0400 Respiratory rate 16 /min GREGORIA CERON MD [facility] 04-11-2022 11:22-0400 Systolic blood pressure 138 mm[Hg] GREGORIA CERON MD [facility] 04-11-2022 08:49-0400 Diastolic Blood Pressure NBP 78 1 GREGORIA CERON MD [facility] 04-11-2022 08:49-0400 Reason For Taking VItal Signs GREGORIA CERON MD [facility] 04-11-2022 08:49-0400 Respiratory rate 16 /min GREGORIA CERON MD [facility] 04-11-2022 08:49-0400 Systolic Blood Pressure NBP 146 1 GREGORIA CERON MD [address] [place] [address] 04-11-2022 06:46-0400 Body temperature 97.88 [degF] GREGORIA CERON MD [address] [place] [address] 04-10-2022 16:50-0400 Mean blood pressure 123 mm[Hg] GREGORIA CERON MD [address] [place] [address] 04-10-2022 14:53-0400 Body temperature 97.52 [degF] GREGORIA CERON MD [address] [place] [address] 04-10-2022 10:22-0400 Body height 170.2 cm GREGORIA CERON MD [address] [place] [address] 04-10-2022 10:22-0400 Body weight 94.6 kg GREGORIA CERON MD [facility] 04-10-2022 10:22-0400 Body weight 32.66 kg/m2 GREGORIA CERON MD [facility] 04-10-2022 09:44-0400 Diastolic Blood Pressure NBP 93 1 GREGORIA CERON MD [facility] 04-10-2022 09:44-0400 Mean blood pressure 134 mm[Hg] GREGORIA CERON MD [facility] 04-10-2022 09:44-0400 Systolic Blood Pressure NBP 209 1 GREGORIA CERON MD [facility] 03-05-2022 11:25-0400 Body temperature 98.01 [degF] Trevor Hassan MEDICAL ATTENDANT.TREAD TUBER MACHINE OPERATOR Work Phone: [facility] 03-05-2022 11:25-0400 Body weight 94.35 kg Trevor Hassan MEDICAL ATTENDANT.TREAD TUBER MACHINE OPERATOR Work Phone: [facility] 03-05-2022 11:25-0400 Diastolic blood pressure 96 mm[Hg] Trevor Hassan MEDICAL ATTENDANT.TREAD TUBER MACHINE OPERATOR Work Phone: [facility] 03-05-2022 11:25-0400 Heart rate 72 /min Trevor Hassan MEDICAL ATTENDANT.TREAD TUBER MACHINE OPERATOR Work Phone: [facility] 03-05-2022 11:25-0400 Systolic blood pressure 152 mm[Hg] Trevor Hassan MEDICAL ATTENDANT.TREAD TUBER MACHINE OPERATOR Work Phone: [facility] 01-29-2022 13:11-0400 diastolic 74 mm[Hg] CECE STROUD MD [facility] 01-29-2022 13:11-0400 Heart rate 75 /min CECE STROUD MD [facility] 01-29-2022 13:11-0400 Respiratory rate 16 /min CECE STROUD MD [facility] 01-29-2022 13:11-0400 systolic 132 mm[Hg] CECE STROUD MD [facility] 01-29-2022 10:46-0400 diastolic 75 mm[Hg] CECE STROUD MD [facility] 01-29-2022 10:46-0400 Heart rate 75 /min CECE STROUD MD [facility] 01-29-2022 10:46-0400 systolic 124 mm[Hg] CECE STROUD MD [facility] 01-29-2022 10:30-0400 diastolic 72 mm[Hg] CECE STROUD MD [facility] 01-29-2022 10:30-0400 Heart rate 77 /min CECE STROUD MD [facility] 01-29-2022 10:30-0400 systolic 118 mm[Hg] CECE STROUD MD [facility] 01-29-2022 09:57-0400 Reason For Taking VItal Signs CECE STROUD MD [facility] 01-29-2022 07:32-0400 Body height 170.2 cm CECE STROUD MD [facility] 01-29-2022 07:32-0400 Body temperature 96.62 [degF] CECE STROUD MD [facility] 01-29-2022 07:32-0400 Body weight 90.1 kg CECE STROUD MD [facility] NEGATED: Highlighted [id number] 13:33-0400 BMI (Body Mass Index) 29.42 kg/m2 Claudia Alegria AT [facility] Work Phone: NEGATED: Highlighted [id number] 13:33-0400 Body weight 86.18 kg Claudia Raji AT [facility] Work Phone: NEGATED: Highlighted [id number] 13:33-0400 Body weight 86 kg Claudia Raji AT [facility] Work Phone: NEGATED: Highlighted [id number] 13:33-0400 Heart rate 2+ Claudia Raji AT [facility] Work Phone: NEGATED: Highlighted [id number] 13:33-0400 Heart rate Claudia Raji AT [facility] Work Phone: NEGATED: Highlighted [id number] 13:33-0400 Height 171.45 cm Claudia Raji AT [facility] Work Phone: NEGATED: Highlighted [id number] 13:33-0400 Height 171 cm Claudia Raji AT [facility] Work Phone: Encounters Encounter Date Encounter Type Care Provider Facility Start: 10-14-2023 Refill Trevor chung MEDICAL ATTENDANT.TREAD TUBER MACHINE OPERATOR Work Phone: Hematology/Oncology Procedures Date Procedure Procedure Detail Performing Clinician Start: 03-05-2022 Adult depression scr eening assessment Trevor Hassan MEDICAL ATTENDANT.TREAD TUBER MACHINE OPERATOR Work Phone: Start: 01-29-[address] TERRIE WEST DPM Plan of Treatment Date Care Activity Detail Author Start: 07-19-2023 Influenza vaccination Influenza Vaccine (#1) [facility] Start: 03-05-2023 Adult depression screening assessment DEPRESSION SCREENING [facility] Start: 11-18-2022 Advance Directive Discussion Advance Directive Discussion [facility] Start: 11-18-2022 Depression Assessment Depression Assessment [facility] Start: 07-19-2022 Influenza vaccination INFLUENZA (#1) [facility] Start: 11-18-2021 ADVANCE DIRECTIVE DISCUSSION ADVANCE DIRECTIVE DISCUSSION [facility] Start: 11-18-2021 DEPRESSION ASSESSMENT DEPRESSION ASSESSMENT [facility] Start: 05-23-2020 End: 05-23-2020 Appointment Appointment [facility] Work Phone: Start: 05-23-2020 End: 05-23-2020 Radex foot complete minimum 3 views XR FOOT 3+ VWS-RT [facility] Work Phone: Start: 11-26-2019 Pneumococcal Vaccine: 65+ (2 - PCV) Pneumococcal Vaccine: 65+ (2 - PCV) [facility] Start: 11-18-2019 Hemoglobin A1c/Hemoglobin.total in Blood HBA1C [facility] Start: 07-01-2018 Mammography [facility] Start: 02-11-2017 BONE DENSITY BONE DENSITY [facility] Start: 02-11-2017 Bone Density Screening Bone Density Screening [facility] Start: 02-11-2017 PNEUMOVAX AGE 65 AND OVER WITH 5YR LOOKBACK (#1) PNEUMOVAX AGE 65 AND OVER WITH 5YR LOOKBACK (#1) [facility] Start: 2012 Hepatitis B Vaccine (1 of 3 - Risk 3-dose series) Hepatitis B Vaccine (1 of 3 - Risk 3-dose series) [facility] Start: 2012 RSV Vaccine (1 - 1-dose 60+ series) RSV Vaccine (1 - 1-dose 60+ series) [facility] Start: 06-19-2008 Colonoscopy COLONOSCOPY [facility] Start: 06-19-2008 COLORECTAL CANCER SCREENING COLORECTAL CANCER SCREENING [facility] Start: 02-11-2002 SHINGRIX VACCINE (1 of 2) SHINGRIX VACCINE (1 of 2) [facility] Start: 02-11-1997 COLOGUARD (FIT-DNA) COLOGUARD (FIT-DNA) [facility] Start: 02-11-[address] COLONOGRAPHY [facility] Start: 02-11-1997 FECAL OCCULT BLOOD FECAL OCCULT BLOOD [facility] Start: 02-11-1997 SIGMOIDOSCOPY SIGMOIDOSCOPY [facility] Start: 02-11-1971 Urine microalbumin profile [facility] Start: 02-11-1970 ANNUAL PCP TEAM CHRONIC DISEASE VISIT ANNUAL PCP TEAM CHRONIC DISEASE VISIT [facility] Start: 02-11-1970 BP CONTROLLED (<130/80) BP CONTROLLED (<130/80) [facility] in Start: 02-11-1970 Hepatitis B surface antibody level LDL CHOLESTEROL [facility] Start: 02-11-1970 HEPATITIS C SCREENING HEPATITIS C SCREENING [facility] Start: 1964 COVID-19 VACCINE (1) COVID-19 VACCINE (1) [facility] Start: 02-11-1962 3 comp foot exam completed DIABETIC FOOT EXAM [facility] Start: 02-11-1962 Hepatitis B screening URINE ALBUMIN:CREATININE RATIO [facility] Start: 02-11-1962 Hepatitis C antibody, confirmatory test DILATED RETINAL EXAM [facility] Start: 02-11-1958 PNEUMOCOCCAL: 65+ (1 - PCV) PNEUMOCOCCAL: 65+ (1 - PCV) [facility] Start: 1950 COVID-19 VACCINE (#1) COVID-19 VACCINE (#1) [facility] End: 10-09-2024 FRANCISCO SCREENING W JOSE ALFREDO FRANCISCO SCREENING W JOSE ALFREDO Radiology Routine Malignant neoplasm of overlapping sites of right breast in female, estrogen receptor positive (HCC) Encounter for screening mammogram for high-risk patient 1 Occurrences starting 09/10/2023 until 10/09/2024 [facility] Work Phone: Immunizations Immunization Date Immunization Notes Care Provider [place] [place] 10-16-2021 influenza virus vaccine, unspecified formulation Trevor Hassan MEDICAL ATTENDANTGiseleTREAD TUBER MACHINE OPERATOR Work Phone: [facility] 08-18-2021 influenza virus vaccine, unspecified formulation GREGORIA CERON MD [facility] Payers Date Payer Category Payer Medicare [id number] 2017 Medicare MMO MEDICARE MMO MEDADVANTAGE HMO [id number] 2017-Present [phone] [address] [place] [address] O [id number] 2017 Medicare MMO MEDICARE MMO MEDADVANTAGE HMO [id number] 2017-Present [phone] [address] [place] [address] [facility] [id number] 2017 Unknown [id number] 1950 Unknown [id number] 1952 Unknown [id number] 1952 Unknown [id number] 1952 Unknown [id number] 27 1952 Unknown [id number] 1952 Unknown [id number] 27 Social History Date Type Detail Facility Start: 05-23-2020 End: 05-23-2020 Assertion Unknown if ever smoked [facility] Work Phone: Start: 11-04-2019 End: 01-12-2020 Ex-smoker (finding) [facility] Sex Assigned At [facility] End: 03-18-2016 History of tobacco use Current smoker [facility] End: 03-18-2016 History of tobacco use Cigarette Smoker [facility] Start: 03-05-2022 End: 03-05-2023 Alcohol intake Current drinker of alcohol (finding) [facility] Start: 03-09-2019 History SDOH Alcohol Comment Very rarely1 mixed drink per month [facility] Start: 03-09-2019 Tobacco Comment Pt smoked 2 cigarettes once weekly on & off x 20 years. [facility] Start: 1950 Sex Assigned At Female [facility] Start: 02-23-2022 End: 03-05-2022 Exposure to SARS-CoV-2 (event) Not sure [facility] Start: 11-04-2019 Tobacco use and exposure Smokeless tobacco non-user [facility] Tobacco Nicotine Use: Va ping Product in Last 90 Days. [facility] Start: 03-05-2023 End: 09-05-2023 History of Social function [facility] Start: 03-05-2023 End: 09-05-2023 Tobacco use panel [facility] Adult Depression Screening Assessment 3 [facility] Start: 05-04-2019 Gender identity Identifies as female gender (finding) [facility] Start: 05-04-2019 Sexual orientation Heterosexual (finding) [facility] Functional Status Date Assessment Result Facility 12-29-2022 Functional Status Identified as high risk, Room located near nursing station, Door open, Non-Slip footwear, Glass Processing Worker at bedside [facility] 12-29-2022 Functional Status [address] [facility] 12-29-2022 Functional Status [facility] 10-13-2022 Functional Status Standard Safet y ID band on, Call device within reach, Bed in low position, Wheels locked, Upper/Half-Length side-rails up, Bedside Cart Locked, Safety level maintained [facility] 10-03-2022 Functional Status Room located n [facility] nursing station, Room check performed, 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 04-11-2022 Functional Status Bed Bath Independent, S etup [facility] 04-11-2022 Functional Status [facility] 04-11-2022 Functional Status [facility] 04-10-2022 Functional Status Single level home [facility] 04-10-2022 Functional Status Sensory Deficits None A [facility] Mental Status Date Assessment Result Facility 12-29-2022 Mental Status Orientation Oriented x 4 [facility] 10-13-2022 Mental Status Orientation Oriented x 4 [facility] 10-03-2022 Mental Status Orientation Oriented x 4 [facility] 10-03-2022 Mental Status [facility] 04-11-2022 Mental Status Orientation Oriented x 4 [facility] 04-10-2022 Mental Status [facility] 04-10-2022 Mental Status [facility] 04-10-2022 Mental Status Orientation Asse ssment Oriented x 4 [facility] Clinical Notes 01-29-2022 to 09-10-2023 Telephone Encounter - Jacquelin Lovelace LPN - 09/10/2023 2:22 PM EDTTelephone Encounter - Trevor Hassan APRN.CNP - 09/10/2023 12:15 PM EDTCTrevor rodriguez APRN.CNP - 09/05/2023 2:02 PM EDT Note Date & Type Note Facility 09-10-2023 Miscellaneous Notes Pt. Notified, orders faxed. Instructed pt. To contact hosp. To schedule. Jacquelin Lovelace LPN Please inform pt. that she is due for L mammogram this month. Please schedule at [facility]. Order in. Thank you. Trevor Hassan APRN.CNP documented in this encounter [facility] 09-05-2023 Note HNO ID: [id number] Author: Trevor Hassan APRN.CNP Service: ? Author Type: Nurse Practitioner Type: Progress Notes Filed: 09/05/2023 2:48 PM Note Text: Chief Complaint Patient presents with: Established Patient: 6 month exam HPI: Jacquelin Lima is a 73 year old female who presents here today for follow up breast cancer. Per Dr. Gallegos's previous note: H/o PMH significant for DM2 (dx about 1 year ago; no complications) was found to have abnormal mammogram 02/20/16. Biopsy of one of the lateral tumors demonstrated invasive lobular carcinoma. ER/DC positive (>95%/29%, strong/moderate respectively). HER-2 was equivocal at 2+ and subsequent FISH testing was negative for amplification. Second tumor biopsy from the medial portion of the breast demonstrated invasive lobular carcinoma. ER positive (>95%, strong), DC negative (<1%) and HER2 1+. Final pathology revealed that within the breast specimen there were 3 foci of invasive carcinoma. The largest measured 1.1 cm. The overall grade was 1. All margins were negative. The closest was 1 cm from the anterior margin. 5 sentinel lymph nodes were retrieved all of which were negative for metastatic disease. Oncotype test. Recurrent score 21 (13% 10 year risk). Pt. declined chemotherapy. Current therapy:arimidex. Began 05/10/16. 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 Recovered well per pt. Followed by Dr. Pedroza. has EGD scheduled with Dr. Puga. L breast bx neg. done by Dr. Puga on 07/22/18. Pt. s/p 05/26/19: laparoscopic Hiatal hernia repair, Nick fundoplication by Dr. Oconnell. Pt. recovered well. Pt. s/p revision reconstructed right breast with excision excess mastectomy skin scar contour deformity, and tightening of breast pocket, replacement of gel implant and revision reconstructed left breast with replacement of gel implant on 06/07/[address] Pedroza. Path. neg. Discharged 06/08/21. No complications. No new concerns today. Pt. here today with family member. Appetite: It's ok. Energy level: Not too much. Denies fevers or recent illness. Resp:denies cough or sob, uses bi-pap Cardiac:denies chest pain/palpitations-followed by cardiology GI:denies abd pain, n/v, moving bowels regularly :denies dysuria/hematuria Extrem:R foot pain-chronic, R knee pain-recent xray showed mild arthritis per pt. denies pain elsewhere Endo:denies hot flashes Neuro:denies symptoms of neuropathy Skin:denies rashes/lesions Heme:denies bleeding The ROS is otherwise negative. Past medical history, appointments, medications, allergies reviewed. No changes. EXAM: BP 132/75 Pulse 74 Temp 37.1 ?C (98.8 ?F) Ht 170 cm (5' 6.93 ) Wt 79.8 kg (176 lb) BMI 27.62 kg/m? APPEARANCE Well appearing, alert, in no acute distress, well-hydrated, well nourished. HEART RRR with normal S1 and S2, no murmurs LUNG clear to auscultation BREAST FEMALE R mastectomy with recon/implant, no surrounding mass/nodule, b/l surgical scars, L no mass/nodule LYMPH NODES No cervical lymphadenopathy, No supraclavicular lymphadenopathy, and No axillary lymphadenopathy. ABDOMEN bowel sounds normoactive, soft, non-tender EXTREMITIES No edema NEURO Awake, alert and oriented x 3, Normal gait, and No involuntary motions. SKIN Skin color, texture, turgor normal, no suspicious rashes or lesions ASSESSMENT/PLAN: 1. Malignant neoplasm of overlapping sites of right breast in female, estrogen receptor positive (HCC) - ICD9: 174.8, V86.0, ICD10: C50.811, Z17.0 pT1c(m) pN0(sln) (5 nodes) MX ER positive; HER 2 negative invasive lobular carcinoma of the right breast. - No new concerning findings on exam. - Tolerating arimidex well. - Imaging per surgeon. - Has taken arimidex for over 7 years now. - Stop arimidex. - Follow up in one year. - Pt. aware to call office with any questions/concerns. The patient indicates understanding of these issues and agrees with the plan. All documentation from previous visit of 03/05/23-Dr. Gallegos/myself was copied and pasted, documentation has been reviewed and edited as necessary for today's visit. Trevor Hassan APRN.[facility] 09-05-2023 History of Presen t illness Narrative Chief Complaint Patient presents with: Established Patient: 6 month exam HPI: Jacquelin Lima is a 73 year old female who presents here today for follow up breast cancer. Per Dr. Gallegos's previous note: H/o PMH significant for DM2 (dx about 1 year ago; no complications) was found to have abnormal mammogram 02/20/16. Biopsy of one of the lateral tumors demonstrated invasive lobular carcinoma. ER/DC positive (>95%/29%, strong/moderate respectively). HER-2 was equivocal at 2+ and subsequent FISH testing was negative for amplification. Second tumor biopsy from the medial portion of the breast demonstrated invasive lobular carcinoma. ER positive (>95%, strong), DC negative (<1%) and HER2 1+. Final pathology revealed that within the breast specimen there were 3 foci of invasive carcinoma. The largest measured 1.1 cm. The overall grade was 1. All margins were negative. The closest was 1 cm from the anterior margin. 5 sentinel lymph nodes were retrieved all of which were negative for metastatic disease. Oncotype test. Recurrent score 21 (13% 10 year risk). Pt. declined chemotherapy. Current therapy:arimidex. Began 05/10/16. 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 Recovered well per pt. Followed by Dr. Pedroza. has EGD scheduled with Dr. Puga. L breast bx neg. done by Dr. Puga on 07/22/18. Pt. s/p 05/26/19: laparoscopic Hiatal hernia repair, Nick fundoplication by Dr. Oconnell. Pt. recovered well. Pt. s/p revision reconstructed right breast with excision excess mastectomy skin scar contour deformity, and tightening of breast pocket, replacement of gel implant and revision reconstructed left breast with replacement of gel implant on 06/07/[address] Pedroza. Path. neg. Discharged 06/08/21. No complications. No new concerns today. Pt. here today with family member. Appetite: It's ok. Energy level: Not too much. Denies fevers or recent illness. Resp:denies cough or sob, uses bi-pap Cardiac:denies chest pain/palpitations-followed by cardiology GI:denies abd pain, n/v, moving bowels regularly :denies dysuria/hematuria Extrem:R foot pain-chronic, R knee pain-recent xray showed mild arthritis per pt. denies pain elsewhere Endo:denies hot flashes Neuro:denies symptoms of neuropathy Skin:denies rashes/lesions Heme:denies bleeding The ROS is otherwise negative. Past medical history, appointments, medications, allergies reviewed. No changes. EXAM: BP 132/75 Pulse 74 Temp 37.1 C (98.8 F) Ht 170 cm (5' 6.93 ) Wt 79.8 kg (176 lb) BMI 27.62 kg/m APPEARANCE Well appearing, alert, in no acute distress, well-hydrated, well nourished. HEART RRR with normal S1 and S2, no murmurs LUNG clear to auscultation BREAST FEMALE R mastectomy with recon/implant, no surrounding mass/nodule, b/l surgical scars, L no mass/nodule LYMPH NODES No cervical lymphadenopathy, No supraclavicular lymphadenopathy, and No axillary lymphadenopathy. ABDOMEN bowel sounds normoactive, soft, non-tender EXTREMITIES No edema NEURO Awake, alert and oriented x 3, Normal gait, and No involuntary motions. SKIN Skin color, texture, turgor normal, no suspicious rashes or lesions ASSESSMENT/PLAN: 1. Malignant neoplasm of overlapping sites of right breast in female, estrogen receptor positive (HCC) - ICD9: 174.8, V86.0, ICD10: C50.811, Z17.0 pT1c(m) pN0(sln) (5 nodes) MX ER positive; HER 2 negative invasive lobular carcinoma of the right breast. - No new concerning findings on exam. - Tolerating arimidex well. - Imaging per surgeon. - Has taken arimidex for over 7 years now. - Stop arimidex. - Follow up in one year. - Pt. aware to call office with any questions/concerns. The patient indicates understanding of these issues and agrees with the plan. All documentation from previous visit of 03/05/23-Dr. Gallegos/myself was copied and pasted, documentation has been reviewed and edited as necessary for today's visit. Trevor Hassan APRN.[facility] documented in this encounter [facility] 03-05-2023 Note HNO ID: [id number] Author: Trevor Hassan APRN.CNP Service: ? Author Type: Nurse Practitioner Type: Progress Notes Filed: 03/05/2023 2:34 PM Note Text: Chief Complaint Patient presents with: Established Patient HPI: Jacquelin Lima is a 73 year old female who presents here today for follow up breast cancer. Per Dr. Gallegos's previous note: H/o PMH significant for DM2 (dx about 1 year ago; no complications) was found to have abnormal mammogram 02/20/16. Biopsy of one of the lateral tumors demonstrated invasive lobular carcinoma. ER/DC positive (>95%/29%, strong/moderate respectively). HER-2 was equivocal at 2+ and subsequent FISH testing was negative for amplification. Second tumor biopsy from the medial portion of the breast demonstrated invasive lobular carcinoma. ER positive (>95%, strong), DC negative (<1%) and HER2 1+. Final pathology revealed that within the breast specimen there were 3 foci of invasive carcinoma. The largest measured 1.1 cm. The overall grade was 1. All margins were negative. The closest was 1 cm from the anterior margin. 5 sentinel lymph nodes were retrieved all of which were negative for metastatic disease. Oncotype test. Recurrent score 21 (13% 10 year risk). Pt. declined chemotherapy. Current therapy:arimidex. Began 05/10/16. 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 Recovered well per pt. Followed by Dr. Pedroza. has EGD scheduled with Dr. Puga. L breast bx neg. done by Dr. Puga on 07/22/18. Pt. s/p 05/26/19: laparoscopic Hiatal hernia repair, Nick fundoplication by Dr. Oconnell. Pt. recovered well. Pt. s/p revision reconstructed right breast with excision excess mastectomy skin scar contour deformity, and tightening of breast pocket, replacement of gel implant and revision reconstructed left breast with replacement of gel implant on 06/07/[address] Pedroza. Path. neg. Discharged 06/08/21. No complications. I'm having an ECHO tomorrow because I've had foot and leg swelling. Being followed by PCP/Cardiology. Pt. did not have a biopsy as planned in 2021 of L breast nodule by Dr. Scanlon at [facility]. Dr. Scanlon had ordered L dx mamm/US-recommended biopsy of nodule. Appetite: It's ok. Wt. down 22# since Aug. I think I am . I'm stressed. Energy level: Not a lot. Denies fevers or recent illness. Resp:denies cough or sob, uses bi-pap Cardiac:denies chest pain/palpitations-followed by cardiology GI:denies abd pain, n/v, moving bowels regularly :denies dysuria/hematuria Extrem:R foot pain-chronic, denies pain elsewhere Endo:denies hot flashes Neuro:denies symptoms of neuropathy Skin:denies rashes/lesions Heme:denies bleeding The ROS is otherwise negative. Past medical history, appointments, medications, allergies reviewed. No changes. EXAM: BP 158/94 Pulse 86 Temp 36.8 ?C (98.2 ?F) (Temporal) Ht 171.5 cm (5' 7.5 ) Wt 85.5 kg (188 lb 8 oz) BMI 29.09 kg/m? APPEARANCE fatigued appearing, tearful, alert, in no acute distress, well-hydrated, well nourished. HEART RRR with normal S1 and S2, no murmurs LUNG clear to auscultation BREAST FEMALE R mastectomy with recon/implant, no surrounding mass/nodule, L breast 0.5-1cm nodule @ 8 o'clock/recon/implant, b/l surgical scars LYMPH NODES No cervical lymphadenopathy, No supraclavicular lymphadenopathy, and No axillary lymphadenopathy. ABDOMEN bowel sounds normoactive, soft, non-tender EXTREMITIES +BLE edema NEURO Awake, alert and oriented x 3, Normal gait, and No involuntary motions. SKIN Skin color, texture, turgor normal, no suspicious rashes or lesions ASSESSMENT/PLAN: 1. Malignant neoplasm of overlapping sites of right breast in female, estrogen receptor positive (HCC) - ICD9: 174.8, V86.0, ICD10: C50.811, Z17.0 pT1c(m) pN0(sln) (5 nodes) MX ER positive; HER 2 negative invasive lobular carcinoma of the right breast. - L breast nodule persists. She did not have this biopsied as planned in the fall of 2021. - Tolerating arimidex well. - Continue arimidex. - Advised pt. to continue with therapy and psych. - Advised pt. to follow up at [facility] for L breast biopsy. - Follow up in 6 months-pending above. - Pt. aware to call office with any questions/concerns. The patient indicates understanding of these issues and agrees with the plan. All documentation from previous visit of 09/04/22-Dr. Gallegos/myself was copied and pasted, documentation has been reviewed and edited as necessary for today's visit. Trevor Hassan APRN.[facility] 12-29-2022 Note ORIGINAL EXAMINATION: CT OF THE HEAD WITHOUT CONTRAST 12/29/2022 9:16 pm TECHNIQUE: CT of the head was performed without the administration of intravenous contrast. Automated exposure control, iterative reconstruction, and/or weight based adjustment of the mA/kV was utilized to reduce the radiation dose to as low as reasonably achievable. COMPARISON: None. HISTORY: ORDERING SYSTEM PROVIDED HISTORY: Reason for Exam: pain; trauma patient FINDINGS: BRAIN/VENTRICLES: There is no acute intracranial hemorrhage, mass effect or midline shift. No abnormal extra-axial fluid collection. The munoz-white differentiation is maintained without evidence of an acute infarct. There is no evidence of hydrocephalus. ORBITS: The visualized portion of the orbits demonstrate no acute abnormality. SINUSES: The visualized paranasal sinuses and mastoid air cells demonstrate no acute abnormality. SOFT TISSUES/SKULL: No acute abnormality of the visualized skull or soft tissues. IMPRESSION: No acute intracranial hemorrhage. Interpreted by: Alton Brewer Preliminary Report By: Alton Brewer Electronically signed By Alton Brewer Dictated Date: 12/29/2022 9:19:43 PM Prelim Date: 12/29/2022 9:21:07 PM Sign Date: 12/29/2022 9:21:07 PM Ordering Provider: PAPI KRAMER [facility] 12-29-2022 Note ORIGINAL EXAMINATION: CT OF THE HEAD WITHOUT CONTRAST 12/29/2022 9:16 pm TECHNIQUE: CT of the head was performed without the administration of intravenous contrast. Automated exposure control, iterative reconstruction, and/or weight based adjustment of the mA/kV was utilized to reduce the radiation dose to as low as reasonably achievable. COMPARISON: None. HISTORY: ORDERING SYSTEM PROVIDED HISTORY: Reason for Exam: pain; trauma patient FINDINGS: BRAIN/VENTRICLES: There is no acute intracranial hemorrhage, mass effect or midline shift. No abnormal extra-axial fluid collection. The munoz-white differentiation is maintained without evidence of an acute infarct. There is no evidence of hydrocephalus. ORBITS: The visualized portion of the orbits demonstrate no acute abnormality. SINUSES: The visualized paranasal sinuses and mastoid air cells demonstrate no acute abnormality. SOFT TISSUES/SKULL: No acute abnormality of the visualized skull or soft tissues. IMPRESSION: No acute intracranial hemorrhage. Interpreted by: Alton Brewer Preliminary Report By: Alton Brewer Electronically signed By Alton Brewer Dictated Date: 12/29/2022 9:19:43 PM Prelim Date: 12/29/2022 9:21:07 PM Sign Date: 12/29/2022 9:21:07 PM Ordering Provider: PAPI KRAMER [facility] 12-29-2022 Note ORIGINAL EXAMINATION: ONE XRAY VIEW OF THE CHEST 12/29/2022 1:10 pm COMPARISON: 12/31/2021 HISTORY: ORDERING SYSTEM PROVIDED HISTORY: Reason for Exam: overdose/aspiration FINDINGS: Patient is rotated to left. Cardiomediastinal silhouette is normal. Atherosclerotic calcifications are present within the aortic arch. There is no focal consolidation, significant pleural effusion or pneumothorax. Streaky interstitial and airspace opacities at the lung bases likely hypoventilatory change. Some increased density in the left base is most likely overlapping breast soft tissue.. No acute osseous findings. Postsurgical changes are seen in the right hemithorax. IMPRESSION: No acute radiographic findings. I have personally reviewed the images of this examination and agree with the resident's findings and interpretations. Interpreted by: Channing Luna MD Preliminary Report By: Bryce Gibbons Electronically signed By Channing Luna MD Dictated Date: 12/29/2022 1:13:22 PM Prelim Date: 12/29/2022 1:17:55 PM Sign Date: 12/29/2022 1:23:17 PM Ordering Provider: FAUSTINO LEYVA [facility] 12-29-2022 Note ORIGINAL EXAMINATION: ONE XRAY VIEW OF THE CHEST 12/29/2022 1:10 pm COMPARISON: 12/31/2021 HISTORY: ORDERING SYSTEM PROVIDED HISTORY: Reason for Exam: overdose/aspiration FINDINGS: Patient is rotated to left. Cardiomediastinal silhouette is normal. Atherosclerotic calcifications are present within the aortic arch. There is no focal consolidation, significant pleural effusion or pneumothorax. Streaky interstitial and airspace opacities at the lung bases likely hypoventilatory change. Some increased density in the left base is most likely overlapping breast soft tissue.. No acute osseous findings. Postsurgical changes are seen in the right hemithorax. IMPRESSION: No acute radiographic findings. I have personally reviewed the images of this examination and agree with the resident's findings and interpretations. Interpreted by: Channing Luna MD Preliminary Report By: Bryce Gibbons Electronically signed By Channing Luna MD Dictated Date: 12/29/2022 1:13:22 PM Prelim Date: 12/29/2022 1:17:55 PM Sign Date: 12/29/2022 1:23:17 PM Ordering Provider: FAUSTINO LEYVA [facility] 12-29-2022 SARS-CoV-2 (COVID-19) RNA ROBEL+probe Ql (Nph) Negative *NA* (12/29/22 12:12 PM) AO Auto Urine SS 10-13-2022 Hospital Discharg e instructions Patient Education 10/13/2022 20:49:47 BRONCHITIS w/ Wheezing (Adult) Bronchitis With Wheezing (Viral Or Bacterial: Adult) Bronchitis is an infection of the air passages. It often occurs during the common cold and is usually caused by a virus. Symptoms include cough with mucus (phlegm) and low-grade fever. If there is a lot of inflammation, air flow is restricted. The air passages may also go into spasm, especially if you are an asthmatic. This causes wheezing and difficulty breathing even in persons who do not have asthma. Bronchitis usually lasts 7-14 days. The wheezing should improve with treatment during the first week. An inhaler is often prescribed to relax the air passages and stop wheezing. Antibiotics will be prescribed if your doctor thinks there is also a secondary bacterial infection. Home Care: If symptoms are severe, rest at home for the first 2-3 days. When resuming activity, don't let yourself become overly tired. Do not smoke and avoid exposure to the smoke of others. You may use acetaminophen (Tylenol) or ibuprofen (Motrin, Advil) to control fever, unless another medicine was prescribed. [NOTE: If you have chronic liver or kidney disease or ever had a stomach ulcer or GI bleeding, talk with your doctor before using these medicines.] (Aspirin should never be used in anyone under 18 years of age who is ill with a fever. It may cause severe liver damage.) Your appetite may be poor so a light diet is fine. Avoid dehydration by drinking 6-8 glasses of fluids per day (water, soft, drinks, juices, tea, soup, etc.). Extra fluids will help loosen secretions in the lungs. Vzxf-xnd-crlrwbu cough medicines that contain dextromethorphan (such as Robitussin DM) and decongestants (Actifed or Sudafed) may help relieve cough and congestion. [NOTE: Do not use decongestants if you have high blood pressure.] If you were given an inhaler, use it exactly as directed. If you need to use it more often than prescribed, your condition may be worsening. Contact your doctor or this facility. If prescribed, finish all antibiotic medicine, even if you are feeling better after only a few days. Follow Up With Your Doctor Or As Directed If You Are Not Starting To Feel Better After Three Days. [NOTE: If you are age 65 or older, or if you have chronic asthma or COPD, we recommend a pneumococcal vaccination every five years and a yearly influenza vaccination (flu shot) every . Ask your doctor about this. If you had an x-ray or EKG (electrocardiogram), it will be reviewed by a specialist. You will be notified of any new findings that may affect your care.] Get Prompt Medical Attention If Any Of The Following Occur: Increased wheezing, shortness of breath or pain with breathing Fever of 100.4 F (38 C) oral or higher, not better with fever medication Coughing up blood or increasing amounts of colored sputum Weakness, drowsiness, headache, facial pain, ear pain or a stiff neck Lower leg swelling, tenderness, redness or pain [id number] [employer]. [address] [place] [address], [place] [address]. All rights reserved. This information is not intended as a substitute for professional medical care. Always follow your healthcare professional's instructions. Follow Up Care 10/13/2022 20:34:45 With:KAITLIN ROLAND MD Address: [address] [place] [phone] When:2-4 days [facility] 10-13-2022 Note Discharge Instructions Thank you for allowing [facility] to assist you with your healthcare needs. The following is important discharge information regarding your hospital visit. Diagnosis from Today's Visit Acute bronchitis Cough What to Do Next Instructions from Your Care Team No qualifying data available. Post Acute Orders No qualifying data available. You Need to Schedule the Following Appointments Follow Up with KAITLIN ROLAND MD When Within 2-4 days Where: [address] [place] [address]- [phone] Allergies Pravachol (GI UPSET) pravastatin (GI UPSET) Actonel Janumet Lipitor Premphase SEROquel Savella Viibryd Zocor amoxicillin buPROPion cyclobenzaprine lisinopril mexiletine penicillin Medications Please ask your primary doctor or pharmacist before taking any other medication not listed, including over the counter drugs, herbal medications, vitamins and or supplements as they may interact with your home medications. What How Much When Why Instructions Last Dose New albuterol (albuterol MDI (90 mcg/ inh) CFC free inhalation aerosol) 2 puff(s) by inhalation Every 4 hours Acute bronchitis Printed Prescription New azithromycin (Azithromycin 5 Day Dose Pack 250 mg oral tablet) 1 dose by mouth Every day Acute bronchitis Duration: 5 Days Printed Prescription New predniSONE (predniSONE 20 mg oral tablet) 1 tab(s) by mouth Two (2) times a day Acute bronchitis Duration: 5 Days Printed Prescription Unchanged anastrozole (anastrozole 1 mg oral tablet) 1 tab(s) by mouth Once a day (in the evening) Unchanged ARIPiprazole (ARIPiprazole 2 mg oral tablet) 1 tab(s) by mouth Once a day (in the evening) Unchanged cholecalciferol (Vitamin D3) 2,000 unit(s) by mouth Once a day (in the evening) Unchanged dilTIAZem (DilTIAZem (Eqv-Tiazac) 120 mg/ 24 hours oral capsule, extended release) 1 cap by mouth Once a day Unchanged dulaglutide (Trulicity Pen 0.75 mg/ 0.5 mL subcutaneous solution) 0.5 Milliliter Subcutaneous Every week rotate injection sites Unchanged glimepiride (glimepiride 2 mg oral tablet) 1 tab(s) by mouth Once a day Unchanged hydrALAZINE (hydrALAZINE 25 mg oral tablet) 1 tab(s) by mouth Two (2) times a day Unchanged insulin glargine (Toujeo Solostar Pen (concentrated) 300 units/ mL 1.5 mL Pen) 45 unit(s) Daily at bedtime Unchanged levothyroxine (L-Thyroxine) 150 Microgram by mouth Once a day Unchanged losartan (losartan 100 mg oral tablet) 1 tab(s) by mouth Once a day (in the evening) Unchanged rOPINIRole (rOPINIRole 1 mg oral tablet) 1 tab(s) by mouth Daily at bedtime Unchanged rosuvastatin (rosuvastatin 5 mg oral capsule) 1 cap by mouth Once a day (in the evening) Unchanged sertraline (sertraline 100 mg oral tablet) 1 tab(s) by mouth Once a day (in the evening) Unchanged sotalol (sotalol 80 mg oral tablet) 1 tab(s) by mouth Two (2) times a day Please take this list to your next doctor s visit. Bring all medications you take, including over the counter medications, herbals and other supplements with you to your doctor s visit. Patients and families are reminded to discard old lists and to update any records with all medication providers or retail pharmacies. Education Materials Bronchitis With Wheezing (Viral Or Bacterial: Adult) Bronchitis is an infection of the air passages. It often occurs during the common cold and is usually caused by a virus. Symptoms include cough with mucus (phlegm) and low-grade fever. If there is a lot of inflammation, air flow is restricted. The air passages may also go into spasm, especially if you are an asthmatic. This causes wheezing and difficulty breathing even in persons who do not have asthma. Bronchitis usually lasts 7-14 days. The wheezing should improve with treatment during the first week. An inhaler is often prescribed to relax the air passages and stop wheezing. Antibiotics will be prescribed if your doctor thinks there is also a secondary bacterial infection. Home Care: If symptoms are severe, rest at home for the first 2-3 days. When resuming activity, don't let yourself become overly tired. Do not smoke and avoid exposure to the smoke of others. You may use acetaminophen (Tylenol) or ibuprofen (Motrin, Advil) to control fever, unless another medicine was prescribed. [NOTE: If you have chronic liver or kidney disease or ever had a stomach ulcer or GI bleeding, talk with your doctor before using these medicines.] (Aspirin should never be used in anyone under 18 years of age who is ill with a fever. It may cause severe liver damage.) Your appetite may be poor so a light diet is fine. Avoid dehydration by drinking 6-8 glasses of fluids per day (water, soft, drinks, juices, tea, soup, etc.). Extra fluids will help loosen secretions in the lungs. Rpnm-ukq-cbndilr cough medicines that contain dextromethorphan (such as Robitussin DM) and decongestants (Actifed or Sudafed) may help relieve cough and congestion. [NOTE: Do not use decongestants if you have high blood pressure.] If you were given an inhaler, use it exactly as directed. If you need to use it more often than prescribed, your condition may be worsening. Contact your doctor or this facility. If prescribed, finish all antibiotic medicine, even if you are feeling better after only a few days. Follow Up With Your Doctor Or As Directed If You Are Not Starting To Feel Better After Three Days. [NOTE: If you are age 65 or older, or if you have chronic asthma or COPD, we recommend a pneumococcal vaccination every five years and a yearly influenza vaccination (flu shot) every . Ask your doctor about this. If you had an x-ray or EKG (electrocardiogram), it will be reviewed by a specialist. You will be notified of any new findings that may affect your care.] Get Prompt Medical Attention If Any Of The Following Occur: Increased wheezing, shortness of breath or pain with breathing Fever of 100.4 F (38 C) oral or higher, not better with fever medication Coughing up blood or increasing amounts of colored sputum Weakness, drowsiness, headache, facial pain, ear pain or a stiff neck Lower leg swelling, tenderness, redness or pain [id number] [employer]. [address] [place] [address], [place] [address]. All rights reserved. This information is not intended as a substitute for professional medical care. Always follow your healthcare professional's instructions. Additional Information VACCINATE! IT SAVES LIVES! Members of the community who have not yet received the COVID-19 vaccine and would like to receive it can visit one of [facility] vaccine clinics. There are many vaccine clinic locations within the [facility]. For locations and available times, please visit [email or web address]. It is important to note that some COVID mobile vaccine clinics are held outdoors and may be canceled in rainy or stormy conditions. To learn more about pediatric vaccinations (ages 5-11), we invite you to visit the [facility] webpage. [email or web address] To learn more about the COVID-19 vaccine, we invite you to visit the [facility] website for a list of frequently asked questions. [email or web address] [facility] Patient Portal Access Instructions: Stay connected with your healthcare team and access your personal medical information anytime with the [facility] Patient Portal. If you would like a full copy of your medical records please contact the [facility] Medical Records Department Saturday through Saturday between 8a.m. and 4:30p.m. Please follow the directions below to access the portal: 1.Access the email account you provided upon registration to the hospital.2.Look for an invitation email from [facility].3.Open the email and access the invitation link: Accept Invitation to [facility].Fill in the required duarte to create your account. Sign into [email or web address].[email or web address] with your username and password that you created in the above steps to stay up to date. You can then view a summary of results, a summary of your visits, and the ability to download your summaries to your computer or send the information securely to a physician. Remember that your healthcare information is confidential, so carefully consider who you will allow to register on the [facility] Patient Portal for access to your information. You can also access the [facility] Patient Portal on the [employer] mor. Simply click on Health Records under Health Data and then click on the [employer] online [employer] logo. HOW TO SAFELY DISPOSE OF PRESCRIPTION MEDICATIONS Please use one of the following methods to safely dispose of your unused medications. 1.Use a drug disposal kit: the drug disposal pouch allows you to safely discard your old and unused drugs. Ask your nurse to give you one when you are discharged.2.Visit a local take-back location: Many local pharmacies and police departments have programs that collect old and unwanted prescription drugs. Call your local pharmacy or go to http://800APP.[employer]/3A3Qn4r to find one close to you.3.Make use of household items: Use cat litter or old coffee grounds to dispose medications if other options are not available. Mix your drugs with these household products, seal them in an airtight container and throw it into the garbage. Call [facility]: [phone] to be sure your drugs can be disposed of in this way. Some medicines may require a different approach.4.Never flush your medications down the toilet. IF YOU HAVE BEEN PRESCRIBED AN OPIOIDS FOR PAIN If you have been prescribed an opioid (such as hydrocodone, oxycodone or morphine), it is critical to understand the possible side effects and risks of opioid pain medications. Even when taken as directed, opioids can have several side effects including: Tolerance, meaning you might need to take more of a medication for the same pain relief. Nausea, vomiting and/or constipation. Sleepiness, dizziness, dry mouth, confusion, depression or itching. Physical dependence, meaning you have withdrawal symptoms when a medication is stopped ? this can develop within a few days. KNOW YOUR RESPONSIBILITIES It is important to know exactly how much and how often to take the opioid pain medications you are prescribed. Never take opioids in higher amounts or more often than prescribed. Do not combine opioids with alcohol or other drugs that cause drowsiness, such as benzodiazepines, also known as benzos, including diazepam and alprazolam, muscle relaxants or sleep aids. Never sell or share prescription opioids. This is illegal. Store opioids in a secure place and out of reach of others (including children, family, friends and visitors). The last page(s) of this document has been signed and retained as a CHART COPY Signatures Patient Education Materials BRONCHITIS w/ Wheezing (Adult) Medication Leaflets My discharge plan and instructions have been reviewed and explained to me and IJANIE PAMELA K understand my current condition and have read and understand these discharge instructions. I have received a written copy of the plan/instructions. If I have questions, I am aware that I should contact my doctor. 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 Seferino went home to grab her cpap so patient is able to take with her when transferred. Patient is on a continuous pulse ox while sleeping to maintain oxygen saturation levels. Will apply cpap.once husbands brings it back. Digitally Signed by TALHA Heredia on 10/03/2022 05:30 AM [facility] 10-03-2022 Nurse Progress note Lisa from [facility] is at bedside with patient for evaluation at 0307. Patient is resting comfortably in bed, bin worker at bedside. Digitally Signed by TALHA Heredia on 10/03/2022 03:09 AM [facility] 10-03-2022 SARS-CoV-2 (COVID-19) RNA ROBEL+probe Ql (Nph) Negative (10/03/22 2:09 AM) AO Auto Urine SS 09-04-2022 History of Presen t illness Narrative Chief Complaint Patient presents with: Established Patient HPI: Jacquelin Lima is a 72 year old female who presents here today for follow up breast cancer. Per Dr. Gallegos's previous note: H/o PMH significant for DM2 (dx about 1 year ago; no complications) was found to have abnormal mammogram 02/20/16. Biopsy of one of the lateral tumors demonstrated invasive lobular carcinoma. ER/DC positive (>95%/29%, strong/moderate respectively). HER-2 was equivocal at 2+ and subsequent FISH testing was negative for amplification. Second tumor biopsy from the medial portion of the breast demonstrated invasive lobular carcinoma. ER positive (>95%, strong), DC negative (<1%) and HER2 1+. Final pathology revealed that within the breast specimen there were 3 foci of invasive carcinoma. The largest measured 1.1 cm. The overall grade was 1. All margins were negative. The closest was 1 cm from the anterior margin. 5 sentinel lymph nodes were retrieved all of which were negative for metastatic disease. Oncotype test. Recurrent score 21 (13% 10 year risk). Pt. declined chemotherapy. Current therapy:arimidex. Began 05/10/16. 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 Recovered well per pt. Followed by Dr. Pedroza. has EGD scheduled with Dr. Puga. L breast bx neg. done by Dr. Puga on 07/22/18. Pt. s/p 05/26/19: laparoscopic Hiatal hernia repair, Nick fundoplication by Dr. Oconnell. Pt. recovered well. Pt. s/p revision reconstructed right breast with excision excess mastectomy skin scar contour deformity, and tightening of breast pocket, replacement of gel implant and revision reconstructed left breast with replacement of gel implant on 06/07/[address] Pedroza. Path. neg. Discharged 06/08/21. No complications. Pt. has right foot surgery scheduled-redo. Pt. adds that she is having surgery to L breast d/t ? nodule. She was seen by plastics at [facility]. She adds that she had a L dx mamm/US done at [facility]. Here today with her daughter. Appetite: Good. Wt. stable. Energy level: Not terrific. Denies fevers or recent illness. Resp:denies cough or sob, uses bi-pap Cardiac:denies chest pain/occ. palpitations-followed by cardiology GI:denies abd pain, n/v, moving bowels regularly :denies dysuria/hematuria Extrem:R foot pain and swelling, L hip pain, denies pain elsewhere Endo:denies hot flashes Neuro:denies symptoms of neuropathy Skin:denies rashes/lesions Heme:denies bleeding The ROS is otherwise negative. Past medical history, appointments, medications, allergies reviewed. No changes. EXAM: BP 153/92 Pulse 81 Temp 36.7 C (98 F) (Temporal) Wt 95.3 kg (210 lb) BMI 32.41 kg/m APPEARANCE Well appearing, alert, in no acute distress, well-hydrated, well nourished. HEART RRR with normal S1 and S2, no murmurs LUNG clear to auscultation BREAST FEMALE R mastectomy with recon/implant, no surrounding mass/nodule, L breast 0.5cm nodule @ 8 o'clock/recon/implant, b/l surgical scars LYMPH NODES No cervical lymphadenopathy, No supraclavicular lymphadenopathy, and No axillary lymphadenopathy. ABDOMEN bowel sounds normoactive, soft, non-tender, non-distended, no tenderness to palpation EXTREMITIES No edema NEURO Awake, alert and oriented x 3, Normal gait, and No involuntary motions. SKIN Skin color, texture, turgor normal, no suspicious rashes or lesions ASSESSMENT/PLAN: 1. Malignant neoplasm of overlapping sites of right breast in female, estrogen receptor positive (HCC) - ICD9: 174.8, V86.0, ICD10: C50.811, Z17.0 pT1c(m) pN0(sln) (5 nodes) MX ER positive; HER 2 negative invasive lobular carcinoma of the right breast. - L hip pain. - Tolerating arimidex well. - Per pt. she had a mamm/US at [facility]-ordered by her surgeon at [facility]. Will call for reports. - Continue arimidex. Rx done. - L hip xray today. Pt. not sure if she will have done. - Follow up in 6 months-pending L hip xray. - Pt. aware to call office with any questions/concerns. The patient indicates understanding of these issues and agrees with the plan. All documentation from previous visit of 03/05/22-Dr. Gallegos/myself was copied and pasted, documentation has been reviewed and edited as necessary for today's visit. Trevor Hassan APRN.SOULEYMANE documented in this encounter [facility] 04-11-2022 Hospital Discharg e instructions Patient Education 04/11/2022 16:00:57 Atrial Fibrillation, Flwv-no-Ntbn Atrial Fibrillation Atrial fibrillation is a type of heartbeat that is irregular or fast (rapid). If you have this condition, your heart beats without any order. This makes it hard for your heart to pump blood in a normal way. Having this condition gives you more risk for stroke, heart failure, and other heart problems. Atrial fibrillation may start all of a sudden and then stop on its own, or it may become a long-lasting problem. What are the causes? This condition may be caused by heart conditions, such as: High blood pressure. Heart failure. Heart valve disease. Heart surgery. Other causes include: Pneumonia. Obstructive sleep apnea. Lung cancer. Thyroid disease. Drinking too much alcohol. Sometimes the cause is not known. What increases the risk? You are more likely to develop this condition if: You smoke. You are older. You have diabetes. You are overweight. You have a family history of this condition. You exercise often and hard. What are the signs or symptoms? Common symptoms of this condition include: A feeling like your heart is beating very fast. Chest pain. Feeling short of breath. Feeling light-headed or weak. Getting tired easily. Follow these instructions at home: Medicines Take bftf-nyh-zymkkir and prescription medicines only as told by your doctor. If your doctor gives you a blood-thinning medicine, take it exactly as told. Taking too much of it can cause bleeding. Taking too little of it does not protect you against clots. Clots can cause a stroke. Lifestyle Do not use any tobacco products. These include cigarettes, chewing tobacco, and e-cigarettes. If you need help quitting, ask your doctor. Do not drink alcohol. Do not drink beverages that have caffeine. These include coffee, soda, and tea. Follow diet instructions as told by your doctor. Exercise regularly as told by your doctor. General instructions If you have a condition that causes breathing to stop for a short period of time (apnea), treat it as told by your doctor. Keep a healthy weight. Do not use diet pills unless your doctor says they are safe for you. Diet pills may make heart problems worse. Keep all follow-up visits as told by your doctor. This is important. Contact a doctor if: You notice a change in the speed, rhythm, or strength of your heartbeat. You are taking a blood-thinning medicine and you see more bruising. You get tired more easily when you move or exercise. You have a sudden change in weight. Get help right away if: You have pain in your chest or your belly (abdomen). You have trouble breathing. You have blood in your vomit, poop, or pee (urine). You have any signs of a stroke. BE FAST is an easy way to remember the main warning signs: ?B - Balance. Signs are dizziness, sudden trouble walking, or loss of balance. ?E - Eyes. Signs are trouble seeing or a change in how you see. ?F - Face. Signs are sudden weakness or loss of feeling in the face, or the face or eyelid drooping on one side. ?A - Arms. Signs are weakness or loss of feeling in an arm. This happens suddenly and usually on one side of the body. ?S - Speech. Signs are sudden trouble speaking, slurred speech, or trouble understanding what people say. ?T - Time. Time to call emergency services. Write down what time symptoms started. You have other signs of a stroke, such as: ?A sudden, very bad headache with no known cause. ?Feeling sick to your stomach (nausea). ?Throwing up (vomiting). ?Jerky movements you cannot control (seizure). These symptoms may be an emergency. Do not wait to see if the symptoms will go away. Get medical help right away. Call your local emergency services (911 in the [place] Do not drive yourself to the hospital. Summary Atrial fibrillation is a type of heartbeat that is irregular or fast (rapid). You are at higher risk of this condition if you smoke, are older, have diabetes, or are overweight. Follow your doctor's instructions about medicines, diet, exercise, and follow-up visits. Get help right away if you think that you have signs of a stroke. This information is not intended to replace advice given to you by your health care provider. Make sure you discuss any questions you have with your health care provider. Document Released: 08/13/2009 Document Revised: 01/08/2019 Document Reviewed: 12/26/2018 [employer] Patient Education 2020 [employer] Follow Up Care 04/10/2022 08:48:06 With:KAITLIN ROLAND MD Address: [address] [place] [phone]- [phone] When:1-2 days Comments:Follow-up as needed With:GREGORIA CERON MD Address: [address] [facility] [address] [facility] [place] [address]- [phone] When:06/14/2022 13:45:00 [facility] 1. NSVT (nonsustained ventri cular tachycardia) Unremarkable left heart cath and echo. Given the EAT, will treat that and the NSVT with sotalol. Anticipate admission for 1-2 nights for ~3 total sotalol doses to ensure QTc stable. -04/10/22 decreased dose of metoprolol succinate from 100 mg to 50mg daily and initiated sotalol 120mg BID -Pt on multiple qt prolonging medications, baseline qtc 411, will continue to monitor -04/10/22 ECG sinus rhythm, HR 64, QTc 410-420 2. Atrial tachycardia Ectopic atrial tachycardia episodes (EAT) Symptomatic, longstanding. Seeking symptomatic relief. Possible this is a precursor of AFib. - During office evaluation, Dr. Ceron discussed the possibility she may have Afib in the future and to look for symptoms (i.e. sustained episodes). -Plan as above 3. LBBB (left bundle branch block) No syncope. Normal heart. Avoid Class 1 Antiarrhythmic drugs. 4. HTN (hypertension) Per office documentation, HTN usually controlled. On admission 200/100, pt just received home BP medications 20 minutes ago. -Anticipate ordering hydralazine 10mg TID this afternoon if home medications do no bring her BP down to baseline. -Considered ordering amlodipine but pt with mild BLE swelling. 5. Sleep apnea Severe. Pt states was waking up frequently despite CPAP. Was told she is not a candidate for the Inspire as her YANI is more central and less structural. She is on a BiPAP now and has a follow up scheduled in one month. She is following with Dr. Wood in [place]. 6. Obesity BMI 32, reinforced benefits of weight loss TIME >35 mins was spent in [id number] time and coordination of care for this patient, including but not limited to personally gathering history, examining the patient, reviewing labs and images and records, counseling patient and/or family about diagnosis and potential workup if applicable, as detailed above as well as discussing the case with patient's nurse/medical team where applicable. This note has been generated using [employer] dictation software. It may contain incorrect words, punctuation and spellings that were not noted in the review of the note prior to signing. I have reviewed the patient's recent medications, orders, vitals, labs, and X- ray reports/images, cardiac telemetry and other pertinent available cardiac studies. Addendum by GREGORIA CERON MD April 10, 2022 22:07:12 EDT This is a split/shared visit with Angie Hammond, MOR Fellow. I saw and discussed the patient with the AUDITING CODER. I concur with the above plan formulated under my direct supervision. Date of Admit: 04/10/22 Reason for Admit: Symptomatic ecotpic atrial tachycardia, non-sustained ventricular tachycardia --- here for drug loading with sotalol and QTc monitoring HPI: 72-year-old female referred by Tarik Skyhood MOR with history of HTN, LBBB, chronic LE edema (no better/worse on amlodipine), severe YANI (on BiPAP), non-sustained VT, evaluated by me on 03/15/22 for atrial tachycardia and NSVT (16 bt episode). For past 20 years, patient with occasional palpitations now becoming more frequent. Palpitations with throbbing in throat and cause her to cough. day care home provider outlined [facility]. On interview today, the patient had a 5 beat run of A-tach that was symptomatic, making her cough. This is fairly typical for it to cause her to cough. Episodes occur 5 x per day about. She also gets dyspnea, chest pain with these. Alize Dumont had stopped norvasc and started diltiazem to better suppress, although now Bp slightly higher. 12/30/21 ECG: Sinus rhythm with LBBB QRS 130 ms, HR 80 bpm. Normal DC. QTc is 480 ms Echo (01/01/2022) -LVEF 55-60% -RVSP 9 -No valvular abnormalities Left heart cath (01/29/2022) -No significant CAD 14 day monitor The NSVT occurred at 8:15 pm on 12/25/21 1 run of NSVT (16 bt) 23 episodes of EAT (longest 31 bts) Ave HR 69 PAC 0.14% PVC 0.69% General Appearance: Alert and oriented x3, no apparent distress Head: Normocephalic, atraumatic EENT: EOMI, PERRLA, mucous membranes moist Neck: Supple, no thyromegaly. Cardiac: rrr, no mrg. JVP is normal Lungs: Clear to auscultation bilaterally, no wheezing, rales, rhonchi. Abdomen: Nondistended, nontender, bowel sounds present. Musculoskeletal: No gross deformities. Extremities: 1+ lower extremity edema, some stasis dermatitis; no calf tenderness, pedal pulses are present bilaterally Neurological: No focal deficits Skin: Warm, dry, intact Psychiatric: Mood congruent, cooperative Labs: 04/10/22 --- normal BMP and CBC. Normal renal function Imaging: I have personally reviewed the cath images, echo images, and CXR from 12/31/21. I have reviewed nuclear images FHx: no unexpected ; otherwise non contributory to the current situation SHx: Rare EtOh use ; no tobacco or illicit drugs; lives near/in [place], [place] Meds: Listed above Allergies: several, all listed above. 1. NSVT (nonsustained ventricular tachycardia) Given normal left heart cath and echo, I did reassure her. Given the ectopic atrial tachcyardia, will treat that and the NSVT with sotalol. She is agreeable to admission for 1-2 nights (~3 total sotalol doses to ensure QTc stable) and presented today for admission. QTc acceptable. - initiate sotalol 120 mg PO BID. QTc 2 hours after each dose. - stop metoprolol - continue diltiazem for now, however, may wean off this in near future (this was started by Alize Dumont for the arrhythmias, thus hopefully sotalol will be all that is needed). 2. Atrial tachycardia Ectopic atrial tachycardia episodes. Symptomatic, longstanding. Seeking symptomatic relief. Possible this is a precursor of AFib. - initiate sotalol 120 mg PO BID. Assess QTc 2 hours after each dose. Will admit to hospital for 1-2 nights (total of ~3 doses). - we discussed the possibility she may have Afib in the future and to look for symptoms (i.e. sustained episodes). 3. LBBB (left bundle branch block) No syncope. Normal heart. Avoid Class 1 Antiarrhythmic drugs. 4. HTN (hypertension) -- we will adderss this here. -- hydralazine started . Avoiding noravasc as she has swelling in legs 5. Sleep apnea Severe. Wakes up frequently despite CPAP - should get back with sleep medicine as she is having multiple episodes of waking up at night. 6. Obesity Recommend weight loss. >45 minutes was spent reviewing data, discussing with patient, formulating plan, and counseling patient. CODE: FULL DVT: ambulatory FEN: cardiac diet Gregoria Ceron MD Cardiac Electrophysiology [phone] Future Appointments Appointment Date:04/12/2022 02:30:00 PM Scheduled Provider: Location:[facility] Appointment Type:CV Nurse EKG Appointment Date:06/14/2022 01:45:00 PM Scheduled Provider: Location:[facility] Appointment Type:CV [facility] 04-18-2022 History of Present illness Narrative* Trevor Hassan APRN.TREAD TUBER MACHINE OPERATOR - 03/05/2022 11:23 AM EDT Chief Complaint Patient presents with: Established Patient HPI: Jacquelin Lima is a 72 year old female who presents here today for follow up breast cancer. Per Dr. Gallegos's previous note: H/o PMH significant for DM2 (dx about 1 year ago; no complications) was found to have abnormal mammogram 02/20/16. Biopsy of one of the lateral tumors demonstrated invasive lobular carcinoma. ER/DC positive (>95%/29%, strong/moderate respectively). HER-2 was equivocal at 2+ and subsequent FISH testing was negative for amplification. Second tumor biopsy from the medial portion of the breast demonstrated invasive lobular carcinoma. ER positive (>95%, strong), DC negative (<1%) and HER2 1+. Final pathology revealed that within the breast specimen there were 3 foci of invasive carcinoma. The largest measured 1.1 cm. The overall grade was 1. All margins were negative. The closest was 1 cmfrom the anterior margin. 5 sentinel lymph nodes were retrieved all of which were negative for metastatic disease. Oncotype test. Recurrent score 21 (13% 10 year risk). Pt. declined chemotherapy. Current therapy:arimidex. Began 05/10/16. 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 Recovered well per pt. Followed by Dr. Pedroza. Sept. 25 has EGD scheduled with Dr. Puga. L breast bx neg. done by Dr. Puga on 07/22/18. Pt. s/p 05/26/19: laparoscopic Hiatal hernia repair, Nick fundoplication by Dr. Oconnell. Pt. prateek. Pt. s/p revision reconstructed right breast with excision excess mastectomy skin scar contour deformity, and tightening of breast pocket, replacement of gel implant and revision reconstructed left breast with replacement of gel implant on 06/07/[address] Pedroza. Path. neg. Discharged 06/08/21. No complications. S/p R foot surgery 2 years ago per pt. This past week started with R foot swelling. She has not called her surgeon as of yet. Appetite: Good. Energy level: Bad all winter. I haven't had much get up and go. Denies fevers or recent illness. Resp:denies cough or sob, uses bi-pap Cardiac:denies chest pain/occ. palpitations-followed by cardiology GI:denies abd pain, n/v, moving bowels regularly :denies dysuria/hematuria Extrem:R foot pain and swelling, denies pain elsewhere Endo:denies hot flashes Neuro:denies symptoms of neuropathy Skin:denies rashes/lesions Heme:denies bleeding The ROS is otherwise negative. Past medical history, appointments, medications, allergies reviewed. No changes. EXAM: BP 152/96 Pulse 72 Temp 36.7 C (98 F) (Temporal) Wt 94.3 kg (208 lb) BMI 32.10 kg/m APPEARANCE Well appearing, alert, in no acute distress, well-hydrated, well nourished. HEART RRR with normal S1 and S2, no murmurs LUNG clear to auscultation BREAST FEMALE R mastectomy with recon/implant, no surrounding mass/nodule, L recon/implant, b/l surgical scars LYMPH NODES No cervical lymphadenopathy, No supraclavicular lymphadenopathy and No axillary lymphadenopathy. ABDOMEN bowel sounds normoactive, soft, non-tender, non-distended, without organomegaly or palpablemasses EXTREMITIES No edema to LLE, +edema to RLE NEURO Awake, alert and oriented x 3, [...] findings on exam. - Tolerating arimidex well. - Continue arimidex. - L mammogram due 2021-per Dr. Pedroza. - Encouraged pt. to call foot surgeon right away or go to Urgent Care. - Follow up in 6 months. - Pt. aware to call office with any questions/concerns. The patient indicates understanding of these issues and agrees with the plan. All documentation from previous visit of 08/28/21-Dr. Gallegos/myself was copied and pasted, documentation has been reviewed and edited as necessary for today's visit. Trevor Hassan APRN.SOULEYMANE [facility] Discharge instructions Patient Education 01/29/2022 10:50:33 3- Heart Cath/PCI radial (08/2018) (Custom) HEART CATHETERIZATION/PCI (radial) Discharge Instructions DIET Drink plenty of fluids for the next 48 hours to help your kidneys flush the heart cath dye out of your system ACTIVITY For the next 48 hours: Do not deep bend the wrist Do not lift, push, or pull anything over 5 pounds Do not use the hand/arm to support your weight when rising from a chair or bed Do not drive For the next 7 days: Do not submerse your procedure site in water Do not swim, wash dishes, or take tub baths You may write, eat, type, and shower WOUND CARE Keep dressing on for 24 hours AND THEN APPLY BAND-AID Keep a Band-Aid on your procedure site for the next 3-4 days Change the Band-Aid daily or if it gets wet/soiled AFTER YOU GO HOME, CALL YOUR DOCTOR FOR: Any increase in bruising or tenderness from the procedure site Any redness, pus, or other signs of infection at the site A temperature above 100.5 Severe pain at the site DIAL 911 AND RETURN TO THE HOSPITAL FOR: Any bleeding from the procedure site. The site may be bruised or tender, but it should not be bleeding at any time. If your site begins to bleed, hold firm pressure on it and dial 911 to return to the hospital Any increase in swelling at the procedure site. An increase in swelling could mean the area is bleeding under the skin. Hold firm pressure to the site and dial 911 to return to the hospital Document Released: 11/04/2006 Document Revised: 10/21/2013 Document Reviewed: 11/05/2014 [employer] Patient Information 2015 [employer]. This information is not intended to replace advicegiven to you by your health care provider. Make sure you discuss any questions you have with your health care provider. Follow Up Care 01/25/2022 15:34:06 With:CECE STROUD MD Address: [address] [place] [address] [address] [facility] [place] [address]- [phone] When:02/26/2022 13:30:00 Comments:THIS APPOINTMENT WILL BE WITH ALIZE DUMONT CNP [facility] Evaluation + Plan note Future Appointments Appointment Date:01/29/2022 09:30:00 AM Scheduled Provider: Location:Heart Lab Appointment Type:CV Procedure - Heart Lab/Hybrid OR Appointment Date:02/26/2022 01:30:00 PM Scheduled Provider:TARIK DUMONT Location:[facility] Appointment Type:CV Hospital Follow Up [facility] Evaluation + Plan note Future Appointments Appointment Date:02/26/2022 01:30:00 PM Scheduled Provider:TARIK DUMONT Location:[facility] Appointment Type:CV OV Hospital Follow Up [facility] Evaluation + Plan note Future Appointments Appointment Date:03/15/2022 02:00:00 PM Scheduled Provider: Location:[facility] Appointment Type:CV AUDITING CODER [facility] Evaluation + Plan note Future Appointments Appointment Date:12/20/2022 02:30:00 PM Scheduled Provider: Location:[facility] CAN Appointment Type:CV OV [facility] Evaluation + Plan note Future Appointments Appointment Date:02/13/2024 11:30:00 AM Scheduled Provider: Location:[facility] Appointment Type:CV OV [facility] Evaluation note* Diagnosis Malignant neoplasm of overlapping sites of right breast in female, estrogen receptor positive (HCC)- Primary documented in this encounter [facility] note* Diagnosis Malignant neoplasm of overlapping sites of right breast in female, estrogen receptor positive (HCC)- Primary Hip pain, acute, left documented in this encounter [facility] note* Diagnosis Malignant neoplasm of overlapping sites of right breast in female, estrogen receptor positive (HCC)- Primary documented in this encounter [facility] note* Diagnosis Malignant neoplasm of overlapping sites of right breast in female, estrogen receptor positive (HCC)- Primary Encounter for screening mammogram for high-risk patient documented in this encounter [facility] course Narrative No data available for this section [facility] Hospital Discharge instructions No data available for this section [facility] Note* AYE MENSAH MD: SIGN, VERIFY Event Display: EKG [ED AOH] - CV Authored Date: [facility] Note* MD AUTUMN, FAUSTINO BRIGHT: SIGN, VERIFY Event Display: EKG [ED AOH] - CV Authored Date: * MD AUTUMN, FAUSTINO BRIGHT: SIGN, VERIFY Event Display: EKG [ED AOH] - CV Authored Date: [facility] Progress note No data available for this section [facility] Reason for referral (narrative)* Diagnostic Procedure Only (Routine) - Pending Review Specialty Diagnoses / Procedures Referred By Contac t Referred To Contact XR IMAGING Diagnoses Malignant neoplasm of overlapping sites of right breast in female, estrogen receptor positive (HCC) Hip pain, acute, left Procedures XR HIP GENERAL 3V PELV/AP/LAT LEFT RADEX HIP UNILATERAL WITH PELVIS 2-3 VIEWS Trevor Hassan APRN.TREAD TUBER MACHINE OPERATOR [address] [place] [address] Xr Imaging Referral ID Status Reason Start Date Expiration Date Visits Requested Visits Authorized [id number] Pending Review Auto-Generat ed Referral 2 10/04/2023 1 1 [facility] for [facility]ative)* Diagnostic Procedure Only (Routine) - Pending Review Specialty Diagnoses / Procedures Referred By Lilly zimmerman Referred To Contact BR IMAGING Diagnoses Malignant neoplasm of overlapping sites of right breast in female, estrogen receptor positive (HCC) Encounter for screening mammogram for high-risk patient Procedures FRANCISCO SCREENING W JOSE ALFREDO SCREENING DIGITAL BREAST TOMOSYNTHESIS BI SCREENING MAMMOGRAPHY BI 2-VIEW BREAST INC CAD Trevor Hassan APRN.TREAD TUBER MACHINE OPERATOR [address] [place] [address] [facility] [address] [place] [address] Referral ID Status Reason Start Date Expiration Date Visits Requested Visits Authorized [id number] Pending Review Auto-Generat ed Referral 3 10/09/2024 1 1 [facility] Chief Complaint Chief Complaint Description Start Date right foot pain Preliminary chief co mplaint data, not yet signed by the author as of Instructions Instruction Description Start Date CompletedPatient advised to follow-up with Primary Care Physician for BMI management. Advance Directives Documents on File Type Date Recorded Patient Crime Analyst Expl anation Advance Directive(s) 05/18/2019 5:51 PM Advance Directive(s) 05/18/2019 1:34 PM Advance Directive(s) 04/30/2019 11:55 AM Advance Directive(s) 08/12/2018 6:48 AM Documents on File Type Date Recorded Patient Crime Analyst Expl anation Advance Directive(s) 05/18/2019 1:34 PM Documents on File Type Date Recorded Patient Crime Analyst Expl anation Advance Directive(s) 05/18/2019 1:34 PM Assessments There may be information available, but it has not been provided by the sender. Review of System There may be information available, but it has not been provided by the sender. Family History There may be information available, but it has not been provided by the sender.No Family History Records FoundNo Family History Records Found History of Present Illness There may be information available, but it has not been provided by the sender. Summary Purpose Additional Source Comments Reason for Visit (unrecogniz ed section and content) Reason Comments Established Patient Reason Comments Established Patient Reason Comments Established Patient 6 month exam Reason Comments Refill Request Source Comments (unrecognize d section and content) In the event this informatio n is protected by the Federal Confidentiality of Alcohol and Drug Abuse Patient Records regulations: The Federal rules restrict any use of the information to criminally investigate or prosecute any alcohol or drug abuse patient.[facility] the event this information is protected by the Federal Confidentiality of Alcohol and Drug Abuse Patient Records regulations: The Federal rules restrict any use of the information to criminally investigate or prosecute any alcohol or drug abuse patient.[facility] the event this information is protected by the Federal Confidentiality of Alcohol and Drug Abuse Patient Records regulations: The Federal rules restrict any use of the information to criminally investigate or prosecute any alcohol or drug abuse patient.[facility] the event this information is protected by the Federal Confidentiality of Alcohol and Drug Abuse Patient Records regulations: The Federal rules restrict any use of the information to criminally investigate or prosecute any alcohol or drug abuse patient.[facility] the event this information is protected by the Federal Confidentiality of Alcohol and Drug Abuse Patient Records regulations: The Federal rules restrict any use of the information to criminally investigate or prosecute any alcohol or drug abuse patient.[facility] Care Teams (unrecognized sec tion and content) Retail Team Member Relationship Specialty Start Date End Date Kaitlin Roland MD [address] [place] [address] PCP - General 03/22/10 Trevor Hassan, MICHELLE.TREAD TUBER MACHINE OPERATOR [address] [place], [place] [id number] Referring Hematology/Oncology 02/09/19 Retail Team Member Relationship Specialty Start Date End Date Kaitlin Roland MD [address] [facility] [place], [place] [id number] PCP - General 03/22/10 Trevor Hassan, MICHELLE.TREAD TUBER MACHINE OPERATOR [address] [place] [address] Referring Hematology/Oncology 02/09/19 Retail Team Member Relationship Specialty Start Date End Date Kaitlin Roland MD [place] [address] PCP - General 03/22/10 Trevor Hassan APRN.TREAD TUBER MACHINE OPERATOR [address] [place] [address] Referring Hematology/Oncology 02/09/19 Retail Team Member Relationship Specialty Start Date End Date Kaitlin Roland [place] [address] [place] [address] PCP - General 03/22/10 Trevor Hassan, MEDICAL ATTENDANT.TREAD TUBER MACHINE OPERATOR [address] [place] [address] Referring Hematology/Oncology 02/09/19 Care Team (unrecognized sect ion and content) Care Team Personnel Name: KAITLIN ROLAND MD Member Role: Primary Care Physician Address: Address: [address] [address]- [place] Name: TALHA Stein Position: AO RN Member Role: ED RN Name: AYE MENSAH MD Position: ED Physician Member Role: ED Physician Address: Address: [address] [place] [address]- Name: Yovana Delgado RN Position: AO RN Member Role: ED RN Care Team Related Persons Name: SEFERINO LIMA Care Team Personnel Name: KAITLIN ROLAND MD Member Role: Primary Care Physician Address: Address: [address] [place] [address]- Name: COLTON REID MD Position: ED Physician Member Role: ED Physician Address: Address: [facility] [address] [place] [address]- [place] Care Team Related Persons Name: SEFERINO LIMA Care Team Personnel Name: FELICIA BRIGHT, CARMITAOPHER Member Role: Primary Care Physician Address: Address: [address] [facility] [address] [place] [address]- Name: MD LEYVA TIMOTHY MD Position: ED Physician Member Role: ED Physician Address: Address: [address] [place] [address]- [place] Care Team Related Persons Name: SEFERINO LIMA INFORMATION SOURCE (unrecogn ized section and content) DATE CREATED AUTHOR AUTHOR'S ORGANIZ ATION 09/18/2023 [facility] FOR RECORDS PERTAINING TO PATIENTS WHO ARE OR HAVE BEEN ENROLLED IN A CHEMICAL DEPENDENCY/SUBSTANCEABUSE PROGRAM, SOME INFORMATION MAY BE OMITTED. This clinical summary was aggregated from multiple sources. Caution should be exercised in using it in the provision of clinical care. This summary normalizes information from multiple sources, and as a consequence, information in this document may materially change the coding, format and clinical context of patient data. In addition, data may be omitted in some cases. CLINICAL DECISIONS SHOULD BE BASED ON THE PRIMARY CLINICAL RECORDS. [facility] Red [employer] provides no warranty or guarantee of the accuracy or completeness of information in this document.
== END 2024-01-31 21:26 | disposition home or self-care (01) ==
PROVIDERS: Emergency Provider Student in an Organized Health Care Education/Training Program; PCP Family Medicine; Visit Provider Student in an Organized Health Care Education/Training Program
DX: M79.601 Pain in right arm (principal); E11.9 Type 2 diabetes mellitus without complications; Z79.4 Long term (current) use of insulin; Z87.891 Personal history of nicotine dependence; Z86.718 Personal history of other venous thrombosis and embolism; E78.5 Hyperlipidemia, unspecified; I10 Essential (primary) hypertension; K21.9 Gastro-esophageal reflux disease without esophagitis; Z79.899 Other long term (current) drug therapy; Z79.890 Hormone replacement therapy; E03.9 Hypothyroidism, unspecified
CPT/HCPCS: 73080; 99282

== ENCOUNTER 2024-03-10 14:52 | Outpatient (CLI) | payer MEDICARE, SELFPAY ==
[2024-03-10 18:05] LABS: Vitamin D,25 Hydroxy 30.1 ng/mL
[2024-03-10 18:06] LABS: PTHIN 78.1 pg/mL (18.4-80.1)
[2024-03-10 19:17] LABS: Anion Gap 7 (5-15); BUN 14 mg/dL (7-18); BUN/Creat Ratio 14.7 RATIO (10-20); Calcium,Total 9.7 mg/dL (8.5-10.1); Chloride 102 mmol/L (98-107); Creatinine, Serum 0.95 mg/dL (0.55-1.02); EST Glomerular Filtration Rate 61 mL/min (>60); Est Glom Filt Rate - Afr Amer 74 mL/min (>60); Glucose 240 mg/dL (74-106); Potassium 3.3 mmol/L (3.5-5.1); Sodium Level 138 mmol/L (136-145); T4 Free Direct 1.56 ng/dL (0.76-1.46); Thyroid Stim Hormone (TSH) 0.19 uIU/mL (0.358-3.74)
[2024-03-10 22:55] LABS: Ionized Calcium Order ORDER TUBE
== END 2024-03-10 23:59 | disposition home or self-care (01) ==
LOC: MTLAB 14:53
PROVIDERS: PCP Family Medicine; Referring Provider Family Medicine; Visit Provider Family Medicine
DX: E03.9 Hypothyroidism, unspecified (principal); M81.0 Age-related osteoporosis without current pathological fracture
CPT/HCPCS: 36415; 80048; 82306; 82330; 83970; 84439; 84443

== ENCOUNTER 2024-03-20 12:52 | Outpatient (CLI) | payer MEDICARE, SELFPAY ==
[2024-03-20 13:05] VITALS: BP 168/87; PULSE 67; RESP 16; TEMP 36.7; O2SAT 99; BMI 27.2
[2024-03-20] MEDS: Zoledronic Acid 5 MG 100 ML 300 MG IV (13:11)
[2024-03-20] MEDS: 0.9% NaCl Peripheral Flush Adult/Peds IV (13:11)
[2024-03-20 13:35] VITALS: BP 160/81; PULSE 61; RESP 16
== END 2024-03-20 12:53 | disposition home or self-care (01) ==
LOC: MEDOUTP 12:53
PROVIDERS: PCP Family Medicine; Referring Provider Family Medicine; Visit Provider Family Medicine
DX: M81.0 Age-related osteoporosis without current pathological fracture (principal)
CPT/HCPCS: 96365; A4216; J3489

== ENCOUNTER → 2024-05-12 | Outpatient (CLI) | payer MEDICARE, SELFPAY ==
--- NOTE | 2024-05-12 16:38 | RAD_ITS ---
STUDY: X-RAY - RIGHT ANKLE REASON FOR EXAM: Female, 74 years old. Pain and swelling. TECHNIQUE: 3 views of the right ankle. COMPARISON: Right ankle radiographs dated 07/18/2021. FINDINGS: Normal visualized distal tibia and fibula. Normal medial and lateral malleoli. Normal tibiotalar articulation and ankle mortise. Normal visualized talus and calcaneus. The visualized subtalar, talonavicular, and calcaneocuboid. There are partially threaded cannulated screws in the midfoot and additional ORIF hardware overlying the metatarsal region. There is new soft tissue swelling around the right ankle. RAD/Ankle min 3 Views IMPRESSION: New soft tissue swelling around the right ankle. Orthopedic hardware in the midfoot/metatarsal region. Electronically Signed: Venkata Spicer MD at 12:25 EDT ,
== END | disposition home or self-care (01) ==
LOC: MTRAD 16:19
PROVIDERS: PCP Family Medicine; Referring Provider Family Medicine; Visit Provider Family Medicine
DX: R60.0 Localized edema (principal)
CPT/HCPCS: 73610

== ENCOUNTER → 2024-05-13 | Outpatient (CLI) | payer MEDICARE, SELFPAY ==
--- NOTE | 2024-05-13 10:57 | VDLE_ITS ---
Reason For Study: pain RIGHT LEFT GSV is normal. CFV is compressible, spontaneous, phasic, CFV is compressible, spontaneous, phasic, competent, and demonstrates normal competent and demonstrates normal augmentation. augmentation. FV is compressible, spontaneous, phasic, competent and demonstrates normal augmentation. POP V is compressible, spontaneous, phasic, competent and demonstrates normal augmentation. T/P Trunk is compressible. Acute deep vein thrombosis is noted in the PTV. It is dilated and NONCOMPRESSIBLE. RT PerV is compressible. Procedure This is a venous duplex using B-mode, color flow and spectral Doppler. Exam performed in department. The exam was diagnostic. A preliminary report was called and/or faxed to Dr Osuna's office , Romina Sargent RN. VL/Venous Duplex US, Unilateral Interpretation Summary Acute deep venous thrombosis right posterior tibial vein No evidence for proximal progression Patent and compressible right great saphenous vein Normal flow patterns left common femoral vein Ordering Physician: Michaela Osuna Referring Physician: Michaela Osuna Performed By: Jessie Johnson RVT
== END | disposition home or self-care (01) ==
PROVIDERS: PCP Family Medicine; Referring Provider Family Medicine; Visit Provider Family Medicine
DX: R60.0 Localized edema (principal)
CPT/HCPCS: 93971

== ENCOUNTER → 2024-08-03 | Outpatient (CLI) | payer MEDICARE, SELFPAY ==
[2024-08-03 18:36] LABS: Anion Gap 10 (5-15); BUN 12 mg/dL (7-18); BUN/Creat Ratio 12.8 RATIO (10-20); Chloride 104 mmol/L (98-107); Creatinine, Serum 0.94 mg/dL (0.55-1.02); EST Glomerular Filtration Rate 62 mL/min (>60); Est Glom Filt Rate - Afr Amer 76 mL/min (>60); Glucose 134 mg/dL (74-106); Potassium 3.9 mmol/L (3.5-5.1); Sodium Level 139 mmol/L (136-145); T4 Free Direct 1.52 ng/dL (0.76-1.46)
== END | disposition home or self-care (01) ==
LOC: MFPLAB 13:43
PROVIDERS: PCP Family Medicine; Visit Provider Family Medicine
DX: E03.9 Hypothyroidism, unspecified (principal); E11.59 Type 2 diabetes mellitus with other circulatory complications
CPT/HCPCS: 36415; 80048; 84439; 84443

== ENCOUNTER → 2024-09-14 | Outpatient (CLI) | payer MEDICARE, SELFPAY ==
--- NOTE | 2024-09-14 12:10 | BI_ITS ---
MAMMOGRAPHY - UNILATERAL SCREENING: LEFT BREAST REASON FOR EXAM: Female, 74 years old. Routine annual screening examination (unilateral). PERTINENT HISTORY: Personal history of breast cancer. Prior right mastectomy. TECHNIQUE: Digital unilateral breast jose alfredo (3D mammographic acquisition) in the CC and MLO projections. 2-D mediolateral oblique (MLO) and craniocaudad (CC) views of both breasts were obtained. CAD: Full Field Digital Mammography with Computer Added Detection was performed. COMPARISON: Comparison is made with prior study dated September 27, 2023 and September 11, 2023. FINDINGS: Breast Composition: There are scattered areas of fibroglandular density. There are no dominant masses or suspicious calcifications. Stable appearance of the left breast implant. A tissue clip marker is seen in the superior retroareolar region of the left breast. Stable dystrophic calcifications. Stable fat-containing bilateral axillary lymph nodes. No other significant abnormalities are identified. There has been no significant change since the prior study. BI/SCREEN MAMM (CAD) W/JOSE ALFREDO UNI L IMPRESSION: Stable unilateral screening mammogram. Yearly follow-up mammogram recommended. (A) ASSESSMENT CATEGORY: BIRADS Category 2: Benign. A letter regarding these results will be sent to the patient by the facility within 30 days. Approximately 10% of breast cancers are not detected by mammography. A normal mammogram should not delay biopsy of a clinically suspicious abnormality. [id number] Electronically Signed: Carlos Romero MD at 10:51 EDT ,
== END | disposition home or self-care (01) ==
LOC: OPBI 12:09
PROVIDERS: PCP Family Medicine; Referring Provider Nurse Practitioner Women's Health; Visit Provider Nurse Practitioner Women's Health
DX: Z12.31 Encounter for screening mammogram for malignant neoplasm of breast (principal)
CPT/HCPCS: 77063; 77067

== ENCOUNTER 2025-02-16 11:11 | Outpatient (CLI) | payer MEDICARE, SELFPAY ==
[2025-02-16 17:36] LABS: Cholesterol 171 mg/dL (<=200); High Density Lipoprotein 53 mg/dL; Low Density Lipoprotein Calc. 81 mg/dL; Triglycerides 183 mg/dL; Very Low Density Lipoprotein 37 mg/dL (5-40); Vitamin D,25 Hydroxy 22.5 ng/mL (30-100)
[2025-02-22 17:07] LABS: Activated Protein C Resistance 2.8 ratio (2.2-3.5); Anti-Cardiolipin Ab, IgG, Qn < 9 GPL U/mL (0-14); Anti-Cardiolipin Ab, IgM, Qn < 9 MPL U/mL (0-12); Antithrombin 3 Function 110 % (75-135); Beta-2-Glycoprotein I IgG <9 (0-20); Beta-2-Glycoprotein I IgM <9 (0-32); Dilute Russell Viper Venom 41.2 sec (0.0-47.0); Homocyst(e)ine 9.9 umol/L (0.0-19.2); Interpretation Comment: (.); PTT-Lupus Anticoagulant 30.9 sec (0.0-43.5); Protein C, Functional 117 % (73-180); Protein S, Free 96 % (61-136); dPT CONFIRMATION RATIO 1.08 Ratio (0.00-1.34)
== END 2025-02-16 23:59 | disposition home or self-care (01) ==
LOC: MTLAB 11:12
PROVIDERS: PCP Family Medicine; Referring Provider Family Medicine; Visit Provider Family Medicine
DX: E55.9 Vitamin D deficiency, unspecified (principal); I82.409 Acute embolism and thrombosis of unspecified deep veins of unspecified lower extremity
CPT/HCPCS: 36415; 80061; 81240; 81241; 82306; 83090; 85300; 85303; 85307; 85420; 85613; 85705; 85732

== ENCOUNTER → 2025-02-24 | Outpatient (CLI) | payer MEDICARE, SELFPAY ==
[2025-02-24 18:16] LABS: Free T3 2.7 pg/mL (2.18-3.98)
== END | disposition home or self-care (01) ==
LOC: MTLAB 14:14
PROVIDERS: PCP Family Medicine; Referring Provider Family Medicine; Visit Provider Family Medicine
DX: E03.9 Hypothyroidism, unspecified (principal)
CPT/HCPCS: 84439; 84443; 84481

== ENCOUNTER → 2025-04-06 | Outpatient (CLI) | payer MEDICARE, SELFPAY | END | disposition home or self-care (01) | LOC: MTLAB 14:09 | PROVIDERS: PCP Family Medicine; Referring Provider Family Medicine; Visit Provider Family Medicine | DX: E03.9 Hypothyroidism, unspecified (principal) | CPT/HCPCS: 36415; 84439; 84443 ==

== ENCOUNTER → 2025-09-30 | Outpatient (CLI) | payer MEDICARE, SELFPAY ==
--- NOTE | 2025-09-30 14:45 | BI_ITS ---
EXAM: SCREEN MAMM (CAD) W/JOSE ALFREDO UNI L DATE: 09/30/2025 CLINICAL HISTORY: F, Age 75 y/o , SCREENING TECHNIQUE: Procedure Code: [id number] Modality: MG Procedure: SCREEN MAMM (CAD) W/JOSE ALFREDO UNI L COMPARISON: Prior exam(s) were compared FINDINGS: TISSUE DENSITY: There are scattered areas of fibroglandular density. Unilateral Left Breast Mammographic Findings: No significant masses, calcifications or other abnormalities are identified. Left breast implant is present. BI/SCREEN MAMM (CAD) W/JOSE ALFREDO UNI L IMPRESSION: No mammographic evidence of malignancy in the left breast. OVERALL FINAL ASSESSMENT BI-RADS 2: BENIGN RECOMMENDATION: Routine annual follow-up in 1 Year Additional Recommendation none A letter with findings and recommendations will be mailed to the patient. Reading Location: [id number]
== END | disposition home or self-care (01) ==
PROVIDERS: PCP Family Medicine; Referring Provider Family Medicine; Visit Provider Family Medicine
DX: Z12.31 Encounter for screening mammogram for malignant neoplasm of breast (principal)
CPT/HCPCS: 77063; 77067